=== PATIENT | female | born 1950 | race Caucasian/White ===

== ENCOUNTER 2017-01-21 18:16 | Emergency (ER) | payer BC, MEDICARE, OTHER ==
[~2017-01-21] VITALS: Ht 152.4 cm; Wt 43.0 kg
[~2017-01-21 18:16] MED LIST: LISI40TA PO
[2017-01-21 18:17] VITALS: BP 148/68; PULSE 87; RESP 20; TEMP 98.8; O2SAT 94
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
[2017-01-21] MEDS ORDERED: CEPH-460 PO (18:42)
[2017-01-21] MEDS ORDERED: LISI-515 PO (18:42)
[2017-01-21] MEDS ORDERED: BACT800T5 PO (18:42)
[2017-01-21] MEDS ORDERED: CEPHALEXIN MONOHYDRATE 500 MG CAP PO ONE (18:45)
[2017-01-21] MEDS ORDERED: SULFAMETHOXAZOLE-TRIMETHOPRIM DS 800-160 MG TAB PO ONE (18:45)
== END 2017-01-21 19:08 | disposition home or self-care (01) ==
LOC: NEPK 18:16
DX: L03.116 Cellulitis of left lower limb (principal); I10 Essential (primary) hypertension; Z72.0 Tobacco use
CPT/HCPCS: 99282

== ENCOUNTER 2017-02-10 14:52 | Emergency (ER) | payer MEDICARE ==
[~2017-02-10 14:52] MED LIST changes: +BACT800T5 PO; +CEPH-460 PO; +LISI-515 PO
[2017-02-10 14:55] VITALS: BP 126/64; PULSE 74; RESP 16; TEMP 97.9; O2SAT 98
--- NOTE | 2017-02-10 14:58 | PD ---
Physical Exam Time Seen by Provider: 14:56 Narrative 66 y/o female presents for evaluation of "not feeling good." The patient then began screaming and shrieking and calling everyone "liars" and she stormed out. Left AMA. Unclear as to what her chief complaint is. Data Data Last Documented VS Vital Signs Date Time Temp Pulse Resp B/P Pulse Ox O2 Delivery O2 Flow Rate FiO2 02/10/17 14:55 97.9 74 16 126/64 98 MDM Medical Record Reviewed: Yes Supervised Visit with YING: Rachid Villarreal February 10, 2017 14:58
== END 2017-02-10 15:12 | disposition left against medical advice (07) ==
LOC: NED 14:52
DX: F32.9 Major depressive disorder, single episode, unspecified (principal); R45.851 Suicidal ideations; Z53.20 Procedure and treatment not carried out because of patient's decision for unspecified reasons
CPT/HCPCS: 99282

== ENCOUNTER 2017-02-10 15:22 | Emergency (ER) | payer MEDICARE ==
--- NOTE | 2017-02-10 15:28 | PD ---
Physical Exam Time Seen by Provider: 15:26 Narrative 66 y/o female here for evaluation. She has been feeling depressed, worthless, occasional thoughts of self harm with no formulated plan. Seen at triage desk. awaiting bed placement. [facility] Medical Record Reviewed: Yes Supervised Visit with YING: Rachid Villarreal February 10, 2017 15:28
== END 2017-02-10 15:50 | disposition left against medical advice (07) ==
LOC: NED 15:22
DX: F32.9 Major depressive disorder, single episode, unspecified (principal); R45.851 Suicidal ideations; Z53.20 Procedure and treatment not carried out because of patient's decision for unspecified reasons
CPT/HCPCS: 99282

== ENCOUNTER 2017-02-23 14:45 | Emergency (ER) | payer MEDICARE ==
[~2017-02-23] VITALS: Ht 157.5 cm; Wt 55.0 kg
[2017-02-23 15:10] VITALS: BP 122/77; PULSE 76; RESP 13; O2SAT 95
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
[2017-02-23 16:07] LABS: AUTOMATED NEUTROPHIL # 4.1 TH/MM3 (1.8-7.7); BASOPHIL # 0.1 TH/MM3 (0-0.2); BASOPHIL % 0.8 % (0.0-2.0); EOSINOPHIL # 0.1 TH/MM3 (0-0.4); EOSINOPHIL % 1.8 % (0.0-4.0); HEMATOCRIT 38.1 % (35.0-46.0); HEMO FLAGS DIFF FINAL; LYMPHOCYTE # 3.2 TH/MM3 (1.0-4.8); MEAN CELL VOLUME 91.9 FL (80.0-100.0); MEAN CORPUSCULAR HGB CONC 33.8 % (32.0-36.0); MONO % 7.6 % (0.0-8.0); NEUT % 50.8 % (16.0-70.0); PLATELET COUNT 219 TH/MM3 (150-450); RED BLOOD COUNT 4.15 MIL/MM3 (4.00-5.30); RED CELL DISTRIBUTION WIDTH 15.2 % (11.6-17.2); WHITE BLOOD COUNT 8.1 TH/MM3 (4.0-11.0)
[2017-02-23 16:20] VITALS: BP 95/55; PULSE 81; RESP 12; TEMP 97.8; O2SAT 98
[2017-02-23 16:34] LABS: ANION GAP 11 MEQ/L (5-15); AST (GOT) 81 U/L (15-37); BLOOD UREA NITROGEN 13 MG/DL (7-18); CHLORIDE 103 MEQ/L (98-107); GLOMERULAR FILTRATION RATE 111 ML/MIN (>89); POTASSIUM 3.9 MEQ/L (3.5-5.1); SODIUM (NA) 137 MEQ/L (136-145)
[2017-02-23 16:37] LABS: ACETAMINOPHEN LESS THAN 2.0 MCG/ML (10.0-30.0); ALKALINE PHOSPHATASE 87 U/L (45-117); ALT (GPT) 73 U/L (10-53); TOTAL BILIRUBIN ADULT 0.1 MG/DL (0.2-1.0)
[2017-02-23] MEDS ORDERED: FLUMAZENIL 0.5 MG/5 ML VIAL IV PUSH PRN (17:00)
[2017-02-23] MEDS ORDERED: LORazepam 2 MG/ML VIAL IV PUSH PRN ×4 (17:00)
[2017-02-23] MEDS ORDERED: LORazepam 2 MG TAB PO PRN (17:00)
[2017-02-23] MEDS ORDERED: LORazepam 1 MG TAB PO PRN (17:00)
[2017-02-23] MEDS ORDERED: ONDANSETRON HCL 4 MG/2 ML VIAL IV PUSH PRN (17:00)
[2017-02-23 20:40] VITALS: BP 116/55; PULSE 78; RESP 18; O2SAT 94
[2017-02-23 21:23] LABS: AMPHETAMINE, URINE NEG (NEG); BARBITURATES, URINE NEG (NEG); COCAINE, URINE NEG (NEG)
[2017-02-23 22:00] VITALS: BP 124/58; PULSE 79; RESP 18; O2SAT 96
[2017-02-24 02:18] VITALS: BP 155/77; PULSE 73; RESP 18; O2SAT 98
[2017-02-24 06:00] VITALS: BP 184/96; PULSE 73; RESP 18; O2SAT 97
--- NOTE | 2017-02-24 13:38 | PD.CONS ---
Provisional Diagnosis Admission Date [place] I. Alcohol induced mood disorder, alcohol use disorder [place] II. Deferred [place] III. No significant medical history History of Present Illness Service Psychiatry Consult Requested By Primary Care Physician Ratna Patricia MD HPI The patient is a 66-year-old woman, domiciled with boyfriend in [place], employed, with psychiatric history of alcohol use disorder, well- known by service, Wilder acted before, no previous suicidal attempts, no previous psychiatric hospitalizations, no significant medical history, who presents to the ED for psychiatric evaluation under Wilder act. Patient apparently was found drinking wine and she made suicidal statements. Patient appears to be clearly intoxicated on exam. She is arousable but she is not a good historian secondary to her intoxication. Initial BAL was 366. Later on, once clinical is sober, on psychiatric evaluation patient denies depressive symptoms, she denies anxiety, she denies perceptual disturbances, she denies benji. She denies suicidal or homicidal ideation, she denies visual and auditory hallucinations. She clarifies that she was too intoxicated to go back home last night, she preferred to to come to hospital and feel safe her. Patient is now oriented 3, no attention deficit observe, no withdrawal or intoxication at this moment. Patient denies the use of illegal drugs, she endorses patient her use of alcohol, last time that she used alcohol "was about a year ago". Review of Systems Constitutional: DENIES: Diaphoretic episodes, Fatigue, Fever, Weight gain, Weight loss, Chills, Dizziness, Change in appetite, Night Sweats Endocrine: DENIES: Abnorml menstrual pattern, Heat/cold intolerance, Polydipsia , Polyuria, Polyphagia Eyes: DENIES: Blurred vision, Diplopia, Eye inflammation, Eye pain, Vision loss , Photosensitivity, Double Vision Ears, nose, mouth, throat: DENIES: Tinnitus, Hearing loss, Vertigo, Nasal discharge, Oral lesions, Throat pain, Hoarseness, Ear Pain, Running Nose, Epistaxis, Sinus Pain, Toothache, Odynophagia Respiratory: DENIES: Apneas, Cough, Snoring, Wheezing, Hemoptysis, Sputum production, Shortness of breath Cardiovascular: DENIES: Chest pain, Palpitations, Syncope, Dyspnea on Exertion , PND, Lower Extremity Edema, Orthopnea, Claudication Gastrointestinal: DENIES: Abdominal pain, Black stools, Bloody stools, Constipation, Diarrhea, Nausea, Vomiting, Difficulty Swallowing, Anorexia Musculoskeletal: DENIES: Joint pain, Muscle aches, Stiffness, Joint Swelling, Back pain, Neck pain Integumentary: DENIES: Abnormal pigmentation, Pruritus, Rash, Nail changes, Breast masses, Breast skin changes, Nipple discharge Immunologic/allergic: DENIES: Eczema, Urticaria Neurologic: DENIES: Abnormal gait, Headache, Localized weakness, Paresthesias, Seizures, Speech Problems, Tremor, Poor Balance Psychiatric: DENIES: Anxiety, Confusion, Mood changes, Depression, Hallucinations, Agitation, Suicidal Ideation, Homicidal Ideation, Delusions Past Family Social History Coded Allergies: Novocain (Verified Allergy, Severe, Anaphylaxis, 02/23/17) Active Scripts Lisinopril 20 Mg Tab20 Mg PO DAILY #30 TAB Ref 0 Prov:Lissette Aldana 01/21/17 Discontinued Scripts Cephalexin (Keflex)500 Mg Opt549 Mg PO Q12H 10 Days Ref 0 Prov:Lissette Aldana 01/21/17 Sulfamethoxazole-Trimethoprim (Bactrim DS)800-160 Mg Tab1 Tab PO BID #20 TAB Ref 0 Prov:Lissette Aldana 01/21/17 Family History Patient denies family psychiatric history Social History Patient was born and raised in [place], she lives in [place] with boyfriend, she is unemployed, highest level of education is high school Patient's Strengths (min. 2) Verbal communication Physical Exam On physical exam no EPS, no withdrawal, no tremors, no psychomotor agitation or retardation, no restlessness, no red sclerae, presents Vital Signs Vital Signs Date Time Temp Pulse Resp B/P Pulse Ox O2 Delivery O2 Flow Rate FiO2 02/24/17 06:00 73 18 184/96 97 Room Air 02/23/17 16:20 97.8 Lab Results Toxicology is negative, BAL was 366 Mental Status Examination Appearance Elderly woman, age appearing, [facility], calm, cooperative and pleasant Speech: Unremarkable Orientation: x3 Memory: Unremarkable Thought Process: Logical Thought Content: Unremarkable Language Fluid and spontaneous Fund of Knowledge Adequate for level of education Hallucination Type: None Suicidal Ideation: No Previous Suicide Attempts: No Homicidal Ideation: No Previous Homicide Attempts: No Judgment: WNL Affect: Good Mood: Appropriate Motor Activity: Normal gait Assessment & Plan Problem List: (1) Alcohol abuse with alcohol-induced mood disorder Assessment & Plan: At the moment of this evaluation the patient does not present any evidence of depression, anxiety, benji or psychosis. Patient denies suicidal ideation, she denies visual and auditory hallucinations. Recent suicidal statement to the police in the street was definitely secondary to acute alcohol intoxication, on arrival to the ER patient BAL was 366 meaning the patient was severely intoxicated. But now she is clinically sober. She does not meet criteria for psychiatric admission. She declines to be transferred to [facility] for detox. Extensive support, motivation psycho education provided. Wilder act will be lifted. ICD Code: F10.14 Assessment & Plan Estimated LOS: Preet Boyce MD February 24, 2017 13:38
== END 2017-02-24 09:57 | disposition home or self-care (01) ==
LOC: NEPJ 14:45
DX: F10.129 Alcohol abuse with intoxication, unspecified (principal); F33.1 Major depressive disorder, recurrent, moderate; J45.909 Unspecified asthma, uncomplicated; F31.9 Bipolar disorder, unspecified; F41.9 Anxiety disorder, unspecified; K21.9 Gastro-esophageal reflux disease without esophagitis; I10 Essential (primary) hypertension; I25.2 Old myocardial infarction
CPT/HCPCS: 80053; 80307; 85025; 99285

== ENCOUNTER 2017-02-24 17:20 | Emergency (ER) | payer MEDICARE | END 2017-02-24 17:35 | disposition left against medical advice (07) | LOC: NED 17:20 | DX: Z03.89 Encounter for observation for other suspected diseases and conditions ruled out (principal) | CPT/HCPCS: 99281 ==

== ENCOUNTER 2017-02-26 16:12 | Emergency (ER) | payer MEDICARE ==
[~2017-02-26] VITALS: Ht 157.5 cm; Wt 60.0 kg
[~2017-02-26 16:12] MED LIST changes: -BACT800T5 PO; -CEPH-460 PO; -LISI40TA PO
[2017-02-26 16:17] VITALS: BP 117/60; PULSE 84; RESP 18; TEMP 98.1; O2SAT 97
--- NOTE | 2017-02-26 16:20 | PD ---
Physical Exam Time Seen by Provider: 16:18 Narrative 66yo F arrives via [facility] asking for help with her psych issues and ETOH abuse. Yadiel mckeon called of concern when she was found sleeping on a park bench. Patient seen in triage. Awaiting bed placement. VS reviewed. MDM Supervised Visit with YING: Ligia Cuenca February 26, 2017 16:20
== END 2017-02-26 16:24 | disposition left against medical advice (07) ==
LOC: NETRI 16:12
DX: R46.89 Other symptoms and signs involving appearance and behavior (principal); F10.10 Alcohol abuse, uncomplicated
CPT/HCPCS: 99281

== ENCOUNTER 2017-02-26 19:56 | Emergency (ER) | payer MEDICARE ==
[~2017-02-26] VITALS: Ht 152.4 cm; Wt 45.0 kg
[2017-02-26 19:57] VITALS: BP 134/88; PULSE 67; RESP 16; TEMP 98.5; O2SAT 100
== END 2017-02-26 23:00 | disposition left against medical advice (07) ==
LOC: NED 19:56
DX: Z53.21 Procedure and treatment not carried out due to patient leaving prior to being seen by health care provider (principal)
CPT/HCPCS: 99281

== ENCOUNTER 2017-03-01 23:22 | Emergency (ER) | payer MEDICARE, OTHER ==
[2017-03-02 00:12] VITALS: BP 140/72; PULSE 81; RESP 18; TEMP 98.6; O2SAT 95
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
[2017-03-02 02:23] VITALS: BP 114/58; PULSE 102; RESP 20; O2SAT 95
[2017-03-02 06:03] VITALS: BP 151/91; PULSE 82; RESP 18; O2SAT 99
[2017-03-02 13:27] VITALS: BP 160/80; PULSE 85; RESP 18; O2SAT 97
--- NOTE | 2017-03-02 13:35 | PD ---
History of Present Illness Chief Complaint: Psychiatric Symptoms Time Seen by Provider: 13:15 Travel History International Travel<30 Days: No Contact w/Intl Traveler<30days: No Known affected area: No Legal Status Legal Status: Wilder Act History of Present Illness: History of Present Illness HPI 66-year-old female with long-standing history of alcohol abuse, presents to the emergency department today under a Wilder act for psychiatric evaluation. Patient states that she told police that she wanted to kill herself. As per ed documentation: " Patient states that this time she is not suicidal or homicidal. States she has been drinking alcohol. " EMR is reviewed. She is known to psychiatry services as she has had several evaluations for reported suicidal ideation while intoxicated. This morning the patient is alert and oriented. She is clinically sober. Speech is clear, logical and goal directed. There is no benji. No psychosis and no significant depression or anxiety. She denies any suicidal or homicidal ideation, intent or plan. Patient is requesting to be discharged and states " I was drinking when I approached the police" States that she has been sober for 3 years and has started drinking again about one week ago. Stressors include her loosing her dog a few weeks ago. Iván is refusing to be transferred to [facility] for treatment of her substance use. PFSH Past Medical History Anemia: Yes Arthritis: Yes Asthma: Yes Autoimmune Disease: No Bipolar Disorder: Yes Anxiety: Yes Depression: Yes Heart Rhythm Problems: No Cancer: No Cardiovascular Problems: Yes (htn) High Cholesterol: No Chest Pain: Yes Congestive Heart Failure: No Cerebrovascular Accident: No Diabetes: No Diminished Hearing: No Gastrointestinal Disorders: Yes GERD: Yes Genitourinary: No Headaches: No Hiatal Hernia: No Hypertension: Yes Immune Disorder: No Implanted Vascular Access Dvce: No Insomnia: Yes Musculoskeletal: No Neurologic: Yes Psychiatric: Yes Reproductive: Yes Respiratory: No Integumentary: Yes (INSECT BITES) Immunizations Current: Yes Migraines: No Myocardial Infarction: Yes (PER HX) Pneumonia: Yes (PER HX) Schizophrenia: Yes Seizures: Yes (FROM ETOH WITHDRAWAL) Thyroid Disease: No Ulcer: Yes (PER HX) Menopausal: Yes : 1 Para: 1 Miscarriage: 0 : 0 Ovarian Cysts: Yes (PER HX...RIGHT OVARIAN CYST REMOVAL) Tubal Ligation: Yes Past Surgical History Abdominal Surgery: No AICD: No Arteriovenous Shunt: No Cardiac Surgery: No Endocrine Surgery: No Eye Surgery: No Genitourinary Surgery: No Gynecologic Surgery: Yes Insulin Pump: No Joint Replacement: No Neurologic Surgery: No Oral Surgery: No Pacemaker: No Thoracic Surgery: No Tonsillectomy: Yes Other Surgery: Yes Psychiatric History Psychiatric History Hx Psychiatric Treatment: PER [facility] RECORDS: DEPRESSION History of Inpatient Treatment: Yes Guns or firearms in home: No Social History Single female. Lives on her boat. 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 Hx Alcohol Use: Yes (RARELY ) Hx Tobacco Use: Yes (1/2PPD) Hx Substance Use: Yes Substance Use Type: Alcohol Other Substances Used: SUBSTANCE ABUSE TREATMENT Hx of Substance Use Treatment: Yes Family Psychiatric History negative Allergies-Medications (Allergen,Severity, Reaction): Coded Allergies: Novocain (Verified Allergy, Severe, Anaphylaxis, 02/26/17) Reported Meds & Prescriptions Reported Meds & Active Scripts Active Review of Systems Except as stated in HPI: all other systems reviewed are Neg Exam Alert: Yes [place]: Person (ox4) Mood: Calm Affect: Appropriate, Euthymic Speech: Clear, Logical Eye Contact: Normal Memory Intact: Comment (No impairmetn) Hallucinations: Other (neagtive) Delusions: No Suicidal: Ideation (deneis any) Homicidal: Ideation (deneis any) Insight/Judgement Fair. Not impaired MDM Medical Decision Making Medical Record Reviewed: Yes Assessment/Plan 66 year old female who has a hx of alcohol abuse and while intoxicated she approached [facility] and asked to be brought to the hospital. She is clinically sober now and is denying any suicidal or homicidal ideation, intent or plan . She is requesting discharge. Cleared from psychiatry for discharge. Encouraged sobriety, AA. Orders Psych Screen (03/02/17 00:24) Diet Regular Basic (03/02/17 Lunch) Results Vital Signs Date Time Temp Pulse Resp B/P Pulse Ox O2 Delivery O2 Flow Rate FiO2 03/02/17 13:27 85 18 160/80 97 Room Air 03/02/17 06:03 82 18 151/91 99 03/02/17 02:23 102 20 114/58 95 Room Air 03/02/17 00:13 81 18 03/02/17 00:12 98.6 81 18 140/72 95 Diagnosis Primary Impression: Alcohol dependence Psychiatrically Cleared: Yes Med/ Other Pt Specific Info: No Meds Exist/No RX given Disposition: 01 DISCHARGE HOME Condition: Stable Problem Qualifiers Primary Impression: Alcohol dependence Qualified Code: F10.24 - Alcohol dependence with alcohol-induced mood disorder Aisha Win [facility] March 02, 2017 13:35
[2017-03-02 13:50] VITALS: BP 160/80; PULSE 85; RESP 18; O2SAT 97
[2017-03-03] MEDS ORDERED: LISI-515 PO (19:17)
== END 2017-03-02 15:22 | disposition home or self-care (01) ==
LOC: NEPD 23:22 → NEPJ 03-02 15:22
DX: F10.14 Alcohol abuse with alcohol-induced mood disorder (principal); I10 Essential (primary) hypertension; F31.9 Bipolar disorder, unspecified; K21.9 Gastro-esophageal reflux disease without esophagitis; F20.9 Schizophrenia, unspecified; I25.2 Old myocardial infarction; F17.210 Nicotine dependence, cigarettes, uncomplicated
CPT/HCPCS: 99283

== ENCOUNTER 2017-03-03 19:10 | Emergency (ER) | payer MEDICARE, OTHER ==
[~2017-03-03] VITALS: Ht 152.4 cm; Wt 42.0 kg
[2017-03-03] MEDS ORDERED: LISI-515 PO (19:17)
[2017-03-03 19:25] VITALS: RESP 18; O2SAT 92
[2017-03-03 19:27] VITALS: BP 115/76; PULSE 86; RESP 18; O2SAT 94
[2017-03-03] MEDS ORDERED: SODIUM CHLOR 0.9% 1000 ML INJ 1,000 ML IV ONE (19:30)
[2017-03-03] MEDS ORDERED: SODIUM CHLORIDE 0.9% FLUSH 10 ML FLUSH IVF PRN (19:30)
--- NOTE | 2017-03-03 19:33 | PD ---
HPI Chief Complaint: Pain: Acute or Chronic Time Seen by Provider: 19:16 Travel History International Travel<30 days: No Contact w/Intl Traveler<30days: No Traveled to known affect area: No History of Present Illness HPI Patient is a 66-year-old female with history of alcoholism as well as hypertension who presents to emergency room by EMS for multiple complaints. Patient reports that 1 hour prior to coming to the emergency room, she began to have left sided chest pain. Patient reports that her chest pain is sharp and stabbing in nature, reports that it hurts for her to take a deep breath and for her to palpate her chest wall. Patient reports no shortness of breath with symptoms, denies diaphoresis, that she has never had chest pain in the past. She reports that nothing makes her symptoms better or worse. She denies any use of drugs, reports that she did not use any alcohol today. Patient also here under Wilder act, patient informed police officers that she wanted to kill herself by taking machete and stabbing herself in the abdomen. Patient here denies suicidal or homicidal ideations. PFSH Past Medical History Anemia: Yes Arthritis: Yes Asthma: Yes Autoimmune Disease: No Bipolar Disorder: Yes Anxiety: Yes Depression: Yes Heart Rhythm Problems: No Cancer: No Cardiovascular Problems: Yes (HTN) High Cholesterol: No Chest Pain: Yes Congestive Heart Failure: No Cerebrovascular Accident: No Diabetes: No Diminished Hearing: No Gastrointestinal Disorders: Yes GERD: Yes Genitourinary: No Headaches: No Hiatal Hernia: No Hypertension: Yes Immune Disorder: No Implanted Vascular Access Dvce: No Insomnia: Yes Musculoskeletal: No Neurologic: Yes Psychiatric: Yes Reproductive: Yes Respiratory: No Integumentary: Yes (INSECT BITES) Immunizations Current: Yes Migraines: No Myocardial Infarction: Yes (PER HX) Pneumonia: Yes (PER HX) Schizophrenia: Yes Seizures: Yes (FROM ETOH WITHDRAWAL) Thyroid Disease: No Ulcer: Yes (PER HX) Influenza Vaccination: No ?: Not Menopausal: Yes : 1 Para: 1 Miscarriage: 0 : 0 Ovarian Cysts: Yes (PER HX...RIGHT OVARIAN CYST REMOVAL) Tubal Ligation: Yes Past Surgical History Abdominal Surgery: No AICD: No Arteriovenous Shunt: No Cardiac Surgery: No Endocrine Surgery: No Eye Surgery: No Genitourinary Surgery: No Gynecologic Surgery: Yes Insulin Pump: No Joint Replacement: No Neurologic Surgery: No Oral Surgery: No Pacemaker: No Thoracic Surgery: No Tonsillectomy: Yes Other Surgery: Yes Social History Alcohol Use: Yes (OCCASSIONALLY) Tobacco Use: Yes (1/2 PPD) Substance Use: No (HX) Allergies-Medications (Allergen,Severity, Reaction): Coded Allergies: Novocain (Verified Allergy, Severe, Anaphylaxis, 03/03/17) Reported Meds & Prescriptions Reported Meds & Active Scripts Active Reported Lisinopril 20 Mg Tab 20 Mg PO DAILY Review of Systems General / Constitutional: No: Fever Eyes: No: Visual changes HENT: No: Headaches Cardiovascular: Positive: Chest Pain or Discomfort, Palpitations, No: Irregular Rhythm, Tachycardia, Diaphoresis, Dyspnea on exertion Respiratory: Positive: Cough, No: Shortness of Breath Gastrointestinal: No: Abdominal Pain Genitourinary: No: Dysuria Musculoskeletal: No: Pain Skin: No Rash Neurologic: No: Weakness Psychiatric: Positive: Anxiety, Depression, Suicidal Ideations, Substance Abuse Endocrine: No: Polydipsia Hematologic/Lymphatic: No: Easy Bruising Physical Exam Narrative GENERAL: Mild distress SKIN: Focused skin assessment warm/dry. HEAD: Atraumatic. Normocephalic. EYES: Pupils equal and round. No scleral icterus. No injection or drainage. ENT: No nasal bleeding or discharge. Mucous membranes pink and moist. NECK: Trachea midline. No JVD. CARDIOVASCULAR: Regular rate and rhythm. No murmur appreciated. RESPIRATORY: No accessory muscle use. Scattered wheezing on exam GASTROINTESTINAL: Abdomen soft, non-tender, nondistended. Hepatic and splenic margins not palpable. MUSCULOSKELETAL: No obvious deformities. No clubbing. No cyanosis. No edema. NEUROLOGICAL: Awake and alert. No obvious cranial nerve deficits. Motor grossly within normal limits. Normal speech. PSYCHIATRIC: Appropriate mood and affect; insight and judgment normal. Data Data Last Documented VS Vital Signs Date Time Temp Pulse Resp B/P Pulse Ox O2 Delivery O2 Flow Rate FiO2 03/03/17 23:06 94 19 128/64 94 Room Air 03/03/17 21:29 2 Orders Complete Blood Count With Diff (03/03/17 19:22) Comprehensive Metabolic Panel (03/03/17 19:22) Thyroid Stimulating Hormone (03/03/17 19:22) Urinalysis - C+S If Indicated (03/03/17 19:22) Electrocardiogram (03/03/17 19:22) Oximetry (03/03/17 19:22) Iv Access Insert/Monitor (03/03/17 19:22) Ecg Monitoring (03/03/17 19:22) Psych Screen (03/03/17 19:22) Sodium Chloride 0.9% Flush (Ns Flush) (03/03/17 19:30) Drug Screen, Random Urine (03/03/17 19:22) Alcohol (Ethanol) (03/03/17 19:22) Salicylates (Aspirin) (03/03/17 19:22) Tylenol (Acetaminophen) (03/03/17 19:22) Ckmb (Isoenzyme) Profile (03/03/17 19:22) D-Dimer (03/03/17 19:22) Troponin I (03/03/17 19:22) Chest, Single Ap (03/03/17 19:22) Sodium Chlor 0.9% 1000 Ml Inj (Ns 1000 M (03/03/17 19:30) Methylprednisolone So Succ Inj (Solumedr (03/03/17 19:45) Albuterol-Ipratropium Neb (Duoneb Neb) (03/03/17 19:45) Ct Pulmonary Angiogram (03/03/17 20:22) Iohexol 350 Inj (Omnipaque 350 Inj) (03/03/17 22:11) Labs Laboratory Tests Test 03/03/17 03/03/17 19:29 19:37 White Blood Count 6.9 TH/MM3 Red Blood Count 4.37 MIL/MM3 Hemoglobin 13.8 GM/DL Hematocrit 39.8 % Mean Corpuscular Volume 91.3 FL Mean Corpuscular Hemoglobin 31.6 PG Mean Corpuscular Hemoglobin 34.7 % Concent Red Cell Distribution Width 15.8 % Platelet Count 250 TH/MM3 Mean Platelet Volume 6.8 FL Neutrophils (%) (Auto) 49.8 % Lymphocytes (%) (Auto) 40.4 % Monocytes (%) (Auto) 6.5 % Eosinophils (%) (Auto) 2.6 % Basophils (%) (Auto) 0.7 % Neutrophils # (Auto) 3.4 TH/MM3 Lymphocytes # (Auto) 2.8 TH/MM3 Monocytes # (Auto) 0.5 TH/MM3 Eosinophils # (Auto) 0.2 TH/MM3 Basophils # (Auto) 0.0 TH/MM3 CBC Comment DIFF FINAL Differential Comment D-Dimer Quantitative (PE/DVT) 0.50 MG/L FEU Sodium Level 140 MEQ/L Potassium Level 4.4 MEQ/L Chloride Level 105 MEQ/L Carbon Dioxide Level 26.6 MEQ/L Anion Gap 8 MEQ/L Blood Urea Nitrogen 17 MG/DL Creatinine 0.73 MG/DL Estimat Glomerular Filtration 80 ML/MIN Rate Random Glucose 91 MG/DL Calcium Level 8.3 MG/DL Total Bilirubin 0.2 MG/DL Aspartate Amino Transf 63 U/L (AST/SGOT) Alanine Aminotransferase 64 U/L (ALT/SGPT) Alkaline Phosphatase 102 U/L Total Creatine Kinase 45 U/L Troponin I LESS THAN 0.02 NG/ML Total Protein 7.7 GM/DL Albumin 3.5 GM/DL Thyroid Stimulating Hormone 2.530 uIU/ML 3rd Gen Salicylates Level 2.1 MG/DL Acetaminophen Level LESS THAN 2.0 MCG/ML Ethyl Alcohol Level 296 MG/DL Urine Color YELLOW Urine Turbidity CLEAR Urine pH 6.0 Urine Specific [place] 1.012 Urine Protein NEG mg/dL Urine Glucose (UA) NEG mg/dL Urine Ketones NEG mg/dL Urine Occult Blood NEG Urine Nitrite NEG Urine Bilirubin NEG Urine Urobilinogen LESS THAN 2.0 MG/DL Urine Leukocyte Esterase NEG Urine RBC 1 /hpf Urine WBC 3 /hpf Urine Squamous Epithelial <1 /hpf Cells Urine Hyaline Casts 9 /lpf Microscopic Urinalysis Comment CULT NOT INDICATED Urine Opiates Screen NEG Urine Barbiturates Screen NEG Urine Amphetamines Screen NEG Urine Benzodiazepines Screen NEG Urine Cocaine Screen NEG Urine Cannabinoids Screen NEG [facility] Medical Decision Making Medical Screen Exam Complete: Yes Emergency Medical Condition: Yes Interpretation(s) EKG at 192: Normal sinus rhythm at 87 beats a minute, QT/QTC 374/419, no acute ST or T-wave changes Vital Signs Date Time Temp Pulse Resp B/P Pulse Ox O2 Delivery O2 Flow Rate FiO2 03/03/17 19:27 18 94 Nasal Cannula 2 03/03/17 19:27 86 18 115/76 94 Nasal Cannula 2 03/03/17 19:25 18 92 Room Air 03/03/17 19:18 86 Differential Diagnosis Alcohol abuse, ACS, arrhythmia, PE, pneumonia, suicidal ideations, depression, tobacco abuse, COPD exacerbation Narrative Course 66-year-old female who presents to emergency with multiple complaints. Patient reports that 1 hour prior to coming to the emergency room she began to have chest pain. Patient reports left sided chest pain which is sharp and stabbing in nature. Patient was placed on a manager monitoring upon arrival to the emergency room. EKG was obtained which showed no acute ST or T-wave changes. Plan to obtain lab work including cardiac enzymes and basic blood work, x-ray of the chest ordered. We'll monitor patient on manager monitoring. Patient also here under Wilder act, patient reported to police officers today that she wanted to take machete and stab herself in the abdomen to kill herself. Patient at this time denies this, psychiatric screening labs including alcohol, Tylenol and aspirin level ordered. Once medically cleared, will have patient seen by psych screeners. Laboratory Tests Test 03/03/17 03/03/17 19:29 19:37 White Blood Count 6.9 TH/MM3 (4.0-11.0) Red Blood Count 4.37 MIL/MM3 (4.00-5.30) Hemoglobin 13.8 GM/DL (11.6-15.3) Hematocrit 39.8 % (35.0-46.0) Mean Corpuscular Volume 91.3 FL (80.0-100.0) Mean Corpuscular Hemoglobin 31.6 PG (27.0-34.0) Mean Corpuscular Hemoglobin 34.7 % Concent (32.0-36.0) Red Cell Distribution Width 15.8 % (11.6-17.2) Platelet Count 250 TH/MM3 (150-450) Mean Platelet Volume 6.8 FL (7.0-11.0) Neutrophils (%) (Auto) 49.8 % (16.0-70.0) Lymphocytes (%) (Auto) 40.4 % (9.0-44.0) Monocytes (%) (Auto) 6.5 % (0.0-8.0) Eosinophils (%) (Auto) 2.6 % (0.0-4.0) Basophils (%) (Auto) 0.7 % (0.0-2.0) Neutrophils # (Auto) 3.4 TH/MM3 (1.8-7.7) Lymphocytes # (Auto) 2.8 TH/MM3 (1.0-4.8) Monocytes # (Auto) 0.5 TH/MM3 (0-0.9) Eosinophils # (Auto) 0.2 TH/MM3 (0-0.4) Basophils # (Auto) 0.0 TH/MM3 (0-0.2) CBC Comment DIFF FINAL Differential Comment D-Dimer Quantitative (PE/DVT) 0.50 MG/L FEU (0.00-0.50) Sodium Level 140 MEQ/L (136-145) Potassium Level 4.4 MEQ/L (3.5-5.1) Chloride Level 105 MEQ/L (98-107) Carbon Dioxide Level 26.6 MEQ/L (21.0-32.0) Anion Gap 8 MEQ/L (5-15) Blood Urea Nitrogen 17 MG/DL (7-18) Creatinine 0.73 MG/DL (0.50-1.00) Estimat Glomerular Filtration 80 ML/MIN (>89) Rate Random Glucose 91 MG/DL (74-106) Calcium Level 8.3 MG/DL (8.5-10.1) Total Bilirubin 0.2 MG/DL (0.2-1.0) Aspartate Amino Transf 63 U/L (15-37) (AST/SGOT) Alanine Aminotransferase 64 U/L (10-53) (ALT/SGPT) Alkaline Phosphatase 102 U/L (45-117) Total Creatine Kinase 45 U/L (26-192) Troponin I LESS THAN 0.02 NG/ML (0.02-0.05) Total Protein 7.7 GM/DL (6.4-8.2) Albumin 3.5 GM/DL (3.4-5.0) Thyroid Stimulating Hormone 2.530 uIU/ML 3rd Gen (0.358-3.740) Salicylates Level 2.1 MG/DL (2.8-20.0) Acetaminophen Level LESS THAN 2.0 MCG/ML (10.0-30.0) Ethyl Alcohol Level 296 MG/DL (0-5) Urine Color YELLOW (YELLW/STRAW) Urine Turbidity CLEAR (CLEAR) Urine pH 6.0 (5.0-8.5) Urine Specific [place] 1.012 (1.002-1.035) Urine Protein NEG mg/dL (NEG-TRACE) Urine Glucose (UA) NEG mg/dL (NEG) Urine Ketones NEG mg/dL (NEG) Urine Occult Blood NEG (NEG) Urine Nitrite NEG (NEG) Urine Bilirubin NEG (NEG) Urine Urobilinogen LESS THAN 2.0 MG/DL (LESS THAN 2.0) Urine Leukocyte Esterase NEG (NEG) Urine RBC 1 /hpf (0-3) Urine WBC 3 /hpf (0-5) Urine Squamous Epithelial <1 /hpf (0-5) Cells Urine Hyaline Casts 9 /lpf (RARE) Microscopic Urinalysis Comment CULT NOT INDICATED Urine Opiates Screen NEG (NEG) Urine Barbiturates Screen NEG (NEG) Urine Amphetamines Screen NEG (NEG) Urine Benzodiazepines Screen NEG (NEG) Urine Cocaine Screen NEG (NEG) Urine Cannabinoids Screen NEG (NEG) Last Impressions CT Angiography 03/03/172021 Signed Impressions: Service Date/Time: Friday, March 03, 2017 22:07 - CONCLUSION: 1. No evidence of pulmonary embolism. 2. [id number] size hiatal hernia. Loyd Henriquez MD Chest X-Ray 03/03/171921 Signed Impressions: Service Date/Time: Friday, March 03, 2017 19:28 - CONCLUSION: No acute disease. Loyd Henriquez MD Patient's chest pain atypical for cardiac chest pain. heart score 3 - CTA neg for PE, labs are benign, patient chest pain free while in the ER, plan for her to follow up with animal sitter as outpatient patient in intoxicated - will clear for psych once sober Diagnosis Primary Impression: COPD exacerbation Additional Impressions: Alcohol intoxication Suicidal ideations Referrals: Shannon Mccarthy MD Additional Instructions: Please follow-up with your animal sitter as soon as possible Please follow-up with her primary care doctor as soon as possible Please stop drinking alcohol Return to emergency room as needed or if symptoms return Berenice Macias DO March 03, 2017 19:33
[2017-03-03] MEDS ORDERED: methylPREDNISolone SOD SUCC 125 MG/2 ML VIAL IV PUSH ONE (19:45)
[2017-03-03 19:49] LABS: AUTOMATED NEUTROPHIL # 3.4 TH/MM3 (1.8-7.7); BASOPHIL % 0.7 % (0.0-2.0); EOSINOPHIL # 0.2 TH/MM3 (0-0.4); EOSINOPHIL % 2.6 % (0.0-4.0); HEMATOCRIT 39.8 % (35.0-46.0); HEMO FLAGS DIFF FINAL; LYMPH % 40.4 % (9.0-44.0); LYMPHOCYTE # 2.8 TH/MM3 (1.0-4.8); MEAN CELL VOLUME 91.3 FL (80.0-100.0); MEAN CORPUSCULAR HEMOGLOBIN 31.6 PG (27.0-34.0); MEAN CORPUSCULAR HGB CONC 34.7 % (32.0-36.0); MONO % 6.5 % (0.0-8.0); NEUT % 49.8 % (16.0-70.0); PLATELET COUNT 250 TH/MM3 (150-450); RED BLOOD COUNT 4.37 MIL/MM3 (4.00-5.30); RED CELL DISTRIBUTION WIDTH 15.8 % (11.6-17.2); WHITE BLOOD COUNT 6.9 TH/MM3 (4.0-11.0)
--- NOTE | 2017-03-03 19:49 | RADRPT ---
EXAM DATE/TIME: 03/03/2017 19:28 [facility] COMPARISON: CHEST SINGLE AP, March 15, 2016, 5:29. INDICATIONS : Chest pain. MEDICAL HISTORY : None. SURGICAL HISTORY : None. ENCOUNTER: Initial ACUITY: 1 day PAIN SCORE: Non-responsive. LOCATION: Bilateral chest FINDINGS: A single view of the chest demonstrates the lungs to be symmetrically aerated without evidence of mas s, infiltrate or effusion. Atherosclerotic changes are present in the aorta. There are multiple overl anny electrocardiogram leads. The cardiomediastinal contours are unremarkable. Osseous structures ar e intact. CONCLUSION: No acute disease. Loyd Henriquez MD on March 03, 2017 at 19:47 Board Certified Radiologist. This report was verified electronically.
[2017-03-03 19:50] LABS: BLOOD, URINE NEG (NEG); COMMENT (UR) CULT NOT INDICATED; CULTURE IF INDICATED CULT NOT INDICATED; GLUCOSE,URINE NEG (NEG); HYALINE CAST, URINE 9 /lpf (RARE); KETONE, URINE NEG (NEG); NITRITE,URINE NEG (NEG); SQUAMOUS EPITHELIAL CELL URINE <1 /hpf (0-5); URINE COLOR YELLOW (YELLW/STRAW)
[2017-03-03 19:56] LABS: AMPHETAMINE, URINE NEG (NEG); BARBITURATES, URINE NEG (NEG); COCAINE, URINE NEG (NEG)
[2017-03-03] MEDS: RESP: ALBUTEROL 2.5 MG/IPRATROPIUM 0.5 MG NEB (SCH) INH ×2 (20:04→20:05)
[2017-03-03 20:28] LABS: ANION GAP 8 MEQ/L (5-15); AST (GOT) 63 U/L (15-37); BICARBONATE 26.6 MEQ/L (21.0-32.0); BLOOD UREA NITROGEN 17 MG/DL (7-18); CHLORIDE 105 MEQ/L (98-107); GLOMERULAR FILTRATION RATE 80 ML/MIN (>89); POTASSIUM 4.4 MEQ/L (3.5-5.1); SODIUM (NA) 140 MEQ/L (136-145)
[2017-03-03 20:39] LABS: ACETAMINOPHEN LESS THAN 2.0 MCG/ML (10.0-30.0); ALKALINE PHOSPHATASE 102 U/L (45-117); ALT (GPT) 64 U/L (10-53); TOTAL BILIRUBIN ADULT 0.2 MG/DL (0.2-1.0)
[2017-03-03 20:56] LABS: CREATINE KINASE 45 U/L (26-192)
[2017-03-03 21:29] VITALS: BP 126/59; PULSE 98; RESP 18; O2SAT 99
[2017-03-03] MEDS ORDERED: IOHEXOL 350 MG/ML 10 ML VIAL (for RAD DIAG) IV ONE (22:11)
--- NOTE | 2017-03-03 22:21 | RADRPT ---
EXAM DATE/TIME: 03/03/2017 22:07 [facility] COMPARISON: CHEST SINGLE AP, March 03, 2017, 19:28. INDICATIONS : Chest pain. IV CONTRAST: 65 cc Omnipaque 350 (iohexol) IV RADIATION DOSE: 19.43 CTDIvol (mGy) MEDICAL HISTORY : Cardiovascular disease. Hypertension. Seizures. SURGICAL HISTORY : None. ENCOUNTER: Initial ACUITY: 1 day PAIN SCALE: 5/10 LOCATION: Bilateral chest TECHNIQUE: Volumetric scanning of the chest was performed using a pulmonary embolism protocol MIP images were re constructed. Using automated exposure control and adjustment of the mA and/or kV according to patien t size, radiation dose was kept as low as reasonably achievable to obtain optimal diagnostic quality images. FINDINGS: PULMONARY ARTERIES: No filling defects are seen in the pulmonary arteries through the segmental level. LUNGS: There is no consolidation or pneumothorax . No concerning pulmonary nodule is visualized. PLEURAE: There is no pleural thickening or pleural effusion. MEDIASTINUM: There is good visualization of the great vessels of the middle mediastinum. No evidence of mediastin al or hilar adenopathy/mass. MUSCULOSKELETAL: Within normal limits for patient age. MISCELLANEOUS: The visualized upper abdominal organs demonstrate no acute abnormality. There is a small to moderate size hiatal hernia. CONCLUSION: 1. No evidence of pulmonary embolism. 2. [id number] size hiatal hernia. Loyd Henriquez MD on March 03, 2017 at 22:15 Board Certified Radiologist. This report was verified electronically.
[2017-03-03 22:48] VITALS: BP_SYST 112; BP_SYST 126; BP_DIAS 58; BP_DIAS 59; PULSE 99; RESP 18; O2SAT 97
[2017-03-03 23:06] VITALS: BP 128/64; PULSE 94; RESP 19; O2SAT 94
[2017-03-04 02:16] VITALS: BP 163/86; PULSE 95; RESP 19; O2SAT 96
[2017-03-04 06:10] VITALS: BP 187/88; PULSE 92; RESP 20; TEMP 96.9; O2SAT 98
[2017-03-04 10:57] VITALS: BP 171/77; PULSE 85; RESP 16; O2SAT 97
[2017-03-04 13:06] VITALS: BP 170/78; TEMP 97.6
--- NOTE | 2017-03-04 13:08 | PD ---
History of Present Illness Chief Complaint: Pain: Acute or Chronic Time Seen by Provider: 12:30 Travel History International Travel<30 Days: No Contact w/Intl Traveler<30days: No Known affected area: No Legal Status Legal Status: Wilder Act Wilder Act Signed By: Guillermo Wilder Act Comment: 03/03/2017 6:59 PM History of Present Illness: History of Present Illness HPI Patient is a 66-year-old female known to this service with history of alcoholism as well as hypertension who presents to emergency room by EMS for multiple complaints including chest pain. She states that she called the police because she was scared as she has never felt this type of pain and she denies that she said anything indicating that she was suicidal. Her BAL on arrival was 296. She initially denies that she had more than " one drink" and then she states that " it was a big one". EMR is reviewed. Patient has had several admissions for ETOH related complaints in the past few weeks. This morning she is awake, alert, oriented, calm and clinically sober. She is requesting discharge as " I have a job and I don't want to loose my job". She continues to deny any suicidal or homicidal ideation , intent or plan. there is no evidence of any benji or psychosis. She minimizes her alcohol use. . PFSH Past Medical History Anemia: Yes Arthritis: Yes Asthma: Yes Autoimmune Disease: No Bipolar Disorder: Yes Anxiety: Yes Depression: Yes Heart Rhythm Problems: No Cancer: No Cardiovascular Problems: Yes (HTN) High Cholesterol: No Chest Pain: Yes Congestive Heart Failure: No Cerebrovascular Accident: No Diabetes: No Diminished Hearing: No Gastrointestinal Disorders: Yes GERD: Yes Genitourinary: No Headaches: No Hiatal Hernia: No Hypertension: Yes Immune Disorder: No Implanted Vascular Access Dvce: No Insomnia: Yes Musculoskeletal: No Neurologic: Yes Psychiatric: Yes Reproductive: Yes Respiratory: No Integumentary: Yes (INSECT BITES) Immunizations Current: Yes Migraines: No Myocardial Infarction: Yes (PER HX) Pneumonia: Yes (PER HX) Schizophrenia: Yes Seizures: Yes (FROM ETOH WITHDRAWAL) Thyroid Disease: No Ulcer: Yes (PER HX) Influenza Vaccination: No ?: Not Menopausal: Yes : 1 Para: 1 Miscarriage: 0 : 0 Ovarian Cysts: Yes (PER HX...RIGHT OVARIAN CYST REMOVAL) Tubal Ligation: Yes Past Surgical History Abdominal Surgery: No AICD: No Arteriovenous Shunt: No Cardiac Surgery: No Endocrine Surgery: No Eye Surgery: No Genitourinary Surgery: No Gynecologic Surgery: Yes Insulin Pump: No Joint Replacement: No Neurologic Surgery: No Oral Surgery: No Pacemaker: No Thoracic Surgery: No Tonsillectomy: Yes Other Surgery: Yes Psychiatric History Psychiatric History Hx Psychiatric Treatment: PER H RECORDS: DEPRESSION History of Inpatient Treatment: Yes Guns or firearms in home: No Social History Single female. lives on her house[place]. 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 Hx Alcohol Use: Yes (OCCASSIONALLY) Hx Tobacco Use: Yes (1/2 PPD) Hx Substance Use: No (HX) Substance Use Type: Alcohol Other Substances Used: SUBSTANCE ABUSE TREATMENT Hx of Substance Use Treatment: Yes Family Psychiatric History Negative Allergies-Medications (Allergen,Severity, Reaction): Coded Allergies: Novocain (Verified Allergy, Severe, Anaphylaxis, 03/03/17) Reported Meds & Prescriptions Reported Meds & Active Scripts Active Reported Lisinopril 20 Mg Tab 20 Mg PO DAILY Review of Systems Except as stated in HPI: all other systems reviewed are Neg Psychiatric: DENIES: Anxiety, Confusion, Mood changes, Depression, Hallucinations, Agitation, Suicidal Ideation, Homicidal Ideation, Delusions Exam Alert: Yes Chancellor: Person (ox4 ) Mood: Calm Affect: Appropriate Speech: Clear, Logical Eye Contact: Normal Memory Intact: Comment (No impairment ) Hallucinations: Other (negative ) Delusions: No Suicidal: Ideation (denies ) Homicidal: Ideation (denies ) Insight/Judgement Poor . Poor MDM Medical Decision Making Medical Record Reviewed: Yes Assessment/Plan 66 year old female with history of alcohol dependence under a BA after she allegedly reported suicidal ideation in context of alcohol intoxication. At this time she is clinically sober and denies any suicidal ideation or any other psychiatric symptomatology. She is requesting discharge. I have counseled her regarding alcohol treatment options as well as her previous visits to ED indicating she is drinking more than what she is reporting. I have discussed SMA. At this time she refuses any treatment. Does not meet BA criteria . will lift BA and discharge at this time. Orders Complete Blood Count With Diff (03/03/17 19:22) Comprehensive Metabolic Panel (03/03/17 19:22) Thyroid Stimulating Hormone (03/03/17:22) Urinalysis - C+S If Indicated (03/03/17 19:22) Electrocardiogram (03/03/17 19:22) Oximetry (03/03/17 19:22) Iv Access Insert/Monitor (03/03/17:22) Ecg Monitoring (03/03/17:22) Psych Screen (03/03/17 19:22) Sodium Chloride 0.9% Flush (Ns Flush) (03/03/17 19:30) Drug Screen, Random Urine (03/03/17:22) Alcohol (Ethanol) (03/03/17:22) Salicylates (Aspirin) (03/03/17 19:22) Tylenol (Acetaminophen) (03/03/17 19:22) Ckmb (Isoenzyme) Profile (03/03/17:22) D-Dimer (03/03/17:22) Troponin I (03/03/17 19:22) Chest, Single Ap (03/03/17 19:22) Sodium Chlor 0.9% 1000 Ml Inj (Ns 1000 M (03/03/17 19:30) Methylprednisolone So Succ Inj (Solumedr (03/03/17 19:45) Albuterol-Ipratropium Neb (Duoneb Neb) (03/03/17 19:45) Ct Pulmonary Angiogram (03/03/17 20:22) Iohexol 350 Inj (Omnipaque 350 Inj) (03/03/17 22:11) Diet Regular Basic (03/04/17 Breakfast) Diet Regular Basic (03/04/17 Lunch) Results Vital Signs Date Time Temp Pulse Resp B/P Pulse Ox O2 Delivery O2 Flow Rate FiO2 03/04/17 10:57 85 16 171/77 97 Room Air 03/04/17 06:18 92 20 03/04/17 06:10 96.9 92 20 187/88 98 Room Air 03/04/17 02:16 95 19 163/86 96 Room Air 03/03/17 23:06 94 19 128/64 94 Room Air 03/03/17 22:48 99 18 112/58 97 Room Air 03/03/17 21:29 98 18 126/59 99 Nasal Cannula 2 03/03/17 19:27 18 94 Nasal Cannula 2 03/03/17 19:27 86 18 115/76 94 Nasal Cannula 2 03/03/17 19:25 18 92 Room Air 03/03/17 19:18 86 Laboratory Tests Test 03/03/17 03/03/17 19:29 19:37 White Blood Count 6.9 Red Blood Count 4.37 Hemoglobin 13.8 Hematocrit 39.8 Mean Corpuscular Volume 91.3 Mean Corpuscular Hemoglobin 31.6 Mean Corpuscular Hemoglobin 34.7 Concent Red Cell Distribution Width 15.8 Platelet Count 250 Mean Platelet Volume 6.8 Neutrophils (%) (Auto) 49.8 Lymphocytes (%) (Auto) 40.4 Monocytes (%) (Auto) 6.5 Eosinophils (%) (Auto) 2.6 Basophils (%) (Auto) 0.7 Neutrophils # (Auto) 3.4 Lymphocytes # (Auto) 2.8 Monocytes # (Auto) 0.5 Eosinophils # (Auto) 0.2 Basophils # (Auto) 0.0 CBC Comment DIFF FINAL Differential Comment D-Dimer Quantitative (PE/DVT) 0.50 Sodium Level 140 Potassium Level 4.4 Chloride Level 105 Carbon Dioxide Level 26.6 Anion Gap 8 Blood Urea Nitrogen 17 Creatinine 0.73 Estimat Glomerular Filtration 80 Rate Random Glucose 91 Calcium Level 8.3 Total Bilirubin 0.2 Aspartate Amino Transf 63 (AST/SGOT) Alanine Aminotransferase 64 (ALT/SGPT) Alkaline Phosphatase 102 Total Creatine Kinase 45 Troponin I LESS THAN 0.02 Total Protein 7.7 Albumin 3.5 Thyroid Stimulating Hormone 2.530 3rd Gen Salicylates Level 2.1 Acetaminophen Level LESS THAN 2.0 Ethyl Alcohol Level 296 Urine Color YELLOW Urine Turbidity CLEAR Urine pH 6.0 Urine Specific [place] 1.012 Urine Protein NEG Urine Glucose (UA) NEG Urine Ketones NEG Urine Occult Blood NEG Urine Nitrite NEG Urine Bilirubin NEG Urine Urobilinogen LESS THAN 2.0 Urine Leukocyte Esterase NEG Urine RBC 1 Urine WBC 3 Urine Squamous Epithelial <1 Cells Urine Hyaline Casts 9 Microscopic Urinalysis Comment CULT NOT INDICATED Urine Opiates Screen NEG Urine Barbiturates Screen NEG Urine Amphetamines Screen NEG Urine Benzodiazepines Screen NEG Urine Cocaine Screen NEG Urine Cannabinoids Screen NEG Diagnosis Primary Impression: Alcohol dependence Additional Impressions: Alcohol intoxication COPD exacerbation Psychiatrically Cleared: Yes Referrals: Shannon Mccarthy MD Departure Forms: Tests/Procedures Patient Instructions: General Instructions, Alcohol Intoxication (ED), Medical Clearance for Psychiatric Care (ED), Alcohol Dependence (ED) Additional Instructions: Please follow-up with your plc controls engineer as soon as possible Please follow-up with her primary care doctor as soon as possible Please stop drinking alcohol Return to emergency room as needed or if symptoms return Disposition: 01 DISCHARGE HOME Condition: Stable Problem Qualifiers Primary Impression: Alcohol dependence Aisha Win March 04, 2017 13:08
--- NOTE | 2017-03-04 19:40 | EKG ---
Date Performed: 03/03/2017 Time Performed: 19:23:58 PTAGE: 66 years EKG: Sinus rhythm NORMAL ECG PREVIOUS TRACING : 03/15/2016 05.08 Compared to prior tracing no significant change DOCTOR: Maritza Carter Interpretating Date/Time 03/04/2017 19:39:03
== END 2017-03-04 13:00 | disposition home or self-care (01) ==
LOC: NEPC 19:10 → NEPJ 03-04 13:00
DX: F10.20 Alcohol dependence, uncomplicated (principal); J44.1 Chronic obstructive pulmonary disease with (acute) exacerbation; R07.9 Chest pain, unspecified; R45.851 Suicidal ideations; J45.909 Unspecified asthma, uncomplicated; I10 Essential (primary) hypertension; F17.210 Nicotine dependence, cigarettes, uncomplicated
CPT/HCPCS: 71010; 71275; 80053; 80307; 81001; 82550; 84443; 84484; 85025; 85379; 93005; 94640; 94664; 96361; 96374; 99285; J2930; J7030; Q9967

== ENCOUNTER 2017-03-14 18:57 | Emergency (ER) | payer MEDICARE, OTHER ==
[2017-03-14 19:09] VITALS: BP 132/67; PULSE 95; RESP 18; TEMP 98.3; O2SAT 96
--- NOTE | 2017-03-14 19:10 | PD ---
HPI Chief Complaint: alcohol intoxication Time Seen by Provider: 19:05 Travel History International Travel<30 days: No Contact w/Intl Traveler<30days: No History of Present Illness HPI This is a 66-year-old female who has a history of alcoholism who presents to the emergency department having been brought in because she was drinking all day and a bystander saw her vomit. Currently she has no complaints. She wants is a fairly poor historian and continues to be intoxicated. PFSH Past Medical History Anemia: Yes Arthritis: Yes Asthma: Yes Autoimmune Disease: No Bipolar Disorder: Yes Anxiety: Yes Depression: Yes Heart Rhythm Problems: No Cancer: No Cardiovascular Problems: Yes (HTN) High Cholesterol: No Chest Pain: Yes Congestive Heart Failure: No Cerebrovascular Accident: No Diabetes: No Diminished Hearing: No Gastrointestinal Disorders: Yes GERD: Yes Genitourinary: No Headaches: No Hiatal Hernia: No Hypertension: Yes Immune Disorder: No Implanted Vascular Access Dvce: No Insomnia: Yes Musculoskeletal: No Neurologic: Yes Psychiatric: Yes Reproductive: Yes Respiratory: No Integumentary: Yes (INSECT BITES) Immunizations Current: Yes Migraines: No Myocardial Infarction: Yes (PER HX) Pneumonia: Yes (PER HX) Schizophrenia: Yes Seizures: Yes (FROM ETOH WITHDRAWAL) Thyroid Disease: No Ulcer: Yes (PER HX) Menopausal: Yes : 1 Para: 1 Miscarriage: 0 : 0 Ovarian Cysts: Yes (PER HX...RIGHT OVARIAN CYST REMOVAL) Tubal Ligation: Yes Past Surgical History Abdominal Surgery: No AICD: No Arteriovenous Shunt: No Cardiac Surgery: No Endocrine Surgery: No Eye Surgery: No Genitourinary Surgery: No Gynecologic Surgery: Yes Insulin Pump: No Joint Replacement: No Neurologic Surgery: No Oral Surgery: No Pacemaker: No Thoracic Surgery: No Tonsillectomy: Yes Other Surgery: Yes Social History Alcohol Use: Yes (OCCASSIONALLY) Tobacco Use: Yes (1/2 PPD) Substance Use: No (HX) Allergies-Medications (Allergen,Severity, Reaction): Coded Allergies: Novocain (Verified Allergy, Severe, Anaphylaxis, 03/14/17) Reported Meds & Prescriptions Reported Meds & Active Scripts Active Reported Lisinopril 20 Mg Tab 20 Mg PO DAILY Review of Systems ROS Limitations: Intoxication Physical Exam Narrative GENERAL: Disheveled SKIN: Toney skin HEAD: Atraumatic. Normocephalic. EYES: Pupils equal and round. No injection or drainage. ENT: Moist mucous membranes NECK: Trachea midline. CARDIOVASCULAR: Regular rate and rhythm. No murmur appreciated. RESPIRATORY: Clear to auscultation. Breath sounds equal bilaterally. GASTROINTESTINAL: Abdomen soft, non-tender, nondistended. MUSCULOSKELETAL: No obvious deformities. NEUROLOGICAL: Awake and alert. No obvious cranial nerve deficits. Some slurred speech, poor coordination Data Data Last Documented VS Vital Signs Date Time Temp Pulse Resp B/P Pulse Ox O2 Delivery O2 Flow Rate FiO2 03/14/17 21:00 98 Nasal Cannula 3 03/14/17 19:45 91 20 110/62 03/14/17 19:09 98.3 Orders Diet Regular Basic (03/15/17 Breakfast) Complete Blood Count With Diff (03/14/17 19:46) Comprehensive Metabolic Panel (03/14/17 19:46) Ecg Monitoring (03/14/17 19:46) Iv Access Insert/Monitor (03/14/17 19:46) Oximetry (03/14/17 19:46) Oxygen Administration (03/14/17 19:46) Methylprednisolone So Succ Inj (Solumedr (03/14/17 20:00) Albuterol-Ipratropium Neb (Duoneb Neb) (03/14/17 20:00) Sodium Chloride 0.9% Flush (Ns Flush) (03/14/17 20:00) Alcohol (Ethanol) (03/14/17 19:46) Chest, Single Ap (03/14/17 ) Labs Laboratory Tests Test 03/14/17 20:00 White Blood Count 8.0 TH/MM3 Red Blood Count 3.83 MIL/MM3 Hemoglobin 12.5 GM/DL Hematocrit 36.3 % Mean Corpuscular Volume 94.7 FL Mean Corpuscular Hemoglobin 32.6 PG Mean Corpuscular Hemoglobin 34.4 % Concent Red Cell Distribution Width 17.9 % Platelet Count 230 TH/MM3 Mean Platelet Volume 6.7 FL Neutrophils (%) (Auto) 44.0 % Lymphocytes (%) (Auto) 44.6 % Monocytes (%) (Auto) 9.5 % Eosinophils (%) (Auto) 1.3 % Basophils (%) (Auto) 0.6 % Neutrophils # (Auto) 3.5 TH/MM3 Lymphocytes # (Auto) 3.6 TH/MM3 Monocytes # (Auto) 0.8 TH/MM3 Eosinophils # (Auto) 0.1 TH/MM3 Basophils # (Auto) 0.0 TH/MM3 CBC Comment DIFF FINAL Differential Comment Sodium Level 141 MEQ/L Potassium Level 3.9 MEQ/L Chloride Level 106 MEQ/L Carbon Dioxide Level 24.4 MEQ/L Anion Gap 11 MEQ/L Blood Urea Nitrogen 13 MG/DL Creatinine 0.60 MG/DL Estimat Glomerular Filtration 100 ML/MIN Rate Random Glucose 77 MG/DL Calcium Level 8.2 MG/DL Total Bilirubin 0.1 MG/DL Aspartate Amino Transf 48 U/L (AST/SGOT) Alanine Aminotransferase 47 U/L (ALT/SGPT) Alkaline Phosphatase 122 U/L Total Protein 7.2 GM/DL Albumin 3.3 GM/DL Ethyl Alcohol Level 327 MG/DL [facility] Medical Decision Making Medical Screen Exam Complete: Yes Emergency Medical Condition: Yes Interpretation(s) Afebrile, mild tachycardia No leukocytosis Electrolytes are reassuring Alcohol 327 Chest x-ray: No acute process Differential Diagnosis Acute alcohol intoxication, electrolyte abnormality, COPD exacerbation, pneumonia Narrative Course This is a 66-year-old female who presents to the emergency department intoxicated. Here in the ER she had an episode where she had a coughing fit, became somewhat dyspneic and had an oxygen saturation in the high 80s. She was given bronchodilators and steroids and her symptoms improved significantly. Patient also has bad COPD. Labs are obtained which are reassuring and chest x- ray was unremarkable. Patient's oxygen and saturation improved. I think she can be discharged home when she is sober. If she desaturates again then she likely will require admission for COPD exacerbation. Diagnosis Primary Impression: Alcohol intoxication Qualified Code: F10.920 - Alcohol intoxication, uncomplicated Additional Impression: COPD exacerbation Patient Instructions: General Instructions Additional Instructions: If you develop severe shortness of breath, chest pain, or difficulty breathing return to the emergency department. Use albuterol every 4 hours for the next 2 days. Then use as needed for wheezing. Complete your course of steroids. Follow up with your primary care physician in 2-3 days if your symptoms have not improved. Med/Other Pt SpecificInfo: Prescription(s) given Scripts Prednisone 20 Mg Tab40 Mg PO DAILY 4 Days Prov:Kiersten Clemente MD 03/15/17 Albuterol 8.5 GM Inh (Proair Hfa 8.5 GM Inh)90 Mcg/Act Aer2 Puff INH Q4-6H PRN ( SHORTNESS OF BREATH) #1 INHALER 108 mcg/actuation Prov:Kiersten Clemente MD 03/15/17 Disposition: 01 DISCHARGE HOME Condition: Stable Kiersten Clemente MD Mar 14, 2017 19:10
[2017-03-14 19:40] VITALS: O2SAT 89
[2017-03-14 19:45] VITALS: BP 110/62; PULSE 91; RESP 20
[2017-03-14] MEDS ORDERED: methylPREDNISolone SOD SUCC 125 MG/2 ML VIAL IVP ONE (20:00)
[2017-03-14] MEDS: RESP: ALBUTEROL 2.5 MG/IPRATROPIUM 0.5 MG NEB (SCH) INH ×3 (20:00→20:30)
[2017-03-14] MEDS ORDERED: SODIUM CHLORIDE 0.9% FLUSH 10 ML FLUSH IVF PRN (20:00)
[2017-03-14 20:45] LABS: AUTOMATED NEUTROPHIL # 3.5 TH/MM3 (1.8-7.7); BASOPHIL % 0.6 % (0.0-2.0); EOSINOPHIL # 0.1 TH/MM3 (0-0.4); EOSINOPHIL % 1.3 % (0.0-4.0); HEMATOCRIT 36.3 % (35.0-46.0); HEMO FLAGS DIFF FINAL; LYMPH % 44.6 % (9.0-44.0); LYMPHOCYTE # 3.6 TH/MM3 (1.0-4.8); MEAN CELL VOLUME 94.7 FL (80.0-100.0); MEAN CORPUSCULAR HEMOGLOBIN 32.6 PG (27.0-34.0); MEAN CORPUSCULAR HGB CONC 34.4 % (32.0-36.0); MONO % 9.5 % (0.0-8.0); PLATELET COUNT 230 TH/MM3 (150-450); RED BLOOD COUNT 3.83 MIL/MM3 (4.00-5.30); RED CELL DISTRIBUTION WIDTH 17.9 % (11.6-17.2)
[2017-03-14 21:00] VITALS: O2SAT 98
[2017-03-14 21:10] LABS: ALT (GPT) 47 U/L (10-53)
[2017-03-14 21:18] LABS: ALKALINE PHOSPHATASE 122 U/L (45-117); ANION GAP 11 MEQ/L (5-15); AST (GOT) 48 U/L (15-37); BICARBONATE 24.4 MEQ/L (21.0-32.0); BLOOD UREA NITROGEN 13 MG/DL (7-18); CHLORIDE 106 MEQ/L (98-107); GLOMERULAR FILTRATION RATE 100 ML/MIN (>89); POTASSIUM 3.9 MEQ/L (3.5-5.1); SODIUM (NA) 141 MEQ/L (136-145); TOTAL BILIRUBIN ADULT 0.1 MG/DL (0.2-1.0)
--- NOTE | 2017-03-14 21:49 | RADRPT ---
EXAM DATE/TIME: 03/14/2017 20:01 [place] COMPARISON: CHEST SINGLE AP, March 03, 2017, 19:28. INDICATIONS : Shortness of breath and cough. MEDICAL HISTORY : None. SURGICAL HISTORY : None. ENCOUNTER: Initial ACUITY: 1 day PAIN SCORE: Non-responsive. LOCATION: chest FINDINGS: A single view of the chest demonstrates the lungs to be symmetrically aerated without evidence of mas s, infiltrate or effusion. No evidence of pneumothorax. The heart is normal in size. Mild tortuosi ty descending thoracic aorta. Osseous structures are intact. CONCLUSION: No acute cardiopulmonary disease. No infiltrates seen. Garret Nicholas MD on March 14, 2017 at 21:46 Board Certified Radiologist. This report was verified electronically.
[2017-03-15] MEDS ORDERED: ALBUAER3 INH (00:59)
[2017-03-15] MEDS ORDERED: PRED20 PO (00:59)
[2017-03-15 06:24] VITALS: O2SAT 95
== END 2017-03-15 06:46 | disposition home or self-care (01) ==
LOC: NEPD 18:57
DX: F10.920 Alcohol use, unspecified with intoxication, uncomplicated (principal); J44.1 Chronic obstructive pulmonary disease with (acute) exacerbation; F31.9 Bipolar disorder, unspecified; F41.8 Other specified anxiety disorders; I10 Essential (primary) hypertension; F20.9 Schizophrenia, unspecified; I25.2 Old myocardial infarction; F17.210 Nicotine dependence, cigarettes, uncomplicated; Y90.8 Blood alcohol level of 240 mg/100 ml or more
CPT/HCPCS: 71010; 80053; 80307; 85025; 94640; 94664; 96374; 99284; J2930

== ENCOUNTER 2017-03-19 11:18 | Emergency (ER) | payer MEDICARE ==
[~2017-03-19] VITALS: Ht 152.4 cm; Wt 40.0 kg
[~2017-03-19 11:18] MED LIST changes: +ALBUAER3 INH; +PRED20 PO
[2017-03-19 11:32] VITALS: BP 167/85; PULSE 78; RESP 15; TEMP 98.4
--- NOTE | 2017-03-19 13:44 | PD ---
HPI . Wants detox Chief Complaint: Alcohol/Drug Intoxication Time Seen by Provider: 11:58 Travel History International Travel<30 days: No Contact w/Intl Traveler<30days: No Traveled to known affect area: No History of Present Illness HPI 66-year-old female well known to me from the [facility] clinic here wanting detox. Patient is a known alcoholic and has been drinking for several years. She tells me she now wants help she is not able to quit herself. She has voiced concerns of suicide to her nurse, but has not voiced any concerns to me. She tells me she is here because she wants help. She admits to drinking alcohol this morning. She has no other complaints. Of note she was here several days ago for alcohol intoxication. PFSH Past Medical History Anemia: Yes Arthritis: Yes Asthma: Yes Autoimmune Disease: No Bipolar Disorder: Yes Anxiety: Yes Depression: Yes Heart Rhythm Problems: No Cancer: No Cardiovascular Problems: Yes High Cholesterol: No Chest Pain: Yes Congestive Heart Failure: No Cerebrovascular Accident: No Diabetes: No Diminished Hearing: No Gastrointestinal Disorders: Yes GERD: Yes Genitourinary: No Headaches: No Hiatal Hernia: No Hypertension: Yes Immune Disorder: No Implanted Vascular Access Dvce: No Insomnia: Yes Musculoskeletal: No Neurologic: Yes Psychiatric: Yes Reproductive: Yes Respiratory: No Integumentary: Yes (INSECT BITES) Immunizations Current: Yes Migraines: No Myocardial Infarction: Yes (PER HX) Pneumonia: Yes (PER HX) Schizophrenia: Yes Seizures: Yes (FROM ETOH WITHDRAWAL) Thyroid Disease: No Ulcer: Yes (PER HX) Menopausal: Yes : 1 Para: 1 Miscarriage: 0 : 0 Ovarian Cysts: Yes (PER HX...RIGHT OVARIAN CYST REMOVAL) Tubal Ligation: Yes Past Surgical History Abdominal Surgery: No AICD: No Arteriovenous Shunt: No Cardiac Surgery: No Endocrine Surgery: No Eye Surgery: No Genitourinary Surgery: No Gynecologic Surgery: Yes Insulin Pump: No Joint Replacement: No Neurologic Surgery: No Oral Surgery: No Pacemaker: No Thoracic Surgery: No Tonsillectomy: Yes Other Surgery: Yes Social History Alcohol Use: Yes (OCCASSIONALLY PER PT) Tobacco Use: Yes (1 PPD) Substance Use: No (HX) Allergies-Medications (Allergen,Severity, Reaction): Coded Allergies: Novocain (Verified Allergy, Severe, Anaphylaxis, 03/19/17) Reported Meds & Prescriptions Reported Meds & Active Scripts Active No Active Prescriptions or Reported Medications Review of Systems General / Constitutional: No: Fever Eyes: No: Visual changes HENT: No: Headaches Cardiovascular: No: Chest Pain or Discomfort Respiratory: No: Shortness of Breath Gastrointestinal: No: Abdominal Pain Genitourinary: No: Dysuria Musculoskeletal: No: Pain Skin: No Rash Neurologic: No: Weakness, Ataxia, Headache, Change in Mentation, Incontinence Psychiatric: No: Depression Endocrine: No: Polydipsia Hematologic/Lymphatic: No: Easy Bruising Physical Exam Narrative GENERAL: AAO x 3, no acute distress, Well-nourished, well-developed patient. SKIN: Warm and dry. No visible rashes or bruising. HEAD: Normocephalic and atraumatic. EYES: No scleral icterus. No injection or drainage. EOM intact, PERRLA ENT: No nasal drainage noted. Mucous membranes pink. Airway patent. NECK: Supple, trachea midline. No JVD. CARDIOVASCULAR: Regular rate and rhythm without murmurs, gallops, or rubs. RESPIRATORY: Breath sounds equal bilaterally. No accessory muscle use. No rhonchi or rales. GASTROINTESTINAL: Abdomen soft, non-tender, nondistended. EXTREMITIES: No cyanosis or edema. BACK: Nontender without obvious deformity. No CVA tenderness. NEURO: CN II through XII intact, ecology professor strength normal bilaterally, lower and upper extremity strength normal. No focal neuro deficits other than slow reaction time PSYCH: AAO x 3, normal affect. Data Data Last Documented VS Vital Signs Date Time Temp Pulse Resp B/P Pulse Ox O2 Delivery O2 Flow Rate FiO2 03/19/17 11:50 Room Air 03/19/17 11:32 98.4 78 15 167/85 Orders Alcohol (Ethanol) (03/19/17 12:02) Psych Screen (03/19/17 12:02) Labs Laboratory Tests Test 03/19/17 12:20 Ethyl Alcohol Level 292 MG/DL [facility] Medical Decision Making Medical Screen Exam Complete: Yes Emergency Medical Condition: Yes Medical Record Reviewed: Yes Differential Diagnosis alcohol intoxication, alcohol addiction, depression, homeless Narrative Course This is a 66-year-old female well-known to me from the [facility]. She is here requesting help to stop abusing alcohol. She is minimally intoxicated. She apparently voiced some concerns of suicide to the nurse, however made no such comments to myself. She actually voices concern of wanting help to refrain from drinking alcohol. She was seen several days ago labs were done then. She has elevated ETOH level, but lower than last visit. Patient was being held for psych screen. After about 2 and half hours, patient voices concerns that she would like to leave. She is sober and ambulatory. Dr. Clemente talked to the patient and is in agreement that she can leave. She was a voluntary psych case and is not Wilder Acted or Yulia Acted. She is currently capable of making her own decisions and her decision making in intact. I have discharged the patient per her requests. I recommend f[facility]u in [facility]. Diagnosis Primary Impression: Alcohol intoxication Qualified Code: F10.920 - Alcohol intoxication, uncomplicated Additional Impressions: Alcohol dependence Qualified Code: F10.20 - Uncomplicated alcohol dependence Alcohol abuse with alcohol-induced mood disorder Patient Instructions: General Instructions Additional Instructions: Please follow-up with your provider in the community clinic. Please return to emergency department if your symptoms return or worsen. Follow up with your primary care provider. Med/Other Pt SpecificInfo: No Change to Meds Scripts No Active Prescriptions or Reported Meds Disposition: 01 DISCHARGE HOME Condition: Stable Crystal Barber Mar 19, 2017 13:44
--- NOTE | 2017-03-19 14:01 | PD ---
Data Data Last Documented VS Vital Signs Date Time Temp Pulse Resp B/P Pulse Ox O2 Delivery O2 Flow Rate FiO2 03/19/17 11:50 Room Air 03/19/17 11:32 98.4 78 15 167/85 Orders Alcohol (Ethanol) (03/19/17 12:02) Psych Screen (03/19/17 12:02) Labs Laboratory Tests Test 03/19/17 12:20 Ethyl Alcohol Level 292 MG/DL MDM Supervised Visit with YING: Yes Narrative Course The history, exam, and medical decision-making in the associated midlevel provider note were completed with my assistance. I reviewed and agree with the findings presented. I attest that I had a [id number] encounter with the patient on the same day, and personally performed and documented my assessment and findings in the medical record. *My assessment and Findings: This is a 66-year-old female who presents to the emergency department intoxicated requesting alcohol detox. She also made some depressed and suicidal statements to the nursing staff. She initially did appear intoxicated. She was observed for 2-1/2 hours and became increasingly sober. When I saw her she was very eager to leave. She appears to be able to understand and answer questions appropriately. I think her medical decision- making is intact. She no longer is reporting any suicidal ideation and wants to go home to feed her dog. I don't think she meets Wilder act criteria and I don't think I can hold her against her will. I did note that her alcohol level was quite high but she is walking without instability, speaking clearly, and able to articulate her reasoning. She is a chronic alcoholic and often has an alcohol level higher than 300. Again I don't think I can hold her against her will based on my exam, so the patient was discharged. Diagnosis Primary Impression: Alcohol abuse with alcohol-induced mood disorder Patient Instructions: General Instructions Additional Instruction: If you develop though of hurting yourself or others return to the emergency department. Follow up with Bubba Bender in regards to psychiatric or substance related issues at: [address] [place] [id number] Med/Other Pt SpecificInfo: No Change to Meds Scripts No Active Prescriptions or Reported Meds Disposition: DISCHARGE HOME Condition: Stable Kiersten Clemnete MD Mar 19, 2017 14:01
== END 2017-03-19 13:59 | disposition home or self-care (01) ==
LOC: NEPD 11:18
DX: F10.24 Alcohol dependence with alcohol-induced mood disorder (principal); F17.200 Nicotine dependence, unspecified, uncomplicated; Y90.8 Blood alcohol level of 240 mg/100 ml or more
CPT/HCPCS: 80307; 99283

== ENCOUNTER 2017-03-20 04:32 | Emergency (ER) | payer MEDICARE ==
[~2017-03-20] VITALS: Ht 152.4 cm; Wt 85.0 kg
[2017-03-20 04:39] VITALS: BP 160/74; PULSE 66; RESP 18; TEMP 98.1; O2SAT 86
[2017-03-20 04:53] VITALS: O2SAT 94
[2017-03-20 05:36] LABS: AUTOMATED NEUTROPHIL # 4.8 TH/MM3 (1.8-7.7); BASOPHIL # 0.1 TH/MM3 (0-0.2); EOSINOPHIL # 0.2 TH/MM3 (0-0.4); EOSINOPHIL % 1.8 % (0.0-4.0); HEMATOCRIT 42.3 % (35.0-46.0); HEMO FLAGS DIFF FINAL; LYMPH % 34.3 % (9.0-44.0); MEAN CELL VOLUME 95.5 FL (80.0-100.0); MEAN CORPUSCULAR HEMOGLOBIN 31.5 PG (27.0-34.0); MONO % 8.6 % (0.0-8.0); NEUT % 54.3 % (16.0-70.0); PLATELET COUNT 298 TH/MM3 (150-450); RED BLOOD COUNT 4.43 MIL/MM3 (4.00-5.30); RED CELL DISTRIBUTION WIDTH 17.7 % (11.6-17.2); WHITE BLOOD COUNT 8.8 TH/MM3 (4.0-11.0)
--- NOTE | 2017-03-20 05:40 | PD ---
HPI Chief Complaint: Psychiatric Symptoms Time Seen by Provider: 04:49 Travel History International Travel<30 days: No Contact w/Intl Traveler<30days: No Traveled to known affect area: No History of Present Illness HPI 66yo F here because she said she did not want to live anymore. Pt is homeless and have no where to go. Denies any fever, chest pain, sob, n/v, abdominal pain , focal weakness or numbness. O2 sat is 94% on RA and pt is not wheezing and not sob. Pt has COPD. PFSH Past Medical History Anemia: Yes Arthritis: Yes Asthma: Yes Autoimmune Disease: No Bipolar Disorder: Yes Anxiety: Yes Depression: Yes Heart Rhythm Problems: No Cancer: No Cardiovascular Problems: Yes High Cholesterol: No Chest Pain: Yes Congestive Heart Failure: No Cerebrovascular Accident: No Diabetes: No Diminished Hearing: No Gastrointestinal Disorders: Yes GERD: Yes Genitourinary: No Headaches: No Hiatal Hernia: No Hypertension: Yes Immune Disorder: No Implanted Vascular Access Dvce: No Insomnia: Yes Musculoskeletal: No Neurologic: Yes Psychiatric: Yes Reproductive: Yes Respiratory: No Integumentary: Yes (INSECT BITES) Immunizations Current: Yes Migraines: No Myocardial Infarction: Yes (PER HX) Pneumonia: Yes (PER HX) Schizophrenia: Yes Seizures: Yes (FROM ETOH WITHDRAWAL) Thyroid Disease: No Ulcer: Yes (PER HX) Tetanus Vaccination: > 5 Years Influenza Vaccination: No Menopausal: Yes : 1 Para: 1 Miscarriage: 0 : 0 Ovarian Cysts: Yes (PER HX...RIGHT OVARIAN CYST REMOVAL) Tubal Ligation: Yes Past Surgical History Abdominal Surgery: No AICD: No Arteriovenous Shunt: No Cardiac Surgery: No Endocrine Surgery: No Eye Surgery: No Genitourinary Surgery: No Gynecologic Surgery: Yes Insulin Pump: No Joint Replacement: No Neurologic Surgery: No Oral Surgery: No Pacemaker: No Thoracic Surgery: No Tonsillectomy: Yes Other Surgery: Yes Social History Alcohol Use: Yes (OCCASSIONALLY PER PT) Tobacco Use: Yes (1 PPD) Substance Use: No (HX) Allergies-Medications (Allergen,Severity, Reaction): Coded Allergies: Novocain (Verified Allergy, Severe, Anaphylaxis, 03/19/17) Reported Meds & Prescriptions Reported Meds & Active Scripts Active No Active Prescriptions or Reported Medications Review of Systems Except as stated in HPI: all other systems reviewed are Neg Physical Exam Narrative GENERAL: 66yo F not in distress. SKIN: Focused skin assessment warm/dry. HEAD: Atraumatic. Normocephalic. EYES: Pupils equal and round. No scleral icterus. No injection or drainage. ENT: No nasal bleeding or discharge. Mucous membranes pink and moist. NECK: Trachea midline. No JVD. CARDIOVASCULAR: Regular rate and rhythm. No murmur appreciated. RESPIRATORY: No accessory muscle use. Clear to auscultation. Breath sounds equal bilaterally. GASTROINTESTINAL: Abdomen soft, non-tender, nondistended. MUSCULOSKELETAL: No obvious deformities. No clubbing. No cyanosis. No edema. NEUROLOGICAL: Awake and alert. No obvious cranial nerve deficits. Motor grossly within normal limits. Normal speech. PSYCHIATRIC: Appropriate mood and affect; insight and judgment normal. Data Data Last Documented VS Vital Signs Date Time Temp Pulse Resp B/P Pulse Ox O2 Delivery O2 Flow Rate FiO2 03/20/17 10:56 84 18 112/62 92 Nasal Cannula 2 03/20/17 04:39 98.1 Orders Complete Blood Count With Diff (03/20/17 05:15) Comprehensive Metabolic Panel (03/20/17 05:15) Drug Screen, Random Urine (03/20/17 05:15) Alcohol (Ethanol) (03/20/17 05:15) Salicylates (Aspirin) (03/20/17 05:15) Tylenol (Acetaminophen) (03/20/17 05:15) Labs Laboratory Tests Test 03/20/17 03/20/17 05:20 12:26 White Blood Count 8.8 TH/MM3 Red Blood Count 4.43 MIL/MM3 Hemoglobin 14.0 GM/DL Hematocrit 42.3 % Mean Corpuscular Volume 95.5 FL Mean Corpuscular Hemoglobin 31.5 PG Mean Corpuscular Hemoglobin 33.0 % Concent Red Cell Distribution Width 17.7 % Platelet Count 298 TH/MM3 Mean Platelet Volume 6.5 FL Neutrophils (%) (Auto) 54.3 % Lymphocytes (%) (Auto) 34.3 % Monocytes (%) (Auto) 8.6 % Eosinophils (%) (Auto) 1.8 % Basophils (%) (Auto) 1.0 % Neutrophils # (Auto) 4.8 TH/MM3 Lymphocytes # (Auto) 3.0 TH/MM3 Monocytes # (Auto) 0.8 TH/MM3 Eosinophils # (Auto) 0.2 TH/MM3 Basophils # (Auto) 0.1 TH/MM3 CBC Comment DIFF FINAL Differential Comment Sodium Level 137 MEQ/L Potassium Level 3.8 MEQ/L Chloride Level 102 MEQ/L Carbon Dioxide Level 26.3 MEQ/L Anion Gap 9 MEQ/L Blood Urea Nitrogen 13 MG/DL Creatinine 0.61 MG/DL Estimat Glomerular Filtration 98 ML/MIN Rate Random Glucose 87 MG/DL Calcium Level 9.1 MG/DL Total Bilirubin 0.2 MG/DL Aspartate Amino Transf 68 U/L (AST/SGOT) Alanine Aminotransferase 62 U/L (ALT/SGPT) Alkaline Phosphatase 126 U/L Total Protein 8.2 GM/DL Albumin 3.7 GM/DL Salicylates Level 2.5 MG/DL Acetaminophen Level LESS THAN 2.0 MCG/ML Ethyl Alcohol Level 365 MG/DL Urine Opiates Screen NEG Urine Barbiturates Screen NEG Urine Amphetamines Screen NEG Urine Benzodiazepines Screen NEG Urine Cocaine Screen NEG Urine Cannabinoids Screen NEG MDM Medical Decision Making Medical Screen Exam Complete: Yes Emergency Medical Condition: Yes Differential Diagnosis Homelessness vs. depression Narrative Course 66yo F here because she said she does not want to live anymore. Pt told me she didnt want to hurt herself but told the nurse she does. I feel this is likely a problem secondary to homelessness. Labs reviewed, no leukocytosis. LFTs elevated but this is her baseline. Blood alcohol is 365. Acetaminophen and salicylate low. I do not think that pt needs to be Wilder Act. Pt has been here for alcohol intoxication multiple times before. She denies any suicidal ideation or homicidal ideation to me. Pt can leave when she is ambulating in the ED without any assistance. Contacted nurse outreach case manager for homeless resource for patient. Diagnosis Primary Impression: Alcohol intoxication Qualified Code: F10.920 - Alcohol intoxication, uncomplicated Patient Instructions: General Instructions Departure Forms: Tests/Procedures Additional Instructions: Please follow up with your PMD in 3-7 days. Return to the ED if symptoms worsen. Med/Other Pt SpecificInfo: No Change to Meds Scripts No Active Prescriptions or Reported Meds Disposition: DISCHARGE HOME Condition: Stable Gaby Strauss DO Mar 20, 2017 05:40
[2017-03-20 05:53] LABS: ANION GAP 9 MEQ/L (5-15); AST (GOT) 68 U/L (15-37); BICARBONATE 26.3 MEQ/L (21.0-32.0); BLOOD UREA NITROGEN 13 MG/DL (7-18); CHLORIDE 102 MEQ/L (98-107); GLOMERULAR FILTRATION RATE 98 ML/MIN (>89); POTASSIUM 3.8 MEQ/L (3.5-5.1); SODIUM (NA) 137 MEQ/L (136-145)
[2017-03-20 05:55] LABS: ACETAMINOPHEN LESS THAN 2.0 MCG/ML (10.0-30.0); ALKALINE PHOSPHATASE 126 U/L (45-117); ALT (GPT) 62 U/L (10-53); TOTAL BILIRUBIN ADULT 0.2 MG/DL (0.2-1.0)
[2017-03-20 10:56] VITALS: BP 112/62; PULSE 84; RESP 18; O2SAT 92
[2017-03-20 12:56] LABS: AMPHETAMINE, URINE NEG (NEG); BARBITURATES, URINE NEG (NEG); COCAINE, URINE NEG (NEG)
== END 2017-03-20 13:41 | disposition home or self-care (01) ==
LOC: NEPE 04:32
DX: F31.9 Bipolar disorder, unspecified (principal); F10.129 Alcohol abuse with intoxication, unspecified; Y90.8 Blood alcohol level of 240 mg/100 ml or more; K21.9 Gastro-esophageal reflux disease without esophagitis; I10 Essential (primary) hypertension; F20.9 Schizophrenia, unspecified; I25.2 Old myocardial infarction; F17.210 Nicotine dependence, cigarettes, uncomplicated
CPT/HCPCS: 80053; 80307; 85025; 99284

== ENCOUNTER 2017-03-24 13:34 | Emergency (ER) | payer MEDICARE, OTHER ==
[~2017-03-24] VITALS: Ht 152.4 cm; Wt 41.0 kg
[2017-03-24 14:56] VITALS: BP 142/77; PULSE 96; RESP 18; TEMP 98.3; O2SAT 95
--- NOTE | 2017-03-24 16:32 | PD ---
HPI Chief Complaint: Psychiatric Symptoms Time Seen by Provider: 16:29 Travel History International Travel<30 days: No Contact w/Intl Traveler<30days: No Traveled to known affect area: No History of Present Illness HPI 66-year-old female that presents to the ED for evaluation of psychiatric illness. Patient was Wilder acted by police. Patient states that she is depressed because she is homeless. She has a chronic history of alcohol abuse and has been here multiple times for similar. She denies any suicidal ideation to me. No homicidal ideation. When I evaluated the patient she states that she does not feel depressed any more. She denies drinking today. No drug abuse. No medical issues. She has no complaints of any kind. This appears to be ongoing and gets worse because of her homelessness. No new cuts. No new injuries. No falls. PFSH Past Medical History Anemia: Yes Arthritis: Yes Asthma: Yes Autoimmune Disease: No Bipolar Disorder: Yes Anxiety: Yes Depression: Yes Heart Rhythm Problems: No Cancer: No Cardiovascular Problems: Yes High Cholesterol: No Chest Pain: Yes Congestive Heart Failure: No Cerebrovascular Accident: No Diabetes: No Patient Takes Glucophage: No Diminished Hearing: No Gastrointestinal Disorders: Yes GERD: Yes Genitourinary: No Headaches: No Hiatal Hernia: No Hypertension: Yes Immune Disorder: No Implanted Vascular Access Dvce: No Insomnia: Yes Musculoskeletal: No Neurologic: Yes Psychiatric: Yes Reproductive: Yes Respiratory: No Integumentary: Yes (INSECT BITES) Immunizations Current: Yes Migraines: No Myocardial Infarction: Yes (PER HX) Pneumonia: Yes (PER HX) Schizophrenia: Yes Seizures: Yes (FROM ETOH WITHDRAWAL) Thyroid Disease: No Ulcer: Yes (PER HX) ?: Not Menopausal: Yes : 1 Para: 1 Miscarriage: 0 : 0 Ovarian Cysts: Yes (PER HX...RIGHT OVARIAN CYST REMOVAL) Tubal Ligation: Yes Past Surgical History Abdominal Surgery: No AICD: No Arteriovenous Shunt: No Cardiac Surgery: No Endocrine Surgery: No Eye Surgery: No Genitourinary Surgery: No Gynecologic Surgery: Yes Insulin Pump: No Joint Replacement: No Neurologic Surgery: No Oral Surgery: No Pacemaker: No Thoracic Surgery: No Tonsillectomy: Yes Other Surgery: Yes Social History Alcohol Use: Yes (OCCASSIONALLY PER PT) Tobacco Use: Yes (1 PPD) Substance Use: No (HX) Allergies-Medications (Allergen,Severity, Reaction): Coded Allergies: Novocain (Verified Allergy, Severe, Anaphylaxis, 03/19/17) Reported Meds & Prescriptions Reported Meds & Active Scripts Active No Active Prescriptions or Reported Medications Review of Systems Except as stated in HPI: all other systems reviewed are Neg Physical Exam Narrative GENERAL: SKIN: Warm and dry. HEAD: Atraumatic. Normocephalic. EYES: Pupils equal and round 4 mm reactive to light and accommodation. No scleral icterus. No injection or drainage. ENT: No nasal bleeding or discharge. Mucous membranes pink and moist. Tongue is midline. No uvula deviation. NECK: Trachea midline. No JVD. CARDIOVASCULAR: Regular rate and rhythm. No murmurs, S3, S4. RESPIRATORY: No accessory muscle use. Clear to auscultation. Breath sounds equal bilaterally. GASTROINTESTINAL: Abdomen soft, non-tender, nondistended. Hepatic and splenic margins not palpable. MUSCULOSKELETAL: Extremities without clubbing, cyanosis, or edema. No obvious deformities. Full range of motion of the upper and lower extremities bilaterally. 2+ pulses bilaterally. NEUROLOGICAL: Awake and alert. No obvious cranial nerve deficits. Motor grossly within normal limits. Five out of 5 muscle strength in the arms and legs. Normal speech. PSYCHIATRIC: Appropriate mood and affect; insight and judgment normal. Data Data Last Documented VS Vital Signs Date Time Temp Pulse Resp B/P Pulse Ox O2 Delivery O2 Flow Rate FiO2 03/24/17 14:56 98.3 96 18 142/77 95 Room Air Orders Complete Blood Count With Diff (03/24/17 14:36) Comprehensive Metabolic Panel (03/24/17 14:36) Psych Screen (03/24/17 14:36) Drug Screen, Random Urine (03/24/17 14:36) Alcohol (Ethanol) (03/24/17 14:36) Diet Regular Basic (03/24/17 Dinner) Labs Laboratory Tests Test 03/24/17 03/24/17 16:00 16:28 Urine Opiates Screen NEG Urine Barbiturates Screen NEG Urine Amphetamines Screen NEG Urine Benzodiazepines Screen NEG Urine Cocaine Screen NEG Urine Cannabinoids Screen NEG White Blood Count 10.2 TH/MM3 Red Blood Count 4.13 MIL/MM3 Hemoglobin 13.2 GM/DL Hematocrit 39.4 % Mean Corpuscular Volume 95.4 FL Mean Corpuscular Hemoglobin 32.0 PG Mean Corpuscular Hemoglobin 33.5 % Concent Red Cell Distribution Width 18.0 % Platelet Count 184 TH/MM3 Mean Platelet Volume 6.6 FL Neutrophils (%) (Auto) 68.9 % Lymphocytes (%) (Auto) 22.8 % Monocytes (%) (Auto) 6.5 % Eosinophils (%) (Auto) 0.7 % Basophils (%) (Auto) 1.1 % Neutrophils # (Auto) 7.1 TH/MM3 Lymphocytes # (Auto) 2.3 TH/MM3 Monocytes # (Auto) 0.7 TH/MM3 Eosinophils # (Auto) 0.1 TH/MM3 Basophils # (Auto) 0.1 TH/MM3 CBC Comment DIFF FINAL Differential Comment Sodium Level 137 MEQ/L Potassium Level 3.8 MEQ/L Chloride Level 101 MEQ/L Carbon Dioxide Level 24.6 MEQ/L Anion Gap 11 MEQ/L Blood Urea Nitrogen 7 MG/DL Creatinine 0.65 MG/DL Estimat Glomerular Filtration 91 ML/MIN Rate Random Glucose 108 MG/DL Calcium Level 8.5 MG/DL Total Bilirubin 0.3 MG/DL Aspartate Amino Transf 57 U/L (AST/SGOT) Alanine Aminotransferase 54 U/L (ALT/SGPT) Alkaline Phosphatase 112 U/L Total Protein 7.5 GM/DL Albumin 3.5 GM/DL Ethyl Alcohol Level 247 MG/DL MDM Medical Decision Making Medical Screen Exam Complete: Yes Emergency Medical Condition: Yes Medical Record Reviewed: Yes Interpretation(s) CBC & BMP Diagram 03/24/17 16:28 LFTS WNL tox positive for alcohol Differential Diagnosis Depression versus suicidal ideation versus anxiety versus adjustment disorder versus mood disorder versus bipolar disorder versus schizophrenia versus paranoid disorder versus psychosis versus substance abuse versus alcohol abuse versus alcohol induced psychosis versus homicidality addition versus cutting versus personality disorder Narrative Course 66-year-old female that presents to the ED for evaluation of psych. Patient was properly examined and was found to have signs and symptoms consistent appears to be psychiatric illness. No sign of acute medical distress. Labs were drawn. Patient will be medically clear. Okay to be seen by psych. Mental health screening was discussed with the patient. Diagnosis Primary Impression: Depression Qualified Code: F32.0 - Mild single current episode of major depressive disorder Scripts No Active Prescriptions or Reported Meds Morales Hamlin Mar 24, 2017 16:31
[2017-03-24 16:45] LABS: AUTOMATED NEUTROPHIL # 7.1 TH/MM3 (1.8-7.7); BASOPHIL # 0.1 TH/MM3 (0-0.2); BASOPHIL % 1.1 % (0.0-2.0); EOSINOPHIL # 0.1 TH/MM3 (0-0.4); EOSINOPHIL % 0.7 % (0.0-4.0); HEMATOCRIT 39.4 % (35.0-46.0); HEMO FLAGS DIFF FINAL; LYMPH % 22.8 % (9.0-44.0); LYMPHOCYTE # 2.3 TH/MM3 (1.0-4.8); MEAN CELL VOLUME 95.4 FL (80.0-100.0); MEAN CORPUSCULAR HGB CONC 33.5 % (32.0-36.0); MONO % 6.5 % (0.0-8.0); NEUT % 68.9 % (16.0-70.0); PLATELET COUNT 184 TH/MM3 (150-450); RED BLOOD COUNT 4.13 MIL/MM3 (4.00-5.30); WHITE BLOOD COUNT 10.2 TH/MM3 (4.0-11.0)
[2017-03-24 17:00] LABS: AMPHETAMINE, URINE NEG (NEG); BARBITURATES, URINE NEG (NEG); COCAINE, URINE NEG (NEG)
[2017-03-24 17:14] LABS: ANION GAP 11 MEQ/L (5-15); AST (GOT) 57 U/L (15-37); BICARBONATE 24.6 MEQ/L (21.0-32.0); BLOOD UREA NITROGEN 7 MG/DL (7-18); CHLORIDE 101 MEQ/L (98-107); GLOMERULAR FILTRATION RATE 91 ML/MIN (>89); POTASSIUM 3.8 MEQ/L (3.5-5.1); SODIUM (NA) 137 MEQ/L (136-145)
[2017-03-24 17:15] LABS: ALT (GPT) 54 U/L (10-53)
[2017-03-24 17:17] LABS: ALKALINE PHOSPHATASE 112 U/L (45-117); TOTAL BILIRUBIN ADULT 0.3 MG/DL (0.2-1.0)
[2017-03-24 18:58] VITALS: BP 181/88; PULSE 111; RESP 16; O2SAT 96
[2017-03-24] MEDS ORDERED: ONDANSETRON ODT 4 MG TAB PO ONE (19:00)
[2017-03-24] MEDS ORDERED: LORazepam 2 MG/ML VIAL IV PUSH PRN ×4 (20:30)
[2017-03-24] MEDS ORDERED: ONDANSETRON ODT 4 MG TAB PO PRN (20:30)
[2017-03-24] MEDS ORDERED: LORazepam 2 MG TAB PO PRN (20:30)
[2017-03-24] MEDS ORDERED: LORazepam 1 MG TAB PO PRN (20:30)
[2017-03-24] MEDS ORDERED: FLUMAZENIL 0.5 MG/5 ML VIAL IV PUSH PRN (20:30)
[2017-03-24 22:06] VITALS: BP 182/95; PULSE 107; RESP 20; TEMP 97.5; O2SAT 94
[2017-03-25 01:48] VITALS: BP 168/91; PULSE 90; RESP 20; TEMP 98.6; O2SAT 92
[2017-03-25 05:42] VITALS: BP 153/95; PULSE 108; RESP 19; TEMP 97.8; O2SAT 96
[2017-03-25 10:45] VITALS: BP 141/74; PULSE 102; RESP 18; O2SAT 93
[2017-03-25 14:26] VITALS: BP 141/74; PULSE 102; RESP 18; O2SAT 93
== END 2017-03-25 15:03 ==
LOC: NEPJ 13:34
DX: F32.0 Major depressive disorder, single episode, mild (principal)
CPT/HCPCS: 80053; 80307; 85025; 99285

== ENCOUNTER 2017-04-08 04:09 | Emergency (ER) | payer MEDICARE, OTHER ==
[~2017-04-08] VITALS: Ht 154.9 cm; Wt 45.0 kg
[2017-04-08] MEDS ORDERED: SODIUM CHLOR 0.9% 1000 ML INJ 1,000 ML IV ONE (04:15)
[2017-04-08] MEDS ORDERED: THIAMINE HCL 100 MG TAB PO ONE (04:15)
[2017-04-08 04:16] VITALS: BP 150/85; PULSE 72; RESP 18; TEMP 98.1; O2SAT 95
[2017-04-08 04:19] VITALS: O2SAT 95
[2017-04-08 04:28] VITALS: O2SAT 88
[2017-04-08 04:28] LABS: AUTOMATED NEUTROPHIL # 4.2 TH/MM3 (1.8-7.7); BASOPHIL # 0.1 TH/MM3 (0-0.2); BASOPHIL % 1.2 % (0.0-2.0); EOSINOPHIL # 0.1 TH/MM3 (0-0.4); EOSINOPHIL % 0.8 % (0.0-4.0); HEMATOCRIT 38.1 % (35.0-46.0); HEMO FLAGS DIFF FINAL; LYMPH % 26.8 % (9.0-44.0); MEAN CELL VOLUME 94.9 FL (80.0-100.0); MEAN CORPUSCULAR HEMOGLOBIN 32.7 PG (27.0-34.0); MEAN CORPUSCULAR HGB CONC 34.4 % (32.0-36.0); MONO % 14.2 % (0.0-8.0); PLATELET COUNT 342 TH/MM3 (150-450); RED BLOOD COUNT 4.02 MIL/MM3 (4.00-5.30); WHITE BLOOD COUNT 7.4 TH/MM3 (4.0-11.0)
[2017-04-08] MEDS ORDERED: chlordiazePOXIDE 25 MG CAP PO ONE (04:30)
--- NOTE | 2017-04-08 04:31 | PD ---
HPI Chief Complaint: Respiratory Symptoms Time Seen by Provider: 04:12 Travel History International Travel<30 days: No Contact w/Intl Traveler<30days: No Traveled to known affect area: No History of Present Illness HPI PT STATES THAT SHE HAS NOT DRANK ANY ALCOHOL OVER LAST 2 DAYS AND DOESN'T FEEL WELL....WHEN ASKED DETAILS OF WHAT "DOESN'T FEEL WELL" SHE STATES FEELS DIZZY WHEN SHE STANDS UP.DENIES FEVER/CP/SOB/LE/ABD PAIN/N/V/D/RUNNY NOSE/COUGH AT THIS TIME PFSH Past Medical History Anemia: Yes Arthritis: Yes Asthma: Yes Autoimmune Disease: No Bipolar Disorder: Yes Anxiety: Yes Depression: Yes Heart Rhythm Problems: No Cancer: No Cardiovascular Problems: Yes High Cholesterol: No Chest Pain: Yes Congestive Heart Failure: No Cerebrovascular Accident: No Diabetes: No Diminished Hearing: No Gastrointestinal Disorders: Yes GERD: Yes Genitourinary: No Headaches: No Hiatal Hernia: No Hypertension: Yes Immune Disorder: No Implanted Vascular Access Dvce: No Insomnia: Yes Musculoskeletal: No Neurologic: Yes Psychiatric: Yes Reproductive: Yes Respiratory: No Integumentary: Yes (INSECT BITES) Immunizations Current: Yes Migraines: No Myocardial Infarction: Yes (PER HX) Pneumonia: Yes (PER HX) Schizophrenia: Yes Seizures: Yes (FROM ETOH WITHDRAWAL) Thyroid Disease: No Ulcer: Yes (PER HX) Tetanus Vaccination: Unknown Influenza Vaccination: No ?: Not Menopausal: Yes : 1 Para: 1 Miscarriage: 0 : 0 Ovarian Cysts: Yes (PER HX...RIGHT OVARIAN CYST REMOVAL) Tubal Ligation: Yes Past Surgical History Abdominal Surgery: No AICD: No Arteriovenous Shunt: No Cardiac Surgery: No Endocrine Surgery: No Eye Surgery: No Genitourinary Surgery: No Gynecologic Surgery: Yes Insulin Pump: No Joint Replacement: No Neurologic Surgery: No Oral Surgery: No Pacemaker: No Thoracic Surgery: No Tonsillectomy: Yes Other Surgery: Yes Social History Alcohol Use: Yes (OCCASSIONALLY PER PT) Tobacco Use: Yes (1 PPD) Substance Use: Yes Allergies-Medications (Allergen,Severity, Reaction): Coded Allergies: Novocain (Verified Allergy, Severe, Anaphylaxis, 04/08/17) Per pt. Reported Meds & Prescriptions Reported Meds & Active Scripts Active No Active Prescriptions or Reported Medications Review of Systems HENT: Positive: Lightheadedness Physical Exam Narrative GENERAL: DISHEVELED APPEARANCE BUT ANSWERS QUESTIONS WELL SKIN: Warm and dry. HEAD: Atraumatic. Normocephalic. EYES: Pupils equal and round. No scleral icterus. No injection or drainage. ENT: No nasal bleeding or discharge. Mucous membranes pink and moist. NECK: Trachea midline. No JVD. CARDIOVASCULAR: Regular rate and rhythm. RESPIRATORY: No accessory muscle use. Clear to auscultation. Breath sounds equal bilaterally. GASTROINTESTINAL: Abdomen soft, non-tender, nondistended. Hepatic and splenic margins not palpable. MUSCULOSKELETAL: Extremities without clubbing, cyanosis, or edema. No obvious deformities. NEUROLOGICAL: Awake and alert. No obvious cranial nerve deficits. Motor grossly within normal limits. Five out of 5 muscle strength in the arms and legs. Normal speech. PSYCHIATRIC: Appropriate mood and affect; insight and judgment normal. Data Data Last Documented VS Vital Signs Date Time Temp Pulse Resp B/P Pulse Ox O2 Delivery O2 Flow Rate FiO2 04/08/17 04:38 98 Nasal Cannula 2 04/08/17 04:16 98.1 72 18 150/85 Orders Basic Metabolic Panel (Bmp) (04/08/17 04:12) Complete Blood Count With Diff (04/08/17 04:12) Troponin I (04/08/17 04:12) Lipase (04/08/17 04:12) Ecg Monitoring (04/08/17 04:12) Iv Access Insert/Monitor (04/08/17 04:12) Oximetry (04/08/17 04:12) Sodium Chlor 0.9% 1000 Ml Inj (Ns 1000 M (04/08/17 04:15) Thiamine (Vit B1) (Vitamin B1) (04/08/17 04:15) Chlordiazepoxide (Librium) (04/08/17 04:15) Chlordiazepoxide (Librium) (04/08/17 04:30) Alcohol (Ethanol) (04/08/17 04:20) Labs Laboratory Tests Test 04/08/17 04:20 White Blood Count 7.4 TH/MM3 Red Blood Count 4.02 MIL/MM3 Hemoglobin 13.1 GM/DL Hematocrit 38.1 % Mean Corpuscular Volume 94.9 FL Mean Corpuscular Hemoglobin 32.7 PG Mean Corpuscular Hemoglobin 34.4 % Concent Red Cell Distribution Width 18.0 % Platelet Count 342 TH/MM3 Mean Platelet Volume 6.9 FL Neutrophils (%) (Auto) 57.0 % Lymphocytes (%) (Auto) 26.8 % Monocytes (%) (Auto) 14.2 % Eosinophils (%) (Auto) 0.8 % Basophils (%) (Auto) 1.2 % Neutrophils # (Auto) 4.2 TH/MM3 Lymphocytes # (Auto) 2.0 TH/MM3 Monocytes # (Auto) 1.0 TH/MM3 Eosinophils # (Auto) 0.1 TH/MM3 Basophils # (Auto) 0.1 TH/MM3 CBC Comment DIFF FINAL Differential Comment Sodium Level 140 MEQ/L Potassium Level 4.0 MEQ/L Chloride Level 104 MEQ/L Carbon Dioxide Level 28.1 MEQ/L Anion Gap 8 MEQ/L Blood Urea Nitrogen 8 MG/DL Creatinine 0.51 MG/DL Estimat Glomerular Filtration 121 ML/MIN Rate Random Glucose 74 MG/DL Calcium Level 8.2 MG/DL Troponin I LESS THAN 0.02 NG/ML Lipase 257 U/L Ethyl Alcohol Level 249 MG/DL [facility] Medical Decision Making Medical Screen Exam Complete: Yes Emergency Medical Condition: Yes Medical Record Reviewed: Yes Differential Diagnosis DEHYDRATION V ELECTROLYTE ABNL V ETOH WITHDRAWAL V ETOH INTOXICATION Narrative Course PATIENT DENIES DRINKING YET HER ETOH LEVEL IS 200'S, NO ELECTROLYTE ABNL AND NL CBC. WILL D/C SINCE PATIENT VSS AND ABLE TO AMBULATE WITHOUT ASSISTANCE. Diagnosis Primary Impression: ETOH USE Patient Instructions: Alcohol Dependence (ED), General Instructions Scripts No Active Prescriptions or Reported Meds Disposition: 01 DISCHARGE HOME Condition: Stable Napoleon Chavarria MD Apr 08, 2017 04:31 Napoleon Chavarria MD Apr 08, 2017 04:31
[2017-04-08 04:38] VITALS: O2SAT 98
[2017-04-08 04:44] LABS: ANION GAP 8 MEQ/L (5-15); BICARBONATE 28.1 MEQ/L (21.0-32.0); BLOOD UREA NITROGEN 8 MG/DL (7-18); CHLORIDE 104 MEQ/L (98-107); GLOMERULAR FILTRATION RATE 121 ML/MIN (>89); SODIUM (NA) 140 MEQ/L (136-145)
[2017-04-08 05:28] VITALS: O2SAT 94
== END 2017-04-08 06:10 | disposition home or self-care (01) ==
LOC: NEPC 04:09
DX: F10.929 Alcohol use, unspecified with intoxication, unspecified (principal); Y90.8 Blood alcohol level of 240 mg/100 ml or more; F17.210 Nicotine dependence, cigarettes, uncomplicated; I10 Essential (primary) hypertension; F41.8 Other specified anxiety disorders; I25.2 Old myocardial infarction
CPT/HCPCS: 80048; 80307; 83690; 84484; 85025; 96360; 99284; J7030

== ENCOUNTER 2017-04-09 14:10 | Emergency (ER) | payer MEDICARE, OTHER ==
[~2017-04-09] VITALS: Ht 152.4 cm; Wt 43.1 kg
[2017-04-09 14:19] VITALS: BP 120/64; PULSE 77; RESP 18; TEMP 99; O2SAT 93
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
[2017-04-09 17:25] LABS: AMPHETAMINE, URINE NEG (NEG); BARBITURATES, URINE NEG (NEG); COCAINE, URINE NEG (NEG)
[2017-04-09 18:37] VITALS: BP 125/59; PULSE 72; RESP 16; TEMP 98.3; O2SAT 98
[2017-04-09] MEDS ORDERED: ONDANSETRON ODT 4 MG TAB PO PRN (19:45)
[2017-04-09] MEDS ORDERED: FLUMAZENIL 0.5 MG/5 ML VIAL IV PUSH PRN (19:45)
[2017-04-09] MEDS ORDERED: LORazepam 2 MG/ML VIAL IV PUSH PRN ×4 (19:45)
[2017-04-09] MEDS: LORazepam 2 MG TAB PO PRN ×2 (20:14→22:50)
[2017-04-09 23:03] VITALS: BP 143/85; PULSE 88; RESP 16; O2SAT 97
[2017-04-10] MEDS: LORazepam 1 MG TAB PO PRN ×2 (01:17→05:18)
[2017-04-10 02:18] VITALS: BP 164/70; PULSE 75; RESP 18
[2017-04-10 06:37] VITALS: BP 145/89; PULSE 71; RESP 18
[2017-04-10 09:38] VITALS: BP 121/74; PULSE 92; RESP 18; O2SAT 96
[2017-04-10] MEDS: LORazepam 2 MG TAB PO PRN (09:39)
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
[2017-04-10 11:39] VITALS: BP 126/63; PULSE 91; RESP 16; TEMP 99; O2SAT 96
== END 2017-04-10 14:46 | disposition home or self-care (01) ==
LOC: NEDAMB 14:10 → NEPJ 04-10 14:46
DX: F10.14 Alcohol abuse with alcohol-induced mood disorder (principal); I10 Essential (primary) hypertension; D64.9 Anemia, unspecified; M19.90 Unspecified osteoarthritis, unspecified site; F31.9 Bipolar disorder, unspecified; F41.9 Anxiety disorder, unspecified; K21.9 Gastro-esophageal reflux disease without esophagitis; F20.9 Schizophrenia, unspecified; R56.9 Unspecified convulsions
CPT/HCPCS: 80307; 99285

== ENCOUNTER 2017-04-12 11:28 | Emergency (ER) | payer MEDICARE, OTHER ==
[~2017-04-12] VITALS: Ht 162.6 cm; Wt 50.0 kg
[2017-04-12 11:41] VITALS: BP 108/56; PULSE 76; RESP 18; TEMP 98.7; O2SAT 95
--- NOTE | 2017-04-12 11:52 | PD ---
HPI Chief Complaint: Altered Mental Status Time Seen by Provider: 11:52 Travel History International Travel<30 days: No Contact w/Intl Traveler<30days: No Traveled to known affect area: No History of Present Illness HPI Patient is 66-year-old female presenting to the emergency department via EMS for evaluation of altered mental status. Patient was found laying on the ground in [facility], she was not responding to verbal cues. Patient is arousable in verbal however she has not making sense. EMS stated that her blood glucose was 103. PFSH Past Medical History Hx Anticoagulant Therapy: No Anemia: Yes Arthritis: Yes Asthma: Yes Autoimmune Disease: No Bipolar Disorder: Yes Anxiety: Yes Depression: Yes Heart Rhythm Problems: No Cancer: No Cardiovascular Problems: Yes High Cholesterol: No Chest Pain: Yes Congestive Heart Failure: No Cerebrovascular Accident: No Diabetes: Yes Diminished Hearing: No Gastrointestinal Disorders: Yes GERD: Yes Genitourinary: No Headaches: No Hiatal Hernia: No Hypertension: Yes Immune Disorder: No Implanted Vascular Access Dvce: No Insomnia: Yes Musculoskeletal: No Neurologic: Yes Psychiatric: Yes Reproductive: Yes Respiratory: No Integumentary: Yes (INSECT BITES) Immunizations Current: Yes Migraines: No Myocardial Infarction: Yes (PER HX) Pneumonia: Yes (PER HX) Schizophrenia: Yes Seizures: Yes (FROM ETOH WITHDRAWAL) Thyroid Disease: No Ulcer: Yes (PER HX) ?: Not Menopausal: Yes : 1 Para: 1 Miscarriage: 0 : 0 Ovarian Cysts: Yes (PER HX...RIGHT OVARIAN CYST REMOVAL) Tubal Ligation: Yes Past Surgical History Abdominal Surgery: No AICD: No Arteriovenous Shunt: No Cardiac Surgery: No Endocrine Surgery: No Eye Surgery: No Genitourinary Surgery: No Gynecologic Surgery: Yes Insulin Pump: No Joint Replacement: No Neurologic Surgery: No Oral Surgery: No Pacemaker: No Thoracic Surgery: No Tonsillectomy: Yes Other Surgery: Yes Social History Alcohol Use: Yes (OCCASSIONALLY PER PT) Tobacco Use: Yes (1 PPD) Substance Use: Yes Allergies-Medications (Allergen,Severity, Reaction): Coded Allergies: Novocain (Verified Allergy, Severe, Anaphylaxis, 04/12/17) Per pt. Reported Meds & Prescriptions Reported Meds & Active Scripts Active No Active Prescriptions or Reported Medications Review of Systems ROS Limitations: Altered Mental Status Except as stated in HPI: all other systems reviewed are Neg Physical Exam Exam Limitations: Altered Mental Status Narrative GENERAL: Thin, disheveled, female. Resting in no acute distress. SKIN: Focused skin assessment warm/dry. HEAD: Atraumatic. Normocephalic. EYES: Pupils equal and round. No scleral icterus. No injection or drainage. ENT: No nasal bleeding or discharge. Mucous membranes pink and moist. NECK: Trachea midline. No JVD. CARDIOVASCULAR: Regular rate and rhythm. No murmur appreciated. RESPIRATORY: No accessory muscle use. Clear to auscultation. Breath sounds equal bilaterally. GASTROINTESTINAL: Abdomen soft, non-tender, nondistended. Hepatic and splenic margins not palpable. MUSCULOSKELETAL: No obvious deformities. No clubbing. No cyanosis. No edema. NEUROLOGICAL: Drowsy but arousable. No obvious cranial nerve deficits. Motor grossly within normal limits. Incomprehensible speech. PSYCHIATRIC: Appropriate mood and affect; insight and judgment impaired. Data Data Last Documented VS Vital Signs Date Time Temp Pulse Resp B/P Pulse Ox O2 Delivery O2 Flow Rate FiO2 04/12/17 14:30 81 18 116/57 95 Room Air 04/12/17 11:41 98.7 Orders Comprehensive Metabolic Panel (04/12/17 11:49) Alcohol (Ethanol) (04/12/17 11:49) Iv Access Insert/Monitor (04/12/17 11:49) Sodium Chlor 0.9% 1000 Ml Inj (Ns 1000 M (04/12/17 12:00) Ct Brain W/O Iv Contrast(Rout) (04/12/17 ) Urinalysis - C+S If Indicated (04/12/17 11:49) Sodium Chlor 0.9% 1000 Ml Inj (Ns 1000 M (04/12/17 13:45) Urine Culture (04/12/17 13:30) Labs Laboratory Tests Test 04/12/17 04/12/17 12:00 13:30 Sodium Level 132 MEQ/L Potassium Level 4.1 MEQ/L Chloride Level 98 MEQ/L Carbon Dioxide Level 23.5 MEQ/L Anion Gap 11 MEQ/L Blood Urea Nitrogen 10 MG/DL Creatinine 0.65 MG/DL Estimat Glomerular Filtration 91 ML/MIN Rate Random Glucose 86 MG/DL Calcium Level 8.3 MG/DL Total Bilirubin 0.3 MG/DL Aspartate Amino Transf 162 U/L (AST/SGOT) Alanine Aminotransferase 143 U/L (ALT/SGPT) Alkaline Phosphatase 116 U/L Total Protein 7.6 GM/DL Albumin 3.4 GM/DL Ethyl Alcohol Level 370 MG/DL Urine Color LIGHT-YELLOW Urine Turbidity CLEAR Urine pH 5.0 Urine Specific [place] 1.004 Urine Protein NEG mg/dL Urine Glucose (UA) NEG mg/dL Urine Ketones NEG mg/dL Urine Occult Blood NEG Urine Nitrite NEG Urine Bilirubin NEG Urine Urobilinogen LESS THAN 2.0 MG/DL Urine Leukocyte Esterase NEG Urine RBC LESS THAN 1 /hpf Urine WBC 1 /hpf Urine Squamous Epithelial <1 /hpf Cells Urine Transitional Epithelial <1 /hpf Cells Urine Bacteria OCC /hpf Urine Hyaline Casts 5 /lpf Urine Granular Casts 1 /lpf Urine Mucus FEW /lpf Microscopic Urinalysis Comment CATH[facility]CULTURE IND [facility] Medical Decision Making Medical Screen Exam Complete: Yes Emergency Medical Condition: Yes Medical Record Reviewed: Yes Interpretation(s) Laboratory Tests Test 04/12/17 04/12/17 12:00 13:30 Sodium Level 132 MEQ/L Potassium Level 4.1 MEQ/L Chloride Level 98 MEQ/L Carbon Dioxide Level 23.5 MEQ/L Anion Gap 11 MEQ/L Blood Urea Nitrogen 10 MG/DL Creatinine 0.65 MG/DL Estimat Glomerular Filtration 91 ML/MIN Rate Random Glucose 86 MG/DL Calcium Level 8.3 MG/DL Total Bilirubin 0.3 MG/DL Aspartate Amino Transf 162 U/L (AST/SGOT) Alanine Aminotransferase 143 U/L (ALT/SGPT) Alkaline Phosphatase 116 U/L Total Protein 7.6 GM/DL Albumin 3.4 GM/DL Ethyl Alcohol Level 370 MG/DL Urine Color LIGHT-YELLOW Urine Turbidity CLEAR Urine pH 5.0 Urine Specific [place] 1.004 Urine Protein NEG mg/dL Urine Glucose (UA) NEG mg/dL Urine Ketones NEG mg/dL Urine Occult Blood NEG Urine Nitrite NEG Urine Bilirubin NEG Urine Urobilinogen LESS THAN 2.0 MG/DL Urine Leukocyte Esterase NEG Urine RBC LESS THAN 1 /hpf Urine WBC 1 /hpf Urine Squamous Epithelial <1 /hpf Cells Urine Transitional Epithelial <1 /hpf Cells Urine Bacteria OCC /hpf Urine Hyaline Casts 5 /lpf Urine Granular Casts 1 /lpf Urine Mucus FEW /lpf Microscopic Urinalysis Comment CATH-CULTURE IND Last Impressions Head CT 04/12/17 0000 Signed Impressions: Service Date/Time: Wednesday, April 12, 2017 12:08 - CONCLUSION: Stable white matter disease. Left maxillary sinus mucosal disease. Renan Coleman MD Vital Signs Date Time Temp Pulse Resp B/P Pulse Ox O2 Delivery O2 Flow Rate FiO2 04/12/17 11:41 98.7 76 18 108/56 95 Differential Diagnosis CVA versus UTI versus acute alcohol intoxication versus ellipsoid abnormality versus other Narrative Course Patient is a 66-year-old female brought in by EMS after being found unresponsive in [facility]. Patient's vital signs are stable, she is arousable. Patient has been in the emergency department twice over the last several days. Labwork reviewed, we'll obtain CMP, UA, alcohol level, CT of the brain. Patient will be given IV fluids she is likely intoxicated which is the cause of her altered mental status. CT scan the brain was ordered due to patient being unresponsive and found, previous admissions she had been verbal and responsive. CT scan of the brain is negative for acute abnormality, shows chronic white matter changes and maxillary sinus disease. Urinalysis with reflex culture pending. Patient has no dysuria or urinary complaints. We'll defer treatment until culture results. Liver enzymes are elevated when compared to prior. Blood alcohol level is 370. CBC is unremarkable, chemistry sodium of 132. Patient was given 2 L of IV fluids. She is awake and ambulating in the emergency department. She still appears intoxicated. Patient will be allowed to sleep it off, she'll be discharged from the emergency department when she can safely ambulate and is alert and oriented. Patient is medically cleared at this time. Diagnosis Primary Impression: Alcohol intoxication Qualified Code: F10.920 - Alcohol intoxication, uncomplicated Additional Impression: Transaminitis [facility] Patient Instructions: Abuse of Alcohol (ED), Alcohol Intoxication (DC), General Instructions Additional Instructions: Avoid excessive intake of alcohol Increased intake of fluids Follow[facility]up at [facility] or with primary doctor Return to emergency department for any new or worsening symptoms Med/Other Pt SpecificInfo: No Change to Meds Scripts No Active Prescriptions or Reported Meds Disposition: 01 DISCHARGE HOME Condition: Stable JovanLissette HILL Apr 12, 2017 11:52
[2017-04-12] MEDS ORDERED: SODIUM CHLOR 0.9% 1000 ML INJ 1,000 ML IV ONE ×2 (12:00→13:45)
--- NOTE | 2017-04-12 12:22 | RADRPT ---
EXAM DATE/TIME: 04/12/2017 12:08 [place] COMPARISON: CT BRAIN W/O CONTRAST, May 15, 2016, 5:15. INDICATIONS : Altered mental status. RADIATION DOSE: 36.32 CTDIvol (mGy) MEDICAL HISTORY : Seizures. Hypertension. Cardiovascular disease SURGICAL HISTORY : None. ENCOUNTER: Initial ACUITY: 1 day PAIN SCALE: Non-responsive LOCATION: cranial TECHNIQUE: Multiple contiguous axial images were obtained of the head. Using automated exposure control and adj ustment of the mA and/or kV according to patient size, radiation dose was kept as low as reasonably a chievable to obtain optimal diagnostic quality images. DICOM format image data is available electro nically for review and comparison. FINDINGS: There is patchy hypodensity in the bilateral centrum semiovale and periventricular white matter and b toya ganglia which is stable. 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 There is mucosal in t he left maxillary sinus. No fractures. No evidence of acute infarct, hemorrhage or mass. CONCLUSION: Stable white matter disease. Left maxillary sinus mucosal disease. Renan Coleman MD on April 12, 2017 at 12:19 Board Certified Radiologist. This report was verified electronically.
[2017-04-12 12:37] LABS: ALKALINE PHOSPHATASE 116 U/L (45-117); ALT (GPT) 143 U/L (10-53); ANION GAP 11 MEQ/L (5-15); AST (GOT) 162 U/L (15-37); BICARBONATE 23.5 MEQ/L (21.0-32.0); BLOOD UREA NITROGEN 10 MG/DL (7-18); CHLORIDE 98 MEQ/L (98-107); GLOMERULAR FILTRATION RATE 91 ML/MIN (>89); POTASSIUM 4.1 MEQ/L (3.5-5.1); SODIUM (NA) 132 MEQ/L (136-145); TOTAL BILIRUBIN ADULT 0.3 MG/DL (0.2-1.0)
[2017-04-12 13:43] LABS: BACTERIA, URINE OCC /hpf; BLOOD, URINE NEG (NEG); GLUCOSE,URINE NEG (NEG); GRANULAR CAST, URINE 1 /lpf; HYALINE CAST, URINE 5 /lpf (RARE); KETONE, URINE NEG (NEG); MUCUS URINE FEW /lpf (OCC); NITRITE,URINE NEG (NEG); SQUAMOUS EPITHELIAL CELL URINE <1 /hpf (0-5); TRANSITIONAL EPI CELLS, URINE <1 /hpf; URINE COLOR LIGHT-YELLOW (YELLW/STRAW)
[2017-04-12 13:45] LABS: COMMENT (UR) CATH-CULTURE IND; CULTURE IF INDICATED CATH CULTURE IND
[2017-04-12 14:30] VITALS: BP 116/57; PULSE 81; RESP 18; O2SAT 95
== END 2017-04-12 18:17 | disposition home or self-care (01) ==
LOC: NEPD 11:28 → NEDAMB 18:17
DX: F10.920 Alcohol use, unspecified with intoxication, uncomplicated (principal); R74.0 Nonspecific elevation of levels of transaminase and lactic acid dehydrogenase [LDH]; Y90.8 Blood alcohol level of 240 mg/100 ml or more
CPT/HCPCS: 70450; 80053; 80307; 81001; 87086; 96360; 96361; 99285; J7030

== ENCOUNTER 2017-04-14 13:10 | Emergency (ER) | payer MEDICARE ==
[~2017-04-14] VITALS: Ht 149.9 cm; Wt 42.0 kg
[2017-04-14 13:15] VITALS: BP 109/60; PULSE 80; RESP 15; TEMP 98.2; O2SAT 98
[2017-04-14] MEDS ORDERED: ONDANSETRON HCL 4 MG/2 ML VIAL IV PUSH ONE (13:45)
[2017-04-14] MEDS ORDERED: SODIUM CHLOR 0.9% 1000 ML INJ 1,000 ML IV ONE (13:45)
--- NOTE | 2017-04-14 13:52 | PD ---
HPI Chief Complaint: Alcohol/Drug Intoxication Time Seen by Provider: 13:27 Travel History International Travel<30 days: No Contact w/Intl Traveler<30days: No Traveled to known affect area: No History of Present Illness HPI The patient is a 66-year-old female who presents emergency department via EMS for alcohol intoxication. The patient states she was drinking earlier today, heavily, but is unable to quantify the amount of alcohol she drank. She will not share with me in regards to drinking beer, wine, or liquor. Patient does complain of mild nausea and had one episode of vomiting after arrival by EMS. The patient does have a history of chronic alcohol abuse with multiple emergency department visits for alcohol intoxication. The patient denies any chest, shortness of breath, or abdominal pain. Patient is requesting to be discharged home so she can go home and sleep. PFSH Past Medical History Hx Anticoagulant Therapy: No Anemia: Yes Arthritis: Yes Asthma: Yes Autoimmune Disease: No Bipolar Disorder: Yes Anxiety: Yes Depression: Yes Heart Rhythm Problems: No Cancer: No Cardiovascular Problems: Yes High Cholesterol: No Chest Pain: Yes Congestive Heart Failure: No Cerebrovascular Accident: No Diabetes: Yes Patient Takes Glucophage: No Diminished Hearing: No Gastrointestinal Disorders: Yes GERD: Yes Genitourinary: No Headaches: No Hiatal Hernia: No Hypertension: Yes Immune Disorder: No Implanted Vascular Access Dvce: No Insomnia: Yes Musculoskeletal: No Neurologic: Yes Psychiatric: Yes Reproductive: Yes Respiratory: No Integumentary: Yes (INSECT BITES) Immunizations Current: Yes Migraines: No Myocardial Infarction: Yes (PER HX) Pneumonia: Yes (PER HX) Schizophrenia: Yes Seizures: Yes (FROM ETOH WITHDRAWAL) Thyroid Disease: No Ulcer: Yes (PER HX) Menopausal: Yes : 1 Para: 1 Miscarriage: 0 : 0 Ovarian Cysts: Yes (PER HX...RIGHT OVARIAN CYST REMOVAL) Tubal Ligation: Yes Past Surgical History Abdominal Surgery: No AICD: No Arteriovenous Shunt: No Cardiac Surgery: No Endocrine Surgery: No Eye Surgery: No Genitourinary Surgery: No Gynecologic Surgery: Yes Insulin Pump: No Joint Replacement: No Neurologic Surgery: No Oral Surgery: No Pacemaker: No Thoracic Surgery: No Tonsillectomy: Yes Other Surgery: Yes Social History Alcohol Use: Yes (OCCASSIONALLY PER PT) Tobacco Use: Yes (1 PPD) Substance Use: Yes Allergies-Medications (Allergen,Severity, Reaction): Coded Allergies: Novocain (Verified Allergy, Severe, Anaphylaxis, 04/12/17) Per pt. Reported Meds & Prescriptions Reported Meds & Active Scripts Active No Active Prescriptions or Reported Medications Review of Systems ROS Limitations: Intoxication Except as stated in HPI: all other systems reviewed are Neg HENT: No: Lightheadedness Cardiovascular: No: Chest Pain or Discomfort Respiratory: No: Shortness of Breath Gastrointestinal: Positive: Nausea, Vomiting, No: Abdominal Pain Psychiatric: Positive: Substance Abuse Physical Exam Narrative GENERAL: Awake, alert, pleasant 66-year-old female who appears her stated age and is in no acute respiratory distress. SKIN: Focused skin assessment warm/dry. HEAD: Atraumatic. Normocephalic. EYES: Mild injection bilaterally. ENT: No nasal bleeding or discharge. Breath smells of alcohol. NECK: Trachea midline. No JVD. CARDIOVASCULAR: Regular rate and rhythm. No murmur appreciated. RESPIRATORY: No accessory muscle use. Clear to auscultation. Breath sounds equal bilaterally. GASTROINTESTINAL: Abdomen soft, non-tender, nondistended. MUSCULOSKELETAL: No obvious deformities. No clubbing. No cyanosis. No edema. NEUROLOGICAL: Patient is oriented to person, but not month or year. She follows simple commands. PSYCHIATRIC: Appears intoxicated. Data Data Last Documented VS Vital Signs Date Time Temp Pulse Resp B/P Pulse Ox O2 Delivery O2 Flow Rate FiO2 04/14/17 13:20 16 97 Room Air 04/14/17 13:15 98.2 80 109/60 Orders Alcohol (Ethanol) (04/14/17 13:33) Basic Metabolic Panel (Bmp) (04/14/17 13:33) Ondansetron Inj (Zofran Inj) (04/14/17 13:45) Sodium Chlor 0.9% 1000 Ml Inj (Ns 1000 M (04/14/17 13:45) Labs Laboratory Tests Test 04/14/17 13:45 Sodium Level 136 MEQ/L Potassium Level 4.0 MEQ/L Chloride Level 103 MEQ/L Carbon Dioxide Level 24.4 MEQ/L Anion Gap 9 MEQ/L Blood Urea Nitrogen 4 MG/DL Creatinine 0.58 MG/DL Estimat Glomerular Filtration 104 ML/MIN Rate Random Glucose 89 MG/DL Calcium Level 8.6 MG/DL Ethyl Alcohol Level 434 MG/DL MDM Medical Decision Making Medical Screen Exam Complete: Yes Emergency Medical Condition: Yes Medical Record Reviewed: Yes Interpretation(s) Laboratory Tests Test 04/14/17 13:45 Sodium Level 136 MEQ/L Potassium Level 4.0 MEQ/L Chloride Level 103 MEQ/L Carbon Dioxide Level 24.4 MEQ/L Anion Gap 9 MEQ/L Blood Urea Nitrogen 4 MG/DL Creatinine 0.58 MG/DL Estimat Glomerular Filtration 104 ML/MIN Rate Random Glucose 89 MG/DL Calcium Level 8.6 MG/DL Ethyl Alcohol Level 434 MG/DL Differential Diagnosis Differential diagnosis includes alcohol intoxication, hyponatremia, alcohol abuse, gastritis, polysubstance abuse, neglect. Narrative Course IV was established, labs are drawn and sent, and the patient was placed on cardiac telemetry monitoring and continuous pulse oximetry monitoring. The patient was administered Zofran and IV fluids. The patient's sodium is normal. Alcohol is 434. The patient will be allowed to sleep it off, monitored in the emergency department, and discharged when she is able to and bleed has a safe disposition home. Diagnosis Primary Impression: Alcohol intoxication Qualified Code: F10.920 - Alcohol intoxication, uncomplicated Additional Impression: Alcohol dependence Qualified Code: F10.20 - Uncomplicated alcohol dependence Patient Instructions: General Instructions Additional Instructions: Decrease alcohol intake. Follow-up with her primary physician. Return if symptoms worsen or progress. Scripts No Active Prescriptions or Reported Meds Condition: Stable Tao Hawkins MD Apr 14, 2017 13:52
[2017-04-14 14:23] LABS: BICARBONATE 24.4 MEQ/L (21.0-32.0)
[2017-04-14 22:30] VITALS: BP 159/72; PULSE 82; RESP 16; O2SAT 92
== END 2017-04-14 23:55 | disposition home or self-care (01) ==
LOC: NEPE 13:10
DX: F10.220 Alcohol dependence with intoxication, uncomplicated (principal); Y90.8 Blood alcohol level of 240 mg/100 ml or more; F17.210 Nicotine dependence, cigarettes, uncomplicated; I10 Essential (primary) hypertension; F20.9 Schizophrenia, unspecified; F41.8 Other specified anxiety disorders; D64.9 Anemia, unspecified; M19.90 Unspecified osteoarthritis, unspecified site; J45.909 Unspecified asthma, uncomplicated
CPT/HCPCS: 80048; 80307; 96361; 96374; 99284; J2405; J7030

== ENCOUNTER 2017-04-16 09:54 | Emergency (ER) | payer MEDICARE, OTHER ==
[~2017-04-16] VITALS: Ht 162.6 cm; Wt 70.0 kg
[2017-04-16 10:12] VITALS: BP 116/62; PULSE 90; RESP 18; TEMP 98.2; O2SAT 93
[2017-04-16 10:53] LABS: AUTOMATED NEUTROPHIL # 4.1 TH/MM3 (1.8-7.7); BASOPHIL % 0.6 % (0.0-2.0); EOSINOPHIL # 0.2 TH/MM3 (0-0.4); EOSINOPHIL % 2.1 % (0.0-4.0); HEMO FLAGS DIFF FINAL; LYMPH % 32.3 % (9.0-44.0); LYMPHOCYTE # 2.4 TH/MM3 (1.0-4.8); MEAN CELL VOLUME 95.7 FL (80.0-100.0); MEAN CORPUSCULAR HEMOGLOBIN 32.4 PG (27.0-34.0); MEAN CORPUSCULAR HGB CONC 33.9 % (32.0-36.0); MONO % 9.2 % (0.0-8.0); NEUT % 55.8 % (16.0-70.0); PLATELET COUNT 187 TH/MM3 (150-450); RED BLOOD COUNT 3.87 MIL/MM3 (4.00-5.30); RED CELL DISTRIBUTION WIDTH 17.8 % (11.6-17.2); WHITE BLOOD COUNT 7.4 TH/MM3 (4.0-11.0)
[2017-04-16 11:14] LABS: ANION GAP 11 MEQ/L (5-15); AST (GOT) 102 U/L (15-37); BICARBONATE 24.9 MEQ/L (21.0-32.0); BLOOD UREA NITROGEN 6 MG/DL (7-18); CHLORIDE 98 MEQ/L (98-107); GLOMERULAR FILTRATION RATE 113 ML/MIN (>89); POTASSIUM 3.9 MEQ/L (3.5-5.1); SODIUM (NA) 134 MEQ/L (136-145)
[2017-04-16 11:18] LABS: ALKALINE PHOSPHATASE 107 U/L (45-117); ALT (GPT) 104 U/L (10-53); TOTAL BILIRUBIN ADULT 0.3 MG/DL (0.2-1.0)
--- NOTE | 2017-04-16 14:04 | PD ---
HPI . suicide threats/etoh abuse Chief Complaint: Psychiatric Symptoms Time Seen by Provider: 14:04 Travel History International Travel<30 days: No Contact w/Intl Traveler<30days: No Traveled to known affect area: No History of Present Illness HPI 66-year-old female here with acute alcohol intoxication under Wilder act. Patient was apparently making threats to commit suicide and was brought in by the police department. At the time of examination patient reports she is feeling well and wants to go home. She tells me that she messed up and had too much alcohol and does not want harm herself. She denies any pain or complaints. PFSH Past Medical History Hx Anticoagulant Therapy: No Anemia: Yes Arthritis: Yes Asthma: Yes Autoimmune Disease: No Bipolar Disorder: Yes Anxiety: Yes Depression: Yes Heart Rhythm Problems: No Cancer: No Cardiovascular Problems: Yes High Cholesterol: No Chest Pain: Yes Congestive Heart Failure: No Cerebrovascular Accident: No Diabetes: Yes Diminished Hearing: No Gastrointestinal Disorders: Yes GERD: Yes Genitourinary: No Headaches: No Hiatal Hernia: No Hypertension: Yes Immune Disorder: No Implanted Vascular Access Dvce: No Insomnia: Yes Musculoskeletal: No Neurologic: Yes Psychiatric: Yes Reproductive: Yes Respiratory: No Integumentary: Yes (INSECT BITES) Immunizations Current: Yes Migraines: No Myocardial Infarction: Yes (PER HX) Pneumonia: Yes (PER HX) Schizophrenia: Yes Seizures: Yes (FROM ETOH WITHDRAWAL) Thyroid Disease: No Ulcer: Yes (PER HX) Menopausal: Yes : 1 Para: 1 Miscarriage: 0 : 0 Ovarian Cysts: Yes (PER HX...RIGHT OVARIAN CYST REMOVAL) Tubal Ligation: Yes Past Surgical History Abdominal Surgery: No AICD: No Arteriovenous Shunt: No Cardiac Surgery: No Endocrine Surgery: No Eye Surgery: No Genitourinary Surgery: No Gynecologic Surgery: Yes Insulin Pump: No Joint Replacement: No Neurologic Surgery: No Oral Surgery: No Pacemaker: No Thoracic Surgery: No Tonsillectomy: Yes Other Surgery: Yes Social History Alcohol Use: Yes (OCCASSIONALLY PER PT) Tobacco Use: Yes (1 PPD) Substance Use: Yes Allergies-Medications (Allergen,Severity, Reaction): Coded Allergies: Novocain (Verified Allergy, Severe, Anaphylaxis, 04/12/17) Per pt. Reported Meds & Prescriptions Reported Meds & Active Scripts Active No Active Prescriptions or Reported Medications Review of Systems General / Constitutional: No: Fever Eyes: No: Visual changes HENT: No: Headaches Cardiovascular: No: Chest Pain or Discomfort Respiratory: No: Shortness of Breath Gastrointestinal: No: Abdominal Pain Genitourinary: No: Dysuria Musculoskeletal: No: Pain Skin: No Rash Neurologic: No: Weakness Psychiatric: Positive: Suicidal Ideations, No: Depression Endocrine: No: Polydipsia Hematologic/Lymphatic: No: Easy Bruising Physical Exam Narrative GENERAL: AAO x 3, no acute distress, Well-nourished, well-developed patient. Pleasant and cooperative SKIN: Warm and dry. No visible rashes or bruising. HEAD: Normocephalic and atraumatic. EYES: No scleral icterus. No injection or drainage. EOM intact, PERRLA ENT: No nasal drainage noted. Mucous membranes pink. Airway patent. NECK: Supple, trachea midline. No JVD. No lymphadenopathy CARDIOVASCULAR: Regular rate and rhythm without murmurs, gallops, or rubs. RESPIRATORY: Breath sounds equal bilaterally. No accessory muscle use. No rhonchi or rales. GASTROINTESTINAL: Abdomen soft, non-tender, nondistended. EXTREMITIES: No cyanosis or edema. BACK: Nontender without obvious deformity. No CVA tenderness. NEURO: CN II-12 intact, coin box inspector strength normal b/l, UE and LE 5/5, no focal deficits PSYCH: AAO x 3, normal affect. Data Data Last Documented VS Vital Signs Date Time Temp Pulse Resp B/P Pulse Ox O2 Delivery O2 Flow Rate FiO2 04/16/17 14:14 88 18 126/76 94 Room Air 04/16/17 10:12 98.2 Orders Complete Blood Count With Diff (04/16/17 10:26) Comprehensive Metabolic Panel (04/16/17 10:26) Psych Screen (04/16/17 10:26) Alcohol (Ethanol) (04/16/17 10:26) Diet Regular Basic (04/16/17 Lunch) Alcohol Withdrawal Asmt-Ciwa ONCE (04/16/17 14:15) Flumazenil Inj (Romazicon Inj) (04/16/17 14:15) Lorazepam (Ativan) (04/16/17 14:15) Lorazepam Inj (Ativan Inj) (04/16/17 14:15) Lorazepam (Ativan) (04/16/17 14:15) Lorazepam Inj (Ativan Inj) (04/16/17 14:15) Lorazepam Inj (Ativan Inj) (04/16/17 14:15) Lorazepam Inj (Ativan Inj) (04/16/17 14:15) Labs Laboratory Tests Test 04/16/17 10:24 White Blood Count 7.4 TH/MM3 Red Blood Count 3.87 MIL/MM3 Hemoglobin 12.5 GM/DL Hematocrit 37.0 % Mean Corpuscular Volume 95.7 FL Mean Corpuscular Hemoglobin 32.4 PG Mean Corpuscular Hemoglobin 33.9 % Concent Red Cell Distribution Width 17.8 % Platelet Count 187 TH/MM3 Mean Platelet Volume 6.6 FL Neutrophils (%) (Auto) 55.8 % Lymphocytes (%) (Auto) 32.3 % Monocytes (%) (Auto) 9.2 % Eosinophils (%) (Auto) 2.1 % Basophils (%) (Auto) 0.6 % Neutrophils # (Auto) 4.1 TH/MM3 Lymphocytes # (Auto) 2.4 TH/MM3 Monocytes # (Auto) 0.7 TH/MM3 Eosinophils # (Auto) 0.2 TH/MM3 Basophils # (Auto) 0.0 TH/MM3 CBC Comment DIFF FINAL Differential Comment Sodium Level 134 MEQ/L Potassium Level 3.9 MEQ/L Chloride Level 98 MEQ/L Carbon Dioxide Level 24.9 MEQ/L Anion Gap 11 MEQ/L Blood Urea Nitrogen 6 MG/DL Creatinine 0.54 MG/DL Estimat Glomerular Filtration 113 ML/MIN Rate Random Glucose 116 MG/DL Calcium Level 8.0 MG/DL Total Bilirubin 0.3 MG/DL Aspartate Amino Transf 102 U/L (AST/SGOT) Alanine Aminotransferase 104 U/L (ALT/SGPT) Alkaline Phosphatase 107 U/L Total Protein 7.8 GM/DL Albumin 3.5 GM/DL Ethyl Alcohol Level 369 MG/DL MDM Medical Decision Making Medical Screen Exam Complete: Yes Emergency Medical Condition: Yes Medical Record Reviewed: Yes Differential Diagnosis Suicidal ideation, alcohol abuse, drug induced mood disorder, Narrative Course 66-year-old female here with acute alcohol intoxication and under Wilder act secondary suicidal threats. Labs have been reviewed and demonstrated elevated LFTs, which is expected in a chronic alcohol user. Initial alcohol level was 369. Currently patient is AAO 3 and ambulatory. I've explained to her that she will need to be seen by psych for clearance. Diagnosis Primary Impression: ETOH abuse Additional Impression: Suicidal ideations Scripts No Active Prescriptions or Reported Meds Condition: Stable Crystal Barber Apr 16, 2017 14:04
[2017-04-16 14:14] VITALS: BP 126/76; PULSE 88; RESP 18; O2SAT 94; O2SAT 96
[2017-04-16] MEDS ORDERED: LORazepam 2 MG/ML VIAL IV PUSH PRN ×4 (14:15)
[2017-04-16] MEDS ORDERED: LORazepam 1 MG TAB PO PRN (14:15)
[2017-04-16] MEDS ORDERED: FLUMAZENIL 0.5 MG/5 ML VIAL IV PUSH PRN (14:15)
[2017-04-16 14:42] VITALS: BP 118/60; PULSE 77; RESP 18; TEMP 98.2; O2SAT 94
[2017-04-16] MEDS: LORazepam 2 MG TAB PO PRN (19:39)
[2017-04-16 20:12] VITALS: BP 179/96; PULSE 82; RESP 17; TEMP 98.3; O2SAT 96
[2017-04-16 22:12] VITALS: BP 185/86; PULSE 80; RESP 20; O2SAT 97
[2017-04-17] MEDS: LORazepam 2 MG TAB PO PRN ×2 (01:26→04:08)
[2017-04-17 02:34] VITALS: BP 178/78; PULSE 79; RESP 16; O2SAT 96
[2017-04-17 06:00] VITALS: BP 158/76; PULSE 79; RESP 18; O2SAT 95
[2017-04-17 07:30] VITALS: BP 184/85; PULSE 90; RESP 20; O2SAT 96
[2017-04-17 07:38] VITALS: BP 184/85
== END 2017-04-17 08:56 ==
LOC: NEDAMB 09:54 → NEPJ 04-17 08:56
DX: F10.120 Alcohol abuse with intoxication, uncomplicated (principal); R45.851 Suicidal ideations; D64.9 Anemia, unspecified; M19.90 Unspecified osteoarthritis, unspecified site; F31.9 Bipolar disorder, unspecified; F41.8 Other specified anxiety disorders; I25.2 Old myocardial infarction; F17.210 Nicotine dependence, cigarettes, uncomplicated; Y90.8 Blood alcohol level of 240 mg/100 ml or more
CPT/HCPCS: 80053; 80307; 85025; 99285

== ENCOUNTER 2017-04-25 16:41 | Emergency (ER) | payer MEDICARE, OTHER ==
[2017-04-25 17:05] VITALS: BP 95/53; PULSE 84; RESP 18; TEMP 97.9; O2SAT 94
--- NOTE | 2017-04-25 17:48 | PD ---
HPI Chief Complaint: Alcohol/Drug Intoxication Time Seen by Provider: 17:43 Travel History International Travel<30 days: No Contact w/Intl Traveler<30days: No Traveled to known affect area: No History of Present Illness HPI 66-year-old female that presents to the ED for evaluation of alcohol abuse. Patient was put on the [place] acted by police after apparently she was found intoxicated and stumbling around a local business. Patient was brought here for her own safety as she cannot ambulate without stumbling. She voices no complaints. No medical issues. She has a chronic history of substance abuse and alcohol abuse and has been here multiple times for same. On my examination patient has been sleeping with no sign of acute distress. She is able to speak properly with some slurring but cannot ambulate yet. She voices that she wants to go home. She has no other medical issues. No signs of trauma. No suicidal or homicidal ideation. PFSH Past Medical History Hx Anticoagulant Therapy: No Anemia: Yes Arthritis: Yes Asthma: Yes Autoimmune Disease: No Bipolar Disorder: Yes Anxiety: Yes Depression: Yes Heart Rhythm Problems: No Cancer: No Cardiovascular Problems: Yes High Cholesterol: No Chest Pain: Yes Congestive Heart Failure: No Cerebrovascular Accident: No Diabetes: Yes Diminished Hearing: No Gastrointestinal Disorders: Yes GERD: Yes Genitourinary: No Headaches: No Hiatal Hernia: No Hypertension: Yes Immune Disorder: No Implanted Vascular Access Dvce: No Insomnia: Yes Musculoskeletal: No Neurologic: Yes Psychiatric: Yes Reproductive: Yes Respiratory: No Integumentary: Yes (INSECT BITES) Immunizations Current: Yes Migraines: No Myocardial Infarction: Yes (PER HX) Pneumonia: Yes (PER HX) Schizophrenia: Yes Seizures: Yes (FROM ETOH WITHDRAWAL) Thyroid Disease: No Ulcer: Yes (PER HX) ?: Unknown Menopausal: Yes : 1 Para: 1 Miscarriage: 0 : 0 Ovarian Cysts: Yes (PER HX...RIGHT OVARIAN CYST REMOVAL) Tubal Ligation: Yes Past Surgical History Abdominal Surgery: No AICD: No Arteriovenous Shunt: No Cardiac Surgery: No Endocrine Surgery: No Eye Surgery: No Genitourinary Surgery: No Gynecologic Surgery: Yes Insulin Pump: No Joint Replacement: No Neurologic Surgery: No Oral Surgery: No Pacemaker: No Thoracic Surgery: No Tonsillectomy: Yes Other Surgery: Yes Social History Alcohol Use: Yes (OCCASSIONALLY PER PT) Tobacco Use: Yes (1 PPD) Substance Use: Yes Allergies-Medications (Allergen,Severity, Reaction): Coded Allergies: Novocain (Verified Allergy, Severe, Anaphylaxis, 04/25/17) Per pt. Reported Meds & Prescriptions Reported Meds & Active Scripts Active No Active Prescriptions or Reported Medications Review of Systems ROS Limitations: Intoxication Except as stated in HPI: all other systems reviewed are Neg Physical Exam Exam Limitations: Intoxication Narrative GENERAL: SKIN: Warm and dry. HEAD: Atraumatic. Normocephalic. EYES: Pupils equal and round. No scleral icterus. No injection or drainage. ENT: No nasal bleeding or discharge. Mucous membranes pink and moist. Tongue is midline. No uvula deviation. NECK: Trachea midline. No JVD. CARDIOVASCULAR: Regular rate and rhythm. No murmurs, S3, S4. RESPIRATORY: No accessory muscle use. Clear to auscultation. Breath sounds equal bilaterally. GASTROINTESTINAL: Abdomen soft, non-tender, nondistended. Hepatic and splenic margins not palpable. MUSCULOSKELETAL: Extremities without clubbing, cyanosis, or edema. No obvious deformities. Full range of motion of the upper and lower extremities bilaterally. 2+ pulses bilaterally. NEUROLOGICAL: Awake and alert. No obvious cranial nerve deficits. Motor grossly within normal limits. Five out of 5 muscle strength in the arms and legs. Normal speech. PSYCHIATRIC: Intoxicated mood and affect; insight and judgment normal. MDM Medical Decision Making Medical Screen Exam Complete: Yes Emergency Medical Condition: Yes Medical Record Reviewed: Yes Differential Diagnosis Alcohol abuse versus occult intoxication versus substance abuse Narrative Course 66-year-old female that presents to the ED for evaluation of alcohol intoxication. Patient was properly examined and was found to have no signs of acute medical distress. He should voices that she wants to go home. She has no signs of trauma. She is a known alcoholic and has been here multiple times including twice this month alone for same. Patient is neurovascular intact. This time patient will be allowed to sleep of her intoxication until medically sober. This was discussed with the ED nurse who is taking care of the patient and she agrees with plan. She will let me know when the patient is more coherent and capable of ambulating. Otherwise patient can be discharged to a reliable adult. Diagnosis Primary Impression: Alcohol intoxication Qualified Code: F10.920 - Alcohol intoxication, uncomplicated Patient Instructions: General Instructions Additional Instructions: F/u with PCP. Stop drinking too much. See ED of worst Med/Other Pt SpecificInfo: No Change to Meds, No Meds Exist/No RX given Scripts No Active Prescriptions or Reported Meds Disposition: 01 DISCHARGE HOME Condition: Morales Yi Apr 25, 2017 17:48
== END 2017-04-25 19:45 | disposition home or self-care (01) ==
LOC: NEDAMB 16:41
DX: F10.920 Alcohol use, unspecified with intoxication, uncomplicated (principal); E11.9 Type 2 diabetes mellitus without complications; I10 Essential (primary) hypertension; F17.200 Nicotine dependence, unspecified, uncomplicated; Z86.2 Personal history of diseases of the blood and blood-forming organs and certain disorders involving the immune mechanism; Z87.39 Personal history of other diseases of the musculoskeletal system and connective tissue; Z87.09 Personal history of other diseases of the respiratory system; Z86.59 Personal history of other mental and behavioral disorders; Z86.79 Personal history of other diseases of the circulatory system; Z87.19 Personal history of other diseases of the digestive system; Z86.69 Personal history of other diseases of the nervous system and sense organs
CPT/HCPCS: 99283

== ENCOUNTER 2017-04-29 11:50 | Emergency (ER) | payer MEDICARE, OTHER ==
[~2017-04-29] VITALS: Ht 160 cm; Wt 60.0 kg
--- NOTE | 2017-04-29 12:41 | PD ---
HPI Chief Complaint: BA Time Seen by Provider: 12:41 Travel History International Travel<30 days: No Contact w/Intl Traveler<30days: No Traveled to known affect area: No History of Present Illness HPI 66-year-old female with long-standing history of alcohol dependency, presents to emergency department under a Wilder act for psychiatric evaluation. Per report, patient stated she wanted to go into the [place]" kill herself." Patient does not deny this. She states that at times she does want to end her life. She was having these thoughts today. Reports she has been drinking alcohol since she woke up this morning is uncertain how much. Denies any illicit drug use. Denies any other significant medical history, despite a long list of comorbidities in her medical record. PFSH Past Medical History Hx Anticoagulant Therapy: No Anemia: Yes Arthritis: Yes Asthma: Yes Autoimmune Disease: No Bipolar Disorder: Yes Anxiety: Yes Depression: Yes Heart Rhythm Problems: No Cancer: No Cardiovascular Problems: Yes High Cholesterol: No Chest Pain: Yes Congestive Heart Failure: No Cerebrovascular Accident: No Diabetes: Yes Diminished Hearing: No Gastrointestinal Disorders: Yes GERD: Yes Genitourinary: No Headaches: No Hiatal Hernia: No Hypertension: Yes Immune Disorder: No Implanted Vascular Access Dvce: No Insomnia: Yes Musculoskeletal: No Neurologic: Yes Psychiatric: Yes Reproductive: Yes Respiratory: No Integumentary: Yes (INSECT BITES) Immunizations Current: Yes Migraines: No Myocardial Infarction: Yes (PER HX) Pneumonia: Yes (PER HX) Schizophrenia: Yes Seizures: Yes (FROM ETOH WITHDRAWAL) Thyroid Disease: No Ulcer: Yes (PER HX) Menopausal: Yes : 1 Para: 1 Miscarriage: 0 : 0 Ovarian Cysts: Yes (PER HX...RIGHT OVARIAN CYST REMOVAL) Tubal Ligation: Yes Past Surgical History Abdominal Surgery: No AICD: No Arteriovenous Shunt: No Cardiac Surgery: No Endocrine Surgery: No Eye Surgery: No Genitourinary Surgery: No Gynecologic Surgery: Yes Insulin Pump: No Joint Replacement: No Neurologic Surgery: No Oral Surgery: No Pacemaker: No Thoracic Surgery: No Tonsillectomy: Yes Other Surgery: Yes Social History Alcohol Use: Yes (OCCASSIONALLY PER PT) Tobacco Use: Yes (1 PPD) Substance Use: Yes Allergies-Medications (Allergen,Severity, Reaction): Coded Allergies: Novocain (Verified Allergy, Severe, Anaphylaxis, 04/25/17) Per pt. Reported Meds & Prescriptions Reported Meds & Active Scripts Active No Active Prescriptions or Reported Medications Review of Systems Except as stated in HPI: all other systems reviewed are Neg Physical Exam Narrative GENERAL: Thin unkempt female patient, tearful but in no acute distress SKIN: Focused skin assessment warm/dry. HEAD: Normocephalic. EYES: No scleral icterus. No injection or drainage. NECK: Supple, trachea midline. No JVD or lymphadenopathy. CARDIOVASCULAR: Regular rate and rhythm without murmurs, gallops, or rubs. RESPIRATORY: Breath sounds equal bilaterally. No accessory muscle use. GASTROINTESTINAL: Abdomen soft, non-tender, nondistended. MUSCULOSKELETAL: No cyanosis, or edema. BACK: Nontender without obvious deformity. No CVA tenderness. Data Data Orders Complete Blood Count With Diff (04/29/17 12:37) Basic Metabolic Panel (Bmp) (04/29/17 12:37) Psych Screen (04/29/17 12:37) Drug Screen, Random Urine (04/29/17 12:37) Alcohol (Ethanol) (04/29/17 12:37) MDM Medical Decision Making Medical Screen Exam Complete: Yes Emergency Medical Condition: Yes Medical Record Reviewed: Yes Differential Diagnosis Mood disorder versus personality disorder versus intoxication versus substance abuse Narrative Course 66 year-old female presents to emergency department under Wilder act for psychiatric evaluation. Patient does report suicidal thoughts. No active plan. She is admittedly intoxicated. Lab work is ordered for medical clearance to undergo psychiatric screening. Pending no acute abnormality, patient will be medically cleared for psychiatric evaluation. Diagnosis Primary Impression: Alcohol abuse with alcohol-induced mood disorder Scripts No Active Prescriptions or Reported Meds Condition: Gely Stein Apr 29, 2017 12:41
[2017-04-29 13:20] VITALS: BP 141/76; PULSE 82; RESP 18; TEMP 98.5; O2SAT 95
--- NOTE | 2017-04-29 13:20 | PD ---
Physical Exam Date Seen by Provider: Apr 29, 2017 Time Seen by Provider: 13:19 Narrative 66-year-old female presents to the ED under Wilder act. Patient was initially seen by SERGIO Acosta. Please see her note for those details. On presentation the patient refuses to confirm or deny suicidal ideation. Per the Wilder paperwork she stated that she "wanted to walk in the mun[place] and ." Patient endorses drinking today, declines to quantify any amount. She denies somatic complaints. GENERAL: Well-nourished, well-developed intoxicated white female in no acute distress. PSYCHIATRIC: No delusional thought processes. No hallucinations. Intoxicated. Cooperative. SKIN: Focused skin assessment warm/dry. HEAD: Normocephalic. EYES: No scleral icterus. No injection or drainage. NECK: Supple, trachea midline. No JVD or lymphadenopathy. CARDIOVASCULAR: Regular rate and rhythm without murmurs, gallops, or rubs. RESPIRATORY: Breath sounds equal bilaterally. No accessory muscle use. GASTROINTESTINAL: Abdomen soft, non-tender, nondistended. MUSCULOSKELETAL: No cyanosis, or edema. BACK: Nontender without obvious deformity. No CVA tenderness. Data Data Last Documented VS Vital Signs Date Time Temp Pulse Resp B/P Pulse Ox O2 Delivery O2 Flow Rate FiO2 04/29/17 14:52 98.0 82 16 116/58 96 Room Air Orders Complete Blood Count With Diff (04/29/17 12:37) Basic Metabolic Panel (Bmp) (04/29/17 12:37) Psych Screen (04/29/17 12:37) Drug Screen, Random Urine (04/29/17 12:37) Alcohol (Ethanol) (04/29/17 12:37) Labs Laboratory Tests Test 04/29/17 13:45 White Blood Count 9.3 TH/MM3 Red Blood Count 3.84 MIL/MM3 Hemoglobin 13.0 GM/DL Hematocrit 37.9 % Mean Corpuscular Volume 98.6 FL Mean Corpuscular Hemoglobin 33.8 PG Mean Corpuscular Hemoglobin 34.2 % Concent Red Cell Distribution Width 16.6 % Platelet Count 372 TH/MM3 Mean Platelet Volume 6.8 FL Neutrophils (%) (Auto) 60.8 % Lymphocytes (%) (Auto) 29.5 % Monocytes (%) (Auto) 8.4 % Eosinophils (%) (Auto) 0.7 % Basophils (%) (Auto) 0.6 % Neutrophils # (Auto) 5.7 TH/MM3 Lymphocytes # (Auto) 2.8 TH/MM3 Monocytes # (Auto) 0.8 TH/MM3 Eosinophils # (Auto) 0.1 TH/MM3 Basophils # (Auto) 0.1 TH/MM3 CBC Comment DIFF FINAL Differential Comment Sodium Level 135 MEQ/L Potassium Level 4.1 MEQ/L Chloride Level 100 MEQ/L Carbon Dioxide Level 22.9 MEQ/L Anion Gap 12 MEQ/L Blood Urea Nitrogen 9 MG/DL Creatinine 0.74 MG/DL Estimat Glomerular Filtration 79 ML/MIN Rate Random Glucose 125 MG/DL Calcium Level 8.3 MG/DL Ethyl Alcohol Level 371 MG/DL MDM Medical Record Reviewed: Yes Supervised Visit with YING: No Differential Diagnosis Adjustment disorder versus anxiety versus bipolar versus depression versus dementia versus electrolyte disorder versus malingering versus mood disorder versus ODD versus psychosis versus PTSD versus schizophrenia versus schizoaffective disorder versus substance-induced mood disorder versus other Narrative Course 66-year-old female presents to the ED under Wilder act, acutely intoxicated. She refuses to confirm or deny suicidal ideation. Wilder act paper states that she "wants to walk in the mun[place] and ." Patient is obviously intoxicated but physical exam is otherwise unremarkable. Lab work unremarkable. ETOH 371. Wilder act lifted by psychiatric provider, Dr. Jarvis. The patient will be allowed to sleep it off, reevaluated for sobriety before discharge. Diagnosis Primary Impression: Alcohol abuse with alcohol-induced mood disorder Referrals: [facility] Patient Instructions: Abuse of Alcohol (ED), General Instructions Additional Instruction: Seek outpatient treatment for your chronic alcohol abuse. Return to the ED for any urgent or emergent medical condition. Scripts No Active Prescriptions or Reported Meds Disposition: 01 DISCHARGE HOME Condition: Stable Annemarie Pretty Apr 29, 2017 13:20
[2017-04-29 13:36] VITALS: BP 141/76; PULSE 82; RESP 18; TEMP 98.5; O2SAT 95
[2017-04-29 14:35] LABS: AUTOMATED NEUTROPHIL # 5.7 TH/MM3 (1.8-7.7); BASOPHIL # 0.1 TH/MM3 (0-0.2); BASOPHIL % 0.6 % (0.0-2.0); EOSINOPHIL # 0.1 TH/MM3 (0-0.4); EOSINOPHIL % 0.7 % (0.0-4.0); HEMATOCRIT 37.9 % (35.0-46.0); HEMO FLAGS DIFF FINAL; LYMPH % 29.5 % (9.0-44.0); LYMPHOCYTE # 2.8 TH/MM3 (1.0-4.8); MEAN CELL VOLUME 98.6 FL (80.0-100.0); MEAN CORPUSCULAR HEMOGLOBIN 33.8 PG (27.0-34.0); MEAN CORPUSCULAR HGB CONC 34.2 % (32.0-36.0); MONO % 8.4 % (0.0-8.0); NEUT % 60.8 % (16.0-70.0); PLATELET COUNT 372 TH/MM3 (150-450); RED BLOOD COUNT 3.84 MIL/MM3 (4.00-5.30); RED CELL DISTRIBUTION WIDTH 16.6 % (11.6-17.2); WHITE BLOOD COUNT 9.3 TH/MM3 (4.0-11.0)
[2017-04-29 14:52] VITALS: BP 116/58; PULSE 82; RESP 16; TEMP 98; O2SAT 96
[2017-04-29 15:09] LABS: BICARBONATE 22.9 MEQ/L (21.0-32.0); POTASSIUM 4.1 MEQ/L (3.5-5.1)
[2017-04-29 16:34] VITALS: BP 117/72
--- NOTE | 2017-04-30 08:26 | PD.PSY.CON ---
Provisional Diagnosis Admission Date [place] I. Alcohol induced mood disorder, alcohol use disorder [place] II. Deferred [place] III. No significant medical history, [place] IV. Multiple ER visits with a similar presentation, alcohol related. [place] V. 55 History of Present Illness Service Psychiatry Consult Requested By Primary Care Physician No Primary Care Physician HPI The patient is a 66-year-old woman, well known by this service, history of alcohol use disorder, multiple ER visits with a similar presentation , mostly intoxicated under Wilder act, who presents to the ED under Wilder act due to suicidal ideation, apparently patient was caught by police having a bizarre behavior and she told them that she wanted to kill herself in the [place]. Patient was initially seen by SERGIO Acosta. Please see her note for those details. On presentation the patient refuses to confirm or deny suicidal ideation. Per the [place] paperwork she stated that she "wanted to walk in the mun[place] and ."Patient endorses drinking today, declines to quantify any amount. Significant evaluation today the patient states that she has been drinking alcohol every day, she denies depressive symptoms, she says that she never stated that she wanted to kill herself to the police. She denies suicidal or homicidal ideation, she denies visual and auditory hallucinations. Patient seems to be future oriented, in a good spirit, declines referral to detox and rehabilitation program. She is oriented 3, no withdrawal symptoms. He denies the use of illicit drugs. Review of Systems Constitutional: DENIES: Diaphoretic episodes, Fatigue, Fever, Weight gain, Weight loss, Chills, Dizziness, Change in appetite, Night Sweats Endocrine: DENIES: Abnorml menstrual pattern, Heat/cold intolerance, Polydipsia , Polyuria, Polyphagia Ears, nose, mouth, throat: DENIES: Tinnitus, Hearing loss, Vertigo, Nasal discharge, Oral lesions, Throat pain, Hoarseness, Ear Pain, Running Nose, Epistaxis, Sinus Pain, Toothache, Odynophagia Respiratory: DENIES: Apneas, Cough, Snoring, Wheezing, Hemoptysis, Sputum production, Shortness of breath Cardiovascular: DENIES: Chest pain, Palpitations, Syncope, Dyspnea on Exertion , PND, Lower Extremity Edema, Orthopnea, Claudication Gastrointestinal: DENIES: Abdominal pain, Black stools, Bloody stools, Constipation, Diarrhea, Nausea, Vomiting, Difficulty Swallowing, Anorexia Musculoskeletal: DENIES: Joint pain, Muscle aches, Stiffness, Joint Swelling, Back pain, Neck pain Integumentary: DENIES: Abnormal pigmentation, Pruritus, Rash, Nail changes, Breast masses, Breast skin changes, Nipple discharge Hematologic/lymphatic: DENIES: Bruising, Lymphadenopathy Neurologic: DENIES: Abnormal gait, Headache, Localized weakness, Paresthesias, Seizures, Speech Problems, Tremor, Poor Balance Past Family Social History Coded Allergies: Novocain (Verified Allergy, Severe, Anaphylaxis, 04/25/17) Per pt. No Active Prescriptions or Reported Meds Patient denies this medication Family History Denies homicidal history Social History Patient is in [place], she reports that she is in a motel, single, unemployed, no family support Patient's Strengths (min. 2) Verbal communication Physical Exam Vital Signs Vital Signs Date Time Temp Pulse Resp B/P Pulse Ox O2 Delivery O2 Flow Rate FiO2 04/29/17 16:34 80 16 117/72 97 04/29/17 14:52 98.0 Room Air Lab Results Labs Laboratory Tests Test 04/29/17 13:45 White Blood Count 9.3 TH/MM3 Red Blood Count 3.84 MIL/MM3 Hemoglobin 13.0 GM/DL Hematocrit 37.9 % Mean Corpuscular Volume 98.6 FL Mean Corpuscular Hemoglobin 33.8 PG Mean Corpuscular Hemoglobin 34.2 % Concent Red Cell Distribution Width 16.6 % Platelet Count 372 TH/MM3 Mean Platelet Volume 6.8 FL Neutrophils (%) (Auto) 60.8 % Lymphocytes (%) (Auto) 29.5 % Monocytes (%) (Auto) 8.4 % Eosinophils (%) (Auto) 0.7 % Basophils (%) (Auto) 0.6 % Neutrophils # (Auto) 5.7 TH/MM3 Lymphocytes # (Auto) 2.8 TH/MM3 Monocytes # (Auto) 0.8 TH/MM3 Eosinophils # (Auto) 0.1 TH/MM3 Basophils # (Auto) 0.1 TH/MM3 CBC Comment DIFF FINAL Differential Comment Sodium Level 135 MEQ/L Potassium Level 4.1 MEQ/L Chloride Level 100 MEQ/L Carbon Dioxide Level 22.9 MEQ/L Anion Gap 12 MEQ/L Blood Urea Nitrogen 9 MG/DL Creatinine 0.74 MG/DL Estimat Glomerular Filtration 79 ML/MIN Rate Random Glucose 125 MG/DL Calcium Level 8.3 MG/DL Ethyl Alcohol Level 371 MG/DL Mental Status Examination Appearance Elderly woman, she appears younger than his stated age, poor hygiene, she is calm and cooperative Speech: Unremarkable Orientation: x3 Memory: Unremarkable Thought Process: Logical Thought Content: Unremarkable Hallucination Type: None Suicidal Ideation: No Previous Suicide Attempts: No Homicidal Ideation: No Previous Homicide Attempts: No Judgment: WNL Affect: Good Mood: Appropriate Motor Activity: Normal gait Assessment & Plan Problem List: (1) Alcohol abuse with alcohol-induced mood disorder Assessment & Plan: Patient is no clinical is sober, no withdrawal or intoxication present. Patient is logical, coherent 11. Oriented 3. No agitation, no aggressive behavior observed or reported on longitudinal observation. She denies suicidal or homicidal ideation, she denies visual and auditory hallucinations. As usual, recent suicidal statements most probably related with acute alcohol intoxication, there is also highly suspicious malingering or secondary gain of avoiding legal problems and is in the hospital as a long-term, she does not meet criteria for psychotic admission. Patient will be discharged. ICD Code: F10.14 Assessment & Plan Estimated LOS: Preet Hernandez MD Apr 30, 2017 08:26
== END 2017-04-29 16:36 | disposition home or self-care (01) ==
LOC: NEPD 11:50
DX: F10.14 Alcohol abuse with alcohol-induced mood disorder (principal); F20.9 Schizophrenia, unspecified; F31.9 Bipolar disorder, unspecified; D64.9 Anemia, unspecified; M13.88 Other specified arthritis, other site; J45.909 Unspecified asthma, uncomplicated; E11.9 Type 2 diabetes mellitus without complications; K21.9 Gastro-esophageal reflux disease without esophagitis; I10 Essential (primary) hypertension
CPT/HCPCS: 80048; 80307; 85025; 99284

== ENCOUNTER 2017-05-01 12:52 | Emergency (ER) | payer MEDICARE, OTHER ==
[~2017-05-01] VITALS: Ht 152.4 cm; Wt 42.0 kg
[2017-05-01 13:00] VITALS: BP 140/76; PULSE 90; RESP 15; TEMP 98.6; O2SAT 96
== END 2017-05-01 16:17 | disposition left against medical advice (07) ==
LOC: NETRI 12:52
DX: R52 Pain, unspecified (principal)
CPT/HCPCS: 99281

== ENCOUNTER 2017-05-01 17:21 | Emergency (ER) | payer MEDICARE, OTHER ==
[~2017-05-01] VITALS: Ht 162.6 cm; Wt 50.0 kg
[2017-05-01 18:03] VITALS: BP 137/70; PULSE 81; RESP 12; TEMP 99.1; O2SAT 95
--- NOTE | 2017-05-01 18:12 | PD ---
HPI Chief Complaint: psychiatric symptoms Time Seen by Provider: 18:08 Travel History International Travel<30 days: No Contact w/Intl Traveler<30days: No History of Present Illness HPI 66-year-old female presents to the emergency Department under Wilder act by local police for stating that she wanted to by stabbing herself with a knife. The patient states she does not feel suicidal any longer. She states that her plan was she had no knife. Patient denies homicidal ideation. She has no medical complaints at this time. Patient does report taking alcohol today. PFSH Past Medical History Hx Anticoagulant Therapy: No Anemia: Yes Arthritis: Yes Asthma: Yes Autoimmune Disease: No Bipolar Disorder: Yes Anxiety: Yes Depression: Yes Heart Rhythm Problems: No Cancer: No Cardiovascular Problems: Yes High Cholesterol: No Chest Pain: Yes Congestive Heart Failure: No Cerebrovascular Accident: No Diabetes: Yes Diminished Hearing: No Gastrointestinal Disorders: Yes GERD: Yes Genitourinary: No Headaches: No Hiatal Hernia: No Hypertension: Yes Immune Disorder: No Implanted Vascular Access Dvce: No Insomnia: Yes Musculoskeletal: No Neurologic: Yes Psychiatric: Yes Reproductive: Yes Respiratory: No Integumentary: Yes (INSECT BITES) Immunizations Current: Yes Migraines: No Myocardial Infarction: Yes (PER HX) Pneumonia: Yes (PER HX) Schizophrenia: Yes Seizures: Yes (FROM ETOH WITHDRAWAL) Thyroid Disease: No Ulcer: Yes (PER HX) Menopausal: Yes : 1 Para: 1 Miscarriage: 0 : 0 Ovarian Cysts: Yes (PER HX...RIGHT OVARIAN CYST REMOVAL) Tubal Ligation: Yes Past Surgical History Abdominal Surgery: No AICD: No Arteriovenous Shunt: No Cardiac Surgery: No Endocrine Surgery: No Eye Surgery: No Genitourinary Surgery: No Gynecologic Surgery: Yes Insulin Pump: No Joint Replacement: No Neurologic Surgery: No Oral Surgery: No Pacemaker: No Thoracic Surgery: No Tonsillectomy: Yes Other Surgery: Yes Social History Alcohol Use: Yes (OCCASSIONALLY PER PT) Tobacco Use: Yes (1 PPD) Substance Use: Yes Allergies-Medications (Allergen,Severity, Reaction): Coded Allergies: Novocain (Verified Allergy, Severe, Anaphylaxis, 04/25/17) Per pt. Reported Meds & Prescriptions Reported Meds & Active Scripts Active No Active Prescriptions or Reported Medications Review of Systems Except as stated in HPI: all other systems reviewed are Neg Physical Exam Narrative GENERAL: Disheveled female patient, afebrile. SKIN: Focused skin assessment warm/dry. HEAD: Normocephalic. Atraumatic. EYES: No scleral icterus. No injection or drainage. NECK: Supple, trachea midline. No JVD or lymphadenopathy. CARDIOVASCULAR: Regular rate and rhythm without murmurs, gallops, or rubs. RESPIRATORY: Breath sounds equal bilaterally. No accessory muscle use. Lungs sounds are clear to auscultation. GASTROINTESTINAL: Abdomen soft, non-tender, nondistended. MUSCULOSKELETAL: No cyanosis, or edema. PSYCHIATRIC: No delusional thought processes. No hallucinations. Data Data Last Documented VS Vital Signs Date Time Temp Pulse Resp B/P Pulse Ox O2 Delivery O2 Flow Rate FiO2 05/01/17 18:03 99.1 81 12 137/70 95 MDM Medical Decision Making Medical Screen Exam Complete: Yes Emergency Medical Condition: Yes Medical Record Reviewed: Yes Differential Diagnosis Depression versus anxiety versus suicidal ideation versus alcohol intoxication Narrative Course 66-year-old female presents to the emergency Department under Wilder act by local police for suicidal ideation. Patient was seen here in the emergency department and had last completed on April 29, 2017. I reviewed those labs that showed no acute abnormality. Patient is medically cleared for psychiatric screening and disposition. The patient was discharged in stable condition with instructions, including return instructions and follow up instructions. Diagnosis Primary Impression: Alcohol abuse with alcohol-induced mood disorder Additional Instructions: Patient is medically cleared for psychiatric screening and disposition. Scripts No Active Prescriptions or Reported Meds Condition: Stable Tia Power May 01, 2017 18:12
[2017-05-02 02:26] VITALS: BP 174/81; PULSE 92; RESP 18; O2SAT 96
[2017-05-02] MEDS ORDERED: LORazepam 1 MG TAB PO PRN (02:30)
[2017-05-02] MEDS ORDERED: FLUMAZENIL 0.5 MG/5 ML VIAL IV PUSH PRN (02:30)
[2017-05-02] MEDS ORDERED: LORazepam 2 MG/ML VIAL IV PUSH PRN ×3 (02:30)
[2017-05-02] MEDS ORDERED: LORazepam 2 MG TAB PO PRN (02:30)
[2017-05-02] MEDS: LORazepam 2 MG/ML VIAL IV PUSH PRN ×2 (03:06→05:30)
[2017-05-02 06:32] VITALS: BP 145/75; PULSE 85; RESP 18; O2SAT 96
[2017-05-02 10:42] VITALS: BP 150/70; PULSE 91; RESP 18
--- NOTE | 2017-05-02 13:19 | PD ---
History of Present Illness Chief Complaint: Psychiatric Symptoms Time Seen by Provider: 13:00 Travel History International Travel<30 Days: No Contact w/Intl Traveler<30days: No Known affected area: No Legal Status Legal Status: Wilder Act Wilder Act Signed By: Guillermo Wilder Act Comment: 05/01/2017 17:14 PM History of Present Illness: History of Present Illness HPI 66-year-old female with history of alcohol dependence who presents to the emergency Department under Wilder act by local police. The report alleges that she stated that she wanted to by stabbing herself with a knife. When patient made the statement she was intoxicated and her BAL on arrival to ED was 281. Iván is known to [facility] psychiatry dept as she has had multiple visits to ED and usually presents under a BA as well as intoxicated. She was monitored in main ED and [facility] and she was allowed to sober up clinically. This afternoon she is clinically sober. She is alert and cooperative. Her speech is clear, logical and coherent. She ambulates well with no gait impairment. She is not demonstrating any signs of withdrawal. She denies any suicidal ideation. No homicidal ideation. We discussed her difficulty maintaining any sobriety and she states that she has been drinking steadily since her went to [facility]. We discussed alternative ways to stay sober since she has hot had benefit from AA. She at least is verbalizing some interest in beginning to work on sobriety. PFSH Past Medical History Hx Anticoagulant Therapy: No Anemia: Yes (PER HX) Arthritis: Yes (PER HX) Asthma: Yes (PER HX) Autoimmune Disease: No Bipolar Disorder: Yes (PER HX) Anxiety: Yes (PER HX) Depression: Yes (PER HX) Heart Rhythm Problems: No Cancer: No Cardiovascular Problems: Yes High Cholesterol: No Chest Pain: Yes (PER HX) Congestive Heart Failure: No Cerebrovascular Accident: No Diabetes: Yes (PER HX) Patient Takes Glucophage: No Diminished Hearing: No Gastrointestinal Disorders: Yes GERD: Yes (PER HX) Genitourinary: No Headaches: No Hiatal Hernia: No Hypertension: Yes (PER HX) Immune Disorder: No Implanted Vascular Access Dvce: No Insomnia: Yes (PER HX) Musculoskeletal: No Neurologic: Yes Psychiatric: Yes Reproductive: Yes Respiratory: No Integumentary: Yes (INSECT BITES) Immunizations Current: Yes Migraines: No Myocardial Infarction: Yes (PER HX) Pneumonia: Yes (PER HX) Schizophrenia: Yes Seizures: Yes (FROM ETOH WITHDRAWAL) Thyroid Disease: No Ulcer: Yes (PER HX) Menopausal: Yes : 1 Para: 1 Miscarriage: 0 : 0 Ovarian Cysts: Yes (PER HX...RIGHT OVARIAN CYST REMOVAL) Tubal Ligation: Yes Past Surgical History Abdominal Surgery: No AICD: No Arteriovenous Shunt: No Cardiac Surgery: No Endocrine Surgery: No Eye Surgery: No Genitourinary Surgery: No Gynecologic Surgery: Yes (PER HX) Insulin Pump: No Joint Replacement: No Neurologic Surgery: No Oral Surgery: No Pacemaker: No Thoracic Surgery: No Tonsillectomy: Yes (PER HX) Other Surgery: Yes (PER HX) Psychiatric History Psychiatric History Hx Psychiatric Treatment: Patient denies any current psychiatric tx and denies any need at this time. History of Inpatient Treatment: No Guns or firearms in home: No Social History Lives alone on a houseboat. Hx Alcohol Use: Yes (OCCASSIONALLY PER PT) Hx Tobacco Use: Yes (1 PPD) Hx Substance Use: Yes Substance Use Type: Alcohol, Nicotine/Cigarettes, Benzos (Valium,Xanax) Other Substances Used: SUBSTANCE ABUSE TREATMENT Hx of Substance Use Treatment: Yes Family Psychiatric History Negative Allergies-Medications (Allergen,Severity, Reaction): Coded Allergies: Novocain (Verified Allergy, Severe, Anaphylaxis, 04/25/17) Per pt. Reported Meds & Prescriptions Reported Meds & Active Scripts Active No Active Prescriptions or Reported Medications Review of Systems Except as stated in HPI: all other systems reviewed are Neg Exam Alert: Yes Distant: Person (ox4) Mood: Calm Affect: Appropriate Speech: Clear, Logical Eye Contact: Normal Memory Intact: Comment (No impairmetn) Hallucinations: Other (Negative) Delusions: No Suicidal: Ideation (negative) Homicidal: Ideation (negative) Insight/Judgement Poor. not impaired. MDM Medical Decision Making Medical Record Reviewed: Yes Assessment/Plan 66 year old female with hx of alcohol dependence under a BA after she made statements that if she had a knife she would stab herself. This in context of acute alcohol intoxication. The patient was allowed to sober up clinical. At this time she does not present any suicidal or homicidal ideation. There is no acute psychiatric symptomatology and she does not meet criteria for BA. Will lift BA. Counseled on AA . Orders Alcohol (Ethanol) (05/01/17 19:13) Psych Screen (05/01/17 22:03) Alcohol Withdrawal Asmt-Ciwa ONCE (05/02/17 02:25) Flumazenil Inj (Romazicon Inj) (05/02/17 02:30) Lorazepam (Ativan) (05/02/17 02:30) Lorazepam Inj (Ativan Inj) (05/02/17 02:30) Lorazepam (Ativan) (05/02/17 02:30) Lorazepam Inj (Ativan Inj) (05/02/17 02:30) Lorazepam Inj (Ativan Inj) (05/02/17 02:30) Lorazepam Inj (Ativan Inj) (05/02/17 02:30) Diet Regular Basic (05/02/17 Breakfast) Diet Regular Basic (05/02/17 Lunch) Results Vital Signs Date Time Temp Pulse Resp B/P Pulse Ox O2 Delivery O2 Flow Rate FiO2 05/02/17 10:42 91 18 150/70 Room Air 05/02/17 06:32 85 18 145/75 96 05/02/17 02:26 92 18 174/81 96 05/01/17 18:03 99.1 81 12 137/70 95 Laboratory Tests Test 05/01/17 19:18 Ethyl Alcohol Level 281 Diagnosis Primary Impression: Alcohol dependence with acute alcoholic intoxication Psychiatrically Cleared: Yes Additional Instructions: Patient is medically cleared for psychiatric screening and disposition. Med/ Other Pt Specific Info: No Meds Exist/No RX given Prescriptions No Active Prescriptions or Reported Meds Disposition: 01 DISCHARGE HOME Condition: Stable Aisha Win Aleejonatan HILL May 02, 2017 13:19
== END 2017-05-02 13:41 | disposition home or self-care (01) ==
LOC: NEDAMB 17:21 → NEPJ 05-02 13:41
DX: F10.229 Alcohol dependence with intoxication, unspecified (principal); E11.9 Type 2 diabetes mellitus without complications; I10 Essential (primary) hypertension; I25.2 Old myocardial infarction; Z87.891 Personal history of nicotine dependence
CPT/HCPCS: 80307; 96372; 99285; J2060

== ENCOUNTER 2017-05-03 02:03 | Emergency (ER) | payer MEDICARE, OTHER ==
[2017-05-03 02:06] VITALS: BP 170/84; PULSE 78; RESP 16; TEMP 97.3; O2SAT 96
[2017-05-04] MEDS ORDERED: BACT800T5 PO (13:01)
[2017-05-04] MEDS ORDERED: LISI-515 PO (22:21)
== END 2017-05-03 02:46 | disposition left against medical advice (07) ==
LOC: NED 02:03
DX: Z00.8 Encounter for other general examination (principal); Z53.21 Procedure and treatment not carried out due to patient leaving prior to being seen by health care provider
CPT/HCPCS: 99281

== ENCOUNTER 2017-05-04 10:07 | Emergency (ER) | payer MEDICARE, OTHER ==
[~2017-05-04] VITALS: Ht 152.4 cm; Wt 41.0 kg
[2017-05-04 10:14] VITALS: BP 109/56; PULSE 72; RESP 18; TEMP 98.1; O2SAT 97
[2017-05-04] MEDS ORDERED: SODIUM CHLORIDE 0.9% FLUSH 5 ML FLUSH IV FLUSH PRN (10:45)
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
[2017-05-04 11:03] VITALS: O2SAT 96
[2017-05-04 11:29] LABS: AUTOMATED NEUTROPHIL # 5.2 TH/MM3 (1.8-7.7); BASOPHIL % 0.6 % (0.0-2.0); EOSINOPHIL # 0.2 TH/MM3 (0-0.4); HEMATOCRIT 38.4 % (35.0-46.0); HEMO FLAGS DIFF FINAL; LYMPH % 23.5 % (9.0-44.0); LYMPHOCYTE # 1.8 TH/MM3 (1.0-4.8); MEAN CELL VOLUME 98.5 FL (80.0-100.0); MEAN CORPUSCULAR HEMOGLOBIN 33.7 PG (27.0-34.0); MEAN CORPUSCULAR HGB CONC 34.2 % (32.0-36.0); NEUT % 66.9 % (16.0-70.0); PLATELET COUNT 275 TH/MM3 (150-450); RED CELL DISTRIBUTION WIDTH 16.5 % (11.6-17.2); WHITE BLOOD COUNT 7.8 TH/MM3 (4.0-11.0)
[2017-05-04 11:32] LABS: ALT (GPT) 133 U/L (10-53); ANION GAP 9 MEQ/L (5-15); AST (GOT) 157 U/L (15-37); BICARBONATE 26.3 MEQ/L (21.0-32.0); BLOOD UREA NITROGEN 8 MG/DL (7-18); CHLORIDE 99 MEQ/L (98-107); GLOMERULAR FILTRATION RATE 116 ML/MIN (>89); POTASSIUM 3.9 MEQ/L (3.5-5.1); SODIUM (NA) 134 MEQ/L (136-145)
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
[2017-05-04 11:37] LABS: ALKALINE PHOSPHATASE 111 U/L (45-117); TOTAL BILIRUBIN ADULT 0.2 MG/DL (0.2-1.0)
[2017-05-04 12:49] LABS: BLOOD, URINE NEG (NEG); COMMENT (UR) CATH-CULT NOT IND; CULTURE IF INDICATED CATH CULTURE NOT IND; GLUCOSE,URINE NEG (NEG); KETONE, URINE NEG (NEG); NITRITE,URINE NEG (NEG); URINE COLOR LIGHT-YELLOW (YELLW/STRAW)
[2017-05-04 13:00] LABS: AMPHETAMINE, URINE NEG (NEG); BARBITURATES, URINE NEG (NEG); COCAINE, URINE NEG (NEG)
[2017-05-04] MEDS ORDERED: BACT800T5 PO (13:01)
[2017-05-04 13:06] VITALS: BP 99/54; PULSE 66; RESP 12; O2SAT 98
[2017-05-04] MEDS ORDERED: LISI-515 PO (22:21)
== END 2017-05-04 15:24 | disposition home or self-care (01) ==
LOC: NEPE 10:07 → NEDAMB 15:24
DX: L03.312 Cellulitis of back [any part except buttock and flank] (principal); E11.9 Type 2 diabetes mellitus without complications; I10 Essential (primary) hypertension; I25.2 Old myocardial infarction; F17.200 Nicotine dependence, unspecified, uncomplicated; F10.229 Alcohol dependence with intoxication, unspecified; Y90.8 Blood alcohol level of 240 mg/100 ml or more
CPT/HCPCS: 70450; 72170; 73502; 80053; 80307; 81001; 85025; 99283; P9612

== ENCOUNTER 2017-05-04 18:19 | Emergency (ER) | payer MEDICARE ==
[~2017-05-04 18:19] MED LIST changes: -ALBUAER3 INH; +BACT800T5 PO; -LISI-515 PO; -PRED20 PO
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
[2017-05-04 18:45] VITALS: BP 114/70; PULSE 84; RESP 15; TEMP 97.6; O2SAT 95
--- NOTE | 2017-05-04 19:23 | RADRPT ---
EXAM DATE/TIME: 05/04/2017 19:07 [facility] COMPARISON: CT ABDOMEN & PELVIS W CONTRAST, April 05, 2016, 15:06. INDICATIONS : Left hip pain MEDICAL HISTORY : None. SURGICAL HISTORY : None. ENCOUNTER: Initial ACUITY: 1 day PAIN SCORE: Non-responsive. LOCATION: Left Hip FINDINGS: Examination of the left hip was performed with AP Pelvis. The primary and secondary trabecular patte rn of the femoral neck is intact. The hip joint is of normal width without significant sclerosis or bony hypertrophy. The acetabulum is grossly intact. There is irregularity of the left pubic symphysi s. CONCLUSION: No acute fracture left hip. Irregularity left pubic symphysis stable from previous study. Neo Cat MD on May 04, 2017 at 19:20 Board Certified Radiologist. This report was verified electronically.
[2017-05-04] MEDS ORDERED: SULFAMETHOXAZOLE-TRIMETHOPRIM DS 800-160 MG TAB PO ONE (21:30)
--- NOTE | 2017-05-04 21:32 | RADRPT ---
EXAM DATE/TIME: 05/04/2017 21:15 [facility] COMPARISON: CT BRAIN W/O CONTRAST, April 12, 2017, 12:08. INDICATIONS : Cephalgia. RADIATION DOSE: 56.77 CTDIvol (mGy) MEDICAL HISTORY : Seizures. Cardiovascular disease Hypertension.Diabetes. SURGICAL HISTORY : None. ENCOUNTER: Initial ACUITY: 1 day PAIN SCALE: 6/10 LOCATION: cranial TECHNIQUE: Multiple contiguous axial images were obtained of the head. Using automated exposure control and adj ustment of the mA and/or kV according to patient size, radiation dose was kept as low as reasonably a chievable to obtain optimal diagnostic quality images. DICOM format image data is available electro nically for review and comparison. FINDINGS: CEREBRUM: The ventricles are normal for age. Scattered low densities. No evidence of midline shift, mass lesio n, hemorrhage or acute infarction. No extra-axial fluid collections are seen. POSTERIOR FOSSA: The cerebellum and brainstem are intact. The 4th ventricle is midline. The cerebellopontine angle i s unremarkable. EXTRACRANIAL: The visualized portion of the orbits is intact. SKULL: The calvaria is intact. No evidence of skull fracture. CONCLUSION: Nonspecific white matter changes. No acute intracranial abnormality. Neo Cat MD on May 04, 2017 at 21:28 Board Certified Radiologist. This report was verified electronically.
[2017-05-04] MEDS ORDERED: LISI-515 PO (22:21)
== END 2017-05-05 05:49 | disposition home or self-care (01) ==
LOC: NEDAMB 18:19 → NEPB 05-05 05:49
DX: F10.14 Alcohol abuse with alcohol-induced mood disorder (principal); L03.312 Cellulitis of back [any part except buttock and flank]; R51 Headache; I10 Essential (primary) hypertension; I25.2 Old myocardial infarction; E11.9 Type 2 diabetes mellitus without complications; F17.200 Nicotine dependence, unspecified, uncomplicated
CPT/HCPCS: 70450; 73502; 99284

== ENCOUNTER 2017-05-07 04:34 | Emergency (ER) | payer MEDICARE ==
[~2017-05-07 04:34] MED LIST changes: +LISI-515 PO
[2017-05-07 04:37] VITALS: BP 154/77; PULSE 84; RESP 16; TEMP 98.7; O2SAT 95
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
== END 2017-05-07 05:48 | disposition home or self-care (01) ==
LOC: NEPC 04:34
DX: L03.312 Cellulitis of back [any part except buttock and flank] (principal); I10 Essential (primary) hypertension; E11.9 Type 2 diabetes mellitus without complications; M19.90 Unspecified osteoarthritis, unspecified site; I25.2 Old myocardial infarction; F17.210 Nicotine dependence, cigarettes, uncomplicated; Z79.899 Other long term (current) drug therapy; Z88.0 Allergy status to penicillin
CPT/HCPCS: 99281

== ENCOUNTER 2017-05-07 11:23 | Inpatient (IN) | payer MEDICARE, OTHER ==
[~2017-05-07] VITALS: Ht 152.4 cm; Wt 45.3 kg
[2017-05-07 11:23] VITALS: BP 121/63; PULSE 95; RESP 16; TEMP 98.1; O2SAT 92
[2017-05-07] MEDS ORDERED: SULFAMETHOXAZOLE-TRIMETHOPRIM DS 800-160 MG TAB PO ONE (11:45)
[2017-05-07 12:06] LABS: AUTOMATED NEUTROPHIL # 9.5 TH/MM3 (1.8-7.7); BASOPHIL # 0.1 TH/MM3 (0-0.2); BASOPHIL % 0.5 % (0.0-2.0); EOSINOPHIL # 0.1 TH/MM3 (0-0.4); EOSINOPHIL % 0.8 % (0.0-4.0); HEMO FLAGS DIFF FINAL; LYMPH % 17.9 % (9.0-44.0); LYMPHOCYTE # 2.3 TH/MM3 (1.0-4.8); MEAN CELL VOLUME 99.7 FL (80.0-100.0); MEAN CORPUSCULAR HEMOGLOBIN 32.9 PG (27.0-34.0); MONO % 7.5 % (0.0-8.0); NEUT % 73.3 % (16.0-70.0); PLATELET COUNT 192 TH/MM3 (150-450); RED BLOOD COUNT 3.51 MIL/MM3 (4.00-5.30); RED CELL DISTRIBUTION WIDTH 15.9 % (11.6-17.2)
[2017-05-07 12:21] LABS: ALT (GPT) 82 U/L (10-53); ANION GAP 11 MEQ/L (5-15); AST (GOT) 75 U/L (15-37); BICARBONATE 22.3 MEQ/L (21.0-32.0); BLOOD UREA NITROGEN 7 MG/DL (7-18); CHLORIDE 103 MEQ/L (98-107); GLOMERULAR FILTRATION RATE 151 ML/MIN (>89); POTASSIUM 3.8 MEQ/L (3.5-5.1); SODIUM (NA) 136 MEQ/L (136-145)
[2017-05-07 12:24] LABS: ALKALINE PHOSPHATASE 110 U/L (45-117); TOTAL BILIRUBIN ADULT 0.3 MG/DL (0.2-1.0)
[2017-05-07] MEDS ORDERED: FLUMAZENIL 0.5 MG/5 ML VIAL IV PUSH PRN (12:45)
[2017-05-07] MEDS ORDERED: LORazepam 2 MG/ML VIAL IV PUSH PRN ×4 (12:45)
[2017-05-07] MEDS ORDERED: ONDANSETRON ODT 4 MG TAB PO PRN (12:45)
[2017-05-07] MEDS ORDERED: LORazepam 2 MG TAB PO PRN (12:45)
--- NOTE | 2017-05-07 12:45 | PD ---
HPI Chief Complaint: Medical Clearance Time Seen by Provider: 12:40 Travel History International Travel<30 days: No Contact w/Intl Traveler<30days: No Traveled to known affect area: No History of Present Illness HPI 66-year-old male that presents to the ED for evaluation of Wilder act. Patient was Wilder acted by police after apparently she mentioned to police that she went to her kill herself. She states that she doesn't want to live anymore. 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 This is the patient's 14 time in this hospital. Patient was seen actually earlier this morning for evaluation of cellulitis to her buttocks. Patient states that she's been compliant where her antibiotic. She denies any issues other than she wants to be. Per patient she is not homicidal at this time but she does feel depressed. She has no plan of suicidal ideation. She states that she feels like she is withdrawing and she cannot really tell me when his last and she drank anything. No signs of trauma. Allergies to Novocain and penicillin. No signs of hallucinations or other medical issues. PFSH Past Medical History Hx Anticoagulant Therapy: No Anemia: Yes Arthritis: Yes Asthma: Yes Autoimmune Disease: No Bipolar Disorder: Yes Anxiety: Yes Depression: Yes Heart Rhythm Problems: No Cancer: No Cardiovascular Problems: Yes High Cholesterol: No Chest Pain: Yes Congestive Heart Failure: No Cerebrovascular Accident: No Diabetes: Yes Patient Takes Glucophage: No Diminished Hearing: No Gastrointestinal Disorders: Yes GERD: Yes Genitourinary: No Headaches: No Hiatal Hernia: No Hypertension: Yes Immune Disorder: No Implanted Vascular Access Dvce: No Insomnia: Yes Musculoskeletal: No Neurologic: Yes Psychiatric: Yes Reproductive: Yes Respiratory: No Integumentary: No Immunizations Current: Yes Migraines: No Myocardial Infarction: Yes Pneumonia: Yes Schizophrenia: Yes Seizures: Yes (FROM ETOH WITHDRAWAL) Thyroid Disease: No Ulcer: Yes (PER HX) Menopausal: Yes : 1 Para: 1 Miscarriage: 0 : 0 Ovarian Cysts: Yes (RIGHT OVARIAN CYST REMOVAL) Tubal Ligation: Yes Past Surgical History Abdominal Surgery: No AICD: No Arteriovenous Shunt: No Cardiac Surgery: No Endocrine Surgery: No Eye Surgery: No Genitourinary Surgery: No Gynecologic Surgery: Yes Insulin Pump: No Joint Replacement: No Neurologic Surgery: No Oral Surgery: No Pacemaker: No Thoracic Surgery: No Tonsillectomy: Yes Other Surgery: Yes Social History Alcohol Use: Yes (OCCASSIONALLY PER PT- 'DENIES) Tobacco Use: Yes (1 PPD) Substance Use: Yes Allergies-Medications (Allergen,Severity, Reaction): Coded Allergies: Novocain (Verified Allergy, Severe, Anaphylaxis, 05/07/17) Per pt. Penicillin (Verified Allergy, Unknown, 05/07/17) Reported Meds & Prescriptions Reported Meds & Active Scripts Active Bactrim DS (Sulfamethoxazole-Trimethoprim) 800-160 Mg Tab 1 Tab PO BID Reported Lisinopril 20 Mg Tab 20 Mg PO DAILY Review of Systems Except as stated in HPI: all other systems reviewed are Neg Physical Exam Narrative GENERAL: SKIN: Warm and dry. HEAD: Atraumatic. Normocephalic. EYES: Pupils equal and round. No scleral icterus. No injection or drainage. ENT: No nasal bleeding or discharge. Mucous membranes pink and moist. Tongue is midline. No uvula deviation. NECK: Trachea midline. No JVD. CARDIOVASCULAR: Regular rate and rhythm. No murmurs, S3, S4. RESPIRATORY: No accessory muscle use. Clear to auscultation. Breath sounds equal bilaterally. GASTROINTESTINAL: Abdomen soft, non-tender, nondistended. Hepatic and splenic margins not palpable. MUSCULOSKELETAL: Extremities without clubbing, cyanosis, or edema. No obvious deformities. Full range of motion of the upper and lower extremities bilaterally. 2+ pulses bilaterally. NEUROLOGICAL: Awake and alert. No obvious cranial nerve deficits. Motor grossly within normal limits. Five out of 5 muscle strength in the arms and legs. Normal speech. PSYCHIATRIC: Appropriate mood and affect; insight and judgment normal. Data Data Last Documented VS Vital Signs Date Time Temp Pulse Resp B/P Pulse Ox O2 Delivery O2 Flow Rate FiO2 05/07/17 11:41 16 05/07/17 11:23 98.1 95 121/63 92 Orders Complete Blood Count With Diff (05/07/17 11:41) Comprehensive Metabolic Panel (05/07/17 11:41) Psych Screen (05/07/17 11:41) Drug Screen, Random Urine (05/07/17 11:41) Alcohol (Ethanol) (05/07/17 11:41) Sulfamet-Trimeth Ds 800-160 Mg (Bactrim (05/07/17 11:45) Diet Regular Basic (05/07/17 Lunch) Alcohol Withdrawal Asmt-Ciwa ONCE (05/07/17 12:31) Ondansetron Odt (Zofran Odt) (05/07/17 12:45) Flumazenil Inj (Romazicon Inj) (05/07/17 12:45) Lorazepam (Ativan) (05/07/17 12:45) Lorazepam Inj (Ativan Inj) (05/07/17 12:45) Lorazepam (Ativan) (05/07/17 12:45) Lorazepam Inj (Ativan Inj) (05/07/17 12:45) Lorazepam Inj (Ativan Inj) (05/07/17 12:45) Lorazepam Inj (Ativan Inj) (05/07/17 12:45) Labs Laboratory Tests Test 05/07/17 11:45 White Blood Count 13.0 TH/MM3 Red Blood Count 3.51 MIL/MM3 Hemoglobin 11.5 GM/DL Hematocrit 35.0 % Mean Corpuscular Volume 99.7 FL Mean Corpuscular Hemoglobin 32.9 PG Mean Corpuscular Hemoglobin 33.0 % Concent Red Cell Distribution Width 15.9 % Platelet Count 192 TH/MM3 Mean Platelet Volume 6.2 FL Neutrophils (%) (Auto) 73.3 % Lymphocytes (%) (Auto) 17.9 % Monocytes (%) (Auto) 7.5 % Eosinophils (%) (Auto) 0.8 % Basophils (%) (Auto) 0.5 % Neutrophils # (Auto) 9.5 TH/MM3 Lymphocytes # (Auto) 2.3 TH/MM3 Monocytes # (Auto) 1.0 TH/MM3 Eosinophils # (Auto) 0.1 TH/MM3 Basophils # (Auto) 0.1 TH/MM3 CBC Comment DIFF FINAL Differential Comment Sodium Level 136 MEQ/L Potassium Level 3.8 MEQ/L Chloride Level 103 MEQ/L Carbon Dioxide Level 22.3 MEQ/L Anion Gap 11 MEQ/L Blood Urea Nitrogen 7 MG/DL Creatinine 0.42 MG/DL Estimat Glomerular Filtration 151 ML/MIN Rate Random Glucose 82 MG/DL Calcium Level 8.1 MG/DL Total Bilirubin 0.3 MG/DL Aspartate Amino Transf 75 U/L (AST/SGOT) Alanine Aminotransferase 82 U/L (ALT/SGPT) Alkaline Phosphatase 110 U/L Total Protein 7.7 GM/DL Albumin 3.5 GM/DL Ethyl Alcohol Level 367 MG/DL MDM Medical Decision Making Medical Screen Exam Complete: Yes Emergency Medical Condition: Yes Medical Record Reviewed: Yes Interpretation(s) CBC & BMP Diagram 05/07/17 11:45 LFTS WNL alcohol elevated Differential Diagnosis Depression versus suicidal ideation versus anxiety versus adjustment disorder versus mood disorder versus bipolar disorder versus schizophrenia versus paranoid disorder versus psychosis versus substance abuse versus alcohol abuse versus alcohol induced psychosis versus homicidality addition versus cutting versus personality disorder versus cellulitis Narrative Course 66-year-old female that presents to the ED for evaluation of psychiatric illness. Patient was properly examined and was found to have signs and symptoms consistent appears to be alcohol intoxication with induced mood disorder. Patient does have a history so colitis and states that she's been using her medications. She was just seen earlier his morning for evaluation of cellulitis and told to continue taking her medications. This time as patient is not really a reliable patient will be give her a dose of Bactrim as well as labs were drawn. Patient will be medically cleared. Okay to be seen by psych. KADIE was ordered as patient is a chronic alcoholic and she is a high risk for withdrawal symptoms. Mental health screening was discussed with the patient. Diagnosis Primary Impression: Alcohol abuse with alcohol-induced mood disorder Additional Impression: Cellulitis of sacral region Morales Hamlin May 07, 2017 12:45
[2017-05-07 14:24] LABS: AMPHETAMINE, URINE NEG (NEG); BARBITURATES, URINE NEG (NEG); COCAINE, URINE NEG (NEG)
[2017-05-07 14:37] VITALS: BP 104/54; PULSE 92; RESP 16; O2SAT 97
[2017-05-07 14:38] VITALS: BP 104/54; PULSE 92; RESP 16; O2SAT 97
--- NOTE | 2017-05-07 18:36 | PD ---
History of Present Illness Chief Complaint: Medical Clearance Time Seen by Provider: 16:30 Travel History International Travel<30 Days: No Contact w/Intl Traveler<30days: No Known affected area: No Legal Status Legal Status: Wilder Act Wilder Act Signed By: Guillermo Wilder Act Comment: BA reads: SANDRO HERNÁNDEZ Badge#[id number], Case#[id number] [facility] Past Medical History Hx Anticoagulant Therapy: No Anemia: Yes Arthritis: Yes Asthma: Yes Autoimmune Disease: No Bipolar Disorder: Yes Anxiety: Yes Depression: Yes Heart Rhythm Problems: No Cancer: No Cardiovascular Problems: Yes High Cholesterol: No Chest Pain: Yes Congestive Heart Failure: No Cerebrovascular Accident: No Diabetes: Yes Patient Takes Glucophage: No Diminished Hearing: No Gastrointestinal Disorders: Yes GERD: Yes Genitourinary: No Headaches: No Hiatal Hernia: No Hypertension: Yes Immune Disorder: No Implanted Vascular Access Dvce: No Insomnia: Yes Musculoskeletal: No Neurologic: Yes Psychiatric: Yes Reproductive: Yes Respiratory: No Integumentary: No Immunizations Current: Yes Migraines: No Myocardial Infarction: Yes Pneumonia: Yes Schizophrenia: Yes Seizures: Yes (FROM ETOH WITHDRAWAL) Thyroid Disease: No Ulcer: Yes (PER HX) Menopausal: Yes : 1 Para: 1 Miscarriage: 0 : 0 Ovarian Cysts: Yes (RIGHT OVARIAN CYST REMOVAL) Tubal Ligation: Yes Past Surgical History Abdominal Surgery: No AICD: No Arteriovenous Shunt: No Cardiac Surgery: No Endocrine Surgery: No Eye Surgery: No Genitourinary Surgery: No Gynecologic Surgery: Yes Insulin Pump: No Joint Replacement: No Neurologic Surgery: No Oral Surgery: No Pacemaker: No Thoracic Surgery: No Tonsillectomy: Yes Other Surgery: Yes Psychiatric History Psychiatric History Hx Psychiatric Treatment: Patient denies any current psychiatric tx and denies any need at this time. History of Inpatient Treatment: No Social History Hx Alcohol Use: Yes (OCCASSIONALLY PER PT- 'DENIES) Hx Tobacco Use: Yes (1 PPD) Hx Substance Use: Yes Substance Use Type: Alcohol, Nicotine/Cigarettes, Benzos (Valium,Xanax) Other Substances Used: SUBSTANCE ABUSE TREATMENT Hx of Substance Use Treatment: Yes Allergies-Medications (Allergen,Severity, Reaction): Coded Allergies: Novocain (Verified Allergy, Severe, Anaphylaxis, 05/07/17) Per pt. Penicillin (Verified Allergy, Unknown, 05/07/17) Reported Meds & Prescriptions Reported Meds & Active Scripts Active Bactrim DS (Sulfamethoxazole-Trimethoprim) 800-160 Mg Tab 1 Tab PO BID Reported Lisinopril 20 Mg Tab 20 Mg PO DAILY MDM Orders Complete Blood Count With Diff (05/07/17 11:41) Comprehensive Metabolic Panel (05/07/17 11:41) Psych Screen (05/07/17 11:41) Drug Screen, Random Urine (05/07/17 11:41) Alcohol (Ethanol) (05/07/17 11:41) Sulfamet-Trimeth Ds 800-160 Mg (Bactrim (05/07/17 11:45) Diet Regular Basic (05/07/17 Lunch) Alcohol Withdrawal Asmt-Ciwa ONCE (05/07/17 12:31) Ondansetron Odt (Zofran Odt) (05/07/17 12:45) Flumazenil Inj (Romazicon Inj) (05/07/17 12:45) Lorazepam (Ativan) (05/07/17 12:45) Lorazepam Inj (Ativan Inj) (05/07/17 12:45) Lorazepam (Ativan) (05/07/17 12:45) Lorazepam Inj (Ativan Inj) (05/07/17 12:45) Lorazepam Inj (Ativan Inj) (05/07/17 12:45) Lorazepam Inj (Ativan Inj) (05/07/17 12:45) Diet Regular Basic (05/07/17 Dinner) Results Vital Signs Date Time Temp Pulse Resp B/P Pulse Ox O2 Delivery O2 Flow Rate FiO2 05/07/17 14:38 92 16 104/54 97 Room Air 05/07/17 14:37 92 16 104/54 97 Room Air 05/07/17 11:41 16 05/07/17 11:23 98.1 95 16 121/63 92 Laboratory Tests Test 05/07/17 05/07/17 11:45 14:00 White Blood Count 13.0 Red Blood Count 3.51 Hemoglobin 11.5 Hematocrit 35.0 Mean Corpuscular Volume 99.7 Mean Corpuscular Hemoglobin 32.9 Mean Corpuscular Hemoglobin 33.0 Concent Red Cell Distribution Width 15.9 Platelet Count 192 Mean Platelet Volume 6.2 Neutrophils (%) (Auto) 73.3 Lymphocytes (%) (Auto) 17.9 Monocytes (%) (Auto) 7.5 Eosinophils (%) (Auto) 0.8 Basophils (%) (Auto) 0.5 Neutrophils # (Auto) 9.5 Lymphocytes # (Auto) 2.3 Monocytes # (Auto) 1.0 Eosinophils # (Auto) 0.1 Basophils # (Auto) 0.1 CBC Comment DIFF FINAL Differential Comment Sodium Level 136 Potassium Level 3.8 Chloride Level 103 Carbon Dioxide Level 22.3 Anion Gap 11 Blood Urea Nitrogen 7 Creatinine 0.42 Estimat Glomerular Filtration 151 Rate Random Glucose 82 Calcium Level 8.1 Total Bilirubin 0.3 Aspartate Amino Transf 75 (AST/SGOT) Alanine Aminotransferase 82 (ALT/SGPT) Alkaline Phosphatase 110 Total Protein 7.7 Albumin 3.5 Ethyl Alcohol Level 367 Urine Opiates Screen NEG Urine Barbiturates Screen NEG Urine Amphetamines Screen NEG Urine Benzodiazepines Screen NEG Urine Cocaine Screen NEG Urine Cannabinoids Screen NEG Diagnosis Primary Impression: Alcohol abuse with alcohol-induced mood disorder Additional Impression: Cellulitis of sacral region Problem Qualifiers Aisha Win [facility] May 07, 2017 18:36
--- NOTE | 2017-05-07 18:52 | PD ---
History of Present Illness Chief Complaint: Medical Clearance Time Seen by Provider: 16:00 Travel History International Travel<30 Days: No Contact w/Intl Traveler<30days: No Known affected area: No Legal Status Legal Status: Wilder Act Wilder Act Signed By: Guillermo Wilder Act Comment: BA reads: SANDRO HERNÁNDEZ Badge#[id number], Case#[id number] History of Present Illness: History of Present Illness HPI . Her BAl upon arrival to [place] was in the [address] [facility] Past Medical History Hx Anticoagulant Therapy: No Anemia: Yes Arthritis: Yes Asthma: Yes Autoimmune Disease: No Bipolar Disorder: Yes Anxiety: Yes Depression: Yes Heart Rhythm Problems: No Cancer: No Cardiovascular Problems: Yes High Cholesterol: No Chest Pain: Yes Congestive Heart Failure: No Cerebrovascular Accident: No Diabetes: Yes Patient Takes Glucophage: No Diminished Hearing: No Gastrointestinal Disorders: Yes GERD: Yes Genitourinary: No Headaches: No Hiatal Hernia: No Hypertension: Yes Immune Disorder: No Implanted Vascular Access Dvce: No Insomnia: Yes Musculoskeletal: No Neurologic: Yes Psychiatric: Yes Reproductive: Yes Respiratory: No Integumentary: No Immunizations Current: Yes Migraines: No Myocardial Infarction: Yes Pneumonia: Yes Schizophrenia: Yes Seizures: Yes (FROM ETOH WITHDRAWAL) Thyroid Disease: No Ulcer: Yes (PER HX) Menopausal: Yes : 1 Para: 1 Miscarriage: 0 : 0 Ovarian Cysts: Yes (RIGHT OVARIAN CYST REMOVAL) Tubal Ligation: Yes Past Surgical History Abdominal Surgery: No AICD: No Arteriovenous Shunt: No Cardiac Surgery: No Endocrine Surgery: No Eye Surgery: No Genitourinary Surgery: No Gynecologic Surgery: Yes Insulin Pump: No Joint Replacement: No Neurologic Surgery: No Oral Surgery: No Pacemaker: No Thoracic Surgery: No Tonsillectomy: Yes Other Surgery: Yes Psychiatric History Psychiatric History Hx Psychiatric Treatment: No previous psychaitric treatmetn reported. History of Inpatient Treatment: No Guns or firearms in home: No Social History Single female . Lives on a houseboat. Hx Alcohol Use: Yes (OCCASSIONALLY PER PT- 'DENIES) Hx Tobacco Use: Yes (1 PPD) Hx Substance Use: Yes Substance Use Type: Alcohol, Nicotine/Cigarettes, Benzos (Valium,Xanax) Other Substances Used: SUBSTANCE ABUSE TREATMENT Hx of Substance Use Treatment: Yes Family Psychiatric History unknown Allergies-Medications (Allergen,Severity, Reaction): Coded Allergies: Novocain (Verified Allergy, Severe, Anaphylaxis, 05/07/17) Per pt. Penicillin (Verified Allergy, Unknown, 05/07/17) Reported Meds & Prescriptions Reported Meds & Active Scripts Active Bactrim DS (Sulfamethoxazole-Trimethoprim) 800-160 Mg Tab 1 Tab PO BID Reported Lisinopril 20 Mg Tab 20 Mg PO DAILY Review of Systems Constitutional: COMPLAINS OF: Weight loss Integumentary: COMPLAINS OF: Rash Psychiatric: COMPLAINS OF: Depression Exam Alert: Yes [place]: Person (ox4) Mood: Depressed Affect: Tearful Speech: Clear, Logical Eye Contact: Normal Memory Intact: Comment (Not tested) Hallucinations: Other (Negative) Delusions: No Suicidal: Ideation (pasive wishes) Homicidal: Ideation (deneis) Insight/Judgement Fair. Not impaired MDM Medical Decision Making Medical Record Reviewed: Yes Assessment/Plan 66-year-old female with history of alcohol abuse and alcohol induced mood disorder who presents to the ED for evaluation of Wilder act initiated by SANDRO .The report alleges that she informed the police police that she wanted to her kill herself. She states that she doesn't want to live anymore. This is the patient's 14 time in this hospital this month. Patient has not been compliant with her antibiotic " because I can't get to [employer] to buy it" and in general not caring for herself. She has placed herself in danger by attempting to swim in the river She is also been sleeping outside in a tent since she got herself locked out of her boat.She denies suicidal ideation but does state " I cannot go on like this. I can't do it anymore. She is tearful and appears depressed. She admits to not wanting to live anymore At this time the patient will be admitted to inpatient psychiatry to address current mood symptoms as well as he inability to care for herself, and her thoughts of wanting to . She will continue on CIWA protocol and will get consult for her cellulitis Orders Complete Blood Count With Diff (05/07/17 11:41) Comprehensive Metabolic Panel (05/07/17 11:41) Psych Screen (05/07/17 11:41) Drug Screen, Random Urine (05/07/17 11:41) Alcohol (Ethanol) (05/07/17 11:41) Sulfamet-Trimeth Ds 800-160 Mg (Bactrim (05/07/17 11:45) Diet Regular Basic (05/07/17 Lunch) Alcohol Withdrawal Asmt-Ciwa ONCE (05/07/17 12:31) Ondansetron Odt (Zofran Odt) (05/07/17 12:45) Flumazenil Inj (Romazicon Inj) (05/07/17 12:45) Lorazepam (Ativan) (05/07/17 12:45) Lorazepam Inj (Ativan Inj) (05/07/17 12:45) Lorazepam (Ativan) (05/07/17 12:45) Lorazepam Inj (Ativan Inj) (05/07/17 12:45) Lorazepam Inj (Ativan Inj) (05/07/17 12:45) Lorazepam Inj (Ativan Inj) (05/07/17 12:45) Diet Regular Basic (05/07/17 Dinner) Results Vital Signs Date Time Temp Pulse Resp B/P Pulse Ox O2 Delivery O2 Flow Rate FiO2 05/07/17 14:38 92 16 104/54 97 Room Air 05/07/17 14:37 92 16 104/54 97 Room Air 05/07/17 11:41 16 05/07/17 11:23 98.1 95 16 121/63 92 Laboratory Tests Test 05/07/17 05/07/17 11:45 14:00 White Blood Count 13.0 Red Blood Count 3.51 Hemoglobin 11.5 Hematocrit 35.0 Mean Corpuscular Volume 99.7 Mean Corpuscular Hemoglobin 32.9 Mean Corpuscular Hemoglobin 33.0 Concent Red Cell Distribution Width 15.9 Platelet Count 192 Mean Platelet Volume 6.2 Neutrophils (%) (Auto) 73.3 Lymphocytes (%) (Auto) 17.9 Monocytes (%) (Auto) 7.5 Eosinophils (%) (Auto) 0.8 Basophils (%) (Auto) 0.5 Neutrophils # (Auto) 9.5 Lymphocytes # (Auto) 2.3 Monocytes # (Auto) 1.0 Eosinophils # (Auto) 0.1 Basophils # (Auto) 0.1 CBC Comment DIFF FINAL Differential Comment Sodium Level 136 Potassium Level 3.8 Chloride Level 103 Carbon Dioxide Level 22.3 Anion Gap 11 Blood Urea Nitrogen 7 Creatinine 0.42 Estimat Glomerular Filtration 151 Rate Random Glucose 82 Calcium Level 8.1 Total Bilirubin 0.3 Aspartate Amino Transf 75 (AST/SGOT) Alanine Aminotransferase 82 (ALT/SGPT) Alkaline Phosphatase 110 Total Protein 7.7 Albumin 3.5 Ethyl Alcohol Level 367 Urine Opiates Screen NEG Urine Barbiturates Screen NEG Urine Amphetamines Screen NEG Urine Benzodiazepines Screen NEG Urine Cocaine Screen NEG Urine Cannabinoids Screen NEG Diagnosis Primary Impression: Alcohol abuse with alcohol-induced mood disorder Additional Impression: Cellulitis of sacral region Admitting Information Admitting Physician Requests: Admit Problem Qualifiers Aisha Win [facility] May 07, 2017 18:52
[2017-05-07] MEDS ORDERED: MAGNESIUM HYDROXIDE SUSP 30 ML CUP PO PRN (19:00)
[2017-05-07] MEDS ORDERED: ACETAMINOPHEN 325 MG TAB PO PRN (19:00)
[2017-05-07] MEDS ORDERED: ALUMINUM/MAGNESIUM/SIMETH 30 ML CUP PO PRN (19:00)
[2017-05-07 20:05] VITALS: BP 149/72; PULSE 99; RESP 18; O2SAT 95
[2017-05-07 22:27] VITALS: BP 169/89; PULSE 115; RESP 18; TEMP 98.5; O2SAT 96
[2017-05-08 05:40] VITALS: BP 165/72; PULSE 91; RESP 17; TEMP 99.2; O2SAT 95
[2017-05-08] MEDS ORDERED: MAGNESIUM HYDROXIDE SUSP 30 ML CUP PO PRN (08:45)
[2017-05-08] MEDS ORDERED: ALUMINUM/MAGNESIUM/SIMETH 30 ML CUP PO PRN (08:45)
[2017-05-08] MEDS ORDERED: ACETAMINOPHEN 325 MG TAB PO PRN (08:45)
[2017-05-08] MEDS ORDERED: SULFAMETHOXAZOLE-TRIMETHOPRIM DS 800-160 MG TAB PO SCH (09:00)
[2017-05-08] MEDS: LORazepam 1 MG TAB PO PRN ×2 (09:31→15:21)
[2017-05-08] MEDS: LISINOPRIL 20 MG TAB PO SCH (09:31)
--- NOTE | 2017-05-08 09:35 | HHI.HP ---
Provisional Diagnosis Admission Date May 07, 2017 at 18:57 [place] I. 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 Express and informed consent means consent voluntarily given in writing, by a competent person, after sufficient explanation and disclosure of the subject matter involved to enable the person to make a knowing and willful decision without any element of force, fraud, deceit, duress, or other form of constraint or coercion. This person is 18 years of age or older, is not now known to be incompetent to consent to treatment with a guardian advocate, and does not have a health care surrogate or proxy currently making medical treatment decisions. I have found this person to be one of the following: [] Competent to provide express and informed consent, as defined above, for voluntary admission to this facility and is competent to provide express and informed consent for treatment. He/she has the consistent capacity to make well reasoned, willful, and knowing decisions concerning his or her medical or mental health treatment. The person fully and consistently understands the purpose of the admission for examination/placement and is fully capable of personally exercising all rights assured under [place] [] Incompetent to provide express and informed consent to voluntary admission, and this is incompetent to provide express and informed consent to treatment. The person must be transferred to involuntary status and a petition for a guardian advocate filed with the Circuit Court. [xxx] Refusing to provide express and informed consent to voluntary admission but is competent to provide express and informed consent for treatment. The person must be discharged or transferred to involuntary status. Form shall be completed within 24 hours of a person's arrival at the receiving facility and filed in the clinical record of each person: 1. Admitted on a voluntary basis 2. Permitted to provide express and informed consent to his/her own treatment 3. Allowed to transfer from involuntary to voluntary status 4. Prior to permitting a person to consent to his or her own treatment after having been previously found incompetent to consent to treatment. History of Present Illness Capacity: Lacks Capacity (patient lacks capacity to sign for admission, patient has capacity to sign for medication) HPI Patient is 66 we'll white female well-known to us from multiple prior contacts comes here under Wilder act by the [place] [employer] dated 05/07/70 at 11:11 AM that document reviewed. It essentially states ""during my contact with Mandy Hilliard she made several statements that she did not want to live anymore and that she wanted to kill herself." Patient seen screened in the ED urine toxicology negative blood alcohol level 367. Of interest upon review of EMR it demonstrates patient's chronic alcohol dependency/intoxication. In April patient had 7 recorded blood alcohol level greater than 280, and since mid February of this year she has had 15 blood alcohol levels greater than 250. At the present time patient sitting quietly in her room nurse Zachery present throughout session. Patient did recognize me from prior contact she is a thin slight somewhat disheveled white female with a marked coarse tremors noted both upper extremities. Patient is calm and cooperative with me. She states she lives on a boat him at [facility]. She denies drinking while staying on the boat. But she goes to friends houses for drinking. She remembers only drinking a few beers. But she acknowledges blacking out spells related to alcohol use. She denies drinking hard liquor. She states she was in a detox at the [facility] about a month ago. She states she started drinking in her late 20s and his had up to 10 years of sobriety since then. She does minimize her present use of alcohol stated she drinks 2-3 times per week. She denies other drug use. She also acknowledges depression she denies crying much anymore, she acknowledges poor sleep habits, poor appetite, vague suicidal ideation, hopelessness and helplessness, though she denies voices or visions. She states she has a boyfriend who is incarcerated will be a fdc until July of this year. She states she has an adult daughter lives in [place] with whom she has no contact. At the present time patient does meet criteria for acute inpatient hospitalization under the Wilder act. I will do first opinion requests second opinion. Though I feel she does have capacity to sign for medications. It is obvious that the patient is a chronic alcoholic, I do also feel that she has significant depression. Both these issues need to be treated. We'll start the patient on Remeron 15 mg at at bedtime, will continue the ciwa protocol, I feel this a very high risk for withdrawal symptoms to develop with this lady. Hopefully we can refer her through to both mental health and addictions resources in the community once she is stabilized Review of Systems Constitutional: COMPLAINS OF: Weight loss Endocrine: DENIES: Abnorml menstrual pattern, Heat/cold intolerance, Polydipsia , Polyuria, Polyphagia Eyes: DENIES: Blurred vision, Diplopia, Eye inflammation, Eye pain, Vision loss , Photosensitivity, Double Vision Ears, nose, mouth, throat: DENIES: Tinnitus, Hearing loss, Vertigo, Nasal discharge, Oral lesions, Throat pain, Hoarseness, Ear Pain, Running Nose, Epistaxis, Sinus Pain, Toothache, Odynophagia Respiratory: DENIES: Apneas, Cough, Snoring, Wheezing, Hemoptysis, Sputum production, Shortness of breath Cardiovascular: DENIES: Chest pain, Palpitations, Syncope, Dyspnea on Exertion , PND, Lower Extremity Edema, Orthopnea, Claudication Gastrointestinal: DENIES: Abdominal pain, Black stools, Bloody stools, Constipation, Diarrhea, Nausea, Vomiting, Difficulty Swallowing, Anorexia Genitourinary: DENIES: Abnormal vaginal bleeding, Dysmenorrhea, Dyspareunia, Sexual dysfunction, Urinary frequency, Urinary incontinence, Urgency, Hematuria , Dysuria, Nocturia, Vaginal discharge Musculoskeletal: DENIES: Joint pain, Muscle aches, Stiffness, Joint Swelling, Back pain, Neck pain Integumentary: DENIES: Abnormal pigmentation, Pruritus, Rash, Nail changes, Breast masses, Breast skin changes, Nipple discharge Hematologic/lymphatic: DENIES: Bruising, Lymphadenopathy Immunologic/allergic: DENIES: Eczema, Urticaria Neurologic: COMPLAINS OF: Tremor Psychiatric: COMPLAINS OF: Depression, Suicidal Ideation Past Psych History Psychological trauma history Patient denies Violence risk - others (6 mos) Low Violence risk - self (6 mos) Moderate to high Substance Abuse History Drugs/Alcohol past 12 months Active alcohol abuser Past Family Social History Coded Allergies: Novocain (Verified Allergy, Severe, Anaphylaxis, 05/07/17) Per pt. Penicillin (Verified Allergy, Unknown, 05/07/17) Past Medical History Please see [facility] Active Scripts Sulfamethoxazole-Trimethoprim (Bactrim DS)800-160 Mg Tab1 Tab PO BID #14 TAB Ref 0 Prov:Soontharothai,Rewadee MD 05/04/17 Reported Medications Lisinopril 20 Mg Tab20 Mg PO DAILY #30 TAB Ref 0 05/04/17 Current Medications Medications (Trade) Dose Ordered Sig/Dragan Route Start Time Stop Time Status Last Admin (Zofran Odt) 4 mg Q8H PRN PO 05/07/17 12:45 (Romazicon Inj) 0.2 mg Q1M PRN IV PUSH 05/07/17 12:45 (Ativan) 1 mg Q4H PRN PO 05/07/17 12:45 (Ativan Inj) 1 mg Q4H PRN IV PUSH 05/07/17 12:45 (Ativan) 2 mg Q2H PRN PO 05/07/17 12:45 05/07/17 20:04 (Ativan Inj) 2 mg Q2H PRN IV PUSH 05/07/17 12:45 (Ativan Inj) 2 mg Q1H PRN IV PUSH 05/07/17 12:45 (Ativan Inj) 2 mg Q15M PRN IV PUSH 05/07/17 12:45 (Tylenol) 650 mg Q4H PRN PO 05/07/17 19:00 (Milk Of Magnesia Liq) 30 ml DAILY PRN PO 05/07/17 19:00 (Mag-Al Plus Susp Liq) 30 ml Q6H PRN PO 05/07/17 19:00 Family History Patient's father history of alcohol abuse Social History Patient was on both with boyfriend who is incarcerated at the present time patient is estranged from her adult daughter and grandchildren Patient's Strengths (min. 2) Patient verbal able access healthcare Physical Exam Patient seen screen in ED exam reviewed and agreed with. At the present time patient sitting quietly in her room nurse Zachery present, she is in no acute distress, neck is supple she is in no respiratory distress, no complaints of abdominal pain. There are more coarse tremors noted of both upper extremities however she moves all 4 extremities without difficulty Vital Signs Vital Signs Date Time Temp Pulse Resp B/P Pulse Ox O2 Delivery O2 Flow Rate FiO2 05/08/17 05:40 99.2 91 17 165/72 95 05/07/17 20:05 Room Air Mental Status Examination Alert fairly well oriented thin slight slender somewhat disheveled white female appears her stated age she is tremulous somewhat anxious sad with poor to fair eye contact Appearance Somewhat disheveled Speech: Hesitant, Slow Orientation: x3 Memory: Unremarkable (poor) Thought Process: Logical Thought Content: Unremarkable Language Poor Fund of Knowledge Poor Hallucination Type: None Attention and Concentration: Other (fair) Suicidal Ideation: Yes (made suicidal statements to the law enforcement officers) Previous Suicide Attempts: No Homicidal Ideation: No Previous Homicide Attempts: No Insight: Poor Judgment: Poor Affect: Other (decrease range decrease intensity) Mood: Sad Motor Activity: Abnormal gait-specify (somewhat tremulous and weak will get PT assessment) Assessment & Plan Problem List: (1) Alcohol dependence with acute alcoholic intoxication ICD Code: F10.229 (2) Major depressive disorder, recurrent severe without psychotic features ICD Code: F33.2 Assessment & Plan Estimated LOS: 7 days this time patient does meet criteria for involuntary psychiatric hospitalization the Wilder act I'll do first opinion requests second opinion,-she does have capacity sent for medications. We'll start her on Remeron 15 mg at at bedtime. Continue the ciwa protocol. Hopefully this be fairly short stay with him on her through this period of high risk for withdrawal symptoms including seizures, and also treat her depression Discharge Planning To be determined Request HC Surrog/Guard Advoc?: No Problem Qualifiers (1) Alcohol dependence with acute alcoholic intoxication: Qualified Code: F10.220 - Alcohol dependence with acute alcoholic intoxication , uncomplicated Ld Kumar MD May 08, 2017 09:35
[2017-05-08 13:04] LABS: ANION GAP 12 MEQ/L (5-15); BICARBONATE 25.1 MEQ/L (21.0-32.0); BLOOD UREA NITROGEN 8 MG/DL (7-18); CHLORIDE 95 MEQ/L (98-107); GLOMERULAR FILTRATION RATE 121 ML/MIN (>89); POTASSIUM 3.6 MEQ/L (3.5-5.1); SODIUM (NA) 132 MEQ/L (136-145)
[2017-05-08 13:12] VITALS: BP 103/59; PULSE 94
[2017-05-08 13:22] LABS: HDL CHOLESTEROL 129.9 MG/DL (40.0-60.0); LDL CHOLESTEROL 48 MG/DL (0-99)
--- NOTE | 2017-05-08 14:15 | PD.PSY.CON ---
Provisional Diagnosis Admission Date May 07, 2017 at 18:57 [place] I. 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 Deferred [place] III. Hypertension History of Present Illness Service Psychiatry Consult Requested By Primary Care Physician No Primary Care Physician HPI Patient is 66 we'll white female well-known to us from multiple prior contacts comes here under Wilder act by the [place] [employer] dated 05/07/70 at 11:11 AM that document reviewed. It essentially states ""during my contact with Mandy Hilliard she made several statements that she did not want to live anymore and that she wanted to kill herself." Patient seen screened in the ED urine toxicology negative blood alcohol level 367. Of interest upon review of EMR it demonstrates patient's chronic alcohol dependency/intoxication. In April patient had 7 recorded blood alcohol level greater than 280, and since mid February of this year she has had 15 blood alcohol levels greater than 250. At the present time patient sitting quietly in her room nurse Zachery present throughout session. Patient did recognize me from prior contact she is a thin slight somewhat disheveled white female with a marked coarse tremors noted both upper extremities. Patient is calm and cooperative with me. She states she lives on a boat him at [facility]. She denies drinking while staying on the boat. But she goes to friends houses for drinking. She remembers only drinking a few beers. But she acknowledges blacking out spells related to alcohol use. She denies drinking hard liquor. She states she was in a detox at the [facility] about a month ago. She states she started drinking in her late 20s and his had up to 10 years of sobriety since then. She does minimize her present use of alcohol stated she drinks 2-3 times per week. She denies other drug use. She also acknowledges depression she denies crying much anymore, she acknowledges poor sleep habits, poor appetite, vague suicidal ideation, hopelessness and helplessness, though she denies voices or visions. She states she has a boyfriend who is incarcerated will be a intermediate until July of this year. She states she has an adult daughter lives in [place] with whom she has no contact. At the present time patient does meet criteria for acute inpatient hospitalization under the Wilder act. I will do first opinion requests second opinion. Though I feel she does have capacity to sign for medications. It is obvious that the patient is a chronic alcoholic, I do also feel that she has significant depression. Both these issues need to be treated. We'll start the patient on Remeron 15 mg at at bedtime, will continue the ciwa protocol, I feel this a very high risk for withdrawal symptoms to develop with this lady. Hopefully we can refer her through to both mental health and addictions resources in the community once she is stabilized. Patient was seen today for psychiatric second opinion, she was eating her lunch , calm, cooperative, pleasant. Patient says that she has been depressed for many months, and the best way to cope with her depression is drinking alcohol. She reports daily use of alcohol, beers and liquor. Patient also reports that she is homeless, has no family, has nothing to live for. She reports suicidal thoughts, but denies plans. Patient denies homicidal ideation, visual and auditory hallucinations. Past Family Social History Coded Allergies: Novocain (Verified Allergy, Severe, Anaphylaxis, 05/07/17) Per pt. Penicillin (Verified Allergy, Unknown, 05/07/17) Active Scripts Sulfamethoxazole-Trimethoprim (Bactrim DS)800-160 Mg Tab1 Tab PO BID #14 TAB Ref 0 Prov:Cecy Marcial MD 05/04/17 Reported Medications Lisinopril 20 Mg Tab20 Mg PO DAILY #30 TAB Ref 0 05/04/17 Current Medications Medications (Trade) Dose Ordered Sig/Dragan Route Start Time Stop Time Status Last Admin (Zofran Odt) 4 mg Q8H PRN PO 05/07/17 12:45 (Romazicon Inj) 0.2 mg Q1M PRN IV PUSH 05/07/17 12:45 (Ativan) 1 mg Q4H PRN PO 05/07/17 12:45 05/08/17 09:31 (Ativan Inj) 1 mg Q4H PRN IV PUSH 05/07/17 12:45 (Ativan) 2 mg Q2H PRN PO 05/07/17 12:45 05/07/17 20:04 (Ativan Inj) 2 mg Q2H PRN IV PUSH 05/07/17 12:45 (Ativan Inj) 2 mg Q1H PRN IV PUSH 05/07/17 12:45 (Ativan Inj) 2 mg Q15M PRN IV PUSH 05/07/17 12:45 (Tylenol) 650 mg Q4H PRN PO 05/07/17 19:00 (Milk Of Magnesia Liq) 30 ml DAILY PRN PO 05/07/17 19:00 (Mag-Al Plus Susp Liq) 30 ml Q6H PRN PO 05/07/17 19:00 (Remeron) 15 mg HS PO 05/08/17 21:00 (Prinivil) 20 mg DAILY PO 05/08/17 09:00 05/08/17 09:31 (Bactrim Ds 800-160 Mg) 1 tab BID PO 05/08/17 09:00 05/08/17 09:31 Patient's Strengths (min. 2) Patient verbal able access healthcare Physical Exam Vital Signs Vital Signs Date Time Temp Pulse Resp B/P Pulse Ox O2 Delivery O2 Flow Rate FiO2 05/08/17 13:12 94 103/59 05/08/17 05:40 99.2 17 95 05/07/17 20:05 Room Air Mental Status Examination Appearance woman, with a poor hygiene, only that his stated age, calm and cooperative Speech: Hesitant, Slow Orientation: x3 Memory: Unremarkable (poor) Thought Process: Logical Thought Content: Unremarkable Hallucination Type: None Attention and Concentration: Other (fair) Suicidal Ideation: Yes (made suicidal statements to the law enforcement officers) Previous Suicide Attempts: No Homicidal Ideation: No Previous Homicide Attempts: No Insight: Poor Judgment: Poor Affect: Other (decrease range decrease intensity) Mood: Sad Motor Activity: Abnormal gait-specify (somewhat tremulous and weak will get PT assessment) Assessment & Plan Problem List: (1) Alcohol dependence with acute alcoholic intoxication ICD Code: F10.229 (2) Major depressive disorder, recurrent severe without psychotic features Assessment & Plan: Have examined and seen this patient, reviewed the documentation, she is a very well known patient for me, based on my independent findings I totally agree and concur with Dr. Kumar assessment and plan. ICD Code: F33.2 Assessment & Plan Estimated LOS: days Request HC Surrog/Guard Advoc?: No Problem Qualifiers (1) Alcohol dependence with acute alcoholic intoxication: Qualified Code: F10.220 - Alcohol dependence with acute alcoholic intoxication , uncomplicated Preet Boyce MD May 08, 2017 14:15
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
[2017-05-08] MEDS ORDERED: Vancomycin Consult Pharmacy 1 EA OTHER SCH (15:15)
[2017-05-08 15:38] LABS: HEMOGLOBIN A1a 1.2 %; HEMOGLOBIN A1b 1.5 %; HEMOGLOBIN Ao 84.5 %; HEMOGLOBIN F 0.4 %; HEMOGLOBIN LA1C 2.3 %; HEMOGLOBIN P3 3.9 %
[2017-05-08] MEDS ORDERED: VANCOMYCIN INJ 1,000 MG in SODIUM CHLOR 0.9% 250 ML INJ 250 ML IV SCH (17:00)
[2017-05-08] MEDS: VANCOMYCIN INJ 750 MG in SODIUM CHLOR 0.9% 250 ML INJ 250 ML IV SCH (17:00)
[2017-05-08 17:49] VITALS: BP 121/57; PULSE 93; RESP 17; TEMP 99.1; O2SAT 96
[2017-05-08] MEDS ORDERED: PIPERACIL-TAZO 3.375 GM PREMIX 50 ML IV SCH (18:00)
--- NOTE | 2017-05-08 18:00 | PD.WCN.NOT ---
Wound Consult Description: L buttock wound Communicated with: KELLY Case 4th floor [facility] psych and Anish HILL. Recommendation: Please cleanse wound to L buttock with normal saline and cover with dry cover dressing and change BID as ordered for now. Patient may need I&D. Additional Information: Patient seen on 4 th [facility] for evaluation wound L sacral area. Patient turned to R side with independently. Patient states,I Removed bordered gauze dressing in place to reveal wound to L buttock.Wound is measuring 1.8cm x 1.6 cm x ~0.1 cm. Wound bed is noted with ~50% red tissue and ~30% white tissue, and ~20% eschar. wound margins are defined with maceration circumferentially. Periwound presents with Circumferential erythema, heat and hard induration that extends ~4cm out from wound bed. Wound is non fluctuant and painful to patient. Wound is not actively draining. Drainage noted to removed dressing is scant sanguinous/ buitrago in color without odor. Cleansed wound with wound cleanser and applied skin prep to periwound before applying dry cover dressing. Patient may need I&D of wound. Kathia Rodgers [facility] May 08, 2017 18:00
[2017-05-08] MEDS: LACTOBACILLUS ACIDOPHILUS TAB PO SCH (21:04)
[2017-05-08] MEDS: MIRTAZAPINE 15 MG TAB PO SCH (21:04)
--- NOTE | 2017-05-08 21:13 | RADRPT ---
EXAM DATE/TIME: 05/08/2017 19:19 [place] COMPARISON: No previous studies available for comparison. INDICATIONS : Area of redness on left buttock. MEDICAL HISTORY : Hypertension. Gastroesophageal reflux disease. Seizures. Asthma. Ulcer. Arthritis. Osteoarthrit is. Diabetes. Anxiety. SURGICAL HISTORY : Tonsillectomy. Tubal ligation. Ovarian cyst removal, right. ENCOUNTER: Initial ACUITY: 4-6 days PAIN SCORE: 7/10 LOCATION: Left buttock AREA EVALUATED: Left buttock. FINDINGS: There is increased vascularity and an area of redness in the left gluteal region. No loculated fluid to suggest abscess. CONCLUSION: 1. Increased blood flow and presumed inflammatory and edematous changes in the left gluteal region wi thout loculated fluid to suggest abscess. Anuj Casillas MD on May 08, 2017 at 21:10 Board Certified Radiologist. This report was verified electronically.
[2017-05-09 06:18] VITALS: BP 126/70; PULSE 73; RESP 16; TEMP 97.1; O2SAT 95
[2017-05-09] MEDS: LACTOBACILLUS ACIDOPHILUS TAB PO SCH ×2 (09:42→21:00)
[2017-05-09] MEDS: LISINOPRIL 20 MG TAB PO SCH (09:42)
--- NOTE | 2017-05-09 10:29 | HHI.PR ---
Addendum to Inpatient Note Addendum Reason: Additional Documentation Additional Information Verified with patient she DOES NOT have penecillin allergy. States she is allergic to Novocain. Reports she stopped breathing at a dental office after being given the drug. Mavis Jarvis May 09, 2017 10:29
[2017-05-09] MEDS: VANCOMYCIN INJ 750 MG in SODIUM CHLOR 0.9% 250 ML INJ 250 ML IV SCH (11:00)
--- NOTE | 2017-05-09 12:12 | HHI.PR ---
Subjective Remarks In bed, says she has pain at the wound site on her back. No fever or chills. No n/v/d/c. Eating well. Objective Vitals Vital Signs Date Time Temp Pulse Resp B/P Pulse Ox O2 Delivery O2 Flow Rate FiO2 05/09/17 06:18 97.1 73 16 126/70 95 05/08/17 17:49 99.1 93 17 121/57 96 05/08/17 13:12 94 103/59 I/O 05/08/17 05/08/17 05/08/17 05/09/17 05/09/17 05/09/17 07:00 15:00 23:00 07:00 15:00 23:00 Intake Total 0 ml 360 ml Balance 0 ml 360 ml Intake Oral 0 ml 360 ml # Voids 1 Result Diagram: 05/07/17 1145 05/08/17 0801 Imaging Last Impressions Soft Tissue Ultrasound 05/08/17 0000 Signed Impressions: Service Date/Time: Monday, May 08, 2017 19:19 - CONCLUSION: 1. Increased blood flow and presumed inflammatory and edematous changes in the left gluteal region without loculated fluid to suggest abscess. Anuj Casillas MD Objective Remarks GENERAL: This is a petite, well-developed patient, in no apparent distress. SKIN: Warm and dry. Sacral, left buttock area with open wound, wound bed with slough and eschar, surrounding area is erythematous and edematous, fluctuant CARDIOVASCULAR: Regular rate and rhythm without murmurs, gallops, or rubs. RESPIRATORY: Clear to auscultation. Breath sounds equal bilaterally. No wheezes , rales, or rhonchi. GASTROINTESTINAL: Abdomen soft, non-tender, nondistended. Also has active 4. No guarding. MUSCULOSKELETAL: Extremities without clubbing, cyanosis, or edema. No joint tenderness, effusion, or edema noted. No calf tenderness. Negative Homans sign bilaterally. NEUROLOGICAL: Awake and alert. Focal neuro deficit. Motor and sensory grossly within normal limits. Normal speech. A/P Problem List: (1) Major depressive disorder, recurrent severe without psychotic features ICD Code: F33.2 Status: Acute (2) Alcohol dependence with acute alcoholic intoxication ICD Code: F10.229 Status: Acute (3) Cellulitis of sacral region ICD Code: L03.319 Status: Acute (4) HTN (hypertension) ICD Code: I10 Status: Chronic (5) COPD exacerbation ICD Code: J44.1 Status: Acute (6) Depression ICD Code: F32.9 Status: Acute Assessment and Plan Patient is a 66-year-old male with primary medical history of alcohol abuse, HTN, COPD, depression who came into the hospital under Wilder act secondary to suicidal ideation. Patient is now admitted to inpatient psychiatry unit for further evaluation. Consulted for medical management and evaluation of left buttock wound. Depression, suicidal ideation - Managed by psychiatry. Left buttock wound, cellulitis Cellulitis versus osteomyelitis Sepsis - Meets sepsis criteria - HR > 90, WBC 13.0 on admission. Improving. - Check blood cultures, lactic acid - Repeat labs CBC, CMP - Patient was started on Bactrim by primary team - CT scan lumbar, sacral coccyx area rule out abscess, involvement of the bone - Patient need to be transferred to medical psych unit for IV antibiotic, start Vancomycin - patient is allergic to penicillin - On Zosyn. Pt. wound with purulent drain in the perirectal area, may need coverage for gram negative. Note patient doesn't have PNC allergy per patient. - Lactinex BID - Wound care consult. Purulent drain. Consult surgery, plan for I&D tomorrow. HTN - Continue home medication lisinopril - Monitor BP trend ETOH - CIWA protocol - Add folic acid, thiamine daily - Patient is counseled DVT prop ambulatory Code Status Full code Discussed Condition With Discussed with patient, nurse , Dr Hugo gen surgery Problem Qualifiers (1) Alcohol dependence with acute alcoholic intoxication: Qualified Code: F10.220 - Alcohol dependence with acute alcoholic intoxication , uncomplicated Mehreen Trimble MD May 09, 2017 12:11
[2017-05-09 12:38] LABS: AUTOMATED NEUTROPHIL # 8.1 TH/MM3 (1.8-7.7); BASOPHIL % 0.3 % (0.0-2.0); EOSINOPHIL # 0.1 TH/MM3 (0-0.4); HEMATOCRIT 34.5 % (35.0-46.0); HEMO FLAGS DIFF FINAL; LYMPH % 10.1 % (9.0-44.0); LYMPHOCYTE # 1.1 TH/MM3 (1.0-4.8); MEAN CELL VOLUME 99.2 FL (80.0-100.0); MEAN CORPUSCULAR HEMOGLOBIN 34.4 PG (27.0-34.0); MEAN CORPUSCULAR HGB CONC 34.7 % (32.0-36.0); MONO % 10.8 % (0.0-8.0); NEUT % 77.8 % (16.0-70.0); PLATELET COUNT 149 TH/MM3 (150-450); RED BLOOD COUNT 3.48 MIL/MM3 (4.00-5.30); RED CELL DISTRIBUTION WIDTH 15.5 % (11.6-17.2); WHITE BLOOD COUNT 10.4 TH/MM3 (4.0-11.0)
[2017-05-09 13:11] LABS: BICARBONATE 24.7 MEQ/L (21.0-32.0); POTASSIUM 3.8 MEQ/L (3.5-5.1)
[2017-05-09] MEDS: PIPERACIL-TAZO 3.375 GM PREMIX 50 ML IV SCH ×2 (13:56→20:00)
[2017-05-09] MEDS ORDERED: ERGOCALCIFEROL (VIT D2) 50,000 UNIT CAP PO SCH (14:00)
[2017-05-09 14:25] LABS: LACTIC ACID GHOST NOT REPORTABLE
--- NOTE | 2017-05-09 15:43 | HHI.PYPN ---
Subjective Remarks Patient seen in her room on 4 E. Patient calm pleasant cooperative with me did remember me from prior contact. It appears her abscess has cultured out MRSA patient is where this should discussed the isolation procedures necessary. She denies suicidality voices or visions. For now continue treatment no change Review of Systems Except as stated in HPI: all other systems reviewed are Neg Objective Alert: Yes Clifford: Person (ox4) Mood: Depressed Affect: Tearful Memory Intact: Comment (Not tested) Hallucinations: Other (Negative) Delusions: No Delusion Type: Other (denies) Suicidal: Ideation (pasive wishes) Homicidal: Ideation (deneis) Insight/Judgment Poor Labs Test 05/09/17 05/09/17 12:17 12:27 White Blood Count 10.4 TH/MM3 Red Blood Count 3.48 MIL/MM3 Hemoglobin 12.0 GM/DL Hematocrit 34.5 % Mean Corpuscular Volume 99.2 FL Mean Corpuscular Hemoglobin 34.4 PG Mean Corpuscular Hemoglobin 34.7 % Concent Red Cell Distribution Width 15.5 % Platelet Count 149 TH/MM3 Mean Platelet Volume 7.0 FL Neutrophils (%) (Auto) 77.8 % Lymphocytes (%) (Auto) 10.1 % Monocytes (%) (Auto) 10.8 % Eosinophils (%) (Auto) 1.0 % Basophils (%) (Auto) 0.3 % Neutrophils # (Auto) 8.1 TH/MM3 Lymphocytes # (Auto) 1.1 TH/MM3 Monocytes # (Auto) 1.1 TH/MM3 Eosinophils # (Auto) 0.1 TH/MM3 Basophils # (Auto) 0.0 TH/MM3 CBC Comment DIFF FINAL Differential Comment Sodium Level 134 MEQ/L Potassium Level 3.8 MEQ/L Chloride Level 101 MEQ/L Carbon Dioxide Level 24.7 MEQ/L Anion Gap 8 MEQ/L Blood Urea Nitrogen 12 MG/DL Creatinine 1.01 MG/DL Estimat Glomerular Filtration 55 ML/MIN Rate Random Glucose 130 MG/DL Calcium Level 8.7 MG/DL Lactic Acid Level 2.3 mmol/L Date/Time Procedure Status Source Growth 05/09/17 12:27 Aerobic Blood Culture Received Blood Peripheral Pending 05/09/17 12:27 Anaerobic Blood Culture Received Blood Peripheral Pending 05/08/17 02:45 Gram Stain - Final Resulted Wound Buttock 05/08/17 02:45 Wound Culture - Preliminary Resulted S. Aureus Mrsa Vitals/IOs Vital Signs Date Time Temp Pulse Resp B/P Pulse Ox O2 Delivery O2 Flow Rate FiO2 05/09/17 06:18 97.1 73 16 126/70 95 05/07/17 20:05 Room Air Assessment & Plan Problem List: (1) Alcohol dependence with acute alcoholic intoxication ICD Code: F10.229 (2) Major depressive disorder, recurrent severe without psychotic features ICD Code: F33.2 Assessment & Plan Estimated LOS: days patient continues depressed though improving, showing increased cooperation with her MRSA infection and its treatment Justification for Cont. Inpt. At this point patient will decompensate if placed in the lower level of care Discharge Planning To be determined Request HC Surrog/Guard Advoc?: No Problem Qualifiers (1) Alcohol dependence with acute alcoholic intoxication: Qualified Code: F10.220 - Alcohol dependence with acute alcoholic intoxication , uncomplicated Ld Kumar MD May 09, 2017 15:43
[2017-05-09 18:00] VITALS: BP 125/60; PULSE 85; RESP 16; TEMP 100.9
[2017-05-09] MEDS: SODIUM CHLOR 0.9% 1000 ML INJ 1,000 ML IV SCH (18:00)
[2017-05-09] MEDS: MIRTAZAPINE 15 MG TAB PO SCH (21:00)
[2017-05-10] MEDS: PIPERACIL-TAZO 3.375 GM PREMIX 50 ML IV SCH ×2 (01:24→08:28)
[2017-05-10] MEDS: VANCOMYCIN INJ 750 MG in SODIUM CHLOR 0.9% 250 ML INJ 250 ML IV SCH ×2 (05:00→23:00)
--- NOTE | 2017-05-10 05:28 | MB ---
cc: RAJ VALENZUELA DAVID B. MD DATE OF CONSULTATION: 05/09/2017 REQUESTING PHYSICIAN: Dr. Hank Wong HISTORY OF PRESENT ILLNESS The patient is a 66-year-old female currently admitted to [facility] under a Wilder Act. The patient was Wilder Acted to the [place] police for making statements regarding that she wanted to kill herself. The patient was found upon admission to have an elevated alcohol level of 367. During her admission and treatment for psychiatric and substance complaints, she also complained of lower back pain and wound. Upon evaluation the patient was found to have an erythematous area of skin excoriation and cellulitis. The patient was started on IV antibiotics. Imaging was obtained. Ultrasound showed induration with no defined abscess. General surgery was consulted for surgical opinion. REVIEW OF SYSTEMS: A 12 point review of systems was conducted with the patient and is negative except for the pertinent positives above in the history of present illness. PAST MEDICAL HISTORY: 1. Depression with previous admissions to the psychiatric floor. 2. History of alcohol abuse. 3. Hypertension. 4. COPD. PAST SURGICAL HISTORY: Denied ALLERGIES: NOVOCAIN WITH ANAPHYLAXIS. HOME MEDICATIONS: 1. Bactrim. 2. Lisinopril. SOCIAL HISTORY The patient states she drinks beer daily. She smokes cigarettes daily. Denies the use of illicit drugs. FAMILY HISTORY: Noncontributory. PHYSICAL EXAMINATION: Vital signs: The patient is afebrile. Blood pressure 121/57, heart rate 93. The patient is a thin female in no acute distress. HEAD: Normocephalic, atraumatic. Pupils round and reactive to light and accommodation. Sclerae is anicteric. Moist mucous membranes. NECK: Supple. No JVD. Breath sounds present bilaterally. No abnormal breathing pattern. HEART: Regular rhythm. ABDOMEN: Soft, nondistended. Nontender to palpation. No organomegaly. No ascites. BACK: No CVA tenderness. SKIN: Exam reveals a superficially ulcerated wound over the sacrum with surrounding cellulitis. There is no fluctuance or sign of abscess. There is no sign of any significant area of necrotic tissue and minimal cellulitis around this ulceration. EXTREMITIES: No clubbing, cyanosis or edema. NEUROLOGIC: The patient is awake, alert, oriented x3, moving all extremities. Cranial II-XII grossly intact. LABORATORY FINDINGS White blood cell count 10.4, hemoglobin 12.0. ASSESSMENT/PLAN The patient is a 66-year-old female with induration, cellulitis of the presacral skin. The patient denies any previous history of bed sores or ulcerations and this appears to be an acute infection with possible early abscess formation. I do not think this is a chronic bedsore or pressure ulcer which would require plastic surgery consultation. We will agree with current management with IV antibiotics and wound care and will follow along with the patient. If the patient develops signs of fluctuance or abscess formation, we will likely have to bring the patient to the operating room for I&D, as she is ALLERGIC TO LOCAL ANESTHETIC. We will follow along with this patient. Thank you for the consultation. MD PING [place]/FIOR /11:14 PM /5:11 AM
[2017-05-10 06:14] VITALS: BP 130/59; PULSE 65; RESP 18; TEMP 98.5
[2017-05-10 08:26] LABS: AUTOMATED NEUTROPHIL # 7.8 TH/MM3 (1.8-7.7); BASOPHIL % 0.4 % (0.0-2.0); EOSINOPHIL # 0.1 TH/MM3 (0-0.4); EOSINOPHIL % 1.2 % (0.0-4.0); HEMATOCRIT 33.6 % (35.0-46.0); HEMO FLAGS DIFF FINAL; LYMPH % 13.6 % (9.0-44.0); LYMPHOCYTE # 1.5 TH/MM3 (1.0-4.8); MEAN CELL VOLUME 98.1 FL (80.0-100.0); MEAN CORPUSCULAR HEMOGLOBIN 34.5 PG (27.0-34.0); MEAN CORPUSCULAR HGB CONC 35.2 % (32.0-36.0); MONO % 15.1 % (0.0-8.0); NEUT % 69.7 % (16.0-70.0); PLATELET COUNT 145 TH/MM3 (150-450); RED BLOOD COUNT 3.42 MIL/MM3 (4.00-5.30); RED CELL DISTRIBUTION WIDTH 15.6 % (11.6-17.2); WHITE BLOOD COUNT 11.2 TH/MM3 (4.0-11.0)
[2017-05-10] MEDS: LACTOBACILLUS ACIDOPHILUS TAB PO SCH ×2 (08:28→21:00)
[2017-05-10] MEDS: LISINOPRIL 20 MG TAB PO SCH (08:29)
--- NOTE | 2017-05-10 08:30 | HHI.PYPN ---
Subjective Remarks Patient seen this morning with nurse Cleo, chart review, patient compliant medications. Patient calm alert pleasant with us today. This no behavioral problems noted today. For now continue treatment Review of Systems Except as stated in HPI: all other systems reviewed are Neg Objective Alert: Yes Thor: Person (ox4) Mood: Depressed Affect: Tearful Memory Intact: Comment (Not tested) Hallucinations: Other (Negative) Delusions: No Delusion Type: Other (denies) Suicidal: Ideation (pasive wishes) Homicidal: Ideation (deneis) Insight/Judgment Poor Labs Test 05/09/17 05/09/17 05/09/17 05/10/17 12:17 12:27 17:42 08:03 White Blood Count 10.4 TH/MM3 11.2 TH/MM3 Red Blood Count 3.48 MIL/MM3 3.42 MIL/MM3 Hemoglobin 12.0 GM/DL 11.8 GM/DL Hematocrit 34.5 % 33.6 % Mean Corpuscular Volume 99.2 FL 98.1 FL Mean Corpuscular Hemoglobin 34.4 PG 34.5 PG Mean Corpuscular Hemoglobin 34.7 % 35.2 % Concent Red Cell Distribution Width 15.5 % 15.6 % Platelet Count 149 TH/MM3 145 TH/MM3 Mean Platelet Volume 7.0 FL 7.0 FL Neutrophils (%) (Auto) 77.8 % 69.7 % Lymphocytes (%) (Auto) 10.1 % 13.6 % Monocytes (%) (Auto) 10.8 % 15.1 % Eosinophils (%) (Auto) 1.0 % 1.2 % Basophils (%) (Auto) 0.3 % 0.4 % Neutrophils # (Auto) 8.1 TH/MM3 7.8 TH/MM3 Lymphocytes # (Auto) 1.1 TH/MM3 1.5 TH/MM3 Monocytes # (Auto) 1.1 TH/MM3 1.7 TH/MM3 Eosinophils # (Auto) 0.1 TH/MM3 0.1 TH/MM3 Basophils # (Auto) 0.0 TH/MM3 0.0 TH/MM3 CBC Comment DIFF FINAL DIFF FINAL Differential Comment Sodium Level 134 MEQ/L Potassium Level 3.8 MEQ/L Chloride Level 101 MEQ/L Carbon Dioxide Level 24.7 MEQ/L Anion Gap 8 MEQ/L Blood Urea Nitrogen 12 MG/DL Creatinine 1.01 MG/DL Estimat Glomerular Filtration 55 ML/MIN Rate Random Glucose 130 MG/DL Calcium Level 8.7 MG/DL Lactic Acid Level 2.3 mmol/L 2.0 mmol/L Date/Time Procedure Status Source Growth 05/09/17 12:27 Aerobic Blood Culture Received Blood Peripheral Pending 05/09/17 12:27 Anaerobic Blood Culture Received Blood Peripheral Pending 05/08/17 02:45 Gram Stain - Final Resulted Wound Buttock 05/08/17 02:45 Wound Culture - Preliminary Resulted S. Aureus Mrsa Vitals/IOs Vital Signs Date Time Temp Pulse Resp B/P Pulse Ox O2 Delivery O2 Flow Rate FiO2 05/10/17 06:14 98.5 65 18 130/59 05/09/17 06:18 95 05/07/17 20:05 Room Air Intake and Output 05/09/17 05/09/17 05/10/17 08:00 16:00 00:00 Intake Total 0 ml 2280 ml 564 ml Balance 0 ml 2280 ml 564 ml Assessment & Plan Problem List: (1) Alcohol dependence with acute alcoholic intoxication ICD Code: F10.229 (2) Major depressive disorder, recurrent severe without psychotic features ICD Code: F33.2 Assessment & Plan Estimated LOS: days patient mood improving, she is more focused and alert, no behavioral issues, now denies suicidality voices or visions Justification for Cont. Inpt. At this time patient will decompensate if placed in a lower level of care Discharge Planning To be determined Request HC Surrog/Guard Advoc?: No Problem Qualifiers (1) Alcohol dependence with acute alcoholic intoxication: Qualified Code: F10.220 - Alcohol dependence with acute alcoholic intoxication , uncomplicated Ld Kumar MD May 10, 2017 08:30
[2017-05-10 08:57] LABS: BICARBONATE 23.3 MEQ/L (21.0-32.0)
--- NOTE | 2017-05-10 14:05 | HHI.PR ---
Subjective Subjective Notes Still sore Some drainage Objective Vitals/I&O Vital Signs Date Time Temp Pulse Resp B/P Pulse Ox O2 Delivery O2 Flow Rate FiO2 05/10/17 06:14 98.5 65 18 130/59 05/09/17 06:18 95 05/07/17 20:05 Room Air Labs Laboratory Tests Test 05/09/17 05/10/17 17:42 08:03 Lactic Acid Level 2.0 White Blood Count 11.2 Red Blood Count 3.42 Hemoglobin 11.8 Hematocrit 33.6 Mean Corpuscular Volume 98.1 Mean Corpuscular Hemoglobin 34.5 Mean Corpuscular Hemoglobin 35.2 Concent Red Cell Distribution Width 15.6 Platelet Count 145 Mean Platelet Volume 7.0 Neutrophils (%) (Auto) 69.7 Lymphocytes (%) (Auto) 13.6 Monocytes (%) (Auto) 15.1 Eosinophils (%) (Auto) 1.2 Basophils (%) (Auto) 0.4 Neutrophils # (Auto) 7.8 Lymphocytes # (Auto) 1.5 Monocytes # (Auto) 1.7 Eosinophils # (Auto) 0.1 Basophils # (Auto) 0.0 CBC Comment DIFF FINAL Differential Comment Sodium Level 139 Potassium Level 4.0 Chloride Level 109 Carbon Dioxide Level 23.3 Anion Gap 7 Blood Urea Nitrogen 12 Creatinine 0.62 Estimat Glomerular Filtration 97 Rate Random Glucose 96 Calcium Level 8.7 Date/Time Procedure Status Source Growth 05/09/17 12:27 Aerobic Blood Culture - Preliminary Resulted Blood Peripheral NO GROWTH IN 1 DAY 05/09/17 12:27 Anaerobic Blood Culture - Preliminary Resulted Blood Peripheral NO GROWTH IN 1 DAY 05/08/17 02:45 Gram Stain - Final Complete Wound Buttock 05/08/17 02:45 Wound Culture - Final Complete S. Aureus Mrsa Staphylococcus Aureus Lungs: Clear Narrative Exam Left buttock with purulent drainage with indurated tissue; no fluctuance appreciated A/P Problem List: (1) Tobacco use disorder (2) Allergic rhinitis (3) Back pain (4) Sciatica (5) Alcohol dependence (6) Suicidal ideations (7) HTN (hypertension) (8) Depression Assessment and Plan Assessment and Plan: Left buttock abscess, not improving on antibiotics Will need incision and drainage in OR, as she has a lidocaine allergy and bedside drainage will be suboptimal. Discussed risks, benefits, alternatives and convalescence with patient in presence of nurse; she vocalizes understanding and agrees to proceed. Will do this early in AM (7:15) Loyd Boyd MD May 10, 2017 14:05
[2017-05-10] MEDS: SODIUM CHLOR 0.9% 1000 ML INJ 1,000 ML IV SCH (14:30)
[2017-05-10 17:30] VITALS: BP 130/63; PULSE 72; RESP 18; TEMP 99.1
--- NOTE | 2017-05-10 17:45 | HHI.PR ---
Subjective Remarks In bed eating. Says she is feeling better today says pain is better controlled and she can now sleep. No fever or chills. Has a good appetite. No n/v/d/c. Objective Vitals Vital Signs Date Time Temp Pulse Resp B/P Pulse Ox O2 Delivery O2 Flow Rate FiO2 05/10/17 17:30 99.1 72 18 130/63 05/10/17 06:14 98.5 65 18 130/59 05/09/17 18:00 100.9 85 16 125/60 I/O 05/09/17 05/09/17 05/09/17 05/10/17 05/10/17 05/10/17 07:00 15:00 23:00 07:00 15:00 23:00 Intake Total 0 ml 2280 ml 564 ml 790 ml 960 ml Balance 0 ml 2280 ml 564 ml 790 ml 960 ml Intake Oral 0 ml 2280 ml 480 ml 240 ml 960 ml IV Total 84 ml 550 ml # Voids 1 3 2 Result Diagram: 05/10/17 0803 05/10/17 0803 Objective Remarks GENERAL: This is a petite, well-developed patient, in no apparent distress. SKIN: Warm and dry. Sacral, left buttock area with open wound, wound bed with slough and eschar, surrounding area is erythematous and edematous, fluctuant CARDIOVASCULAR: Regular rate and rhythm without murmurs, gallops, or rubs. RESPIRATORY: Clear to auscultation. Breath sounds equal bilaterally. No wheezes , rales, or rhonchi. GASTROINTESTINAL: Abdomen soft, non-tender, nondistended. Also has active 4. No guarding. MUSCULOSKELETAL: Extremities without clubbing, cyanosis, or edema. No joint tenderness, effusion, or edema noted. No calf tenderness. Negative Homans sign bilaterally. NEUROLOGICAL: Awake and alert. Focal neuro deficit. Motor and sensory grossly within normal limits. Normal speech. A/P Problem List: (1) Major depressive disorder, recurrent severe without psychotic features ICD Code: F33.2 Status: Acute (2) Alcohol dependence with acute alcoholic intoxication ICD Code: F10.229 Status: Acute (3) Cellulitis of sacral region ICD Code: L03.319 Status: Acute (4) HTN (hypertension) ICD Code: I10 Status: Chronic (5) COPD exacerbation ICD Code: J44.1 Status: Acute (6) Depression ICD Code: F32.9 Status: Acute Assessment and Plan Patient is a 66-year-old male with primary medical history of alcohol abuse, HTN, COPD, depression who came into the hospital under Wilder act secondary to suicidal ideation. Patient is now admitted to inpatient psychiatry unit for further evaluation. Consulted for medical management and evaluation of left buttock wound. Depression, suicidal ideation- Managed by psychiatry. Left buttock wound, cellulitis Cellulitis versus osteomyelitis Sepsis Meets sepsis criteria - HR > 90, WBC 13.0 on admission. Improving. Check blood cultures, lactic acid Repeat labs CBC, CMP Patient was started on Bactrim by primary team CT scan lumbar, sacral coccyx area rule out abscess, involvement of the bone Patient need to be transferred to medical psych unit for IV antibiotic, start Vancomycin - patient is allergic to penicillin On Zosyn. Pt. wound with purulent drain in the perirectal area, may need coverage for gram negative. Note patient doesn't have PNC allergy per patient. Lactinex BID Wound care consult. Purulent drain. Consult surgery, plan for I&D 05/12/17 HTN Continue home medication lisinopril Monitor BP trend ETOH CIWA protocol Add folic acid, thiamine daily Patient is counseled DVT prop ambulatory Code Status Full code Discussed Condition With Discussed with patient, nurse Plan for OR by Dr Oliver mccann surgery for I&D Problem Qualifiers (1) Alcohol dependence with acute alcoholic intoxication: Qualified Code: F10.220 - Alcohol dependence with acute alcoholic intoxication , uncomplicated Mehreen Trimble MD May 10, 2017 17:45
[2017-05-10] MEDS: MIRTAZAPINE 15 MG TAB PO SCH (21:00)
[2017-05-10] MEDS ORDERED: PHARMACY ORDERED LAB ONE (22:45)
[2017-05-11 05:53] VITALS: BP 162/77; PULSE 61; RESP 17; TEMP 97.8; O2SAT 97
[2017-05-11 06:40] LABS: BASOPHIL % 0.4 % (0.0-2.0); EOSINOPHIL # 0.2 TH/MM3 (0-0.4); EOSINOPHIL % 2.6 % (0.0-4.0); HEMATOCRIT 34.2 % (35.0-46.0); HEMO FLAGS DIFF FINAL; LYMPH % 21.1 % (9.0-44.0); LYMPHOCYTE # 1.7 TH/MM3 (1.0-4.8); MEAN CELL VOLUME 100.2 FL (80.0-100.0); MEAN CORPUSCULAR HEMOGLOBIN 34.4 PG (27.0-34.0); MEAN CORPUSCULAR HGB CONC 34.3 % (32.0-36.0); MONO % 15.1 % (0.0-8.0); NEUT % 60.8 % (16.0-70.0); PLATELET COUNT 143 TH/MM3 (150-450); RED BLOOD COUNT 3.42 MIL/MM3 (4.00-5.30); RED CELL DISTRIBUTION WIDTH 15.5 % (11.6-17.2); WHITE BLOOD COUNT 8.2 TH/MM3 (4.0-11.0)
[2017-05-11 06:56] LABS: BICARBONATE 25.1 MEQ/L (21.0-32.0); POTASSIUM 4.2 MEQ/L (3.5-5.1)
[2017-05-11] MEDS: VANCOMYCIN INJ 750 MG in SODIUM CHLOR 0.9% 250 ML INJ 250 ML IV SCH ×2 (11:00→23:00)
--- NOTE | 2017-05-11 11:27 | HHI.PR ---
Subjective Remarks Patient denies that she just returned from all of. She had incision and drainage by Dr. Boyd in the morning. Says she feels some pain at the surgical site. No fever or chills. No nausea or vomiting no constipation or diarrhea. Feels that she is improving. Objective Vitals Vital Signs Date Time Temp Pulse Resp B/P Pulse Ox O2 Delivery O2 Flow Rate FiO2 05/11/17 05:53 97.8 61 17 162/77 97 05/10/17 17:30 99.1 72 18 130/63 I/O 05/10/17 05/10/17 05/10/17 05/11/17 05/11/17 05/11/17 07:00 15:00 23:00 07:00 15:00 23:00 Intake Total 790 ml 1680 ml Balance 790 ml 1680 ml Intake Oral 240 ml 1680 ml IV Total 550 ml # Voids 2 1 1 Result Diagram: 05/11/17 0538 05/11/17 0538 Imaging Last Impressions Soft Tissue Ultrasound 05/08/17 0000 Signed Impressions: Service Date/Time: Monday, May 08, 2017 19:19 - CONCLUSION: 1. Increased blood flow and presumed inflammatory and edematous changes in the left gluteal region without loculated fluid to suggest abscess. Anuj Casillas MD Objective Remarks GENERAL: This is a petite, well-developed patient, in no apparent distress. SKIN: Warm and dry. Sacral, left buttock area with wound, dressing applied, c/d /i. CARDIOVASCULAR: Regular rate and rhythm without murmurs, gallops, or rubs. RESPIRATORY: Clear to auscultation. Breath sounds equal bilaterally. No wheezes , rales, or rhonchi. GASTROINTESTINAL: Abdomen soft, non-tender, nondistended. Also has active 4. No guarding. MUSCULOSKELETAL: Extremities without clubbing, cyanosis, or edema. No joint tenderness, effusion, or edema noted. No calf tenderness. Negative Homans sign bilaterally. NEUROLOGICAL: Awake and alert. Focal neuro deficit. Motor and sensory grossly within normal limits. Normal speech. A/P Problem List: (1) Major depressive disorder, recurrent severe without psychotic features ICD Code: F33.2 Status: Acute (2) Alcohol dependence with acute alcoholic intoxication ICD Code: F10.229 Status: Acute (3) Cellulitis of sacral region ICD Code: L03.319 Status: Acute (4) HTN (hypertension) ICD Code: I10 Status: Chronic (5) COPD exacerbation ICD Code: J44.1 Status: Acute (6) Depression ICD Code: F32.9 Status: Acute Assessment and Plan Patient is a 66-year-old male with primary medical history of alcohol abuse, HTN, COPD, depression who came into the hospital under Wilder act secondary to suicidal ideation. Patient is now admitted to inpatient psychiatry unit for further evaluation. Consulted for medical management and evaluation of left buttock wound. Depression, suicidal ideation- Managed by psychiatry. Left buttock wound, cellulitis Cellulitis versus osteomyelitis Sepsis Meets sepsis criteria - HR > 90, WBC 13.0 on admission. Improving. Check blood cultures, lactic acid Repeat labs CBC, CMP Patient was started on Bactrim by primary team CT scan lumbar, sacral coccyx area rule out abscess, involvement of the bone Patient was transferred to medical psych unit for IV antibiotic, Received Vancomycin. DC Zosyn. Pt. wound with purulent drain in the perirectal area, may need coverage for gram negative. Note patient doesn't have PNC allergy per patient. Lactinex BID Wound care consult. Purulent drain. Consult surgery, s/p I&D 05/12/17 Consult ID for recommendations at [place] for antibiotic. HTN Continue home medication lisinopril Monitor BP trend ETOH CIWA protocol Add folic acid, thiamine daily Patient is counseled DVT prop ambulatory Code Status Full code Discussed Condition With Discussed with patient, nurse S/P OR 05/12/ by Dr Oliver mccann surgery for I&D Problem Qualifiers (1) Alcohol dependence with acute alcoholic intoxication: Qualified Code: F10.220 - Alcohol dependence with acute alcoholic intoxication , uncomplicated Mehreen Trimble MD May 11, 2017 11:27
--- NOTE | 2017-05-11 11:31 | HHI.PYPN ---
Subjective Remarks Was admitted for psychiatric reevaluation follow with medical student [place], patient was just arriving to the unit from the surgical floor where she had a debridement of back ulcer. Patient reports no pain, no acute distress, is still endorsing symptoms of depression, suicidal thoughts, no plan. But, at the same time patient seems to be committed to get better, to look for help for her alcoholism. In the unit patient has been calm, cooperative, pleasant most of the time, isolated and sad at times. Compliant with her medications, no significant side effects. No symptomatology of alcohol withdrawal so far. She denies visual and auditory hallucinations, she is oriented 3. Review of Systems Other No somatic complaints Objective Alert: Yes [place]: Person (ox4), Place, Date Mood: Depressed Affect: Restricted, Tearful Memory Intact: Comment (Not tested) Hallucinations: Other (Negative) Delusions: No Delusion Type: Other (denies) Suicidal: Ideation (pasive wishes) Homicidal: Ideation (deneis) Insight/Judgment Fair Labs Test 05/10/17 05/11/17 23:20 05:38 Vancomycin Level Trough 5.1 MCG/ML White Blood Count 8.2 TH/MM3 Red Blood Count 3.42 MIL/MM3 Hemoglobin 11.7 GM/DL Hematocrit 34.2 % Mean Corpuscular Volume 100.2 FL Mean Corpuscular Hemoglobin 34.4 PG Mean Corpuscular Hemoglobin 34.3 % Concent Red Cell Distribution Width 15.5 % Platelet Count 143 TH/MM3 Mean Platelet Volume 7.3 FL Neutrophils (%) (Auto) 60.8 % Lymphocytes (%) (Auto) 21.1 % Monocytes (%) (Auto) 15.1 % Eosinophils (%) (Auto) 2.6 % Basophils (%) (Auto) 0.4 % Neutrophils # (Auto) 5.0 TH/MM3 Lymphocytes # (Auto) 1.7 TH/MM3 Monocytes # (Auto) 1.2 TH/MM3 Eosinophils # (Auto) 0.2 TH/MM3 Basophils # (Auto) 0.0 TH/MM3 CBC Comment DIFF FINAL Differential Comment Sodium Level 141 MEQ/L Potassium Level 4.2 MEQ/L Chloride Level 108 MEQ/L Carbon Dioxide Level 25.1 MEQ/L Anion Gap 8 MEQ/L Blood Urea Nitrogen 14 MG/DL Creatinine 0.53 MG/DL Estimat Glomerular Filtration 116 ML/MIN Rate Random Glucose 104 MG/DL Calcium Level 8.7 MG/DL Date/Time Procedure Status Source Growth 05/09/17 12:27 Aerobic Blood Culture - Preliminary Resulted Blood Peripheral NO GROWTH IN 2 DAYS 05/09/17 12:27 Anaerobic Blood Culture - Preliminary Resulted Blood Peripheral NO GROWTH IN 2 DAYS 05/08/17 02:45 Gram Stain - Final Complete Wound Buttock 05/08/17 02:45 Wound Culture - Final Complete S. Aureus Mrsa Staphylococcus Aureus Vitals/IOs Vital Signs Date Time Temp Pulse Resp B/P Pulse Ox O2 Delivery O2 Flow Rate FiO2 05/11/17 05:53 97.8 61 17 162/77 97 05/07/17 20:05 Room Air Intake and Output 05/10/17 05/10/17 05/11/17 08:00 16:00 00:00 Intake Total 790 ml 480 ml 1200 ml Balance 790 ml 480 ml 1200 ml Assessment & Plan Problem List: (1) Alcohol dependence with acute alcoholic intoxication ICD Code: F10.229 (2) Major depressive disorder, recurrent severe without psychotic features Assessment & Plan: Patient continues to show some mild to moderate symptoms of depression, passive suicidal thoughts, no specific plan. Will increase Remeron to 30 mg at bedtime for depression. ICD Code: F33.2 Assessment & Plan Estimated LOS: days Justification for Cont. Inpt. Patient has an elevated risk to decompensate at a lower level of care. Request HC Surrog/Guard Advoc?: No Problem Qualifiers (1) Alcohol dependence with acute alcoholic intoxication: Qualified Code: F10.220 - Alcohol dependence with acute alcoholic intoxication , uncomplicated Preet Boyce MD May 11, 2017 11:31
--- NOTE | 2017-05-11 12:05 | PD.TTN ---
Present for Treatment Team Treatment Team Staff: Provider, Nurse, Psych Therapist, Occupational Therapist Patient Problems 1. Discharge planning 2. Medication compliance 3. Knowledge deficit 4. Lack of coping skills Progress Toward Goals Provider Input: Dr. Boyce, patient's psychiatrist states patient is presenting much better, and as soon as she is medically clear she should be able to be discharged home with outpatient follow-up with a linked with substance outpatient. Nurse Input: Harley Liang, RN, states patient is eating meals and taking her medication, no behavior concern; patient went to surgery this AM and has returned Psych Therapist Input: Patient will linked patient will outpatient substance for an assessment for serve, and mental health outpatient with [facility] Occupational Therapist Input: RICKY Mo will arrange for inpatient appropriate groups Maribel Dillon [facility] May 11, 2017 12:05
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
[2017-05-11 18:00] VITALS: BP 122/55; PULSE 66; RESP 17; TEMP 96.9; O2SAT 97
[2017-05-11] MEDS ORDERED: MIRTAZAPINE 15 MG TAB PO SCH (21:00)
[2017-05-12 05:53] VITALS: BP 144/87; PULSE 62; RESP 16; TEMP 97.1; O2SAT 99
[2017-05-12 06:31] VITALS: BP 144/87; PULSE 62; RESP 16; TEMP 97.1; O2SAT 99
[2017-05-12] MEDS ORDERED: MIRTA15 PO (07:59)
--- NOTE | 2017-05-12 08:11 | HHI.PYPN ---
Subjective Remarks Patient was seen today for psychiatric reevaluation, patient seems to have a brighter affect, reports better sleep, increased level of energy, increased motivation to continue her psychiatric care, her medications and sobriety. Patient says that her plan is to engage in AA meetings and change her lifestyle. Patient is oriented 3, no gross cognitive impairment present. Denies suicidal and homicidal ideation, denies visual and auditory hallucinations. Today will continue IV antibiotics, as per infectious diseases recommendation. Review of Systems Other No somatic complaints Objective Alert: Yes [place]: Person (ox4), Place, Date Mood: Calm Affect: Appropriate, Tearful Memory Intact: Immediate, Recent, Remote Hallucinations: Other (Negative) Delusions: No Delusion Type: Other (denies) Suicidal: Ideation (no SI) Homicidal: Ideation (no HI) Insight/Judgment Improved Labs Date/Time Procedure Status Source Growth 05/09/17 12:27 Aerobic Blood Culture - Preliminary Resulted Blood Peripheral NO GROWTH IN 2 DAYS 05/09/17 12:27 Anaerobic Blood Culture - Preliminary Resulted Blood Peripheral NO GROWTH IN 2 DAYS 05/08/17 02:45 Gram Stain - Final Complete Wound Buttock 05/08/17 02:45 Wound Culture - Final Complete S. Aureus Mrsa Staphylococcus Aureus Vitals/IOs Vital Signs Date Time Temp Pulse Resp B/P Pulse Ox O2 Delivery O2 Flow Rate FiO2 05/12/17 06:31 97.1 62 16 144/87 99 Intake and Output 05/11/17 05/11/17 05/12/17 08:00 16:00 00:00 Intake Total 240 ml 1680 ml Balance 240 ml 1680 ml Assessment & Plan Problem List: (1) Alcohol dependence with acute alcoholic intoxication ICD Code: F10.229 (2) Major depressive disorder, recurrent severe without psychotic features Assessment & Plan: Patient continues to respond appropriately to psychotropics and psychotherapy. Will increase Remeron to 30 mg to help with depression and insomnia. Continue infectious disease recommendations, IV antibiotics. ICD Code: F33.2 Assessment & Plan Estimated LOS: days Justification for Cont. Inpt. Patient has an increased chance to decompensate at the lower level of care. Request HC Surrog/Guard Advoc?: No Problem Qualifiers (1) Alcohol dependence with acute alcoholic intoxication: Qualified Code: F10.220 - Alcohol dependence with acute alcoholic intoxication , uncomplicated Preet Boyce MD May 12, 2017 08:11
--- NOTE | 2017-05-12 09:26 | HHI.PR ---
Subjective Remarks Patien tis ambulating without any problems. Patient denies any fever or chills. Says pain at the wound site is fairly controlled. she is eating well. No n/v/d/ c. Objective Vitals Vital Signs Date Time Temp Pulse Resp B/P Pulse Ox O2 Delivery O2 Flow Rate FiO2 05/12/17 06:31 97.1 62 16 144/87 99 05/12/17 05:53 97.1 62 16 144/87 99 05/11/17 18:00 96.9 66 17 122/55 97 05/11/17 18:00 96.9 66 17 122/55 97 I/O 05/11/17 05/11/17 05/11/17 05/12/17 05/12/17 05/12/17 07:00 15:00 23:00 07:00 15:00 23:00 Intake Total 240 ml 1680 ml 120 ml 360 ml Balance 240 ml 1680 ml 120 ml 360 ml Intake Oral 240 ml 1680 ml 120 ml 360 ml # Voids 1 1 2 Result Diagram: 05/11/17 0538 05/11/17 0538 Imaging Last Impressions Soft Tissue Ultrasound 05/08/17 0000 Signed Impressions: Service Date/Time: Monday, May 08, 2017 19:19 - CONCLUSION: 1. Increased blood flow and presumed inflammatory and edematous changes in the left gluteal region without loculated fluid to suggest abscess. Anuj Casillas MD Objective Remarks GENERAL: This is a petite, well-developed patient, in no apparent distress. SKIN: Warm and dry. Sacral, left buttock area with wound, dressing applied, c/d /i. CARDIOVASCULAR: Regular rate and rhythm without murmurs, gallops, or rubs. RESPIRATORY: Clear to auscultation. Breath sounds equal bilaterally. No wheezes , rales, or rhonchi. GASTROINTESTINAL: Abdomen soft, non-tender, nondistended. Also has active 4. No guarding. MUSCULOSKELETAL: Extremities without clubbing, cyanosis, or edema. No joint tenderness, effusion, or edema noted. No calf tenderness. Negative Homans sign bilaterally. NEUROLOGICAL: Awake and alert. Focal neuro deficit. Motor and sensory grossly within normal limits. Normal speech. A/P Problem List: (1) Major depressive disorder, recurrent severe without psychotic features ICD Code: F33.2 Status: Acute (2) Alcohol dependence with acute alcoholic intoxication ICD Code: F10.229 Status: Acute (3) Cellulitis of sacral region ICD Code: L03.319 Status: Acute (4) HTN (hypertension) ICD Code: I10 Status: Chronic (5) COPD exacerbation ICD Code: J44.1 Status: Acute (6) Depression ICD Code: F32.9 Status: Acute Assessment and Plan Patient is a 66-year-old male with primary medical history of alcohol abuse, HTN, COPD, depression who came into the hospital under Wilder act secondary to suicidal ideation. Patient is now admitted to inpatient psychiatry unit for further evaluation. Consulted for medical management and evaluation of left buttock wound. Depression, suicidal ideation- Managed by psychiatry. Left buttock wound, cellulitis Cellulitis versus osteomyelitis Sepsis Meets sepsis criteria - HR > 90, WBC 13.0 on admission. Improving. Check blood cultures, lactic acid Repeat labs CBC, CMP Patient was started on Bactrim by primary team CT scan lumbar, sacral coccyx area rule out abscess, involvement of the bone Patient was transferred to medical psych unit for IV antibiotic, Received Vancomycin. [place] Zosyn. Pt. wound with purulent drain in the perirectal area, may need coverage for gram negative. Note patient doesn't have PNC allergy per patient. Lactinex BID Wound care consult. Purulent drain. Consult surgery, s/p I&D 05/12/17 Consult ID for recommendations at [place] for antibiotic. Seen by Dr Watson recommends continuing vanco for 2-3 days and then switch to PO meds. HTN Continue home medication lisinopril Monitor BP trend ETOH CIWA protocol Add folic acid, thiamine daily Patient is counseled DVT prop ambulatory Code Status Full code Discussed Condition With Discussed with patient, nurse S/P OR 05/12/ by Dr Oliver mccann surgery for I&D. Id recommends vanco for 2-3 days and then switch to PO. Problem Qualifiers (1) Alcohol dependence with acute alcoholic intoxication: Qualified Code: F10.220 - Alcohol dependence with acute alcoholic intoxication , uncomplicated Mehreen Trimble MD May 12, 2017 09:26
[2017-05-12] MEDS ORDERED: PHARMACY ORDERED LAB ONE ×2 (10:45→22:45)
[2017-05-12] MEDS: VANCOMYCIN INJ 750 MG in SODIUM CHLOR 0.9% 250 ML INJ 250 ML IV SCH ×2 (11:00→23:32)
--- NOTE | 2017-05-12 13:41 | HHI.FF ---
Face to Face Verification Diagnosis: (1) Status post incision and drainage Home Health Nursing Order: Wound care and dressing changes Instructions: Buttocks abscess--- 2x2 saline gauze into opening; change daily; okay to shower between dressing changes---remove packing prior to shower I have seen patient Flor Hilliard on 05/12/17. My clinical findings support the need for the requested home health care services because: Limited ability to care for self High risk of falls I certify that my clinical findings support that this patient is homebound because: Post-op weakness Samra Najera [facility] May 12, 2017 13:41
--- NOTE | 2017-05-12 13:55 | HHI.PR ---
Subjective Subjective Notes Resting in bed Showered today No issues Objective Vitals/I&O Vital Signs Date Time Temp Pulse Resp B/P Pulse Ox O2 Delivery O2 Flow Rate FiO2 05/12/17 06:31 97.1 62 16 144/87 99 Labs Date/Time Procedure Status Source Growth 05/09/17 12:27 Aerobic Blood Culture - Preliminary Resulted Blood Peripheral NO GROWTH IN 3 DAYS 05/09/17 12:27 Anaerobic Blood Culture - Preliminary Resulted Blood Peripheral NO GROWTH IN 3 DAYS 05/08/17 02:45 Gram Stain - Final Complete Wound Buttock 05/08/17 02:45 Wound Culture - Final Complete S. Aureus Mrsa Staphylococcus Aureus Cardiovascular: Regular Lungs: Clear Abdomen: Non-distended, Non-tender Extremities: No edema Narrative Exam s/p buttocks I&D--- packing removed; minimal drainage; some bloody drainage; re packed A/P Problem List: (1) Tobacco use disorder (2) Allergic rhinitis (3) Back pain (4) Sciatica (5) Alcohol dependence (6) Suicidal ideations (7) HTN (hypertension) (8) Depression Assessment and Plan 66 year old female with ETOH abuse; s/p I&D buttocks -Continue dressing changes -Okay to shower in between dressing changes---remove packing prior -Regular diet -ID consulted for antibiotics -CM consult for C---face to face complete Samra Najera May 12, 2017 13:55
--- NOTE | 2017-05-12 13:58 | EKG ---
Date Performed: 05/11/2017 Time Performed: 05:36:39 PTAGE: 66 years EKG: SINUS BRADYCARDIA Since previous tracing, no significant change noted BORDERLINE ECG PREVIOUS TRACING : 03/03/2017 19.23 DOCTOR: Kodak Chao Interpretating Date/Time 05/12/2017 13:56:53
[2017-05-12] MEDS ORDERED: Vancomycin Consult Pharmacy 1 EA OTHER SCH (15:15)
[2017-05-12 18:47] VITALS: BP 111/55; PULSE 75; RESP 18; TEMP 98.4; O2SAT 96
[2017-05-12] MEDS ORDERED: MIRTAZAPINE 15 MG TAB PO SCH (21:00)
[2017-05-13 05:54] VITALS: BP 133/67; PULSE 61; RESP 14; TEMP 99.2; O2SAT 96
--- NOTE | 2017-05-13 08:25 | HHI.PYPN ---
Subjective Remarks Patient seen today for psychiatric reevaluation, patient reports improved mood, but continues to have episodes of sadness, low level of energy, decreased self esteem. She has been having recurrent thoughts of guiltiness "due to my increased alcoholism and the damage that I have made my life". She says that yesterday she was crying and having suicidal thoughts "but I want to ". Patient is oriented 3, without any attention deficit, no cognitive impairment present. Calm and cooperative in the unit, compliant with her medications. No Significant side effects. Patient was able to contract for safety in the unit. Review of Systems Musculoskeletal: COMPLAINS OF: Back pain Psychiatric: COMPLAINS OF: Mood changes, Depression, Suicidal Ideation ( suicidal thoughts) Objective Alert: Yes Mission: Person (ox4), Place, Date Mood: Depressed Affect: Restricted, Tearful Memory Intact: Immediate, Recent, Remote Hallucinations: Other (Negative) Delusions: No Delusion Type: Other (denies) Suicidal: Ideation (suicidal thoughts, no plan) Homicidal: Ideation (no HI) Insight/Judgment Poor Labs Test 05/12/17 22:50 Vancomycin Level Trough 11.0 MCG/ML Date/Time Procedure Status Source Growth 05/09/17 12:27 Aerobic Blood Culture - Preliminary Resulted Blood Peripheral NO GROWTH IN 3 DAYS 05/09/17 12:27 Anaerobic Blood Culture - Preliminary Resulted Blood Peripheral NO GROWTH IN 3 DAYS Vitals/IOs Vital Signs Date Time Temp Pulse Resp B/P Pulse Ox O2 Delivery O2 Flow Rate FiO2 05/13/17 05:54 99.2 61 14 133/67 96 Intake and Output 05/12/17 05/12/17 05/13/17 08:00 16:00 00:00 Intake Total 120 ml 1440 ml 960 ml Balance 120 ml 1440 ml 960 ml Assessment & Plan Problem List: (1) Alcohol dependence with acute alcoholic intoxication ICD Code: F10.229 (2) Major depressive disorder, recurrent severe without psychotic features Assessment & Plan: Patient continues to show mild to moderate symptoms of depression, suicidal thoughts, no plan. Very few protective factors present, elevated risk of suicidality. We'll continue psychiatric hospitalization for stabilization and safety. Will increase Remeron to 45 mg at bedtime. Extensive support, motivation and psychoeducation provided. ICD Code: F33.2 Assessment & Plan Estimated LOS: days Justification for Cont. Inpt. Patient has an elevated risk of suicidality and depression decompensation at a lower level of care. Request HC Surrog/Guard Advoc?: No Problem Qualifiers (1) Alcohol dependence with acute alcoholic intoxication: Qualified Code: F10.220 - Alcohol dependence with acute alcoholic intoxication , uncomplicated Preet Boyce MD May 13, 2017 08:25
--- NOTE | 2017-05-13 09:12 | HHI.PR ---
Subjective Remarks In bed, says she would like to go home and she is crying says she got a petition for tomorrow. Patient otherwise feels good. No fever or chills. No n/v/d/c. Denies chest pain or sob. Objective Vitals Vital Signs Date Time Temp Pulse Resp B/P Pulse Ox O2 Delivery O2 Flow Rate FiO2 05/13/17 05:54 99.2 61 14 133/67 96 05/12/17 18:47 98.4 75 18 111/55 96 I/O 05/12/17 05/12/17 05/12/17 05/13/17 05/13/17 05/13/17 07:00 15:00 23:00 07:00 15:00 23:00 Intake Total 120 ml 1440 ml 360 ml 840 ml Balance 120 ml 1440 ml 360 ml 840 ml Intake Oral 120 ml 1440 ml 360 ml 840 ml # Voids 2 2 1 3 Result Diagram: 05/11/17 0538 05/11/17 0538 Imaging Last Impressions Soft Tissue Ultrasound 05/08/17 0000 Signed Impressions: Service Date/Time: Monday, May 08, 2017 19:19 - CONCLUSION: 1. Increased blood flow and presumed inflammatory and edematous changes in the left gluteal region without loculated fluid to suggest abscess. Anuj Casillas MD Objective Remarks GENERAL: This is a petite, well-developed patient, in no apparent distress. SKIN: Warm and dry. Sacral, left buttock area with wound, dressing applied, c/d /i. CARDIOVASCULAR: Regular rate and rhythm without murmurs, gallops, or rubs. RESPIRATORY: Clear to auscultation. Breath sounds equal bilaterally. No wheezes , rales, or rhonchi. GASTROINTESTINAL: Abdomen soft, non-tender, nondistended. Also has active 4. No guarding. MUSCULOSKELETAL: Extremities without clubbing, cyanosis, or edema. No joint tenderness, effusion, or edema noted. No calf tenderness. Negative Homans sign bilaterally. NEUROLOGICAL: Awake and alert. Focal neuro deficit. Motor and sensory grossly within normal limits. Normal speech. A/P Problem List: (1) Major depressive disorder, recurrent severe without psychotic features ICD Code: F33.2 Status: Acute (2) Alcohol dependence with acute alcoholic intoxication ICD Code: F10.229 Status: Acute (3) Cellulitis of sacral region ICD Code: L03.319 Status: Acute (4) HTN (hypertension) ICD Code: I10 Status: Chronic (5) COPD exacerbation ICD Code: J44.1 Status: Acute (6) Depression ICD Code: F32.9 Status: Acute Assessment and Plan Patient is a 66-year-old male with primary medical history of alcohol abuse, HTN, COPD, depression who came into the hospital under Wilder act secondary to suicidal ideation. Patient is now admitted to inpatient psychiatry unit for further evaluation. Consulted for medical management and evaluation of left buttock wound. Depression, suicidal ideation- Managed by psychiatry. Left buttock wound, cellulitis Cellulitis versus osteomyelitis Sepsis Meets sepsis criteria - HR > 90, WBC 13.0 on admission. Improving. Check blood cultures, lactic acid Repeat labs CBC, CMP Patient was started on Bactrim by primary team CT scan lumbar, sacral coccyx area rule out abscess, involvement of the bone Patient was transferred to medical psych unit for IV antibiotic, Received Vancomycin. DC Zosyn. Pt. wound with purulent drain in the perirectal area, may need coverage for gram negative. Note patient doesn't have PNC allergy per patient. Lactinex BID Wound care consult. Purulent drain. Consult surgery, s/p I&D 05/12/17 Consult ID for recommendations at [place] for antibiotic. Seen by Dr Watson. Discussed with Dr Watson patient is a candidate for one time Dalvance. Patient with S=MrsA and staph aureus. Paatient also with psych issues will benefit from Dalvance. Discussed with the case management, Maribel for arrangement. HTN Continue home medication lisinopril Monitor BP trend ETOH CIWA protocol Add folic acid, thiamine daily Patient is counseled DVT prop ambulatory Code Status Full code Discussed Condition With Discussed with patient, nurse S/P OR 05/12/ by Dr Oliver mccann surgery for I&D. ID recommends Dalvance x 1 and patient can be discharges. CM is also is following for DC plan, awaiting insurance approval for Dalvance. Dr Watson ID specialist is following. Problem Qualifiers (1) Alcohol dependence with acute alcoholic intoxication: Qualified Code: F10.220 - Alcohol dependence with acute alcoholic intoxication , uncomplicated Mehreen Trimble MD May 13, 2017 09:12
[2017-05-13] MEDS: VANCOMYCIN INJ 750 MG in SODIUM CHLOR 0.9% 250 ML INJ 250 ML IV SCH (11:00)
--- NOTE | 2017-05-13 12:01 | HHI.IDPN ---
Note Infectious Disease Note Patient feels okay. Sitting on side of bed playing cards. No complaints. Denies pain. Afebrile. Seen for abscess and cellulitis at the left buttock/presacral area. PAST MEDICAL HISTORY 1. Hypertension. 2. COPD. 3. Alcohol abuse. 4. Depression. ALLERGIES NOVOCAIN. ANTIBIOTICS: Vancomycin. OBJECTIVE: Vital Signs Date Time Temp Pulse Resp B/P Pulse Ox O2 Delivery O2 Flow Rate FiO2 05/13/17 05:54 99.2 61 14 133/67 96 05/12/17 18:47 98.4 75 18 111/55 96 Laboratory Tests Test 05/13/17 07:47 Creatinine 0.59 MG/DL Estimat Glomerular Filtration 102 ML/MIN Rate PHYSICAL EXAMINATION GENERAL: No acute distress. She is awake and alert and oriented. HEENT: The head is atraumatic. Extraocular movements grossly intact. Pupils reactive to light without icterus. Oropharynx no visible lesions. Slightly dry mucosa. NECK: Supple. No adenopathy. LUNGS: Clear breath sounds. HEART: Regular S1-S2. Distant sounds. No murmurs. ABDOMEN: Bowel sounds present, soft, nontender. BACK: Buttock has less erythema. Ulcerated lesion shallow crater ~ 1cm deep with surrounding swelling at the left buttock which is packed with a little piece of gauze. Serous drainage. Non tender. EXTREMITIES: No clubbing, cyanosis or edema. NEUROLOGIC: Grossly nonfocal. SKIN: No rash. PSYCHIATRIC: Calm and cooperative. IMPRESSION 1. Abscess of the buttock due to MRSA and sensitive staph aureus. Post drainage. 2. Cellulitis of the left buttock. improving. RECOMMENDATIONS Stop Vancomycin after next dose. Give PO Bactrim DS 1 tab x 10 days and arrange follow up with primary doctor or Community clinic in 1 week. Dressing changes per surgery. D/W Dr Trimble. Juan Watson MD May 13, 2017 12:01
[2017-05-13] MEDS ORDERED: MIRTA15 PO (12:38)
--- NOTE | 2017-05-13 12:40 | HHI.DS ---
Psychiatry Discharge Summary Inpatient Psychiatric care?: Yes Advance Directive: No Reason Not Provided: Not interested Mental Health AdvanceDirective: No Health Care Proxy: No Admission Admission Date May 07, 2017 at 18:57 Admission Diagnosis: (1) Alcohol abuse with alcohol-induced mood disorder ICD Code: F10.14 (2) Major depressive disorder, recurrent severe without psychotic features ICD Code: F33.2 Brief History Patient is 66 we'll white female well-known to us from multiple prior contacts comes here under Wilder act by the [employer] dated 05/07/70 at 11:11 AM that document reviewed. It essentially states ""during my contact with Mandy Hilliard she made several statements that she did not want to live anymore and that she wanted to kill herself." Patient seen screened in the ED urine toxicology negative blood alcohol level 367. Of interest upon review of EMR it demonstrates patient's chronic alcohol dependency/intoxication. In April patient had 7 recorded blood alcohol level greater than 280, and since mid February of this year she has had 15 blood alcohol levels greater than 250. At the present time patient sitting quietly in her room nurse Zachery present throughout session. Patient did recognize me from prior contact she is a thin slight somewhat disheveled white female with a marked coarse tremors noted both upper extremities. Patient is calm and cooperative with me. She states she lives on a boat him at [facility]. She denies drinking while staying on the boat. But she goes to friends houses for drinking. She remembers only drinking a few beers. But she acknowledges blacking out spells related to alcohol use. She denies drinking hard liquor. She states she was in a detox at [facility] about a month ago. She states she started drinking in her late 20s and his had up to 10 years of sobriety since then. She does minimize her present use of alcohol stated she drinks 2-3 times per week. She denies other drug use. She also acknowledges depression she denies crying much anymore, she acknowledges poor sleep habits, poor appetite, vague suicidal ideation, hopelessness and helplessness, though she denies voices or visions. She states she has a boyfriend who is incarcerated will be a shelter until July of this year. She states she has an adult daughter lives in [place] with whom she has no contact. At the present time patient does meet criteria for acute inpatient hospitalization under the Wilder act. I will do first opinion requests second opinion. Though I feel she does have capacity to sign for medications. It is obvious that the patient is a chronic alcoholic, I do also feel that she has significant depression. Both these issues need to be treated. We'll start the patient on Remeron 15 mg at at bedtime, will continue the ciwa protocol, I feel this a very high risk for withdrawal symptoms to develop with this lady. Hopefully we can refer her through to both mental health and addictions resources in the community once she is stabilized. Patient was seen today for psychiatric second opinion, she was eating her lunch , calm, cooperative, pleasant. Patient says that she has been depressed for many months, and the best way to cope with her depression is drinking alcohol. She reports daily use of alcohol, beers and liquor. Patient also reports that she is homeless, has no family, has nothing to live for. She reports suicidal thoughts, but denies plans. Patient denies homicidal ideation, visual and auditory hallucinations. Tobacco Use In Past 30 Days: No Tobacco Past 30 Days Alcohol Use: 4 or More Times Per Week Results Blood Pressure 133 / 67 Vital Signs Date Time Temp Pulse Resp B/P Pulse Ox O2 Delivery O2 Flow Rate FiO2 05/13/17 05:54 99.2 61 14 133/67 96 Laboratory Tests Test 05/11/17 05/12/17 05:38 22:50 Red Blood Count 3.42 MIL/MM3 (4.00-5.30) Hematocrit 34.2 % (35.0-46.0) Mean Corpuscular Volume 100.2 FL (80.0-100.0) Mean Corpuscular Hemoglobin 34.4 PG (27.0-34.0) Platelet Count 143 TH/MM3 (150-450) Monocytes (%) (Auto) 15.1 % (0.0-8.0) Monocytes # (Auto) 1.2 TH/MM3 (0-0.9) Chloride Level 108 MEQ/L (98-107) Vancomycin Level Trough 11.0 MCG/ML (5.0-10.0) Summary of Procedures Patient has an ulcer debridement in her back Imaging Last Impressions Soft Tissue Ultrasound 05/08/17 0000 Signed Impressions: Service Date/Time: Monday, May 08, 2017 19:19 - CONCLUSION: 1. Increased blood flow and presumed inflammatory and edematous changes in the left gluteal region without loculated fluid to suggest abscess. Anuj Casillas MD Pending results at discharge: No Medications # of Antipsychotic meds at D/C: 0 Approp Antipsych med options 1 - Minimum of three failed multiple trials of monotherapy. 2 - Documented plan to taper to monotherapy due to previous use of multiple meds OR cross-taper in progress at D/C. 3 - Documentation of augmentation of Clozapine. 4 - Justification other than those listed in allowable values 1-3, document here : Discharge Discharge Date: May 13, 2017 Discharge Diagnosis: (1) Major depressive disorder, recurrent severe without psychotic features ICD Code: F33.2 Pt Condition on Discharge: Stable Discharge Disposition: Discharge Home Discharge Instructions Diet Instructions: Heart Healthy Diet Activities you can perform: Regular-No Restrictions Scheduled Appointment: Arjun Long Appointment Date: May 19, 2017 Appointment Time: 07:30am Discharge Time > 30 minutes Discharge/Advance Care Plan Health Problems: (1) Alcohol dependence with acute alcoholic intoxication (2) Major depressive disorder, recurrent severe without psychotic features Goals to promote your health * To prevent worsening of your condition and complications * To maintain your health at the optimal level Directions to meet your goals Take your medications as prescribed Follow your dietary instruction Follow activity as directed Keep your appointments as scheduled Take your immunizations and boosters as scheduled If your symptoms worsen call your PCP, if no PCP go to Urgent Care Center or Emergency Room For 04/05 questions related to your inpatient stay or results of tests pending at discharge, please contact Dr. Preet Boyce at Smoking is Dangerous to Your Health. Avoid second hand smoking Preet Boyce MD May 13, 2017 12:40
[2017-05-13] MEDS ORDERED: BACT800T5 PO (14:55)
[2017-05-13] MEDS ORDERED: MIRTAZAPINE 15 MG TAB PO SCH (21:00)
[2017-05-13] MEDS ORDERED: VANCOMYCIN 1,000 MG/NS 250 ML IV SCH ×2 (23:00)
[2017-05-15] MEDS ORDERED: PHARMACY ORDERED LAB ONE (10:45)
== END 2017-05-13 15:50 | disposition home or self-care (01) | DRG 876 ==
LOC: NEPJ 11:23 → NEDA 18:57 → H260 21:50 → H4EA 05-08 15:30 → UNDODISIN 05-11 06:12
PROVIDERS: ADMIT Psychiatry & Neurology Psychiatry; ATTEND Psychiatry & Neurology Psychiatry
PROC: 0HB8XZZ Excision of Buttock Skin, External Approach (ICD-10-PCS; principal; 2017-05-11)
PROC: 0H98XZZ Drainage of Buttock Skin, External Approach (ICD-10-PCS; 2017-05-11)
DX: F33.2 Major depressive disorder, recurrent severe without psychotic features (principal); R45.851 Suicidal ideations; J44.1 Chronic obstructive pulmonary disease with (acute) exacerbation; L02.31 Cutaneous abscess of buttock; F10.24 Alcohol dependence with alcohol-induced mood disorder; L03.317 Cellulitis of buttock; I10 Essential (primary) hypertension; Y90.8 Blood alcohol level of 240 mg/100 ml or more; F17.210 Nicotine dependence, cigarettes, uncomplicated; F10.220 Alcohol dependence with intoxication, uncomplicated; M19.90 Unspecified osteoarthritis, unspecified site; B95.62 Methicillin resistant Staphylococcus aureus infection as the cause of diseases classified elsewhere; B95.61 Methicillin susceptible Staphylococcus aureus infection as the cause of diseases classified elsewhere; K21.9 Gastro-esophageal reflux disease without esophagitis; M54.40 Lumbago with sciatica, unspecified side; F41.9 Anxiety disorder, unspecified; G47.00 Insomnia, unspecified; I25.2 Old myocardial infarction; Z59.0 Homelessness; Z81.1 Family history of alcohol abuse and dependence
CPT/HCPCS: 76999; 80048; 80053; 80061; 80202; 80307; 82306; 82565; 82607; 83036; 83605; 85025; 86403; 87040; 87070; 87147; 87186; 87205; 93005; J2543; J3370; J7030; J7050

== ENCOUNTER → 2017-05-11 | Day surgery (SDC) | payer MEDICARE ==
[~2017-05-11] MED LIST changes: +ACETAMINOPHEN/HYDROcodone 325 MG/5 MG TAB PO PRN; +DO NOT ADM ANY ANTICOAGULANT DRUGS PRN; +MIDAZOLAM HCL 2 MG/2 ML VIAL ONE; +MIRTA15 PO; +ONDANSETRON HCL 4 MG/2 ML VIAL IV PUSH ONE; +PROPOFOL 200 MG/20 ML AMP IV ONE; +VANCOMYCIN INJ 750 MG in SODIUM CHLOR 0.9% 250 ML INJ 250 ML IV SCH; +ePHEDrine/NS 25 MG/5 ML SYR IV ONE; +fentaNYL CITRATE 250 MCG/5 ML AMP ONE
--- NOTE | 2017-05-11 08:15 | HHI.PR ---
cc: Loyd Boyd MD Immediate Post Op Note Procedure Date: May 11, 2017 Pre Op Diagnosis: Left buttock abscess Post Op Diagnosis: Same Surgeon: Loyd Boyd Lecturer In Marketing(s): None Procedure: Incision and Drainage Left buttock abscess Complications: None Estimated blood loss: 50 ml Anesthesia: LMA Drains: None IVF (400 ml) Patient to: PACU Patient Condition: Good Date/Time of Procedure: SEE SURGICAL CARE RECORD Loyd Boyd MD May 11, 2017 08:15
[2017-05-11 08:45] VITALS: BP 166/78; PULSE 62; RESP 14; TEMP 98.2; O2SAT 98
--- NOTE | 2017-05-12 09:40 | MP ---
cc: RUBI BOYD M.D. DATE OF SURGERY 05/11/2017 PROCEDURE Incision and drainage left buttock abscess. PREOPERATIVE DIAGNOSIS Left buttock abscess. POSTOPERATIVE DIAGNOSIS Left buttock abscess. ANESTHESIA Laryngeal mask anesthesia. SURGEON Rubi Boyd. ESTIMATED BLOOD LOSS 50 mL FLUIDS 400 mL crystalloid COMPLICATIONS None DRAINS None SPECIMEN None PROCEDURE IN DETAIL The patient was taken to the operating room after marking in the holding area. After laryngeal mask anesthesia was instituted, the patient was then placed on the vieira bag in the right lateral decubitus position. The left buttock was prepped and draped. Time-out was taken confirming the correct patient, site, and procedure to be performed. A longitudinal incision was made directly over the lesion. Necrotic tissue was debrided away and the wound was irrigated copiously with saline. The wound was then cleaned with hydrogen peroxide and further saline used to clean the wound completely. With all nonviable tissue debrided, the wound was packed with Betadine-soaked Kerlix gauze. A 4x4 and Bio-occlusive dressing was applied. The patient was then extubated and taken back to the recovery room in stable condition. Sponge, needle and instrument counts were reported be correct. The patient tolerated the procedure well. MD DARINEL Mark/DJWoodrow /7:53 AM /9:35 AM
== END | disposition home or self-care (01) ==
LOC: COR 06:14 → HSDI 06:16
PROVIDERS: ATTEND Surgery Trauma Surgery
DX: L02.31 Cutaneous abscess of buttock (principal)
CPT/HCPCS: 00300; 10060; J2250; J2405; J3010

== ENCOUNTER 2017-05-21 19:10 | Emergency (ER) | payer MEDICARE, OTHER ==
[~2017-05-21] VITALS: Ht 152.4 cm; Wt 40.0 kg
[~2017-05-21 19:10] MED LIST changes: -ACETAMINOPHEN/HYDROcodone 325 MG/5 MG TAB PO PRN; -DO NOT ADM ANY ANTICOAGULANT DRUGS PRN; -MIDAZOLAM HCL 2 MG/2 ML VIAL ONE; -ONDANSETRON HCL 4 MG/2 ML VIAL IV PUSH ONE; -PROPOFOL 200 MG/20 ML AMP IV ONE; -VANCOMYCIN INJ 750 MG in SODIUM CHLOR 0.9% 250 ML INJ 250 ML IV SCH; -ePHEDrine/NS 25 MG/5 ML SYR IV ONE; -fentaNYL CITRATE 250 MCG/5 ML AMP ONE
[2017-05-21 19:24] VITALS: TEMP 98.8
[2017-05-21 19:27] VITALS: BP 136/74; PULSE 77; RESP 14; TEMP 98.8; O2SAT 94
--- NOTE | 2017-05-21 19:39 | PD ---
HPI Chief Complaint: Psychiatric Symptoms Time Seen by Provider: 19:32 Travel History International Travel<30 days: No Contact w/Intl Traveler<30days: No Traveled to known affect area: No History of Present Illness HPI PATIENT WAS [place] ACTED BY MIREILLE CARDENAS DUE TO DEPRESSION AND SUICIDAL IDEATION, NO DEFINITE PLAN, BUT PATIENT DID STATE SHE HAS BEEN DRINKING ETOH TO DEAL WITH IT BUT HER SI , IS GETTING WORSE (WITHOUT APPARENT PLAN) PFSH Past Medical History Hx Anticoagulant Therapy: No Anemia: Yes Arthritis: Yes Asthma: Yes Autoimmune Disease: No Bipolar Disorder: Yes Anxiety: Yes Depression: Yes Heart Rhythm Problems: No Cancer: No Cardiovascular Problems: Yes (htn) High Cholesterol: No Chest Pain: Yes Congestive Heart Failure: No Cerebrovascular Accident: No Diabetes: Yes Patient Takes Glucophage: No Diminished Hearing: No Gastrointestinal Disorders: Yes GERD: Yes Genitourinary: No Headaches: No Hiatal Hernia: No Hypertension: Yes Immune Disorder: No Implanted Vascular Access Dvce: No Insomnia: Yes Musculoskeletal: No Neurologic: Yes Psychiatric: Yes Reproductive: Yes Respiratory: No Integumentary: No Immunizations Current: Yes Migraines: No Myocardial Infarction: Yes Pneumonia: Yes Schizophrenia: Yes Seizures: Yes (FROM ETOH WITHDRAWAL) Thyroid Disease: No Ulcer: Yes (PER HX) ?: Not Menopausal: Yes : 1 Para: 1 Miscarriage: 0 : 0 Ovarian Cysts: Yes (RIGHT OVARIAN CYST REMOVAL) Tubal Ligation: Yes Past Surgical History Abdominal Surgery: No AICD: No Arteriovenous Shunt: No Cardiac Surgery: No Endocrine Surgery: No Eye Surgery: No Genitourinary Surgery: No Gynecologic Surgery: Yes Insulin Pump: No Joint Replacement: No Neurologic Surgery: No Oral Surgery: No Pacemaker: No Thoracic Surgery: No Tonsillectomy: Yes Other Surgery: Yes Social History Alcohol Use: Yes (3 or 4 times a week 3-4 cans of beer) Tobacco Use: Yes (1 PPD denies) Substance Use: Yes Allergies-Medications (Allergen,Severity, Reaction): Coded Allergies: Local Anesthetics (Verified Allergy, Severe, Anaphylaxis, 05/21/17) Novocain (Verified Allergy, Severe, Anaphylaxis, 05/21/17) Per pt. *MDRO Multi-Drug Resistant Organism (Verified Adverse Reaction, Unknown, ) MRSA (buttock) 05/08/17 Reported Meds & Prescriptions Reported Meds & Active Scripts Active Reported Lisinopril 20 Mg Tab 20 Mg PO DAILY Review of Systems Except as stated in HPI: all other systems reviewed are Neg Psychiatric: Positive: Depression, Suicidal Ideations Physical Exam Narrative GENERAL: SKIN: Warm and dry. ALSO HAS A CHRONIC WOUND ON PILONIDAL AREA, NOT WARM/ ERYTHEMATOUS/FLUCTUANT/ AND NO STREAKING...C/W CHRONIC WOUND WITH FAILURE TO HEAL HEAD: Atraumatic. Normocephalic. EYES: Pupils equal and round. No scleral icterus. No injection or drainage. ENT: No nasal bleeding or discharge. Mucous membranes pink and moist. NECK: Trachea midline. No JVD. CARDIOVASCULAR: Regular rate and rhythm. RESPIRATORY: No accessory muscle use. Clear to auscultation. Breath sounds equal bilaterally. GASTROINTESTINAL: Abdomen soft, non-tender, nondistended. Hepatic and splenic margins not palpable. MUSCULOSKELETAL: Extremities without clubbing, cyanosis, or edema. No obvious deformities. NEUROLOGICAL: Awake and alert. No obvious cranial nerve deficits. Motor grossly within normal limits. Five out of 5 muscle strength in the arms and legs. Normal speech. PSYCHIATRIC: Appropriate mood and affect; insight and judgment normal. Data Data Last Documented VS Vital Signs Date Time Temp Pulse Resp B/P Pulse Ox O2 Delivery O2 Flow Rate FiO2 05/22/17 06:45 77 18 154/70 99 Room Air 05/21/17 19:27 98.8 Orders Complete Blood Count With Diff (05/21/17 19:32) Comprehensive Metabolic Panel (05/21/17 19:32) Thyroid Stimulating Hormone (05/21/17 19:32) Urinalysis - C+S If Indicated (05/21/17 19:32) Electrocardiogram (05/21/17 19:32) Psych Screen (05/21/17 19:32) Drug Screen, Random Urine (05/21/17 19:32) Alcohol (Ethanol) (05/21/17 19:32) Salicylates (Aspirin) (05/21/17 19:32) Tylenol (Acetaminophen) (05/21/17 19:32) Clindamycin Inj (Cleocin Inj) (05/21/17 20:30) Potassium Chloride (Kcl) (05/21/17 23:30) Alcohol Withdrawal Asmt-Ciwa ONCE (05/22/17 03:38) Flumazenil Inj (Romazicon Inj) (05/22/17 03:45) Lorazepam (Ativan) (05/22/17 03:45) Lorazepam Inj (Ativan Inj) (05/22/17 03:45) Lorazepam (Ativan) (05/22/17 03:45) Lorazepam Inj (Ativan Inj) (05/22/17 03:45) Lorazepam Inj (Ativan Inj) (05/22/17 03:45) Lorazepam Inj (Ativan Inj) (05/22/17 03:45) Labs Laboratory Tests Test 05/21/17 05/21/17 20:00 23:30 White Blood Count 7.2 TH/MM3 Red Blood Count 3.33 MIL/MM3 Hemoglobin 11.5 GM/DL Hematocrit 32.9 % Mean Corpuscular Volume 98.8 FL Mean Corpuscular Hemoglobin 34.6 PG Mean Corpuscular Hemoglobin 35.0 % Concent Red Cell Distribution Width 15.2 % Platelet Count 425 TH/MM3 Mean Platelet Volume 6.7 FL Neutrophils (%) (Auto) 46.7 % Lymphocytes (%) (Auto) 41.3 % Monocytes (%) (Auto) 9.4 % Eosinophils (%) (Auto) 1.6 % Basophils (%) (Auto) 1.0 % Neutrophils # (Auto) 3.4 TH/MM3 Lymphocytes # (Auto) 3.0 TH/MM3 Monocytes # (Auto) 0.7 TH/MM3 Eosinophils # (Auto) 0.1 TH/MM3 Basophils # (Auto) 0.1 TH/MM3 CBC Comment DIFF FINAL Differential Comment Sodium Level 132 MEQ/L Potassium Level 3.2 MEQ/L Chloride Level 94 MEQ/L Carbon Dioxide Level 24.1 MEQ/L Anion Gap 14 MEQ/L Blood Urea Nitrogen 10 MG/DL Creatinine 0.74 MG/DL Estimat Glomerular Filtration 79 ML/MIN Rate Random Glucose 81 MG/DL Calcium Level 8.3 MG/DL Total Bilirubin 0.2 MG/DL Aspartate Amino Transf 43 U/L (AST/SGOT) Alanine Aminotransferase 46 U/L (ALT/SGPT) Alkaline Phosphatase 94 U/L Total Protein 7.7 GM/DL Albumin 3.5 GM/DL Thyroid Stimulating Hormone 4.060 uIU/ML 3rd Gen Salicylates Level LESS THAN 1.7 MG/DL Acetaminophen Level LESS THAN 2.0 MCG/ML Ethyl Alcohol Level 288 MG/DL Urine Color YELLOW Urine Turbidity CLEAR Urine pH 5.0 Urine Specific [place] 1.008 Urine Protein NEG mg/dL Urine Glucose (UA) NEG mg/dL Urine Ketones NEG mg/dL Urine Occult Blood NEG Urine Nitrite NEG Urine Bilirubin NEG Urine Urobilinogen LESS THAN 2.0 MG/DL Urine Leukocyte Esterase NEG Urine RBC 1 /hpf Urine WBC 3 /hpf Urine Squamous Epithelial 1 /hpf Cells Urine Transitional Epithelial <1 /hpf Cells Urine Bacteria RARE /hpf Urine Hyaline Casts 16 /lpf Microscopic Urinalysis Comment CULT NOT INDICATED Urine Opiates Screen NEG Urine Barbiturates Screen NEG Urine Amphetamines Screen NEG Urine Benzodiazepines Screen NEG Urine Cocaine Screen NEG Urine Cannabinoids Screen NEG MDM Medical Decision Making Medical Screen Exam Complete: Yes Emergency Medical Condition: Yes Medical Record Reviewed: Yes Interpretation(s) NSR 75, NL INTERVALS, NO STEMI PATTERN Differential Diagnosis ELECTROLYTE ABNL V COINGESTIONS V SUICIDAL V ETOH INTOXICATION Narrative Course PATIENT FOUND TO HAVE ETOH ON BOARD AND MILD HYPOKALEMIA ON BLOOD WORK OTHERWISE MEDICALLY CLEARED Diagnosis Primary Impression: MEDICALLY CLEARED Additional Impressions: ETOH INTOXICATION Hypokalemia Napoleon Chavarria MD May 21, 2017 19:39
[2017-05-21] MEDS ORDERED: CLINDAMYCIN PHOS 600 MG/4 ML VIAL IM ONE (20:00)
[2017-05-21 20:28] LABS: AUTOMATED NEUTROPHIL # 3.4 TH/MM3 (1.8-7.7); BASOPHIL # 0.1 TH/MM3 (0-0.2); EOSINOPHIL # 0.1 TH/MM3 (0-0.4); EOSINOPHIL % 1.6 % (0.0-4.0); HEMATOCRIT 32.9 % (35.0-46.0); HEMO FLAGS DIFF FINAL; LYMPH % 41.3 % (9.0-44.0); MEAN CELL VOLUME 98.8 FL (80.0-100.0); MEAN CORPUSCULAR HEMOGLOBIN 34.6 PG (27.0-34.0); MONO % 9.4 % (0.0-8.0); NEUT % 46.7 % (16.0-70.0); PLATELET COUNT 425 TH/MM3 (150-450); RED BLOOD COUNT 3.33 MIL/MM3 (4.00-5.30); RED CELL DISTRIBUTION WIDTH 15.2 % (11.6-17.2); WHITE BLOOD COUNT 7.2 TH/MM3 (4.0-11.0)
[2017-05-21] MEDS ORDERED: CLINDAMYCIN INJ 600 MG in SODIUM CHLORIDE 0.9% INJ 100 ML IV ONE (20:30)
[2017-05-21 20:40] LABS: ANION GAP 14 MEQ/L (5-15); AST (GOT) 43 U/L (15-37); BICARBONATE 24.1 MEQ/L (21.0-32.0); BLOOD UREA NITROGEN 10 MG/DL (7-18); CHLORIDE 94 MEQ/L (98-107); GLOMERULAR FILTRATION RATE 79 ML/MIN (>89); POTASSIUM 3.2 MEQ/L (3.5-5.1); SODIUM (NA) 132 MEQ/L (136-145)
[2017-05-21 20:42] LABS: ALT (GPT) 46 U/L (10-53)
[2017-05-21 20:51] LABS: ALKALINE PHOSPHATASE 94 U/L (45-117); TOTAL BILIRUBIN ADULT 0.2 MG/DL (0.2-1.0)
[2017-05-21 20:52] LABS: ACETAMINOPHEN LESS THAN 2.0 MCG/ML (10.0-30.0); ALCOHOL 288 MG/DL (0-5)
[2017-05-21] MEDS ORDERED: POTASSIUM CHLORIDE 10 MEQ CONTROLLED RELEASE TAB PO ONE (23:30)
[2017-05-21 23:48] LABS: BACTERIA, URINE RARE /hpf; BLOOD, URINE NEG (NEG); COMMENT (UR) CULT NOT INDICATED; CULTURE IF INDICATED CULT NOT INDICATED; GLUCOSE,URINE NEG (NEG); HYALINE CAST, URINE 16 /lpf (RARE); KETONE, URINE NEG (NEG); NITRITE,URINE NEG (NEG); SQUAMOUS EPITHELIAL CELL URINE 1 /hpf (0-5); TRANSITIONAL EPI CELLS, URINE <1 /hpf; URINE COLOR YELLOW (YELLW/STRAW)
[2017-05-22 00:10] VITALS: BP 132/72; PULSE 78; RESP 12; O2SAT 96
[2017-05-22] MEDS ORDERED: LORazepam 2 MG/ML VIAL IV PUSH PRN ×4 (03:45)
[2017-05-22] MEDS ORDERED: LORazepam 1 MG TAB PO PRN (03:45)
[2017-05-22] MEDS ORDERED: FLUMAZENIL 0.5 MG/5 ML VIAL IV PUSH PRN (03:45)
[2017-05-22] MEDS ORDERED: LORazepam 2 MG TAB PO PRN (03:45)
[2017-05-22 04:03] VITALS: BP 130/60; PULSE 82; RESP 17; O2SAT 94
[2017-05-22 06:45] VITALS: BP 154/70; PULSE 77; RESP 18; O2SAT 99
--- NOTE | 2017-05-22 08:37 | PD ---
History of Present Illness Chief Complaint: Psychiatric Symptoms Time Seen by Provider: 08:30 Travel History International Travel<30 Days: No Contact w/Intl Traveler<30days: No Known affected area: No Legal Status Legal Status: Wilder Act Wilder Act Signed By: Guillermo Menjivar History of Present Illness: History of Present Illness 66-year-old female with history of alcohol abuse and alcohol induced mood disorder who presents to the ED for evaluation of Wilder act initiated by SANDRO.The report states; " Flor has made threats to harm herself. Flor stated that she does not know how she was going to harm herself. She stated that she had been drinking to try and feel better but it's not working. Flor wants help to stop drinking ". Patient arrives with BAL: of 288. She was discharged from Inpatient treatment on May 13, 2017 for treatment of substance induced mood disorder. The patient was monitored in [facility] and she presented no behavioral concerns and no suicidality. This morning she is alert ans oriented. She is clinically sober. She has received Ativan earlier for symptoms of withdrawal. Speech is clear and logical. She states " I was good until I started to drink again". When asked about thoughts of wanting to harm herself she states " I don't know where I came up with that. I would not hurt myself.I'm too chicken for that. I want to do right for myself.". She does not present any psychosis, no benji. Denies suicdal ideation. She plans to return to [facility] with some friends who don't drink instead of going back to her boat. . PFSH Past Medical History Hx Anticoagulant Therapy: No Anemia: Yes Arthritis: Yes Asthma: Yes Autoimmune Disease: No Bipolar Disorder: Yes Anxiety: Yes Depression: Yes Heart Rhythm Problems: No Cancer: No Cardiovascular Problems: Yes (htn) High Cholesterol: No Chest Pain: Yes Congestive Heart Failure: No Cerebrovascular Accident: No Diabetes: Yes Patient Takes Glucophage: No Diminished Hearing: No Gastrointestinal Disorders: Yes GERD: Yes Genitourinary: No Headaches: No Hiatal Hernia: No Hypertension: Yes Immune Disorder: No Implanted Vascular Access Dvce: No Insomnia: Yes Musculoskeletal: No Neurologic: Yes Psychiatric: Yes Reproductive: Yes Respiratory: No Integumentary: No Immunizations Current: Yes Migraines: No Myocardial Infarction: Yes Pneumonia: Yes Schizophrenia: Yes Seizures: Yes (FROM ETOH WITHDRAWAL) Thyroid Disease: No Ulcer: Yes (PER HX) ?: Not Menopausal: Yes : 1 Para: 1 Miscarriage: 0 : 0 Ovarian Cysts: Yes (RIGHT OVARIAN CYST REMOVAL) Tubal Ligation: Yes Past Surgical History Abdominal Surgery: No AICD: No Arteriovenous Shunt: No Cardiac Surgery: No Endocrine Surgery: No Eye Surgery: No Genitourinary Surgery: No Gynecologic Surgery: Yes Insulin Pump: No Joint Replacement: No Neurologic Surgery: No Oral Surgery: No Pacemaker: No Thoracic Surgery: No Tonsillectomy: Yes Other Surgery: Yes Psychiatric History Psychiatric History Hx Psychiatric Treatment[place] [facility]. History of Inpatient Treatment: Yes Guns or firearms in home: No Social History Single female. Lives by herself on a houseboat. Hx Alcohol Use: Yes (3 or 4 times a week 3-4 cans of beer) Hx Tobacco Use: Yes (1 PPD denies) Hx Substance Use: Yes Substance Use Type: Alcohol, Nicotine/Cigarettes, Benzos (Valium,Xanax) Other Substances Used: SUBSTANCE ABUSE TREATMENT Hx of Substance Use Treatment: Yes Family Psychiatric History Negative Allergies-Medications (Allergen,Severity, Reaction): Coded Allergies: Local Anesthetics (Verified Allergy, Severe, Anaphylaxis, 05/21/17) Novocain (Verified Allergy, Severe, Anaphylaxis, 05/21/17) Per pt. *MDRO Multi-Drug Resistant Organism (Verified Adverse Reaction, Unknown, ) MRSA (buttock) 05/08/17 Reported Meds & Prescriptions Reported Meds & Active Scripts Active Reported Lisinopril 20 Mg Tab 20 Mg PO DAILY Review of Systems Except as stated in HPI: all other systems reviewed are Neg Exam Alert: Yes [place]: Person (ox4) Mood: Calm Affect: Appropriate Speech: Clear, Logical Eye Contact: Normal Memory Intact: Comment (No impairment) Hallucinations: Other (negative) Delusions: No Suicidal: Ideation (deneis) Homicidal: Ideation (deneis) Insight/Judgement Poor. Not impaired. MDM Medical Decision Making Medical Record Reviewed: Yes Assessment/Plan 66-year-old female with history of alcohol abuse and alcohol induced mood disorder who presents to the ED for evaluation of Wilder act initiated by SANDRO. Patient intoxicated at the time that she was placed under a BA. Her BAL on arrival was 288. Patient was allowed to sober up clinically. Once sober she denies any suicidal or homicidal ideation. Patient verbalizes plans to saty with sober friends if she is released. At this time she does not present any criteria for BA. Counseled on alcohol treatment and recommend abstinence. Lift BA Orders Complete Blood Count With Diff (05/21/17 19:32) Comprehensive Metabolic Panel (05/21/17 19:32) Thyroid Stimulating Hormone (05/21/17 19:32) Urinalysis - C+S If Indicated (05/21/17 19:32) Electrocardiogram (05/21/17 19:32) Psych Screen (05/21/17 19:32) Drug Screen, Random Urine (05/21/17 19:32) Alcohol (Ethanol) (05/21/17 19:32) Salicylates (Aspirin) (05/21/17 19:32) Tylenol (Acetaminophen) (05/21/17 19:32) Clindamycin Inj (Cleocin Inj) (05/21/17 20:30) Potassium Chloride (Kcl) (05/21/17 23:30) Alcohol Withdrawal Asmt-Ciwa ONCE (05/22/17 03:38) Flumazenil Inj (Romazicon Inj) (05/22/17 03:45) Lorazepam (Ativan) (05/22/17 03:45) Lorazepam Inj (Ativan Inj) (05/22/17 03:45) Lorazepam (Ativan) (05/22/17 03:45) Lorazepam Inj (Ativan Inj) (05/22/17 03:45) Lorazepam Inj (Ativan Inj) (05/22/17 03:45) Lorazepam Inj (Ativan Inj) (05/22/17 03:45) Diet Regular Basic (05/22/17 Breakfast) Results Vital Signs Date Time Temp Pulse Resp B/P Pulse Ox O2 Delivery O2 Flow Rate FiO2 05/22/17 06:45 77 18 154/70 99 Room Air 05/22/17 04:03 82 17 130/60 94 Room Air 05/22/17 00:10 78 12 132/72 96 Room Air 05/21/17 19:27 98.8 77 14 136/74 94 Room Air 05/21/17 19:24 98.8 Laboratory Tests Test 05/21/17 05/21/17 20:00 23:30 White Blood Count 7.2 Red Blood Count 3.33 Hemoglobin 11.5 Hematocrit 32.9 Mean Corpuscular Volume 98.8 Mean Corpuscular Hemoglobin 34.6 Mean Corpuscular Hemoglobin 35.0 Concent Red Cell Distribution Width 15.2 Platelet Count 425 Mean Platelet Volume 6.7 Neutrophils (%) (Auto) 46.7 Lymphocytes (%) (Auto) 41.3 Monocytes (%) (Auto) 9.4 Eosinophils (%) (Auto) 1.6 Basophils (%) (Auto) 1.0 Neutrophils # (Auto) 3.4 Lymphocytes # (Auto) 3.0 Monocytes # (Auto) 0.7 Eosinophils # (Auto) 0.1 Basophils # (Auto) 0.1 CBC Comment DIFF FINAL Differential Comment Sodium Level 132 Potassium Level 3.2 Chloride Level 94 Carbon Dioxide Level 24.1 Anion Gap 14 Blood Urea Nitrogen 10 Creatinine 0.74 Estimat Glomerular Filtration 79 Rate Random Glucose 81 Calcium Level 8.3 Total Bilirubin 0.2 Aspartate Amino Transf 43 (AST/SGOT) Alanine Aminotransferase 46 (ALT/SGPT) Alkaline Phosphatase 94 Total Protein 7.7 Albumin 3.5 Thyroid Stimulating Hormone 4.060 3rd Gen Salicylates Level LESS THAN 1.7 Acetaminophen Level LESS THAN 2.0 Ethyl Alcohol Level 288 Urine Color YELLOW Urine Turbidity CLEAR Urine pH 5.0 Urine Specific [place] 1.008 Urine Protein NEG Urine Glucose (UA) NEG Urine Ketones NEG Urine Occult Blood NEG Urine Nitrite NEG Urine Bilirubin NEG Urine Urobilinogen LESS THAN 2.0 Urine Leukocyte Esterase NEG Urine RBC 1 Urine WBC 3 Urine Squamous Epithelial 1 Cells Urine Transitional Epithelial <1 Cells Urine Bacteria RARE Urine Hyaline Casts 16 Microscopic Urinalysis Comment CULT NOT INDICATED Urine Opiates Screen NEG Urine Barbiturates Screen NEG Urine Amphetamines Screen NEG Urine Benzodiazepines Screen NEG Urine Cocaine Screen NEG Urine Cannabinoids Screen NEG Diagnosis Primary Impression: Alcohol dependence Additional Impressions: ETOH INTOXICATION Hypokalemia Psychiatrically Cleared: Yes Departure Forms: Tests/Procedures Patient Instructions: General Instructions Additional Instructions: FOLLOW UP WITH JULI VILLALBA FOR DETOX Med/ Other Pt Specific Info: No Change to Meds Disposition: 01 DISCHARGE HOME Condition: Stable Problem Qualifiers Primary Impression: Alcohol dependence Qualified Code: F10.220 - Alcohol dependence with uncomplicated intoxication Aisha Win May 22, 2017 08:37
--- NOTE | 2017-05-22 14:14 | EKG ---
Date Performed: 05/21/2017 Time Performed: 19:42:56 PTAGE: 66 years EKG: Sinus rhythm NORMAL ECG PREVIOUS TRACING : 05/11/2017 05.36 Since previous tracing, no significant change. DOCTOR: [place]ieto Interpretating Date/Time 05/22/2017 14:13:28
== END 2017-05-22 08:39 | disposition home or self-care (01) ==
LOC: NEDAMB 19:10 → NEPJ 05-22 08:39
DX: F10.229 Alcohol dependence with intoxication, unspecified (principal); E87.6 Hypokalemia; I10 Essential (primary) hypertension; Y90.8 Blood alcohol level of 240 mg/100 ml or more; Z79.899 Other long term (current) drug therapy
CPT/HCPCS: 80053; 80307; 81001; 84443; 85025; 93005; 96365

== ENCOUNTER 2017-05-25 19:07 | Emergency (ER) | payer MEDICARE, OTHER ==
[~2017-05-25] VITALS: Ht 165.1 cm; Wt 65.0 kg
[~2017-05-25 19:07] MED LIST changes: -BACT800T5 PO; -MIRTA15 PO
[2017-05-25 19:17] VITALS: BP 147/77; PULSE 70; RESP 16; TEMP 98.4; O2SAT 95
--- NOTE | 2017-05-25 20:24 | PD ---
Physical Exam Time Seen by Provider: 20:22 Narrative 66yo F requesting detox to completely stop drinking alcohol. Cannot recall last time she had a drink. Has no other medical complaints. Denies SI or HI. Patient seen in triage. VS reviewed. Awaiting bed placement. Data Data Last Documented VS Vital Signs Date Time Temp Pulse Resp B/P Pulse Ox O2 Delivery O2 Flow Rate FiO2 05/25/17 19:17 98.4 70 16 147/77 95 Room Air [facility] Supervised Visit with YING: Ligia Cuenca May 25, 2017 20:24
--- NOTE | 2017-05-25 20:32 | PD ---
HPI Chief Complaint: Alcohol/Drug Intoxication Time Seen by Provider: 20:29 Travel History International Travel<30 days: No Contact w/Intl Traveler<30days: No Traveled to known affect area: No History of Present Illness HPI 66-year-old white female presents to emergency department requesting alcohol detox. The patient states that she is an alcoholic and would like to get off alcohol. She denies any other substance abuse. She states that she lives on a house[place]. She denies any suicidal homicidal ideation. She states that she merely would like to get off of alcohol be sober. She would like inpatient treatment. She denies any acute medical complaints. She last drank alcohol approximately 4 hours ago. PFSH Past Medical History Hx Anticoagulant Therapy: No Anemia: Yes Arthritis: Yes Asthma: Yes Autoimmune Disease: No Bipolar Disorder: Yes Anxiety: Yes Depression: Yes Heart Rhythm Problems: No Cancer: No Cardiovascular Problems: Yes (htn) High Cholesterol: No Chest Pain: Yes Congestive Heart Failure: No Cerebrovascular Accident: No Diabetes: Yes Patient Takes Glucophage: No Diminished Hearing: No Gastrointestinal Disorders: Yes GERD: Yes Genitourinary: No Headaches: No Hiatal Hernia: No Hypertension: Yes Immune Disorder: No Implanted Vascular Access Dvce: No Insomnia: Yes Musculoskeletal: No Neurologic: Yes Psychiatric: Yes Reproductive: Yes Respiratory: No Integumentary: No Immunizations Current: Yes Migraines: No Myocardial Infarction: Yes Pneumonia: Yes Schizophrenia: Yes Seizures: Yes (FROM ETOH WITHDRAWAL) Thyroid Disease: No Ulcer: Yes (PER HX) Tetanus Vaccination: Unknown Influenza Vaccination: Yes ?: Not Menopausal: Yes : 1 Para: 1 Miscarriage: 0 : 0 Ovarian Cysts: Yes (RIGHT OVARIAN CYST REMOVAL) Tubal Ligation: Yes Past Surgical History Abdominal Surgery: No AICD: No Arteriovenous Shunt: No Cardiac Surgery: No Endocrine Surgery: No Eye Surgery: No Genitourinary Surgery: No Gynecologic Surgery: Yes Insulin Pump: No Joint Replacement: No Neurologic Surgery: No Oral Surgery: No Pacemaker: No Thoracic Surgery: No Tonsillectomy: Yes Other Surgery: Yes Social History Alcohol Use: Yes (3 or 4 times a week 3-4 cans of beer) Tobacco Use: Yes (1 PPD denies) Substance Use: Yes Allergies-Medications (Allergen,Severity, Reaction): Coded Allergies: Local Anesthetics (Verified Allergy, Severe, Anaphylaxis, 05/25/17) Novocain (Verified Allergy, Severe, Anaphylaxis, 05/25/17) Per pt. *MDRO Multi-Drug Resistant Organism (Verified Adverse Reaction, Unknown, ) MRSA (buttock) 05/08/17 Reported Meds & Prescriptions Reported Meds & Active Scripts Active Review of Systems Except as stated in HPI: all other systems reviewed are Neg Physical Exam Narrative GENERAL: This is a well-nourished, well-developed patient, in no apparent distress. Disheveled and smells of urine SKIN: No rashes, ecchymoses or lesions. Warm and dry. HEAD: Atraumatic. Normocephalic. EYES: PERRL, EOMI, no discharge or injection. No scleral icterus. EARS: Clear NOSE: Nasal turbinates appear normal. THROAT: Mucosa pink and moist. Airway patent. NECK: Trachea midline. supple, moves head freely. LUNGS: Clear to auscultation. CV: Regular in rhythm. ABDOMEN: Soft nontender. EXT: No clubbing cyanosis or edema. Data Data Last Documented VS Vital Signs Date Time Temp Pulse Resp B/P Pulse Ox O2 Delivery O2 Flow Rate FiO2 05/25/17 19:17 98.4 70 16 147/77 95 Room Air MDM Medical Decision Making Medical Screen Exam Complete: Yes Emergency Medical Condition: Yes Medical Record Reviewed: Yes Differential Diagnosis Differential diagnoses: Alcohol intoxication, substance abuse, electrolyte abnormality, malingering Narrative Course I've contacted [facility]io [facility] and there are no female detox beds available at this time. The patient is made aware of this. She will follow-up as an outpatient with Yessenia Bender for detox. This is alcohol abuse Diagnosis Primary Impression: Alcohol abuse Additional Instructions: Rest. Increase fluids. Avoid alcohol. Avoid illegal substances. Follow-up with Yess[facility] Bender for detox. Do not operate a car or any heavy machinery under the influence of alcohol or drugs. Follow-up with a medical doctor this week. Return to the ER for emergencies Med/Other Pt SpecificInfo: No Meds Exist/No RX given Disposition: 01 DISCHARGE HOME Condition: Stable Anuj Mccall May 25, 2017 20:32
== END 2017-05-25 23:05 | disposition home or self-care (01) ==
LOC: NETRI 19:07
DX: F10.10 Alcohol abuse, uncomplicated (principal); E11.9 Type 2 diabetes mellitus without complications; I10 Essential (primary) hypertension; I25.2 Old myocardial infarction; Z72.0 Tobacco use; Z86.2 Personal history of diseases of the blood and blood-forming organs and certain disorders involving the immune mechanism; Z87.39 Personal history of other diseases of the musculoskeletal system and connective tissue; Z86.59 Personal history of other mental and behavioral disorders; Z86.79 Personal history of other diseases of the circulatory system; Z87.19 Personal history of other diseases of the digestive system; Z86.69 Personal history of other diseases of the nervous system and sense organs
CPT/HCPCS: 99283

== ENCOUNTER 2017-06-02 21:11 | Emergency (ER) | payer MEDICARE ==
[~2017-06-02] VITALS: Ht 152.4 cm; Wt 45.0 kg
[2017-06-02 22:16] VITALS: BP 104/57; PULSE 84; RESP 19; TEMP 98.6; O2SAT 95
[2017-06-02 22:32] VITALS: BP 128/69; PULSE 87; RESP 18; TEMP 98.1; O2SAT 100
--- NOTE | 2017-06-02 22:40 | PD ---
HPI Chief Complaint: Alcohol/Drug Intoxication Time Seen by Provider: 22:20 Travel History International Travel<30 days: No Contact w/Intl Traveler<30days: No Traveled to known affect area: No History of Present Illness HPI Patient is a 66 year old female presents to the ER for alcohol intoxication. Patient is sleeping on arrival, arouses easily. When asked she states that she had too much to drink tonight. Denies any physical complaints. Denies any cp/ sob/abdominal pain/nvd/constipation/headache, neck pain, back pain. PFSH Past Medical History Hx Anticoagulant Therapy: No Anemia: Yes Arthritis: Yes Asthma: Yes Autoimmune Disease: No Bipolar Disorder: Yes Anxiety: Yes Depression: Yes Heart Rhythm Problems: No Cancer: No Cardiovascular Problems: Yes (htn) High Cholesterol: No Chest Pain: Yes Congestive Heart Failure: No Cerebrovascular Accident: No Diabetes: Yes Patient Takes Glucophage: No Diminished Hearing: No Endocrine: Yes Gastrointestinal Disorders: Yes GERD: Yes Genitourinary: No Headaches: No Hiatal Hernia: No Hypertension: Yes Immune Disorder: No Implanted Vascular Access Dvce: No Insomnia: Yes Musculoskeletal: No Neurologic: Yes Psychiatric: Yes Reproductive: Yes Respiratory: No Integumentary: No Immunizations Current: Yes Migraines: No Myocardial Infarction: Yes Pneumonia: Yes Schizophrenia: Yes Seizures: Yes (FROM ETOH WITHDRAWAL) Thyroid Disease: No Ulcer: Yes (PER HX) Menopausal: Yes : 1 Para: 1 Miscarriage: 0 : 0 Ovarian Cysts: Yes (RIGHT OVARIAN CYST REMOVAL) Tubal Ligation: Yes Past Surgical History Abdominal Surgery: No AICD: No Arteriovenous Shunt: No Cardiac Surgery: No Endocrine Surgery: No Eye Surgery: No Genitourinary Surgery: No Gynecologic Surgery: Yes Insulin Pump: No Joint Replacement: No Neurologic Surgery: No Oral Surgery: No Pacemaker: No Thoracic Surgery: No Tonsillectomy: Yes Other Surgery: Yes Social History Alcohol Use: Yes (3 or 4 times a week 3-4 cans of beer) Tobacco Use: Yes (1 PPD denies) Substance Use: Yes Allergies-Medications (Allergen,Severity, Reaction): Coded Allergies: benzocaine (Unverified Allergy, Severe, Anaphylaxis, 06/02/17) bupivacaine (Unverified Allergy, Severe, Anaphylaxis, 06/02/17) ethyl chloride (Unverified Allergy, Severe, Anaphylaxis, 06/02/17) lidocaine (Unverified Allergy, Severe, Anaphylaxis, 06/02/17) procaine (Unverified Allergy, Severe, Anaphylaxis, 06/02/17) Per pt. ropivacaine (Unverified Allergy, Severe, Anaphylaxis, 06/02/17) *MDRO Multi-Drug Resistant Organism (Verified Adverse Reaction, Unknown, ) MRSA (buttock) 05/08/17 Reported Meds & Prescriptions Reported Meds & Active Scripts Active No Active Prescriptions or Reported Medications Review of Systems Except as stated in HPI: all other systems reviewed are Neg Physical Exam Narrative GENERAL: WD/WN in nad. Somnolent, appears intoxicated. SKIN: Warm and dry. HEAD: Atraumatic. Normocephalic. EYES: Pupils equal and round. No scleral icterus. No injection or drainage. ENT: No nasal bleeding or discharge. Mucous membranes pink and moist. NECK: Trachea midline. No JVD. CARDIOVASCULAR: Regular rate and rhythm. RESPIRATORY: No accessory muscle use. Clear to auscultation. Breath sounds equal bilaterally. GASTROINTESTINAL: Abdomen soft, non-tender, nondistended. Hepatic and splenic margins not palpable. MUSCULOSKELETAL: Extremities without clubbing, cyanosis, or edema. No obvious deformities. NEUROLOGICAL: Awake and alert. No obvious cranial nerve deficits. Motor grossly within normal limits. Five out of 5 muscle strength in the arms and legs. Normal speech. PSYCHIATRIC: Appropriate mood and affect; insight and judgment normal. Data Data Last Documented VS Vital Signs Date Time Temp Pulse Resp B/P (MAP) Pulse Ox O2 Delivery O2 Flow Rate FiO2 06/03/17 01:58 98.7 91 18 117/65 (82) 100 Room Air MDM Medical Decision Making Medical Screen Exam Complete: Yes Emergency Medical Condition: Yes Differential Diagnosis Alcohol intoxication, poor social circumstance, traumatic injury unlikely. Narrative Course Patient arrives in ED, appears intoxicated. No physicaal complaints and has a reassuring physical exam. Will be allowed to sleep it off in the ER until clinically sober and then discharge. Diagnosis Primary Impression: Alcohol dependence with acute alcoholic intoxication Scripts No Active Prescriptions or Reported Meds Disposition: 01 DISCHARGE HOME Condition: Stable Nirav Blanc MD Jun 02, 2017 22:40
[2017-06-03 01:58] VITALS: BP 117/65; PULSE 91; RESP 18; TEMP 98.7; O2SAT 100
[2017-06-03 05:58] VITALS: BP 158/84; PULSE 75; RESP 18; O2SAT 100
== END 2017-06-03 06:48 | disposition home or self-care (01) ==
LOC: NEPD 21:11
DX: F10.229 Alcohol dependence with intoxication, unspecified (principal); I10 Essential (primary) hypertension; E11.9 Type 2 diabetes mellitus without complications; K21.9 Gastro-esophageal reflux disease without esophagitis; J45.909 Unspecified asthma, uncomplicated
CPT/HCPCS: 99283

== ENCOUNTER 2017-06-05 18:34 | Emergency (ER) | payer MEDICARE ==
[~2017-06-05] VITALS: Ht 152.4 cm; Wt 45.0 kg
[2017-06-05 19:30] VITALS: BP 130/90; PULSE 100; RESP 14; O2SAT 95
--- NOTE | 2017-06-05 22:51 | PD ---
HPI Chief Complaint: Psychiatric Symptoms Time Seen by Provider: 22:43 Travel History International Travel<30 days: No Contact w/Intl Traveler<30days: No Traveled to known affect area: No History of Present Illness HPI 66-year-old female that presents to the ED for evaluation of alcohol abuse. 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 Per ambulance report patient apparently made suicidal statements. Patient denies any of this. Per patient she did drink alcohol today. Per patient she feels very tired. She is arousable. She asked for food. She denies any homicidal ideation. Other medical issues at this time. She is a Randall act. She denies any injuries or any other disease. She does smell of alcohol. History is somewhat limited because of the patient's intoxication but she is able to answer most questions appropriately. PFSH Past Medical History Hx Anticoagulant Therapy: No Anemia: Yes Arthritis: Yes Asthma: Yes Autoimmune Disease: No Bipolar Disorder: Yes Anxiety: Yes Depression: Yes Heart Rhythm Problems: No Cancer: No Cardiovascular Problems: Yes (htn) High Cholesterol: No Chest Pain: Yes Congestive Heart Failure: No Cerebrovascular Accident: No Diabetes: Yes Diminished Hearing: No Endocrine: Yes Gastrointestinal Disorders: Yes GERD: Yes Genitourinary: No Headaches: No Hiatal Hernia: No Hypertension: Yes Immune Disorder: No Implanted Vascular Access Dvce: No Insomnia: Yes Musculoskeletal: No Neurologic: Yes Psychiatric: Yes Reproductive: Yes Respiratory: No Integumentary: No Immunizations Current: Yes Migraines: No Myocardial Infarction: Yes Pneumonia: Yes Schizophrenia: Yes Seizures: Yes (FROM ETOH WITHDRAWAL) Thyroid Disease: No Ulcer: Yes (PER HX) ?: Not Menopausal: Yes : 1 Para: 1 Miscarriage: 0 : 0 Ovarian Cysts: Yes (RIGHT OVARIAN CYST REMOVAL) Tubal Ligation: Yes Past Surgical History Abdominal Surgery: No AICD: No Arteriovenous Shunt: No Cardiac Surgery: No Endocrine Surgery: No Eye Surgery: No Genitourinary Surgery: No Gynecologic Surgery: Yes Insulin Pump: No Joint Replacement: No Neurologic Surgery: No Oral Surgery: No Pacemaker: No Thoracic Surgery: No Tonsillectomy: Yes Other Surgery: Yes Social History Alcohol Use: Yes (3 or 4 times a week 3-4 cans of beer) Tobacco Use: Yes (1 PPD denies) Substance Use: Yes Allergies-Medications (Allergen,Severity, Reaction): Coded Allergies: benzocaine (Unverified Allergy, Severe, Anaphylaxis, 06/02/17) bupivacaine (Unverified Allergy, Severe, Anaphylaxis, 06/02/17) ethyl chloride (Unverified Allergy, Severe, Anaphylaxis, 06/02/17) lidocaine (Unverified Allergy, Severe, Anaphylaxis, 06/02/17) procaine (Unverified Allergy, Severe, Anaphylaxis, 06/02/17) Per pt. ropivacaine (Unverified Allergy, Severe, Anaphylaxis, 06/02/17) *MDRO Multi-Drug Resistant Organism (Verified Adverse Reaction, Unknown, ) MRSA (buttock) 05/08/17 Reported Meds & Prescriptions Reported Meds & Active Scripts Active No Active Prescriptions or Reported Medications Review of Systems ROS Limitations: Intoxication Except as stated in HPI: all other systems reviewed are Neg Physical Exam Exam Limitations: Intoxication Narrative GENERAL: SKIN: Warm and dry. HEAD: Atraumatic. Normocephalic. EYES: Pupils equal and round. No scleral icterus. No injection or drainage. ENT: No nasal bleeding or discharge. Mucous membranes pink and moist. Tongue is midline. No uvula deviation. NECK: Trachea midline. No JVD. CARDIOVASCULAR: Regular rate and rhythm. No murmurs, S3, S4. RESPIRATORY: No accessory muscle use. Clear to auscultation. Breath sounds equal bilaterally. GASTROINTESTINAL: Abdomen soft, non-tender, nondistended. Hepatic and splenic margins not palpable. MUSCULOSKELETAL: Extremities without clubbing, cyanosis, or edema. No obvious deformities. Full range of motion of the upper and lower extremities bilaterally. 2+ pulses bilaterally. NEUROLOGICAL: Awake and alert. No obvious cranial nerve deficits. Motor grossly within normal limits. Five out of 5 muscle strength in the arms and legs. Normal speech. PSYCHIATRIC: Intoxicated mood and affect; insight and judgment normal. Data Data Last Documented VS Vital Signs Date Time Temp Pulse Resp B/P (MAP) Pulse Ox O2 Delivery O2 Flow Rate FiO2 06/05/17 19:30 100 14 130/90 (103) 95 Orders Orders Complete Blood Count With Diff (06/05/17 22:43) Comprehensive Metabolic Panel (06/05/17 22:43) Drug Screen, Random Urine (06/05/17 22:43) Alcohol (Ethanol) (06/05/17 22:43) Salicylates (Aspirin) (06/05/17 22:43) Tylenol (Acetaminophen) (06/05/17 22:43) MDM Medical Decision Making Medical Screen Exam Complete: Yes Emergency Medical Condition: Yes Medical Record Reviewed: Yes Differential Diagnosis Alcohol intoxication versus depression versus alcohol abuse Narrative Course 66-year-old female that presents to the ED for evaluation of alcohol. Patient was properly examined and was found to have signs and symptoms consistent what appears to be acute alcohol intoxication. No sign of acute medical distress. Patient to me denies any suicidal or homicidal ideation. Patient has no medical complaints and asked for food. At this time I believe that the patient is medically clear. Patient will be allowed to sleep of her intoxication until medically sober. This was discussed with the ED nurse who is agreement with plan. Patient agrees with this plan. Diagnosis Primary Impression: Alcohol abuse Patient Instructions: General Instructions Med/Other Pt SpecificInfo: No Change to Meds Scripts No Active Prescriptions or Reported Meds Disposition: 01 DISCHARGE HOME Condition: Stable Morales Hamlin Jun 05, 2017 22:51
== END 2017-06-06 06:12 | disposition home or self-care (01) ==
LOC: NEDAMB 18:34 → NEPD 06-06 06:12
DX: F10.10 Alcohol abuse, uncomplicated (principal); D64.9 Anemia, unspecified; F31.9 Bipolar disorder, unspecified; F41.9 Anxiety disorder, unspecified; F20.9 Schizophrenia, unspecified; I10 Essential (primary) hypertension; E11.9 Type 2 diabetes mellitus without complications; K21.9 Gastro-esophageal reflux disease without esophagitis; I25.2 Old myocardial infarction
CPT/HCPCS: 99283

== ENCOUNTER 2017-06-07 14:16 | Emergency (ER) | payer MEDICARE ==
[~2017-06-07] VITALS: Ht 152.4 cm; Wt 45.5 kg
[2017-06-07 14:21] VITALS: BP 115/63; PULSE 81; RESP 17; TEMP 98.2; O2SAT 95
[2017-06-07 14:54] LABS: BICARBONATE 21.5 MEQ/L (21.0-32.0); POTASSIUM 3.7 MEQ/L (3.5-5.1)
--- NOTE | 2017-06-07 14:54 | PD ---
HPI Chief Complaint: Alcohol/Drug Intoxication Time Seen by Provider: 14:22 Travel History International Travel<30 days: No Contact w/Intl Traveler<30days: No Traveled to known affect area: No History of Present Illness HPI The patient is a 66-year-old female who presents to the emergency department via EMS for alcohol intoxication. The patient does admit to drinking alcohol, was unable to quantify the amount of alcohol she drank. The patient states she lost her keys, is unable to get back to [place] where [place]. The patient denies any current physical complaints including headache, chest, shortness breath, nausea, vomiting, or abdominal pain. Patient does have a history of chronic alcohol abuse. She denies any physical complaints. Symptoms are mild to moderate, exacerbated by alcohol use, and there are no current alleviating factors. PFSH Past Medical History Hx Anticoagulant Therapy: No Anemia: Yes Arthritis: Yes Asthma: Yes Autoimmune Disease: No Bipolar Disorder: Yes Anxiety: Yes Depression: Yes Heart Rhythm Problems: No Cancer: No Cardiovascular Problems: Yes (htn) High Cholesterol: No Chest Pain: Yes Congestive Heart Failure: No Cerebrovascular Accident: No Diabetes: Yes Patient Takes Glucophage: No Diminished Hearing: No Endocrine: Yes Gastrointestinal Disorders: Yes GERD: Yes Genitourinary: No Headaches: No Hiatal Hernia: No Hypertension: Yes Immune Disorder: No Implanted Vascular Access Dvce: No Insomnia: Yes Musculoskeletal: No Neurologic: Yes Psychiatric: Yes Reproductive: Yes Respiratory: No Integumentary: No Immunizations Current: Yes Migraines: No Myocardial Infarction: Yes Pneumonia: Yes Schizophrenia: Yes Seizures: Yes (FROM ETOH WITHDRAWAL) Thyroid Disease: No Ulcer: Yes (PER HX) Influenza Vaccination: Yes Menopausal: Yes : 1 Para: 1 Miscarriage: 0 : 0 Ovarian Cysts: Yes (RIGHT OVARIAN CYST REMOVAL) Tubal Ligation: Yes Past Surgical History Abdominal Surgery: No AICD: No Arteriovenous Shunt: No Cardiac Surgery: No Endocrine Surgery: No Eye Surgery: No Genitourinary Surgery: No Gynecologic Surgery: Yes Insulin Pump: No Joint Replacement: No Neurologic Surgery: No Oral Surgery: No Pacemaker: No Thoracic Surgery: No Tonsillectomy: Yes Other Surgery: Yes Social History Alcohol Use: Yes (3 or 4 times a week 3-4 cans of beer) Tobacco Use: Yes (1 PPD denies) Substance Use: No (PT DENIES) Allergies-Medications (Allergen,Severity, Reaction): Coded Allergies: benzocaine (Verified Allergy, Severe, Anaphylaxis, 06/07/17) bupivacaine (Verified Allergy, Severe, Anaphylaxis, 06/07/17) ethyl chloride (Verified Allergy, Severe, Anaphylaxis, 06/07/17) lidocaine (Verified Allergy, Severe, Anaphylaxis, 06/07/17) procaine (Verified Allergy, Severe, Anaphylaxis, 06/07/17) Per pt. ropivacaine (Verified Allergy, Severe, Anaphylaxis, 06/07/17) *MDRO Multi-Drug Resistant Organism (Verified Adverse Reaction, Unknown, ) MRSA (buttock) 05/08/17 Reported Meds & Prescriptions Reported Meds & Active Scripts Active No Active Prescriptions or Reported Medications Review of Systems Except as stated in HPI: all other systems reviewed are Neg General / Constitutional: No: Fever HENT: No: Lightheadedness Cardiovascular: No: Chest Pain or Discomfort Respiratory: No: Shortness of Breath Gastrointestinal: No: Nausea, Vomiting, Abdominal Pain Psychiatric: Positive: Substance Abuse (alcohol abuse) Physical Exam Narrative GENERAL: Awake, alert, nontoxic-appearing 66-year-old female who appears her stated age and is in no acute respiratory distress. SKIN: Focused skin assessment warm/dry. HEAD: Atraumatic. Normocephalic. EYES: Pupils equal and round. No scleral icterus. No injection or drainage. ENT: No nasal bleeding or discharge. Mucous membranes pink and moist. NECK: Trachea midline. No JVD. CARDIOVASCULAR: Regular rate and rhythm. No murmur appreciated. RESPIRATORY: No accessory muscle use. Clear to auscultation. Breath sounds equal bilaterally. GASTROINTESTINAL: Abdomen soft, non-tender, nondistended. MUSCULOSKELETAL: No obvious deformities. No clubbing. No cyanosis. No edema. NEUROLOGICAL: Awake and alert. No obvious cranial nerve deficits. Motor grossly within normal limits. Normal speech. Patient is oriented to person, place, month, year, and service order taker. PSYCHIATRIC: Appropriate mood and affect; insight and judgment normal. Data Data Last Documented VS Vital Signs Date Time Temp Pulse Resp B/P (MAP) Pulse Ox O2 Delivery O2 Flow Rate FiO2 06/07/17 14:23 84 17 06/07/17 14:23 98 Room Air 06/07/17 14:21 98.2 115/63 (80) Orders Orders Basic Metabolic Panel (Bmp) (06/07/17 14:22) Alcohol (Ethanol) (06/07/17 14:22) Labs Laboratory Tests Test 06/07/17 14:20 Blood Urea Nitrogen 10 MG/DL Creatinine 0.61 MG/DL Random Glucose 60 MG/DL Calcium Level 8.3 MG/DL Sodium Level 132 MEQ/L Potassium Level 3.7 MEQ/L Chloride Level 96 MEQ/L Carbon Dioxide Level 21.5 MEQ/L Anion Gap 15 MEQ/L Estimat Glomerular Filtration Rate 98 ML/MIN Ethyl Alcohol Level 327 MG/DL MDM Medical Decision Making Medical Screen Exam Complete: Yes Emergency Medical Condition: Yes Medical Record Reviewed: Yes Interpretation(s) Laboratory Tests Test 06/07/17 14:20 Blood Urea Nitrogen 10 MG/DL Creatinine 0.61 MG/DL Random Glucose 60 MG/DL Calcium Level 8.3 MG/DL Sodium Level 132 MEQ/L Potassium Level 3.7 MEQ/L Chloride Level 96 MEQ/L Carbon Dioxide Level 21.5 MEQ/L Anion Gap 15 MEQ/L Estimat Glomerular Filtration Rate 98 ML/MIN Ethyl Alcohol Level 327 MG/DL Differential Diagnosis Differential diagnosis includes alcohol intoxication, alcohol dependence, alcohol abuse, hyponatremia, dehydration. Narrative Course Labs were drawn and sent. The patient's alcohol level is 327. Sodium is minimally low at 132, otherwise unremarkable. The patient will be allowed to sleep it off and will be discharged when she is able to ambulate and has a safe disposition home. Diagnosis Primary Impression: Alcohol dependence with acute alcoholic intoxication Qualified Codes: F10.220 - Alcohol dependence with intoxication, uncomplicated Patient Instructions: General Instructions Additional Instructions: Decrease alcohol intake. Follow-up with a primary physician. Scripts No Active Prescriptions or Reported Meds Disposition: 01 DISCHARGE HOME Condition: Stable Tao Hawkins MD Jun 07, 2017 14:54
[2017-06-07 16:18] VITALS: BP 111/61; PULSE 91; RESP 17
[2017-06-07 18:09] VITALS: BP 123/65; PULSE 82; RESP 17
[2017-06-07 20:44] VITALS: BP 151/69; PULSE 87; RESP 18; O2SAT 96
[2017-06-08 04:30] VITALS: BP 144/64; PULSE 78; RESP 16; O2SAT 95
== END 2017-06-08 05:13 | disposition home or self-care (01) ==
LOC: NEPE 14:16 → NEDAMB 06-08 05:13
DX: F10.229 Alcohol dependence with intoxication, unspecified (principal); D64.9 Anemia, unspecified; M13.80 Other specified arthritis, unspecified site; J45.909 Unspecified asthma, uncomplicated; F31.9 Bipolar disorder, unspecified; F41.9 Anxiety disorder, unspecified; I10 Essential (primary) hypertension; E11.9 Type 2 diabetes mellitus without complications; K21.9 Gastro-esophageal reflux disease without esophagitis
CPT/HCPCS: 80048; 80307; 99283

== ENCOUNTER 2017-06-08 19:19 | Emergency (ER) | payer MEDICARE ==
[2017-06-08 19:22] VITALS: BP 153/85; PULSE 70; RESP 16; TEMP 98.4; O2SAT 98
== END 2017-06-08 20:00 | disposition left against medical advice (07) ==
LOC: NED 19:19
DX: F10.10 Alcohol abuse, uncomplicated (principal)
CPT/HCPCS: 99281

== ENCOUNTER 2017-09-07 16:25 | Inpatient (IN) | payer MEDICARE ==
[~2017-09-07] VITALS: Ht 152.4 cm; Wt 51.0 kg
[2017-09-07 16:38] VITALS: BP 111/58; PULSE 78; RESP 16; TEMP 98.1; O2SAT 97
[2017-09-07 18:42] VITALS: BP 108/57; PULSE 80; RESP 16; O2SAT 98
[2017-09-07 20:01] VITALS: RESP 16; O2SAT 98
[2017-09-07 20:17] LABS: BASOPHIL % 0.3 % (0.0-2.0); EOSINOPHIL # 0.2 TH/MM3 (0-0.4); EOSINOPHIL % 4.3 % (0.0-4.0); HEMATOCRIT 21.4 % (35.0-46.0); HEMO FLAGS DIFF FINAL; LYMPH % 29.8 % (9.0-44.0); LYMPHOCYTE # 1.2 TH/MM3 (1.0-4.8); MEAN CELL VOLUME 103.7 FL (80.0-100.0); MEAN CORPUSCULAR HEMOGLOBIN 34.4 PG (27.0-34.0); MEAN CORPUSCULAR HGB CONC 33.2 % (32.0-36.0); MONO % 16.3 % (0.0-8.0); NEUT % 49.3 % (16.0-70.0); PLATELET COUNT 104 TH/MM3 (150-450); RED BLOOD COUNT 2.06 MIL/MM3 (4.00-5.30); RED CELL DISTRIBUTION WIDTH 16.4 % (11.6-17.2)
[2017-09-07 20:44] LABS: BICARBONATE 24.4 MEQ/L (21.0-32.0)
[2017-09-07 20:56] LABS: POTASSIUM 2.6 MEQ/L (3.5-5.1)
[2017-09-07] MEDS ORDERED: SODIUM CHLOR 0.9% 1000 ML INJ 1,000 ML IV ONE (22:00)
--- NOTE | 2017-09-07 22:16 | PD ---
HPI Chief Complaint: Seizure Time Seen by Provider: 21:54 Travel History International Travel<30 days: No Contact w/Intl Traveler<30days: No Traveled to known affect area: No History of Present Illness HPI Patient is a 67 year old female presenting to the emergency department for evaluation of weakness, possible seizure. Patient [place] and a bystander told EMS that she appeared to have a seizure. There was no incontinence, patient did not fall to the ground. Patient states that she hasn't felt right today, she couldn't specify what that meant as far as how she was feeling. She reports nausea, vomiting, diarrhea that started yesterday. She does report epigastric abdominal pain, she states is gnawing in nature and gives a 5 out of 10 on the pain scale. She denies any fever, chills, chest pain or shortness of breath. She denies using any alcohol since May of this year. She reports occasional tobacco use, denies any illicit drug use. PFSH Past Medical History Hx Anticoagulant Therapy: No Anemia: Yes Arthritis: Yes Asthma: Yes Autoimmune Disease: No Bipolar Disorder: Yes Anxiety: Yes Depression: Yes Heart Rhythm Problems: No Cancer: No High Cholesterol: No Chest Pain: Yes Congestive Heart Failure: No Cerebrovascular Accident: No Diabetes: Yes Diminished Hearing: No Gastrointestinal Disorders: Yes GERD: Yes Genitourinary: No Headaches: No Hiatal Hernia: No Hypertension: Yes Immune Disorder: No Implanted Vascular Access Dvce: No Insomnia: Yes Musculoskeletal: No Neurologic: Yes Psychiatric: Yes Reproductive: Yes Respiratory: No Integumentary: No Immunizations Current: Yes Migraines: No Myocardial Infarction: Yes Pneumonia: Yes Schizophrenia: Yes Seizures: Yes (FROM ETOH WITHDRAWAL) Thyroid Disease: No Ulcer: Yes (PER HX) Menopausal: Yes : 1 Para: 1 Miscarriage: 0 : 0 Ovarian Cysts: Yes (RIGHT OVARIAN CYST REMOVAL) Tubal Ligation: Yes Past Surgical History Abdominal Surgery: No AICD: No Arteriovenous Shunt: No Cardiac Surgery: No Endocrine Surgery: No Eye Surgery: No Genitourinary Surgery: No Gynecologic Surgery: Yes Insulin Pump: No Joint Replacement: No Neurologic Surgery: No Oral Surgery: No Pacemaker: No Thoracic Surgery: No Tonsillectomy: Yes Other Surgery: Yes Social History Alcohol Use: Yes (3 or 4 times a week 3-4 cans of beer) Tobacco Use: Yes (1 PPD denies) Substance Use: No (PT DENIES) Allergies-Medications (Allergen,Severity, Reaction): Coded Allergies: benzocaine (Verified Allergy, Severe, Anaphylaxis, 09/07/17) bupivacaine (Verified Allergy, Severe, Anaphylaxis, 09/07/17) ethyl chloride (Verified Allergy, Severe, Anaphylaxis, 09/07/17) lidocaine (Verified Allergy, Severe, Anaphylaxis, 09/07/17) procaine (Verified Allergy, Severe, Anaphylaxis, 09/07/17) Per pt. ropivacaine (Verified Allergy, Severe, Anaphylaxis, 09/07/17) *MDRO Multi-Drug Resistant Organism (Verified Adverse Reaction, Unknown, 09/07/17) MRSA (buttock) 05/08/17 Reported Meds & Prescriptions Reported Meds & Active Scripts Active Active Prescriptions or Reported Medications Unobtainable Review of Systems Except as stated in HPI: all other systems reviewed are Neg HENT: Positive: Lightheadedness Cardiovascular: No: Chest Pain or Discomfort Respiratory: No: Shortness of Breath Gastrointestinal: Positive: Nausea, Vomiting, Diarrhea, Abdominal Pain ( epigastric) Genitourinary: No: Dysuria Musculoskeletal: No: Myalgias Neurologic: Positive: Weakness, Syncope (possible), No: Focal Abnormalities, Change in Mentation Physical Exam Narrative GENERAL: Thin, well-developed, alert female. Resting comfortably in no acute distress. SKIN: Warm and dry. HEAD: Atraumatic. Normocephalic. EYES: Pupils equal and round. No scleral icterus. No injection or drainage. ENT: No nasal bleeding or discharge. Mucous membranes pink and moist. NECK: Trachea midline. No JVD. CARDIOVASCULAR: Bradycardic RESPIRATORY: No accessory muscle use. Scattered expiratory wheezes. GASTROINTESTINAL: Abdomen soft, mildly tender to palpation epigastric region, nondistended. Hepatic and splenic margins not palpable. Positive bowel sounds, no rebound, no guarding. RECTAL EXAM: No masses or tenderness, stool is brown. MUSCULOSKELETAL: Extremities without clubbing, cyanosis, or edema. No obvious deformities. NEUROLOGICAL: Awake and alert. No obvious cranial nerve deficits. Motor grossly within normal limits. Five out of 5 muscle strength in the arms and legs. Normal speech. PSYCHIATRIC: Appropriate mood and affect; insight and judgment normal. Data Data Last Documented VS Vital Signs Date Time Temp Pulse Resp B/P (MAP) Pulse Ox O2 Delivery O2 Flow Rate FiO2 09/07/17 20:01 16 98 Room Air 09/07/17 18:42 80 09/07/17 16:38 98.1 Orders Orders Oximetry (09/07/17 19:18) Iv Access Insert/Monitor (09/07/17 19:18) Ecg Monitoring (09/07/17 19:18) Oxygen Administration (09/07/17 19:18) Basic Metabolic Panel (Bmp) (09/07/17 19:18) Complete Blood Count With Diff (09/07/17 19:18) Hepatic Functional Panel (09/07/17 21:55) Act Partial Throm Time (Ptt) (09/07/17 21:55) Prothrombin Time / Inr (Pt) (09/07/17 21:55) Magnesium (Mg) (09/07/17 21:55) Potassium Chlor 20 Meq Premix (Kcl 20 Me (09/07/17 22:00) Electrocardiogram (09/07/17 ) Alcohol (Ethanol) (09/07/17 21:55) Sodium Chlor 0.9% 1000 Ml Inj (Ns 1000 M (09/07/17 22:00) Orthostatic Vital Signs (09/07/17 21:55) Ckmb (Isoenzyme) Profile (09/07/17 21:55) Troponin I (09/07/17 21:55) Type And Screen (09/07/17 21:57) Chest, Single Ap (09/07/17 ) Labs Laboratory Tests Test 09/07/17 19:27 09/07/17 22:40 White Blood Count 4.0 TH/MM3 Red Blood Count 2.06 MIL/MM3 Hemoglobin 7.1 GM/DL Hematocrit 21.4 % Mean Corpuscular Volume 103.7 FL Mean Corpuscular Hemoglobin 34.4 PG Mean Corpuscular Hemoglobin Concent 33.2 % Red Cell Distribution Width 16.4 % Platelet Count 104 TH/MM3 Mean Platelet Volume 7.4 FL Neutrophils (%) (Auto) 49.3 % Lymphocytes (%) (Auto) 29.8 % Monocytes (%) (Auto) 16.3 % Eosinophils (%) (Auto) 4.3 % Basophils (%) (Auto) 0.3 % Neutrophils # (Auto) 2.0 TH/MM3 Lymphocytes # (Auto) 1.2 TH/MM3 Monocytes # (Auto) 0.7 TH/MM3 Eosinophils # (Auto) 0.2 TH/MM3 Basophils # (Auto) 0.0 TH/MM3 CBC Comment DIFF FINAL Differential Comment Blood Urea Nitrogen 14 MG/DL Creatinine 0.75 MG/DL Random Glucose 91 MG/DL Calcium Level 8.4 MG/DL Sodium Level 134 MEQ/L Potassium Level 2.6 MEQ/L Chloride Level 98 MEQ/L Carbon Dioxide Level 24.4 MEQ/L Anion Gap 12 MEQ/L Estimat Glomerular Filtration Rate 77 ML/MIN MDM Medical Decision Making Medical Screen Exam Complete: Yes Emergency Medical Condition: Yes Medical Record Reviewed: Yes Interpretation(s) Vital Signs Date Time Temp Pulse Resp B/P (MAP) Pulse Ox O2 Delivery O2 Flow Rate FiO2 09/07/17 20:01 16 98 Room Air 09/07/17 20:01 98 Room Air 09/07/17 18:42 80 16 108/57 (74) 98 Room Air 09/07/17 16:38 98.1 78 16 111/58 (75) 97 Differential Diagnosis Metabolic abnormality versus GI bleed versus syncope versus seizure versus other Narrative Course Patient is a 67-year-old female presenting to the emergency department for evaluation of a possible seizure. Patient's vital signs are stable. She was protocol while waiting for bed in the ambulance call. Initial labs with a hemoglobin of 7.1/21.4, red blood cells 2.06 Chemistry with a potassium of 2.6 We'll check LFTs, coags, magnesium, alcohol level, cardiac enzymes. A type and screen is also been ordered as well as an EKG orthostatic vital signs and IV potassium replacement. Chest x-ray was ordered due to wheezing. Hemoccult was negative. Workup is pending, care patient will be transferred to Dr. Willams at the end of my shift. She will determine patient's disposition. HemaPrompt Point of Care Fecal Specimen Occult Blood: Negative Scripts Unable to Obtain Active Prescriptions or Reported Meds Lissette Aldana Sep 07, 2017 22:16
[2017-09-07 23:01] VITALS: BP_SYST 110; BP_SYST 116; BP_SYST 121; BP_DIAS 61; BP_DIAS 64; BP_DIAS 75; RESP 18
[2017-09-07 23:06] VITALS: BP 110/61; PULSE 81; RESP 18; O2SAT 99
[2017-09-07 23:09] LABS: APTT (PATIENT) 24.5 SEC (24.3-30.1); PROTHROMBIN TIME - PATIENT 10.7 SEC (9.8-11.6)
[2017-09-07] MEDS: POTASSIUM CHLOR 20 MEQ PREMIX 100 ML IV SCH (23:11)
--- NOTE | 2017-09-07 23:15 | RADRPT ---
EXAM DATE/TIME: 09/07/2017 22:52 [facility] COMPARISON: CHEST SINGLE AP, March 14, 2017, 20:01. INDICATIONS : Chest pain for 3 days. MEDICAL HISTORY : None. SURGICAL HISTORY : None. ENCOUNTER: Initial ACUITY: 3 days PAIN SCORE: 0/10 LOCATION: Left upper chest FINDINGS: A single view of the chest demonstrates the lungs to be symmetrically aerated without evidence of mas s, infiltrate or effusion. Density over the cardiac silhouette is characteristic of a hiatal hernia. Heart size is normal. Osseous structures are intact. CONCLUSION: 1. Hiatal hernia. 2. Lungs are clear Edvin Alcala MD on September 07, 2017 at 23:13 Board Certified Radiologist. This report was verified electronically.
[2017-09-07 23:20] LABS: ALT (GPT) 62 U/L (10-53); AST (GOT) 109 U/L (15-37); MAGNESIUM 1.6 MG/DL (1.5-2.5)
[2017-09-07 23:21] LABS: ALCOHOL 48 MG/DL (0-5)
[2017-09-07 23:23] LABS: ALKALINE PHOSPHATASE 89 U/L (45-117); CREATINE KINASE 123 U/L (26-192); INDIRECT BILIRUBIN 0.3 MG/DL (0.0-0.8); TOTAL BILIRUBIN ADULT 0.4 MG/DL (0.2-1.0)
--- NOTE | 2017-09-07 23:27 | PD ---
Physical Exam Narrative General: The patient is [-]. Head and Neck exam: Head is normocephalic atraumatic. Eyes: EOMI, pupils are equal round and reactive to light. Nose: Midline septum with pink mucous membranes Mouth: Dentition unremarkable. Moist mucus membranes. Posterior oropharynx is not erythematous. No tonsillar hypertrophy. Uvula midline. Airway patent. Neck: No palpable lymphadenopathy. No nuchal rigidity. No thyromegaly. Cardiovascular: Regular rate and rhythm without murmurs, gallops, or rubs. No pulse deficit to the extremities. Lungs: Clear to auscultation bilaterally. No wheezes, rhonchi, or rales. Abdomen: Soft, without tenderness to palpation in all 4 quadrants of the abdomen. No guarding, rebound, or rigidity. Negative Almo sign. Extremities: No clubbing, cyanosis, or edema. 2+ pulses in all 4 extremities. Back: No spinous process tenderness to palpation. No costovertebral angle tenderness to palpation. Neurologic Exam: Cranial nerves 2-12 were intact on exam. Strength is 5/5 in all 4 extremities. No sensory deficits noted. No dysdiadochokinesis. Good finger to nose and Heel to tenorio bilaterally. Skin Exam: No rash noted. Intact skin that is warm and dry. Data Data Last Documented VS Vital Signs Date Time Temp Pulse Resp B/P (MAP) Pulse Ox O2 Delivery O2 Flow Rate FiO2 09/07/17 23:06 81 18 110/61 (77) 99 Room Air 09/07/17 16:38 98.1 Orders Orders Oximetry (09/07/17 19:18) Iv Access Insert/Monitor (09/07/17 19:18) Ecg Monitoring (09/07/17 19:18) Oxygen Administration (09/07/17 19:18) Basic Metabolic Panel (Bmp) (09/07/17 19:18) Complete Blood Count With Diff (09/07/17 19:18) Hepatic Functional Panel (09/07/17 21:55) Act Partial Throm Time (Ptt) (09/07/17 21:55) Prothrombin Time / Inr (Pt) (09/07/17 21:55) Magnesium (Mg) (09/07/17 21:55) Potassium Chlor 20 Meq Premix (Kcl 20 Me (09/07/17 22:00) Electrocardiogram (09/07/17 ) Alcohol (Ethanol) (09/07/17 21:55) Sodium Chlor 0.9% 1000 Ml Inj (Ns 1000 M (09/07/17 22:00) Orthostatic Vital Signs (09/07/17 21:55) Ckmb (Isoenzyme) Profile (09/07/17 21:55) Troponin I (09/07/17 21:55) Type And Screen (09/07/17 21:57) Chest, Single Ap (09/07/17 ) CKMB (09/07/17 22:40) CKMB% (09/07/17 22:40) Red Blood Cells (Rbc) (09/07/17 23:52) Blood Product Administration (09/07/17 23:52) Sodium Chlor 0.9% 250 Ml Inj (Ns 250 Ml (09/08/17 00:00) Admit Order (Ed Use Only) (09/08/17 00:06) Labs Laboratory Tests Test 09/07/17 19:27 09/07/17 22:40 White Blood Count 4.0 TH/MM3 Red Blood Count 2.06 MIL/MM3 Hemoglobin 7.1 GM/DL Hematocrit 21.4 % Mean Corpuscular Volume 103.7 FL Mean Corpuscular Hemoglobin 34.4 PG Mean Corpuscular Hemoglobin Concent 33.2 % Red Cell Distribution Width 16.4 % Platelet Count 104 TH/MM3 Mean Platelet Volume 7.4 FL Neutrophils (%) (Auto) 49.3 % Lymphocytes (%) (Auto) 29.8 % Monocytes (%) (Auto) 16.3 % Eosinophils (%) (Auto) 4.3 % Basophils (%) (Auto) 0.3 % Neutrophils # (Auto) 2.0 TH/MM3 Lymphocytes # (Auto) 1.2 TH/MM3 Monocytes # (Auto) 0.7 TH/MM3 Eosinophils # (Auto) 0.2 TH/MM3 Basophils # (Auto) 0.0 TH/MM3 CBC Comment DIFF FINAL Differential Comment Blood Urea Nitrogen 14 MG/DL Creatinine 0.75 MG/DL Random Glucose 91 MG/DL Calcium Level 8.4 MG/DL Sodium Level 134 MEQ/L Potassium Level 2.6 MEQ/L Chloride Level 98 MEQ/L Carbon Dioxide Level 24.4 MEQ/L Anion Gap 12 MEQ/L Estimat Glomerular Filtration Rate 77 ML/MIN Prothrombin Time 10.7 SEC Prothromb Time International Ratio 1.0 RATIO Activated Partial Thromboplast Time 24.5 SEC Magnesium Level 1.6 MG/DL Total Bilirubin 0.4 MG/DL Direct Bilirubin 0.1 MG/DL Indirect Bilirubin 0.3 MG/DL Aspartate Amino Transf (AST/SGOT) 109 U/L Alanine Aminotransferase (ALT/SGPT) 62 U/L Alkaline Phosphatase 89 U/L Total Creatine Kinase 123 U/L Creatine Kinase MB 3.7 NG/ML Troponin I LESS THAN 0.02 NG/ML Total Protein 6.7 GM/DL Albumin 2.8 GM/DL Ethyl Alcohol Level 48 MG/DL [facility] Medical Record Reviewed: Yes Supervised Visit with YING: Yes Narrative Course I, Dr. Willams, have reviewed the advance practice practitioner's documentation and am in agreement, met with the patient face to face, made the diagnosis, and the medical decision making was done by me. The patient was initially evaluated by Lissette. Please see their complete history and physical. *My assessment and Findings: The patient presents with a possible witnessed seizure versus syncopal event prior to arrival. The patient did not injure herself with this event. As she was sitting down when it occurred. During the course of the patients emergency department visit, the patients history, examination, and differential diagnosis were reviewed with the patient. The patient was placed on a supervisor gelatin plant with oximetry and frequent blood pressure monitoring. The patient had IV access obtained and blood work sent for analysis. The patient had an ECG done on arrival. The patient's ECG shows a sinus rhythm with a sinus arrhythmia, heart rate is 78, no acute ST segment elevation. Nonspecific T-wave abnormalities with T waves that are inverted in V2 The patient was initially provided normal saline IV fluids. The patient was noted to be hypokalemic and was given potassium supplementation by rider IV. The patients laboratory studies were reviewed and remarkable for a white count of 4, hemoglobin 7.1 which was determined to possibly be a cause of the patient' s weakness/syncope as this is acute compared to her prior hemoglobin at this facility of 11. Platelets 104, monocytes 16.3. Lissette reportedly did a rectal examination and this was Hemoccult negative. CMP is remarkable for a potassium of 2.6, sodium 134, GFR 77, AST 109, ALT 62, initial set of cardiac enzymes are within normal limits. PT 10.7, PTT 24.5, alcohol level XLVIII. According to the record the patient has a history of alcohol abuse and other possible cause of the patient's syncope versus seizure could be alcohol related withdrawal. Although based on the patient's initial examination she does not appear to be experiencing other withdrawal symptoms. Radiology studies were reviewed and remarkable for a chest x-ray that shows hiatal hernia, lungs are clear. The patients results were discussed with the patient, including the plan of care. I explained that further testing and/ or monitoring is indicated based on the patients history, examination, and/ or laboratory findings. Therefore, I recommended admission for additional evaluation. The patient expressed understanding and was agreeable with this plan. The patient was admitted to the hospital in guarded condition and sent to a bed under the care of the [facility] service. Physician Communication Physician Communication The patient's case including history, pertinent physical examination findings, and laboratory studies were discussed with Dr. Lechuga. It was agreed that the patient would be admitted to the [facility] service. Diagnosis Primary Impression: Hypokalemia Additional Impression: Symptomatic anemia Admitting Information Admitting Physician Requests: Admit Scripts Unable to Obtain Active Prescriptions or Reported Meds Wendy Willams MD Sep 07, 2017 23:27
[2017-09-07 23:36] LABS: CKMB 3.7 NG/ML (0.5-3.6)
[2017-09-08] VITALS (11 sets, daily range): BP systolic 115–178; BP diastolic 67–85; PULSE 61–80; RESP 17–18; TEMP 97.9–99.2; O2SAT 95–98
[2017-09-08] MEDS ORDERED: SODIUM CHLOR 0.9% 250 ML INJ 250 ML IV ONE
[2017-09-08] MEDS: POTASSIUM CHLOR 20 MEQ PREMIX 100 ML IV SCH (00:34)
[2017-09-08] MEDS ORDERED: LORazepam 1 MG TAB PO PRN (01:00)
[2017-09-08] MEDS ORDERED: FLUMAZENIL 0.5 MG/5 ML VIAL IV PUSH PRN (01:00)
[2017-09-08] MEDS ORDERED: LORazepam 2 MG TAB PO PRN (01:00)
[2017-09-08] MEDS ORDERED: LORazepam 2 MG/ML VIAL IV PUSH PRN ×4 (01:00)
[2017-09-08] MEDS ORDERED: SODIUM CHLORIDE 0.9% FLUSH 10 ML FLUSH IV FLUSH PRN (01:00)
--- NOTE | 2017-09-08 05:38 | HHI.HP ---
[facility] No Primary Care Physician Admission Diagnosis Symptomatic anemia, seizure, hypokalemia Diagnoses: Travel History International Travel<30 Days: No Contact w/Intl Traveler <30 Da: No Traveled to Known Affected Are: No History of Present Illness 67-year-old female with a past medical history significant for alcohol abuse, depression with a history of previous psychiatric hospitalization, hypertension and a remote history of seizure disorder brought to the emergency department by EMS for a possible seizure. The patient states that she was sitting outside in a shopping mall and a bystander reported that she had a seizure-like event. EMS was called. The patient has no memory of the event, denies bowel/bladder incontinence. She does report having a similar episode on Thursday where she awoke incontinent of urine. She reports approximately 20 years ago she was medicated with Depakote and another seizure medication that she cannot remember. She also reports feeling lightheaded for approximately 3-4 days. She reports increasing fatigue and was found to have an H&H of 7.1/21.4 (11.5/ 32.9 in May). Denies dark tarry stools or hematemesis. She was Hemoccult negative in the emergency department. Patient was also found to have a potassium of 2.6. Alcohol level 48. Review of Systems Denies fever or chills Denies blurry vision, otorrhea, rhinorrhea Denies sore throat and cough No chest pain, palpitations, shortness of breath No abdominal pain Denies constipation/diarrhea/nausea/vomiting Positive fatigue No rashes Past Family Social History Past Medical History Remote history of seizure disorder Hypertension Alcohol abuse Depression Past Surgical History BTL Tonsillectomy Reported Medications Reported Meds & Active Scripts Active Active Prescriptions or Reported Medications Unobtainable Allergies: Coded Allergies: benzocaine (Verified Allergy, Severe, Anaphylaxis, 09/07/17) bupivacaine (Verified Allergy, Severe, Anaphylaxis, 09/07/17) ethyl chloride (Verified Allergy, Severe, Anaphylaxis, 09/07/17) lidocaine (Verified Allergy, Severe, Anaphylaxis, 09/07/17) procaine (Verified Allergy, Severe, Anaphylaxis, 09/07/17) Per pt. ropivacaine (Verified Allergy, Severe, Anaphylaxis, 09/07/17) *MDRO Multi-Drug Resistant Organism (Verified Adverse Reaction, Unknown, 09/07/17) MRSA (buttock) 05/08/17 Family History Father with cardiac disease. Social History Patient reports her last alcohol use was May. When confronted about her alcohol level she reports that she had a few sips of beer with some friends but that is the only alcohol she has had since May. Smokes half a pack per day 20 years. Denies marijuana or illicit drugs. Physical Exam Vital Signs Vital Signs Date Time Temp Pulse Resp B/P (MAP) Pulse Ox O2 Delivery O2 Flow Rate FiO2 09/08/17 03:08 99.2 80 18 148/71 (96) 96 09/08/17 03:00 99.2 80 18 148/71 96 09/08/17 02:40 98.7 78 18 154/72 (99) 95 09/08/17 02:40 98.7 75 18 154/72 95 09/08/17 02:26 98.8 68 18 150/71 (97) 98 09/07/17 23:06 81 18 110/61 (77) 99 Room Air 09/07/17 23:01 81 18 121/75 (90) 92 18 116/64 (81) 99 18 110/61 (77) 09/07/17 20:01 16 98 Room Air 09/07/17 20:01 98 Room Air 09/07/17 18:42 80 16 108/57 (74) 98 Room Air 09/07/17 16:38 98.1 78 16 111/58 (75) 97 Physical Exam GENERAL: female lying in bed SKIN: No rashes, ecchymoses or lesions. Cool and dry. HEAD: Atraumatic. Normocephalic. No temporal or scalp tenderness. EYES: Pupils equal round and reactive. Extraocular motions intact. No scleral icterus. No injection or drainage. ENT: Nose without bleeding, purulent drainage or septal hematoma. Throat without erythema, tonsillar hypertrophy or exudate. Uvula midline. Airway patent. NECK: Trachea midline. No JVD or lymphadenopathy. Supple, nontender, no meningeal signs. CARDIOVASCULAR: Regular rate and rhythm without murmurs, gallops, or rubs. RESPIRATORY: Clear to auscultation. Breath sounds equal bilaterally. No wheezes , rales, or rhonchi. GASTROINTESTINAL: Abdomen soft, non-tender, nondistended. No hepato-splenomegaly , or palpable masses. No guarding. MUSCULOSKELETAL: Extremities without clubbing, cyanosis, or edema. No joint tenderness, effusion, or edema noted. No calf tenderness. Negative Homans sign bilaterally. NEUROLOGICAL: Awake and alert. Cranial nerves II through XII intact. Motor and sensory grossly within normal limits. Normal speech. Laboratory Laboratory Tests Test 09/07/17 19:27 09/07/17 22:40 White Blood Count 4.0 Red Blood Count 2.06 Hemoglobin 7.1 Hematocrit 21.4 Mean Corpuscular Volume 103.7 Mean Corpuscular Hemoglobin 34.4 Mean Corpuscular Hemoglobin Concent 33.2 Red Cell Distribution Width 16.4 Platelet Count 104 Mean Platelet Volume 7.4 Neutrophils (%) (Auto) 49.3 Lymphocytes (%) (Auto) 29.8 Monocytes (%) (Auto) 16.3 Eosinophils (%) (Auto) 4.3 Basophils (%) (Auto) 0.3 Neutrophils # (Auto) 2.0 Lymphocytes # (Auto) 1.2 Monocytes # (Auto) 0.7 Eosinophils # (Auto) 0.2 Basophils # (Auto) 0.0 CBC Comment DIFF FINAL Differential Comment Blood Urea Nitrogen 14 Creatinine 0.75 Random Glucose 91 Calcium Level 8.4 Sodium Level 134 Potassium Level 2.6 Chloride Level 98 Carbon Dioxide Level 24.4 Anion Gap 12 Estimat Glomerular Filtration Rate 77 Prothrombin Time 10.7 Prothromb Time International Ratio 1.0 Activated Partial Thromboplast Time 24.5 Magnesium Level 1.6 Total Bilirubin 0.4 Direct Bilirubin 0.1 Indirect Bilirubin 0.3 Aspartate Amino Transf (AST/SGOT) 109 Alanine Aminotransferase (ALT/SGPT) 62 Alkaline Phosphatase 89 Total Creatine Kinase 123 Creatine Kinase MB 3.7 Troponin I LESS THAN 0.02 Total Protein 6.7 Albumin 2.8 Ethyl Alcohol Level 48 Result Diagram: 09/07/17192609/07/171926 Caprini VTE Risk Assessment Caprini VTE Risk Assessment: Mod/High Risk (score >= 2) Caprini Risk Assessment Model Point Value = 1 Point Value = 2 Point Value = 3 Point Value = 5 Age 41-60 Minor surgery BMI > 25 kg/m2 Swollen legs Varicose veins or History of unexplained or recurrent spontaneous Oral contraceptives or hormone replacement Sepsis (< 1 month) Serious lung disease, including pneumonia (< 1 month) Abnormal pulmonary function Acute myocardial infarction Congestive heart failure (< 1 month) History of inflammatory bowel disease Medical patient at bed rest Age 61-74 Arthroscopic surgery Major open surgery (> 45 min) Laparoscopic surgery (> 45 min) Malignancy Confined to bed (> 72 hours) Immobilizing plaster cast Central venous access Age >= 75 History of VTE Family history of VTE Factor V Leiden Prothrombin [id number] Lupus anticoagulant Anticardiolipin antibodies Elevated serum homocysteine Heparin-induced thrombocytopenia Other congenital or acquired thrombophilia Stroke (< 1 month) Elective arthroplasty Hip, pelvis, or leg fracture Acute spinal cord injury (< 1 month) Prophylaxis Regimen Total Risk Factor Score Risk Level Prophylaxis Regimen 0-1 Low Early ambulation 2 Moderate Order ONE of the following: *Sequential Compression Device (SCD) *Heparin 5000 units SQ BID 3-4 Higher Order ONE of the following medications: *Heparin 5000 units SQ TID *Enoxaparin/Lovenox 40 mg SQ daily (WT < 150 kg, CrCl > 30 mL/min) *Enoxaparin/Lovenox 30 mg SQ daily (WT < 150 kg, CrCl > 10-29 mL/min) *Enoxaparin/Lovenox 30 mg SQ BID (WT < 150 kg, CrCl > 30 mL/min) AND/OR *Sequential Compression Device (SCD) 5 or more Highest Order ONE of the following medications: *Heparin 5000 units SQ TID (Preferred with Epidurals) *Enoxaparin/Lovenox 40 mg SQ daily (WT < 150 kg, CrCl > 30 mL/min) *Enoxaparin/Lovenox 30 mg SQ daily (WT < 150 kg, CrCl > 10-29 mL/min) *Enoxaparin/Lovenox 30 mg SQ BID (WT < 150 kg, CrCl > 30 mL/min) AND *Sequential Compression Device (SCD) Assessment and Plan Assessment and Plan 67-year-old female with past medical history significant for alcohol abuse, hypertension and remote history of seizure disorder presents with possible seizure and severe symptomatic anemia. 1. Symptomatic anemia H&H 7.1/21.4, was 11.5/32.9 in May of this year Hemoccult negative Patient reports experiencing fatigue and lightheadedness Transfuse 2 units PRBCs Follow CBC 2. Questionable seizure Remote history of seizure disorder with previous medications, patient has not been on any antiseizure medications and approximately 20 years May be related to alcohol withdrawal EEG pending Neurology consulted, appreciate recommendations 3. Hypokalemia Supplemented with IV and by mouth potassium Monitor BMP 4. Alcohol abuse [facility] protocol Folate/Thiamine/Multivitamins 5. Hypertension Patient not on any home antihypertensives Monitor and treat when necessary FEN Heart healthy diet Electrolytes: as above Holding pharmacologic anticoagulation for severe anemia Case discussed at length with ER physician Physician Certification 2 Midnight Certification Type: Admission for Inpatient Services Order for Inpatient Services The services are ordered in accordance with Medicare regulations or non- Medicare payer requirements, as applicable. In the case of services not specified as inpatient-only, they are appropriately provided as inpatient services in accordance with the 2-midnight benchmark. Estimated LOS (days): 2 2 days is the estimated time the patient will need to remain in the hospital, assuming treatment plan goals are met and no additional complications. Post-Hospital Plan: Not yet determined Berenice Lechuga MD Sep 08, 2017 05:38
[2017-09-08] MEDS ORDERED: POTASSIUM CHLORIDE 20 MEQ CONTROLLED RELEASE TAB PO ONE (06:00)
[2017-09-08] MEDS: SODIUM CHLORIDE 0.9% FLUSH 10 ML FLUSH IV FLUSH SCH ×2 (08:04→21:00)
[2017-09-08] MEDS: MULTIVITAMINS/MINERALS THERAPEUTIC TAB PO SCH (08:04)
[2017-09-08] MEDS: THIAMINE HCL 100 MG TAB PO SCH (08:04)
[2017-09-08] MEDS: FOLIC ACID 1 MG TAB PO SCH (08:04)
--- NOTE | 2017-09-08 11:22 | MB ---
cc: LIZETT MARTE M.D. DATE OF CONSULTATION: 09/08/2017 REASON FOR CONSULTATION A 67-year-old seen in neurological consultation in regards to presumed seizures. HISTORY OF PRESENT ILLNESS The history is very limited. The patient admits that she had seizures during childhood but she apparently has not been on seizure medication for 20 years. She moved here from [place] 20 years ago and has not been on anticonvulsants. She took Depakote in the past. She had grand mild seizures every now and then. She is a very poor historian and there is history of alcohol abuse. She tells me she stopped drinking in April or May of this year, although eventually she admitted drinking half a beer yesterday. She did have a significant alcohol level. There is history of hypertension and some depression and apparent psychiatric hospitalization. She thinks she may have had a seizure 2 days ago. Yesterday she was in a shopping mall and apparently woke up here in the hospital. She may have had incontinence. NEUROLOGICAL EXAMINATION The neurological exam showed the patient to be vague but awake, alert and grossly oriented. She had slight difficulty with the day of the month. She knows the place. She is mildly restless. Ocular movements are full as well as visual zee. No facial weakness. No obvious tongue injury. She has a good informatics physician liaison. Reflexes are diminished, trace responses throughout. Plantar response is flexor. LABORATORY CBC with white count 4.0, hemoglobin 7.1, platelets 104. Potassium 2.6, sodium 134, glucose 91, calcium 8.4. AST and ALT elevated to 109 and 62 respectively. Toxicology: Alcohol level 48. IMAGING In April of this year she had a CT brain here showing microvascular disease. She is on vitamins, thiamine and lorazepam. ASSESSMENT Presumed seizure recurrence. Noncompliance to medical care, presumed. Alcohol abuse. PLAN/RECOMMENDATIONS I am going to start her on Keppra and we will obtain an imaging study of the brain, either CT or MRI. Will check an EEG as well. I will follow the neurological course. Thank you for asking us to assist in her care. Lizett Marte MD OFC/BT /10:56 AM /11:10 AM
[2017-09-08] MEDS ORDERED: levETIRAcetam INJ 100 ML IV ONE (12:00)
--- NOTE | 2017-09-08 13:01 | HHI.PR ---
Subjective Remarks complains of hair/scalp itching for 2 days- now denies any headaches states history of alcohol use but sober for 2 years states had a little- just 1/2 a bottle of beer yesterday no fever or chills no neck pains Objective Vitals Vital Signs Date Time Temp Pulse Resp B/P (MAP) Pulse Ox O2 Delivery O2 Flow Rate FiO2 09/08/17 11:53 99.0 70 18 172/80 (110) 96 09/08/17 09:42 66 09/08/17 08:33 98.9 64 18 178/85 (116) 96 09/08/17 05:47 68 09/08/17 03:08 99.2 80 18 148/71 (96) 96 09/08/17 03:00 99.2 80 18 148/71 96 09/08/17 02:40 98.7 78 18 154/72 (99) 95 09/08/17 02:40 98.7 75 18 154/72 95 09/08/17 02:26 98.8 68 18 150/71 (97) 98 09/07/17 23:06 81 18 110/61 (77) 99 Room Air 09/07/17 23:01 81 18 121/75 (90) 92 18 116/64 (81) 99 18 110/61 (77) 09/07/17 20:01 16 98 Room Air 09/07/17 20:01 98 Room Air 09/07/17 18:42 80 16 108/57 (74) 98 Room Air 09/07/17 16:38 98.1 78 16 111/58 (75) 97 I/O 09/07/17 09/07/17 09/07/17 09/08/17 09/08/17 09/08/17 07:00 15:00 23:00 07:00 15:00 23:00 Intake Total 2655 ml 420 ml Balance 2655 ml 420 ml Intake Oral 625 ml IV Total 1100 ml Packed Cells 400 ml 400 ml Blood Product IV Normal Saline Flush 530 ml 20 ml # Voids 2 # Bowel Movements 0 Result Diagram: 09/07/17192609/07/171926 Imaging Last Impressions Chest X-Ray 09/07/17 0000 Signed Impressions: Service Date/Time: Thursday, September 07, 2017 22:52 - CONCLUSION: 1. Hiatal hernia. 2. Lungs are clear Edvin Alcala MD Objective Remarks head/hair + lice anicteric pupils equally reactive no nuchal rigidity lungs clear regular rhythm abdomen soft, notnender extremities no edema no tremors gait steady A/P Assessment and Plan 67-year-old female with past medical history significant for alcohol abuse, hypertension and remote history of seizure disorder presents with possible seizure and severe symptomatic anemia. Symptomatic anemia S/P 2 units RBC Patient reports experiencing fatigue and lightheadedness Follow CBC patient with history of ETOH abuse check b12, folate, iron studies continue PPI GI consult- re: EGD- gastritis. varices Questionable seizure - - neuro exam unremarkable states she had seziure history since 9 years of age - patient has not been on any antiseizure medications and approximately 20 years May be related to alcohol use/ withdrawal - on CIWAprotocol -start Librium 25 mg po tid EEG pending seen by Dr. [place] MRI ordered started on Keppra Hypokalemia Supplemented with IV and by mouth potassium Monitor BMP- recheck today Elevated LFTs likely with Alcohol liver disease GI consult. FF LFTs CIWA protocol Folate/Thiamine/Multivitamins start Librium 25 mg po tid- taper gradually Hypertension Patient not on any home antihypertensives Monitor and treat when necessary Clonidine prn Head Lice - treat with elimite now then repeat in 1 week FEN Heart healthy diet Electrolytes: as above TEDs/ PT/OT consult Oralia Granda MD Sep 08, 2017 13:01
[2017-09-08] MEDS ORDERED: cloNIDine HCL 0.1 MG TAB PO PRN (13:30)
[2017-09-08] MEDS: PANTOPRAZOLE SOD 40 MG DELAYED RELEASE TAB PO SCH (13:42)
[2017-09-08 14:27] LABS: ALT (GPT) 71 U/L (10-53); ANION GAP 7 MEQ/L (5-15); AST (GOT) 105 U/L (15-37); BICARBONATE 25.9 MEQ/L (21.0-32.0); BLOOD UREA NITROGEN 10 MG/DL (7-18); CHLORIDE 104 MEQ/L (98-107); GLOMERULAR FILTRATION RATE 79 ML/MIN (>89); MAGNESIUM 1.8 MG/DL (1.5-2.5); POTASSIUM 4.6 MEQ/L (3.5-5.1); SODIUM (NA) 137 MEQ/L (136-145)
[2017-09-08] MEDS ORDERED: PERMETHRIN 5% CREAM 60 GM TOPICAL ONE (14:30)
[2017-09-08 14:31] LABS: ALKALINE PHOSPHATASE 96 U/L (45-117); TOTAL BILIRUBIN ADULT 0.9 MG/DL (0.2-1.0)
[2017-09-08 14:52] LABS: FERRITIN 80 NG/ML (8-252); TRANSFERRIN IRON PROFILE 217 MG/DL (200-360)
--- NOTE | 2017-09-08 15:10 | EKG ---
Date Performed: 09/07/2017 Time Performed: 22:37:41 PTAGE: 67 years EKG: Sinus rhythm WITH SINUS ARRHYTHMIA NONSPECIFIC T-WAVE ABNORMALITY BORDERLINE ECG PREVIOUS TRACING : 05/21/2017 19.42 DOCTOR: Shannon Mccarthy Interpretating Date/Time 09/08/2017 15:09:41
--- NOTE | 2017-09-08 15:43 | PD.CONS ---
HPI History of Present Illness This is a 67 year old female who was brought to the emergency room for possible seizure. The patient is a poor historian and states that she was shopping yesterday and woke up in the hospital. She does have a remote history of seizures in the past, but has not been on any medications recently. She was evaluated by neurology and they have started her on Keppra and have ordered an EEG. She was noted to have anemia with an H&H of 7.1, hematocrit 21.4, MCV 103.7, iron 271, TIBC 304, iron saturation 89.2, ferritin 80. GI has been consulted for anemia and elevated LFTs. On admission, she was also noted to have elevated LFTs with a total bilirubin of 0.4, AST 109, ALT 62, alkaline phosphatase 89. Of note vitamin B12 439 and folate was greater than 20.0. The patient reports that she has a remote history of anemia as a child. She has never undergone any workup for her anemia. She reports that she did have a colonoscopy in the for employment at a [employer] facility, but has not had any recent workup. She complains of chronic back pain and states that she has difficulty walking at times because of her chronic back pain. She has occasional shortness of breath with exertion. She has had worsening generalized weakness over the past week and reports that she is been having nausea and vomiting for the past few days. Her emesis consisted bile but no blood. She reports that if she has an empty stomach, she will just dry heave. She also has associated abdominal pain that she describes as an intermittent dull ache in her epigastric area. She does not believe this is related to food intake. There is no radiation. She also reports diarrhea 1 week, with 2 loose brown stools per day. She denies any melena or hematochezia. She reports that she quit drinking in May but did drink 1/2 a beer yesterday. She denies the use of any NSAIDs. She reports that her maternal grandmother is from stomach cancer and she in her late 60s/early 70s. She also has a paternal aunt that is from stomach cancer. (Rita Garcia) PFSH Past Medical History Remote history of seizure disorder Hypertension Alcohol abuse Depression Anemia Chronic back pain Past Surgical History Bilateral tubal ligation Tonsillectomy (Rita Garcia) Coded Allergies: benzocaine (Verified Allergy, Severe, Anaphylaxis, 09/07/17) bupivacaine (Verified Allergy, Severe, Anaphylaxis, 09/07/17) ethyl chloride (Verified Allergy, Severe, Anaphylaxis, 09/07/17) lidocaine (Verified Allergy, Severe, Anaphylaxis, 09/07/17) procaine (Verified Allergy, Severe, Anaphylaxis, 09/07/17) Per pt. ropivacaine (Verified Allergy, Severe, Anaphylaxis, 09/07/17) *MDRO Multi-Drug Resistant Organism (Verified Adverse Reaction, Unknown, 09/07/17) MRSA (buttock) 05/08/17 Medications Allergies Coded Allergies Type Severity Reaction Last Updated Verified benzocaine Allergy Severe Anaphylaxis 09/07/17 Yes bupivacaine Allergy Severe Anaphylaxis 09/07/17 Yes ethyl chloride Allergy Severe Anaphylaxis 09/07/17 Yes lidocaine Allergy Severe Anaphylaxis 09/07/17 Yes procaine Allergy Severe Anaphylaxis 09/07/17 Yes ropivacaine Allergy Severe Anaphylaxis 09/07/17 Yes *MDRO Multi-Drug Resistant Organism Adverse Reaction Unknown 09/07/17 Yes Active Scripts Medications Dose Route/Sig Max Daily Dose Days Date Category Active Prescriptions or Reported Medications Unobtainable Rx Family History Father with cardiac disease Paternal aunt from stomach cancer. Mother from stomach cancer. Social History Reports that she quit drinking in May, but drank 1/2 beer yesterday. Smokes half a pack per day 20 years. Denies marijuana or illicit drugs. (Rita Garcia) Review of Systems Constitutional: COMPLAINS OF: Fatigue, Change in appetite, DENIES: Fever, Weight loss, Chills Respiratory: COMPLAINS OF: Shortness of breath, DENIES: Cough Cardiovascular: DENIES: Chest pain Gastrointestinal: COMPLAINS OF: Abdominal pain, Diarrhea, Nausea, Vomiting, Heartburn (occasional), DENIES: Black stools, Bloody stools, Constipation, Swelling of Abdomen, Hematemesis Musculoskeletal: COMPLAINS OF: Back pain Psychiatric: DENIES: Confusion (Rita Garcia) GI Exam Vitals I&O Vital Signs Date Time Temp Pulse Resp B/P (MAP) Pulse Ox O2 Delivery O2 Flow Rate FiO2 09/08/17 11:53 99.0 70 18 172/80 (110) 96 09/08/17 09:42 66 09/08/17 08:33 98.9 64 18 178/85 (116) 96 09/08/17 05:47 68 09/08/17 03:08 99.2 80 18 148/71 (96) 96 09/08/17 03:00 99.2 80 18 148/71 96 09/08/17 02:40 98.7 78 18 154/72 (99) 95 09/08/17 02:40 98.7 75 18 154/72 95 09/08/17 02:26 98.8 68 18 150/71 (97) 98 09/07/17 23:06 81 18 110/61 (77) 99 Room Air 09/07/17 23:01 81 18 121/75 (90) 92 18 116/64 (81) 99 18 110/61 (77) 09/07/17 20:01 16 98 Room Air 09/07/17 20:01 98 Room Air 09/07/17 18:42 80 16 108/57 (74) 98 Room Air 09/07/17 16:38 98.1 78 16 111/58 (75) 97 I/O 09/07/17 09/07/17 09/07/17 09/08/17 09/08/17 09/08/17 07:00 15:00 23:00 07:00 15:00 23:00 Intake Total 2655 ml 760 ml Balance 2655 ml 760 ml Intake Oral 625 ml 240 ml IV Total 1100 ml 100 ml Packed Cells 400 ml 400 ml Blood Product IV Normal Saline Flush 530 ml 20 ml # Voids 2 # Bowel Movements 0 Imaging Last Impressions Chest X-Ray 09/07/17 0000 Signed Impressions: Service Date/Time: Thursday, September 07, 2017 22:52 - CONCLUSION: 1. Hiatal hernia. 2. Lungs are clear Edvin Alcala MD Laboratory Test 09/07/17 19:27 09/07/17 22:40 09/08/17 14:00 White Blood Count 4.0 TH/MM3 Red Blood Count 2.06 MIL/MM3 Hemoglobin 7.1 GM/DL Hematocrit 21.4 % Mean Corpuscular Volume 103.7 FL Mean Corpuscular Hemoglobin 34.4 PG Mean Corpuscular Hemoglobin Concent 33.2 % Red Cell Distribution Width 16.4 % Platelet Count 104 TH/MM3 Mean Platelet Volume 7.4 FL Neutrophils (%) (Auto) 49.3 % Lymphocytes (%) (Auto) 29.8 % Monocytes (%) (Auto) 16.3 % Eosinophils (%) (Auto) 4.3 % Basophils (%) (Auto) 0.3 % Neutrophils # (Auto) 2.0 TH/MM3 Lymphocytes # (Auto) 1.2 TH/MM3 Monocytes # (Auto) 0.7 TH/MM3 Eosinophils # (Auto) 0.2 TH/MM3 Basophils # (Auto) 0.0 TH/MM3 CBC Comment DIFF FINAL Differential Comment Blood Urea Nitrogen 14 MG/DL 10 MG/DL Creatinine 0.75 MG/DL 0.74 MG/DL Random Glucose 91 MG/DL 88 MG/DL Calcium Level 8.4 MG/DL 9.0 MG/DL Sodium Level 134 MEQ/L 137 MEQ/L Potassium Level 2.6 MEQ/L 4.6 MEQ/L Chloride Level 98 MEQ/L 104 MEQ/L Carbon Dioxide Level 24.4 MEQ/L 25.9 MEQ/L Anion Gap 12 MEQ/L 7 MEQ/L Estimat Glomerular Filtration Rate 77 ML/MIN 79 ML/MIN Prothrombin Time 10.7 SEC Prothromb Time International Ratio 1.0 RATIO Activated Partial Thromboplast Time 24.5 SEC Magnesium Level 1.6 MG/DL 1.8 MG/DL Total Bilirubin 0.4 MG/DL 0.9 MG/DL Direct Bilirubin 0.1 MG/DL Indirect Bilirubin 0.3 MG/DL Aspartate Amino Transf (AST/SGOT) 109 U/L 105 U/L Alanine Aminotransferase (ALT/SGPT) 62 U/L 71 U/L Alkaline Phosphatase 89 U/L 96 U/L Total Creatine Kinase 123 U/L Creatine Kinase MB 3.7 NG/ML Troponin I LESS THAN 0.02 NG/ML Total Protein 6.7 GM/DL 7.0 GM/DL Albumin 2.8 GM/DL 3.1 GM/DL Ethyl Alcohol Level 48 MG/DL Iron Level 271 MCG/DL Total Iron Binding Capacity 304 MCG/DL Percent Iron Saturation 89.2 % Ferritin 80 NG/ML Vitamin B12 Level 439 PG/ML Folate GREATER THAN 20.0 NG/ML Physical Examination HEENT: Normocephalic; atraumatic; no jaundice. CHEST: CTA CARDIAC: RRR ABDOMEN: Soft, nondistended, nontender; no hepatosplenomegaly; bowel sounds are present in all four quadrants. EXTREMITIES: No clubbing, cyanosis, or edema. SKIN: Normal; no rash; no jaundice. 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 (Rita Garcia) Assessment and Plan Plan ASSESSMENT: - Anemia, macrocytic. Reports remote hx of anemia as child. No obvious blood loss. Has had worsening generalized weakness x 1 week with n/v/d and abdominal pain over the past few days. Last colonoscopy was in the . Of note, elevated LFTs. H/H 7.1/21.4, MCV 103.7, iron 271 , TIBC 304, iron saturation 89.2, ferritin 80. B12 439 and folate was greater than 20.0. EGD/Colonoscopy in am, CT scan, Celiac panel. - N/V, Epigastric pain. PPI. EGD/Colonoscopy in am. Will get CT abdomen and pelvis - Diarrhea. No recent travel, suspicious food, sick contacts. CT scan to r/o colitis. Stool studies. EGD/Colonoscopy in am. ALso will check celiac panel given her anemia and elevated LFTs. - Elevated LFTs. Reports hx of ETOH abuse, states she quit drinking in May but had 1/2 a beer yesterday. Ethyl Alcohol 48 on admission. Total bilirubin of 0.4, AST 109, ALT 62, alkaline phosphatase 89. Check celiac panel and liver workup. - Elevated Iron saturation, 89.2%. Suspect ongoing ETOH abuse.Will get Hfe gene. - Sz activity. Per neurology. - Hypokalemia, HTN, Depression, Chronic back pain. PLAN: - Plan for egd/colonoscopy in a.m. - Obtain consents - Clear liquid - Nothing by mouth after midnight - GoLYTELY prep - CT scan abdomen and pelvis with contrast - PPI - Hepatitis profile - AFP - ASHLEY, ASMA and AMA - Ceruloplasmin, Alpha 1 Antitrypsin - Hfe gene - CBC, CMP in am - Supportive care - Further recommendations to follow based on results of above - PT seen and examined by Dr. Last and myself and this note is written on her behalf (Rita Garcia) Physician Comments seen, examined agree with above (Kathy Last MD) Rita Garcia Sep 08, 2017 15:43 Kathy Last MD Sep 08, 2017 20:31
[2017-09-08] MEDS ORDERED: PEG (High)/E-LYTE SOLN 4000 ML BTL PO ONE (16:00)
[2017-09-08] MEDS ORDERED: DIATRIZOATE MEGLUM/DIATRIZOATE SOD 9 ML CUP PO ONE ×2 (16:45→20:00)
[2017-09-08] MEDS ORDERED: LACTATED RINGER'S 1000 ML IV PRN (18:30)
[2017-09-08] MEDS ORDERED: SODIUM CHLORID 0.9% 500 ML IV PRN (18:30)
[2017-09-08] MEDS ORDERED: METOPROLOL TARTRATE 25 MG TAB PO PRN (18:30)
[2017-09-08] MEDS ORDERED: CHLORHEXIDINE GLUCONATE 2 % 1 PACK (2 CLOTHS) TOPICAL PRN (18:30)
[2017-09-08] MEDS ORDERED: POVIDONE IODINE 5% (ANTISEPSIS KIT) 4 APPLICATIONS EACH NARE PRN (18:30)
--- NOTE | 2017-09-08 20:34 | MG ---
cc: PAWAN LANG MD Lab No: [id number] Date: 09/08/17 Age: Sex: F Race: 1950 A 67-year-old, history of possible seizure. A 7-9 Hz posterior rhythm, 20-40 microvolts. Low amplitude beta in the frontal channels and some myogenic artifact. Good driving with photic stimulation. Good EEG variability reactivity. Electrode pop artifact noted towards the end. Some eye fluttering. No obvious lateralizing features. Good EEG variability reactivity. Single lead EKG showing sinus rhythm. INTERPRETATION Normal appearing EEG, however, mild to moderate artifact also noted. Clinical correlation. MD PHAN Burns/ /7:53 PM /8:19 PM
[2017-09-08] MEDS: levETIRAcetam 500 MG TAB PO SCH (21:15)
[2017-09-09 00:15] VITALS: BP 120/62; PULSE 62; RESP 19; TEMP 98.7; O2SAT 99
[2017-09-09] MEDS ORDERED: IOHEXOL 350 MG/ML 10 ML VIAL (for RAD DIAG) IVCONTRAST ONE (00:41)
--- NOTE | 2017-09-09 00:58 | RADRPT ---
EXAM DATE/TIME: 09/09/2017 00:36 [facility] COMPARISON: CT ABDOMEN & PELVIS W CONTRAST, April 05, 2016, 15:06. INDICATIONS : Epigastric abdominal pain with nausea, vomiting and diarrhea. Elevated LFTs. IV CONTRAST: 70 cc Omnipaque 350 (iohexol) IV ORAL CONTRAST: Prescribed oral contrast ingested. RADIATION DOSE: 4.51 CTDIvol (mGy) MEDICAL HISTORY : Cardiovascular disease. Gastroesophageal reflux disease. Diabetes. ETOH Abuse. Ovarian cysts. SURGICAL HISTORY : Tubal ligation. ENCOUNTER: Initial ACUITY: 3 days PAIN SCALE: 7/10 LOCATION: Epigastric abdomen. TECHNIQUE: Volumetric scanning of the abdomen and pelvis was performed. Using automated exposure control and ad justment of the mA and/or kV according to patient size, radiation dose was kept as low as reasonably achievable to obtain optimal diagnostic quality images. DICOM format image data is available electro nically for review and comparison. FINDINGS: LOWER LUNGS: There is mild suspected atelectasis or consolidation of the posterior right lower lobe. LIVER: There is diffuse decreased attenuation to the liver. The gallbladder wall appears thickened. Calcifie d gallstones are not seen. SPLEEN: Normal size without lesion. PANCREAS: Within normal limits. KIDNEYS: Normal in size and shape. There is no solid mass, stone or hydronephrosis. There is a 1.2 cm cyst at the posterior inferior left kidney. ADRENAL GLANDS: Within normal limits. VASCULAR: There is no aortic aneurysm. There is atherosclerotic calcification seen throughout the arterial syst em. BOWEL/MESENTERY: There is a moderate hiatal hernia present. ABDOMINAL WALL: Within normal limits. RETROPERITONEUM: There is no lymphadenopathy. BLADDER: No wall thickening or mass. REPRODUCTIVE: Within normal limits. INGUINAL: There is no lymphadenopathy or hernia. MUSCULOSKELETAL: There is mild compressive change at the superior aspect of T11. This was present previously. There is degenerative change of the lumbar spine. There is chronic change of the medial left pubic bone likel y from prior fracture. CONCLUSION: 1. Hepatic steatosis. 2. Nonspecific thickening of the gallbladder. 3. Moderate hiatal hernia. Ld Jefferson MD on September 09, 2017 at 0:49 Board Certified Radiologist. This report was verified electronically.
[2017-09-09 06:00] VITALS: BP 125/65; PULSE 68; RESP 20; TEMP 97.6; O2SAT 99
[2017-09-09 07:03] LABS: AUTOMATED NEUTROPHIL # 2.9 TH/MM3 (1.8-7.7); BASOPHIL % 0.5 % (0.0-2.0); EOSINOPHIL # 0.2 TH/MM3 (0-0.4); HEMATOCRIT 39.7 % (35.0-46.0); HEMO FLAGS DIFF FINAL; LYMPH % 23.5 % (9.0-44.0); LYMPHOCYTE # 1.3 TH/MM3 (1.0-4.8); MEAN CELL VOLUME 97.7 FL (80.0-100.0); MEAN CORPUSCULAR HEMOGLOBIN 33.7 PG (27.0-34.0); MEAN CORPUSCULAR HGB CONC 34.5 % (32.0-36.0); PLATELET COUNT 155 TH/MM3 (150-450); RED BLOOD COUNT 4.06 MIL/MM3 (4.00-5.30); RED CELL DISTRIBUTION WIDTH 20.7 % (11.6-17.2); WHITE BLOOD COUNT 5.3 TH/MM3 (4.0-11.0)
[2017-09-09 07:36] LABS: ANION GAP 6 MEQ/L (5-15); BICARBONATE 27.1 MEQ/L (21.0-32.0); BLOOD UREA NITROGEN 7 MG/DL (7-18); CHLORIDE 107 MEQ/L (98-107); GLOMERULAR FILTRATION RATE 111 ML/MIN (>89); POTASSIUM 3.7 MEQ/L (3.5-5.1); SODIUM (NA) 140 MEQ/L (136-145)
[2017-09-09 07:38] LABS: ALT (GPT) 70 U/L (10-53); AST (GOT) 95 U/L (15-37)
[2017-09-09 07:39] LABS: ALKALINE PHOSPHATASE 86 U/L (45-117); TOTAL BILIRUBIN ADULT 0.7 MG/DL (0.2-1.0)
[2017-09-09] MEDS: SODIUM CHLORIDE 0.9% FLUSH 10 ML FLUSH IV FLUSH SCH ×2 (08:01→20:21)
[2017-09-09] MEDS: PANTOPRAZOLE SOD 40 MG DELAYED RELEASE TAB PO SCH (08:44)
[2017-09-09] MEDS: THIAMINE HCL 100 MG TAB PO SCH (08:44)
[2017-09-09] MEDS: levETIRAcetam 500 MG TAB PO SCH ×2 (08:44→20:21)
[2017-09-09] MEDS: MULTIVITAMINS/MINERALS THERAPEUTIC TAB PO SCH (08:44)
[2017-09-09] MEDS: FOLIC ACID 1 MG TAB PO SCH (08:44)
[2017-09-09 08:59] VITALS: BP 186/91; PULSE 57; RESP 18; TEMP 98.5; O2SAT 95
--- NOTE | 2017-09-09 11:39 | HHI.PR ---
Subjective Remarks Patient has no complaint except for feeling hungry. Patient will have EGD/ colonoscopy later today. Objective Vitals Vital Signs Date Time Temp Pulse Resp B/P (MAP) Pulse Ox O2 Delivery O2 Flow Rate FiO2 09/09/17 08:59 98.5 57 18 186/91 (122) 95 09/09/17 06:00 97.6 68 20 125/65 (85) 99 09/09/17 00:15 98.7 62 19 120/62 (81) 99 09/08/17 21:00 97.9 64 17 115/67 (83) 98 09/08/17 19:00 77 09/08/17 16:47 98.6 61 18 151/77 (101) 97 09/08/17 11:53 99.0 70 18 172/80 (110) 96 I/O 09/08/17 09/08/17 09/08/17 09/09/17 09/09/17 09/09/17 07:00 15:00 23:00 07:00 15:00 23:00 Intake Total 2655 ml 760 ml 1040 ml Balance 2655 ml 760 ml 1040 ml Intake Oral 625 ml 240 ml 1040 ml IV Total 1100 ml 100 ml Packed Cells 400 ml 400 ml Blood Product IV Normal Saline Flush 530 ml 20 ml # Voids 2 6 # Bowel Movements 0 5 Result Diagram: 09/09/17 0635 09/09/17 0635 Imaging Last Impressions Abdomen/Pelvis CT 09/08/17 0000 Signed Impressions: Service Date/Time: Saturday, September 09, 2017 00:36 - CONCLUSION: 1. Hepatic steatosis. 2. Nonspecific thickening of the gallbladder. 3. Moderate hiatal hernia. Ld Jefferson MD Chest X-Ray 09/07/17 0000 Signed Impressions: Service Date/Time: Thursday, September 07, 2017 22:52 - CONCLUSION: 1. Hiatal hernia. 2. Lungs are clear Edvin Alcala MD Objective Remarks GENERAL: This is a well-nourished, well-developed patient, in no apparent distress. CARDIOVASCULAR: Normal rate and regular rhythm without murmurs, gallops, or rubs. RESPIRATORY: Good respiratory efforts. Breath sounds equal and clear to auscultation bilaterally. GASTROINTESTINAL: Abdomen soft, non-tender, non-distended. Normal active bowel sounds MUSCULOSKELETAL: Extremities without cyanosis, or edema. NEURO: Alert & Oriented x4 to person, place, time, situation. Moves all ext x4 PSYCH: Appropriate mood and affect. A/P Assessment and Plan 67-year-old female with past medical history significant for alcohol abuse, hypertension and remote history of seizure disorder presents with possible seizure and severe symptomatic anemia. Symptomatic anemia S/P 2 units RBC Patient reports experiencing fatigue and lightheadedness Patient with known history of alcohol abuse. GI consulted. Continue PPI. Plan for EGD/colonoscopy today. Questionable seizure - - neuro exam unremarkable states she had seziure history since 9 years of age - patient has not been on any antiseizure medications and approximately 20 years May be related to alcohol use/ withdrawal - on CIWAprotocol seen by Dr. [place] MRI unremarkable started on Keppra Elevated LFTs likely secondary to combination of hepatitis C and alcoholic liver disease Folate/Thiamine/Multivitamins Continue to monitor Hepatitis C: - Patient will need outpatient follow-up with GI to consider treatment. Hypertension Patient not on any home antihypertensives Monitor and treat when necessary Clonidine prn Head Lice -Status post treatment Discharge Planning Pending colonoscopy later today. Probable discharge in the morning depending on findings. Shilrey Pepe MD Sep 09, 2017 11:39
[2017-09-09] MEDS ORDERED: PROPOFOL 200 MG/20 ML AMP IV ONE (12:00)
[2017-09-09] MEDS ORDERED: LACTATED RINGER'S 1000 ML INJ 1,000 ML IV ONE (12:00)
[2017-09-09] MEDS ORDERED: hydrALAZINE HCL 20 MG/ML VIAL IV ONE (12:00)
[2017-09-09 12:03] VITALS: BP 186/86; PULSE 57; RESP 18; TEMP 99; O2SAT 96
[2017-09-09 16:14] LABS: ANA SCREEN POS (NEG)
--- NOTE | 2017-09-09 17:37 | GIPROC ---
[facility] [address] [facility]. [facility], [address] EGD PROCEDURE REPORT EXAM DATE: 09/09/2017 PATIENT NAME: Flor Hilliard MR #: [id number] BIRTHDATE: 1950 ATTENDING: Kathy Last MD ORDER #: [id number] CURER FOAM RUBBER: Jaja Araujo and Gemma Panda STATUS: inpatient INDICATIONS: The patient is a 67 yr old female here for an EGD due to anemia, abdominal pain PROCEDURE PERFORMED: EGD w/ biopsy MEDICATIONS: None and Per Anesthesia. TOPICAL ANESTHETIC: none CONSENT: The patient understands the risks and benefits of the procedure and understands that these risks include, but are not limited to: sedation, allergic reaction, infection, perforation and/or bleeding. Alternative means of evaluation and treatment include, among others: physical exam, x-rays, and/or surgical intervention. The patient elects to proceed with this endoscopic procedure. medical equipment was checked for proper function. Hand hygiene and appropriate measures for infection prevention was taken. After the risks, benefits and alternatives of the procedure were thoroughly explained, Informed consent was verified, confirmed and timeout was successfully executed by the treatment team. The patient was anesthetized with topical anesthesia and the EC-[id number] (Pedi C) endoscope was introduced through the mouth and advanced to the second portion of the duodenum. Retroflexed views revealed a hiatal hernia The gastroscope was then slowly withdrawn and removed. Gastritis antrum-biopsy duodenum normal-biopsy esophagitis distal esophagus -biopsy. ADVERSE EVENTS: There were no complications. IMPRESSIONS: 1. Gastritis antrum-biopsy duodenum normal-biopsy esophagitis distal esophagus -biopsy 2. Retroflexed views revealed a hiatal hernia RECOMMENDATIONS: 1. Await biopsy results. Biopsy results will not be ready for 7-10 days. If you don't hear from us in two weeks, call our office for biopsy results. 2. Anti-reflux regimen 3. Start PPI 4. Avoid NSAIDS PATIENT CONDITION: stable DISPOSITION: Inpatient REPEAT EXAM: Return 3 years EGD Kathy Last MD eSigned: Kathy Last MD 09/09/2017 5:36 PM cc:
--- NOTE | 2017-09-09 17:39 | GIPROC ---
[facility] [address] [facility]. [facility], [address] COLONOSCOPY PROCEDURE REPORT EXAM DATE: 09/09/2017 PATIENT NAME: Flor Hilliard MR #: [id number] BIRTHDATE: 1950 ENDOSCOPIST: Kathy Last MD ORDER #: [id number] PRODUCT MARKETING ENGINEER: Jaja Araujo and Gemma Panda STATUS: inpatient INDICATIONS: The patient is a 67 yr old female here for a colonoscopy due to anemia PROCEDURE PERFORMED: Colonoscopy, diagnostic MEDICATIONS: None and Per Anesthesia. PREP QUALITY: fair PREP TYPE:Other: ESTIMATED BLOOD LOSS: None CONSENT: The patient understands the risks and benefits of the procedure and understands that these risks include, but are not limited to: sedation, allergic reaction, infection, perforation and/or bleeding. Alternative means of evaluation and treatment include, among others: physical exam, x-rays, and/or surgical intervention. The patient elects to proceed with this endoscopic procedure. medical equipment was checked for proper function. Hand hygiene and appropriate measures for infection prevention was taken. After the risks, benefits and alternatives of the procedure were thoroughly explained, Informed consent was verified, confirmed and timeout was successfully executed by the treatment team. A digital exam revealed external hemorrhoids The Pentax EC-[id number] endoscope was introduced through the anus and advanced to the cecum, which was identified by both the appendix and ileocecal valve. The instrument was then slowly withdrawn as the colon was fully examined. COLON FINDINGS: Diverticulosis sigmoid,descending internal hemorrhoids. Retroflexed views revealed internal hemorrhoids and Retroflexed views revealed small internal hemorrhoids The scope was then completely withdrawn from the patient and the procedure terminated. PROCEDURE WITHDRAWAL TIME:6minutes ADVERSE EVENTS: There were no complications. IMPRESSIONS: 1. Diverticulosis sigmoid,descending internal hemorrhoids 2. Retroflexed views revealed internal hemorrhoids 3. Retroflexed views revealed small internal hemorrhoids 4. Revealed external hemorrhoids RECOMMENDATIONS: 1. Benefiber 2 tsp daily 2. Probiotics from any [employer] or health food store 3. Yearly rectal exams RECALL: Return 5 years Colonoscopy Kathy Lats MD eSigned: Kathy Last MD 09/09/2017 5:38 PM cc: PATIENT NAME: Flor Hilliard MR#: [id number]
[2017-09-09] MEDS ORDERED: DIATRIZOATE MEGLUM/DIATRIZOATE SOD 9 ML CUP PO ONE (18:00)
[2017-09-09] MEDS ORDERED: DO NOT ADM ANY ANTICOAGULANT DRUGS PRN (19:30)
[2017-09-09 20:00] VITALS: BP 111/59; PULSE 88; RESP 18; TEMP 98.6; O2SAT 93
--- NOTE | 2017-09-09 23:19 | RADRPT ---
EXAM DATE/TIME: 09/09/2017 22:51 [facility] COMPARISON: CT ABDOMEN & PELVIS W CONTRAST, September 09, 2017, 0:36. CHEST SINGLE AP, September 07, 2017, 22:52. INDICATIONS : Central line placement. MEDICAL HISTORY : Hypertension. Cardiovascular disease. Gastroesophageal reflux disease. Diabetes. ETOH Abuse. Ov jordon cysts. SURGICAL HISTORY : Tubal ligation. Foot surgery, left, unspecified. ENCOUNTER: Initial ACUITY: 3 days PAIN SCORE: 7/10 LOCATION: Back FINDINGS: The heart size is normal. The lungs are grossly clear. There is a linear lucency seen along the later al left chest that most closely resembles a skinfold. A pneumothorax or pleural line is not seen. A c entral line is not seen. No effusion is seen. There is a small hiatal hernia present. CONCLUSION: A central line is not seen. No acute abnormality is seen. There appears to be a skin fold over the le ft lateral mid chest. Ld Jefferson MD on September 09, 2017 at 23:10 Board Certified Radiologist. This report was verified electronically.
[2017-09-09 23:30] VITALS: PULSE 81
[2017-09-10 01:00] VITALS: BP 117/65; PULSE 74; RESP 18; TEMP 97; O2SAT 97
[2017-09-10 04:00] VITALS: BP 142/76; PULSE 72; RESP 18; TEMP 99; O2SAT 97
[2017-09-10 08:00] VITALS: BP 159/72; PULSE 62; RESP 18; TEMP 98.6; O2SAT 94
[2017-09-10 08:15] VITALS: PULSE 81
[2017-09-10] MEDS: MULTIVITAMINS/MINERALS THERAPEUTIC TAB PO SCH (08:55)
[2017-09-10] MEDS: PANTOPRAZOLE SOD 40 MG DELAYED RELEASE TAB PO SCH (08:55)
[2017-09-10] MEDS: THIAMINE HCL 100 MG TAB PO SCH (08:55)
[2017-09-10] MEDS: levETIRAcetam 500 MG TAB PO SCH (08:56)
[2017-09-10] MEDS: SODIUM CHLORIDE 0.9% FLUSH 10 ML FLUSH IV FLUSH SCH (08:56)
[2017-09-10] MEDS: FOLIC ACID 1 MG TAB PO SCH (09:02)
[2017-09-10] MEDS ORDERED: GADODIAMIDE PF 287 MG/ML 10 ML VIAL (for RAD MRI) IVCONTRAST ONE (10:14)
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
[2017-09-10] MEDS ORDERED: PANT40TA3 PO (11:28)
[2017-09-10] MEDS ORDERED: LEVE500 PO (11:28)
--- NOTE | 2017-09-10 11:32 | HHI.GIFU ---
Subjective Remarks Resting in bed. No n/v. No abdominal pain. No bleeding. No known hx of HCV- states fiance and ex had HCV. Hx of IVDA, but states she always used "clean needles." Objective Vitals I&O Vital Signs Date Time Temp Pulse Resp B/P (MAP) Pulse Ox O2 Delivery O2 Flow Rate FiO2 09/10/17 08:15 81 09/10/17 08:00 98.6 62 18 159/72 (101) 94 09/10/17 04:00 99.0 72 18 142/76 (98) 97 09/10/17 01:00 97.0 74 18 117/65 (82) 97 09/09/17 23:30 81 09/09/17 20:00 98.6 88 18 111/59 (76) 93 09/09/17 18:00 68 16 152/74 (100) 97 09/09/17 17:55 66 16 159/77 (104) 95 Room Air 09/09/17 17:45 62 14 177/80 (112) 96 Room Air 09/09/17 17:35 62 12 206/87 (126) 97 Room Air 09/09/17 17:33 60 12 184/87 (119) 96 09/09/17 12:03 99.0 57 18 186/86 (119) 96 I/O 09/09/17 09/09/17 09/09/17 09/10/17 09/10/17 09/10/17 07:00 15:00 23:00 07:00 15:00 23:00 Intake Total 200 ml Balance 200 ml Other 200 ml # Voids 6 Imaging Last Impressions Chest X-Ray 09/09/17 0000 Signed Impressions: Service Date/Time: Saturday, September 09, 2017 22:51 - CONCLUSION: A central line is not seen. No acute abnormality is seen. There appears to be a skin fold over the left lateral mid chest. Ld Jefferson MD Abdomen/Pelvis CT 09/08/17 0000 Signed Impressions: Service Date/Time: Saturday, September 09, 2017 00:36 - CONCLUSION: 1. Hepatic steatosis. 2. Nonspecific thickening of the gallbladder. 3. Moderate hiatal hernia. Ld Jefferson MD Physical Exam HEENT: Normocephalic; atraumatic; no jaundice. CHEST: CTA CARDIAC: RRR ABDOMEN: Soft, nondistended, nontender; no hepatosplenomegaly; bowel sounds are present in all four quadrants. EXTREMITIES: No clubbing, cyanosis, or edema. SKIN: Normal; no rash; no jaundice. INDUSTRIAL MAINTENANCE TECH: No focal deficits; alert and oriented times three. Assessment and Plan Plan ASSESSMENT: - Anemia, macrocytic. Reports remote hx of anemia as child. No obvious blood loss. Has had worsening generalized weakness x 1 week with n/v/d and abdominal pain over the past few days. Of note, elevated LFTs. Iron 271, TIBC 304, iron saturation 89.2, ferritin 80. B12 439 and folate was greater than 20.0. CT Abdomen and pelvis (09/09/17)---> Hepatic steatosis, nonspecific thickening of the gallbladder, moderate hiatal hernia. S/P EGD/Colonoscopy (09/09/17)---> 1. Gastritis antrum- biopsy duodenum normal-biopsy esophagitis distal esophagus -biopsy 2. Retroflexed views revealed a hiatal hernia 1. Diverticulosis sigmoid, descending internal hemorrhoids 2. Retroflexed views revealed internal hemorrhoids 3. Retroflexed views revealed small internal hemorrhoids 4. Revealed external hemorrhoids. Pathology pending. HH stable 13.7/39.7. PPI. - N/V, Epigastric pain. PPI. EGD/Colonoscopy as above. CT with nonspecific thickening of the gallbladder. Denies n/v, abdominal pain at this time. - Diarrhea. No recent travel, suspicious food, sick contacts. CT scan to r/o colitis. Stool studies. EGD/Colonoscopy in am. Celiac panel pending. Stool studies not sent. - Elevated LFTs. Reports hx of ETOH abuse, states she quit drinking in May but had 1/2 a beer yesterday. Ethyl Alcohol 48 on admission. LFTs T. Bili 0.7, AST 95, ALT 70, Alk Phosph 86. AFP 4.5, Hepatitis profile (+) for HCV antibodies. Ferritin 80, Iron saturation 89.2. Hfe gene pending. ASHLEY ( +), titer/pattern pending- of note patient does have RA. ASMA, AMA, Alpha 1 Antitrypsin, Ceruloplasmin pending. - Elevated Iron saturation, 89.2%. Suspect ongoing ETOH abuse.Hfe gene pending. - Sz activity. Per neurology. - Hypokalemia, HTN, Depression, Chronic back pain. PLAN: - MARY BETH - Await pathology - Cont. PPI - HCV Genotype, Viral load - Await ASHLEY titer/pending, ASMA and AMA - Await Ceruloplasmin, Alpha 1 Antitrypsin - Await Hfe gene - Monitor labs - Supportive care - If worsening lft, abdominal pain then consider US vs. HIDA - Further recommendations to follow based on results of above - PT seen and examined by Dr. Last and myself and this note is written on her behalf Rita Garcia Sep 10, 2017 11:32
--- NOTE | 2017-09-10 11:33 | HHI.DCPOC ---
Discharge Care Plan Diagnosis: (1) Alcohol dependence with acute alcoholic intoxication (2) Seizure (3) Hemorrhoid (4) Gastritis Goals to Promote Your Health * To prevent worsening of your condition and complications * To maintain your health at the optimal level Directions to Meet Your Goals Take your medications as prescribed Follow your dietary instruction Follow activity as directed Keep your appointments as scheduled Take your immunizations and boosters as scheduled If your symptoms worsen call your PCP, if no PCP go to Urgent Care Center or Emergency Room Smoking is Dangerous to Your Health. Avoid second hand smoke Call the 24-hour hour crisis hotline for domestic abuse at Shirley Pepe MD Sep 10, 2017 11:33
--- NOTE | 2017-09-10 11:58 | HHI.DS ---
Discharge Summary Admission Date Sep 08, 2017 at 00:08 Admitting Diagnosis Symptomatic anemia, seizure, hypokalemia Brief History - From Admission 67-year-old female with a past medical history significant for alcohol abuse, depression with a history of previous psychiatric hospitalization, hypertension and a remote history of seizure disorder brought to the emergency department by EMS for a possible seizure. The patient states that she [place] and a bystander reported that she had a seizure-like event. EMS was called. The patient has no memory of the event, denies bowel/bladder incontinence. She does report having a similar episode on Thursday where she awoke incontinent of urine. She reports approximately 20 years ago she was medicated with Depakote and another seizure medication that she cannot remember. She also reports feeling lightheaded for approximately 3-4 days. She reports increasing fatigue and was found to have an H&H of 7.1/21.4 (11.5/ 32.9 in May). Denies dark tarry stools or hematemesis. She was Hemoccult negative in the emergency department. Patient was also found to have a potassium of 2.6. Alcohol level 48. CBC/BMP: 09/09/17 0635 09/09/17 0635 Significant Findings Laboratory Tests Test 09/07/17 19:27 09/07/17 22:40 09/08/17 14:00 09/08/17 21:10 Red Blood Count 2.06 MIL/MM3 (4.00-5.30) Hemoglobin 7.1 GM/DL (11.6-15.3) Hematocrit 21.4 % (35.0-46.0) Mean Corpuscular Volume 103.7 FL (80.0-100.0) Mean Corpuscular Hemoglobin 34.4 PG (27.0-34.0) Platelet Count 104 TH/MM3 (150-450) Monocytes (%) (Auto) 16.3 % (0.0-8.0) Eosinophils (%) (Auto) 4.3 % (0.0-4.0) Calcium Level 8.4 MG/DL (8.5-10.1) Sodium Level 134 MEQ/L (136-145) Potassium Level 2.6 MEQ/L (3.5-5.1) Estimat Glomerular Filtration Rate 77 ML/MIN (>89) 79 ML/MIN (>89) Aspartate Amino Transf (AST/SGOT) 109 U/L (15-37) 105 U/L (15-37) Alanine Aminotransferase (ALT/SGPT) 62 U/L (10-53) 71 U/L (10-53) Creatine Kinase MB 3.7 NG/ML (0.5-3.6) Troponin I LESS THAN 0.02 NG/ML Albumin 2.8 GM/DL (3.4-5.0) 3.1 GM/DL (3.4-5.0) Ethyl Alcohol Level 48 MG/DL (0-5) Iron Level 271 MCG/DL (50-170) Percent Iron Saturation 89.2 % (20-50) Folate GREATER THAN 20.0 NG/ML Anti-Nuclear Antibody Screen POS (NEG) Hepatitis C Antibody REACTIVE (NEGATIVE) Test 09/09/17 06:35 Red Cell Distribution Width 20.7 % (11.6-17.2) Monocytes (%) (Auto) 18.0 % (0.0-8.0) Monocytes # (Auto) 1.0 TH/MM3 (0-0.9) Albumin 2.8 GM/DL (3.4-5.0) Aspartate Amino Transf (AST/SGOT) 95 U/L (15-37) Alanine Aminotransferase (ALT/SGPT) 70 U/L (10-53) PE at Discharge GENERAL: This is a well-nourished, well-developed patient, in no apparent distress. CARDIOVASCULAR: Normal rate and regular rhythm without murmurs, gallops, or rubs. RESPIRATORY: Good respiratory efforts. Breath sounds equal and clear to auscultation bilaterally. GASTROINTESTINAL: Abdomen soft, non-tender, non-distended. Normal active bowel sounds MUSCULOSKELETAL: Extremities without cyanosis, or edema. NEURO: Alert & Oriented x4 to person, place, time, situation. Moves all ext x4 PSYCH: Appropriate mood and affect. Pt Condition on Discharge: Good Discharge Disposition: Discharge Home Discharge Instructions DIET: Follow Instructions for: Heart Healthy Diet Activities you can perform: Regular-No Restrictions Shirley Pepe MD Sep 10, 2017 11:58
[2017-09-10 12:00] VITALS: BP 134/69; PULSE 72; RESP 18; TEMP 98.5; O2SAT 95
[2017-09-11 15:51] LABS: ENDOMYSIAL AB TITER ND (<1:5); TISSUE TRANSGLUTAMINASE AB LESS THAN 1 U/mL (0-4)
[2017-09-11 19:50] LABS: IGA SERUM 304 mg/dL (81-463)
[2017-09-13 03:50] LABS: MITOCHONDRIAL ABS LESS THAN 20.0 U (<=20.0)
[2017-09-13 19:51] LABS: HCV RNA PCR IU/ML 123000 IU/mL (0-14); HCV RNA PCR LOGIU/ML 5.09 (0-1.18)
[2017-09-14 23:51] LABS: HEPATITIS C RNA GENOTYPE 1a (NOT DETECTD)
== END 2017-09-10 14:40 | disposition home or self-care (01) | DRG 812 ==
LOC: NEPE 16:25 → NEDA 09-08 00:08 → N05A 09-08 01:25
PROVIDERS: ADMIT Family Medicine; ATTEND Family Medicine
PROC: 30233N1 Transfusion of Nonautologous Red Blood Cells into Peripheral Vein, Percutaneous Approach (ICD-10-PCS; principal; 2017-09-08)
PROC: 0DB68ZX Excision of Stomach, Via Natural or Artificial Opening Endoscopic, Diagnostic (ICD-10-PCS; 2017-09-09)
PROC: 0DB38ZX Excision of Lower Esophagus, Via Natural or Artificial Opening Endoscopic, Diagnostic (ICD-10-PCS; 2017-09-09)
PROC: 0DJD8ZZ Inspection of Lower Intestinal Tract, Via Natural or Artificial Opening Endoscopic (ICD-10-PCS; 2017-09-09)
PROC: 0DB98ZX Excision of Duodenum, Via Natural or Artificial Opening Endoscopic, Diagnostic (ICD-10-PCS; 2017-09-09 16:48)
DX: D53.9 Nutritional anemia, unspecified (principal); R56.9 Unspecified convulsions; K70.9 Alcoholic liver disease, unspecified; B19.20 Unspecified viral hepatitis C without hepatic coma; I10 Essential (primary) hypertension; F17.210 Nicotine dependence, cigarettes, uncomplicated; B85.0 Pediculosis due to Pediculus humanus capitis; E87.6 Hypokalemia; G89.29 Other chronic pain; M54.9 Dorsalgia, unspecified; K44.9 Diaphragmatic hernia without obstruction or gangrene; K57.30 Diverticulosis of large intestine without perforation or abscess without bleeding; K64.8 Other hemorrhoids; I25.2 Old myocardial infarction; Z80.0 Family history of malignant neoplasm of digestive organs
CPT/HCPCS: 36430; 70553; 71010; 74177; 80048; 80053; 80074; 80076; 80307; 81256; 82103; 82105; 82390; 82550; 82552; 82607; 82728; 82746; 82784; 83516; 83520; 83540; 83550; 83735; 84484; 85025; 85610; 85730; 86038; 86039; 86255; 86850; 86900; 86901; 86920; 87522; 87902; 88305; 88312; 93005; 95819; 96365; A9579; J0360; J1953; J3480; J7030; J7050; J7120; P9016; Q9963; Q9967